=== PATIENT | female | born 1970 | race Caucasian/White ===

== ENCOUNTER 2018-10-03 08:35 | Inpatient (IN) | payer MEDICARE ==
[2018-10-03 09:10] VITALS: BMI 25.2
--- NOTE | 2018-10-03 09:55 | HP ---
CIWA Score Nausea/Vomitin Muscle Tremors: 1-None Visible, but [place] Anxiety: 4-Mod. Anxious/Guarded Agitation: 0-Normal Activity Paroxysmal Sweats: No Perspiration Orientation: 0-Oriented Tacttile Disturbances: 0-None Auditory Disturbances: 0-None Visual Disturbances: 0-None Headache: 5-Severe CIWA-Ar Total Score: 15 - Admission Criteria OASAS Guidelines: Admission for Medically Managed Detox: Requires at least one of the followin. CIWA greater than 12 2. Seizures within the past 24 hours 3. Delirium tremens within the past 24 hours 4. Hallucinations within the past 24 hours 5. Acute intervention needed for co occurring medical disorder 6. Acute intervention needed for co occurring psychiatric disorder 7. Severe withdrawal that cannot be handled at a lower level of care (continued vomiting, continued diarrhea, abnormal vital signs) requiring intravenous medication and/or fluids 8. Patient presents the following: CIWA greater than 12, Seizures, delirium tremens or hallucinations in the past 12 hours Admission Criteria Met: Admission criteria met Admission ROS S - HPI Chief Complaint: " not good " Allergies/Adverse Reactions: Allergies Allergy/AdvReac Type Severity Reaction Status Date / Time Fish Containing Products Allergy Severe Hives Verified 10/03/18 09:34 lactose AdvReac Intermediate Vomiting Verified 10/03/18 09:34 NKDA Allergy Uncoded 10/03/18 09:34 lactose intolerance AdvReac Intermediate Vomiting Uncoded 10/03/18 09:34 History of Present Illness: pt here requesting detox from etoh use , most recent w/d seizure 1 mo ago went to [facility] , reports intermittent use since age 16 , latest use this morning , daily use 2 pints of vodka , starts drinking in the mornings , sometimes in the evenings, sometimes w/ nausea and vomiting if not drinking , prior detox at this facility 2016 . Longest sobriety 4 years w/ inpt and outpt program. Pt is very irritable during interview , monosyllabic answers to questions , states " I have answered these questions already " . Was at [facility] this morning , no d/c paperwork , states left it in the driver trainer's car who brought pt to this facility , states was given Librium today . tobacco : denies denies illicits PMHX : denies PShx : appy age 9 PSych : denies , denies Si / HI LMP 5 d ago , upt neg . Exam Limitations: Clinical Condition, Intoxication - Ebola screening Have you traveled outside of the country in the last 21 days: No Have you had contact with anyone from an Ebola affected area: No Have you been sick,other than usual withdrawal symptoms: No Do you have a fever: No - Review of Systems Constitutional: See HPI EENT: reports: See HPI, Other (contacts , denies dysphagia) Respiratory: reports: No Symptoms reported Cardiac: reports: No Symptoms Reported GI: reports: See HPI : reports: No Symptoms Reported Musculoskeletal: reports: No Symptoms Reported Integumentary: reports: No Symptoms Reported Neuro: reports: See HPI, Headache Endocrine: reports: No Symptoms Reported Psychiatric: reports: Orientated x3, Agitated, Anxious Patient History - Patient Medical History Hx Anemia: Yes Hx Asthma: No Hx Chronic Obstructive Pulmonary Disease (COPD): No Hx Cancer: No Hx Cardiac Disorders: No Hx Congestive Heart Failure: No Hx Hypertension: No Hx Hypercholesterolemia: No Hx Pacemaker: No HX Cerebrovascular Accident: No Hx Seizures: No Hx Dementia: No Hx Diabetes: No Hx Gastrointestinal Disorders: No Hx Liver Disease: No Hx Genitourinary Disorders: No Hx Sexually Transmitted Disorders: Yes (chlamydia) Hx Renal Disease (ESRD): No Hx Thyroid Disease: No Hx Human Immunodeficiency Virus (HIV): No (NEGATIVE HX-2012) Hx Hepatitis C: No Hx Depression: No Hx Suicide Attempt: No Hx Bipolar Disorder: No Hx Schizophrenia: No - Patient Surgical History Past Surgical History: Yes Hx Neurologic Surgery: No Hx Cataract Extraction: No Hx Cardiac Surgery: No Hx Lung Surgery: No Hx Breast Surgery: No Hx Breast Biopsy: No Hx Abdominal Surgery: No Hx Appendectomy: Yes (at age 9) Hx Cholecystectomy: No Hx Genitourinary Surgery: No Hx Section: No Hx Orthopedic Surgery: No Anesthesia Reaction: No - PPD History Previous Implant?: Yes Documented Results: Negative w/proof Implanted On Prior R Admission?: Yes Date: 04/03/15 Results: 0 mm - Reproductive History Last Menstrual Period: 09/29/18 Patient : No - Smoking Cessation Smoking history: Never smoked Have you smoked in the past 12 months: No Hx Chewing Tobacco Use: No Initiated information on smoking cessation: No - Substances Abused Alcohol-vodka Route: Oral Frequency: Daily Amount used: 2 pts. Age of first use: 16 Date of Last Use: 10/03/18 Family Disease History - Family Disease History Family Disease History: Respiratory: Mother (ALCOHOL,EMPHYSEMA; dec), Other: Father (ALCOHOLIC IN REMISSION), Mother Admission Physical Exam S - Vital Signs Vital Signs: Vital Signs - 24 hr 10/03/18 09:07 Temperature 98.3 F Pulse Rate 95 H Respiratory 17 Rate Blood Pressure 123/77 - Physical General Appearance: Yes: Mild Distress, Irritable, Anxious HEENTM: Yes: EOMI, Hearing grossly Normal, Normocephalic, Normal Voice Respiratory: Yes: Chest Non-Tender, Lungs Clear, Normal Breath Sounds Neck: Yes: No masses,lesions,Nodules, Trachea in good position Cardiology: Yes: Regular Rhythm, Regular Rate, S1, S2 Abdominal: Yes: Normal Bowel Sounds, Non Tender Back: Yes: Normal Inspection Musculoskeletal: Yes: full range of Motion, Gait Steady Extremities: Yes: Normal Capillary Refill, Non-Tender Neurological: Yes: Motor Strength 5/5 Integumentary: Yes: Normal Color, Warm, Track [place] - Diagnostic (1) Alcohol dependence with withdrawal Current Visit: Yes Status: Acute Qualifiers: Complication of substance-induced condition: uncomplicated Qualified Code(s ): F10.230 - Alcohol dependence with withdrawal, uncomplicated (2) Alcohol intoxication Current Visit: Yes Status: Acute Qualifiers: Complication of substance-induced condition: uncomplicated Qualified Code(s ): F10.920 - Alcohol use, unspecified with intoxication, uncomplicated S Breath Alcohol Content Breath Alcohol Content: 0.182 Urine Pregancy Test - Result Urine Test Results: Negative - NO Line Present Urine Drug Screen - Results Drug Screen Negative: No Urine Drug Screen Results: BZO-Benzodiazepines Inpatient Rehab Admission - Rehab Decision to Admit Inpatient rehab admission?: No
[2018-10-03] MEDS ORDERED: IBUPROFEN 400 MG TABLET (FP) PO PRN (10:32)
[2018-10-03] MEDS ORDERED: MENTHOL/PHENOL 1 EACH UD MM PRN (10:32)
[2018-10-03] MEDS ORDERED: MAGNESIUM CITRATE 300 ML BOTTLE PO PRN (10:32)
[2018-10-03] MEDS ORDERED: MAGNESIUM HYDROX 2400MG/30ML ORAL SUSPENSION 30 ML CUP PO PRN (10:32)
[2018-10-03] MEDS ORDERED: MAG HYDROX/AL HYDROX/SIMETH 30 ML UNIT-DOSE CUP PO PRN (10:32)
[2018-10-03] MEDS ORDERED: ACETAMINOPHEN 325 MG TABLET (FP) PO PRN (10:32)
[2018-10-03] MEDS ORDERED: chlordiazePOXIDE HCL 25 MG CAPSULE PO PRN (10:32)
[2018-10-03] MEDS: chlordiazePOXIDE HCL 25 MG CAPSULE PO SCH ×2 (17:36→22:08)
[2018-10-03] MEDS: THIAMINE HCL 100 MG TABLET (FP) PO SCH (22:08)
[2018-10-03] MEDS: MELATONIN 5 MG TABLETS PO PRN (22:08)
[2018-10-04] MEDS: chlordiazePOXIDE HCL 25 MG CAPSULE PO SCH ×4 (06:26→22:22)
[2018-10-04 10:16] LABS: HEMATOCRIT 40.4 % (32.4-45.2); HEMOGLOBIN 13.5 GM/dL (10.7-15.3); MCH 30.6 pg (25.7-33.7); MCHC 33.4 g/dl (32.0-36.0); MEAN CELL VOLUME 91.7 fl (80-96); MEAN PLT VOLUME 9.6 fl (7.5-11.1); PLATELET COUNT 327 K/MM3 (134-434); RDW 18.5 % (11.6-15.6); WHITE BLOOD COUNT 6.2 K/mm3 (4.0-10.0)
[2018-10-04] MEDS: PRENATAL VITAMINS W/ FOLIC ACID TABLET (FP) PO SCH (10:34)
[2018-10-04 11:44] LABS: ALBUMIN 4.2 g/dl (3.4-5.0); ALK PHOS 63 U/L (45-117); ANION GAP 13 MMOL/L (8-16); BILIRUBIN,TOTAL 0.7 mg/dL (0.2-1); BLOOD UREA NITROGEN 7 mg/dL (7-18); CALCIUM 8.5 mg/dL (8.5-10.1); CHLORIDE 101 mmol/L (98-107); CO2 28 mmol/L (21-32); CREATININE 0.7 mg/dL (0.55-1.3); GLUCOSE,RANDOM 90 mg/dL (74-106); POTASSIUM 3.9 mmol/L (3.5-5.1); SGOT/AST 41 U/L (15-37); SGPT/ALT 23 U/L (13-61); SODIUM 142 mmol/L (136-145)
--- NOTE | 2018-10-04 13:45 | PN ---
S CIWA - CIWA Score Nausea/Vomitin-Mild Nausea/No Vomiting Muscle Tremors: 4-Moderate,w/Arms Extend Anxiety: 4-Mod. Anxious/Guarded Agitation: 4-Moderately Restless Paroxysmal Sweats: 3 Orientation: 0-Oriented Tacttile Disturbances: 0-None Auditory Disturbances: 0-None Visual Disturbances: 0-None Headache: 0-None Present CIWA-Ar Total Score: 16 BHS Progress Note (SOAP) Subjective: nausea sweats shakes interrupted sleep body aches Objective: 10/04/18 13:44 Vital Signs Temperature 98.2 F 10/04/18 13:37 Pulse Rate 84 10/04/18 13:37 Respiratory Rate 16 10/04/18 13:37 Blood Pressure 138/93 10/04/18 13:37 O2 Sat by Pulse Oximetry (%) Laboratory Tests 10/03/18 10/04/18 10/04/18 10:30 06:00 06:00 WBC 6.2 RBC 4.40 Hgb 13.5 Hct 40.4 MCV 91.7 MCH 30.6 MCHC 33.4 RDW 18.5 H Plt Count 327 MPV 9.6 D Sodium 142 Potassium 3.9 Chloride 101 Carbon Dioxide 28 Anion Gap 13 BUN 7 Creatinine 0.7 Creat Clearance w eGFR > 60 Random Glucose 90 Calcium 8.5 Total Bilirubin 0.7 AST 41 H ALT 23 Alkaline Phosphatase 63 Total Protein 8.0 Albumin 4.2 RPR Titer HIV 1&2 Antibody Screen Negative HIV P24 Antigen Negative 10/04/18 06:00 WBC RBC Hgb Hct MCV MCH MCHC RDW Plt Count MPV Sodium Potassium Chloride Carbon Dioxide Anion Gap BUN Creatinine Creat Clearance w eGFR Random Glucose Calcium Total Bilirubin AST ALT Alkaline Phosphatase Total Protein Albumin RPR Titer Nonreactive HIV 1&2 Antibody Screen HIV P24 Antigen aaox3 ambulating no acute distress Assessment: 10/04/18 13:44 withdrawal sx Plan: continue detox increase fluids
[2018-10-04] MEDS: MELATONIN 5 MG TABLETS PO PRN (22:22)
[2018-10-04] MEDS: THIAMINE HCL 100 MG TABLET (FP) PO SCH (22:22)
[2018-10-05] MEDS: chlordiazePOXIDE HCL 25 MG CAPSULE PO SCH ×2 (05:21→10:11)
[2018-10-05] MEDS: PRENATAL VITAMINS W/ FOLIC ACID TABLET (FP) PO SCH (10:11)
[2018-10-05 10:14] VITALS: BP 95/68; PULSE 77; TEMP 99.1
--- NOTE | 2018-10-05 12:21 | PN ---
S CIWA - CIWA Score Nausea/Vomitin-No Nausea/No Vomiting Muscle Tremors: 3 Anxiety: 2 Agitation: 2 Paroxysmal Sweats: 2 Orientation: 0-Oriented Tacttile Disturbances: 0-None Auditory Disturbances: 0-None Visual Disturbances: 0-None Headache: 0-None Present CIWA-Ar Total Score: 9 BHS Progress Note (SOAP) Subjective: irritable sweats Objective: 10/05/18 12:20 Vital Signs Temperature 99.1 F 10/05/18 10:00 Pulse Rate 77 10/05/18 10:00 Respiratory Rate 16 10/05/18 10:00 Blood Pressure 95/68 10/05/18 10:00 O2 Sat by Pulse Oximetry (%) Laboratory Tests 10/03/18 10/04/18 10/04/18 10:30 06:00 06:00 WBC 6.2 RBC 4.40 Hgb 13.5 Hct 40.4 MCV 91.7 MCH 30.6 MCHC 33.4 RDW 18.5 H Plt Count 327 MPV 9.6 D Sodium 142 Potassium 3.9 Chloride 101 Carbon Dioxide 28 Anion Gap 13 BUN 7 Creatinine 0.7 Creat Clearance w eGFR > 60 Random Glucose 90 Calcium 8.5 Total Bilirubin 0.7 AST 41 H ALT 23 Alkaline Phosphatase 63 Total Protein 8.0 Albumin 4.2 RPR Titer HIV 1&2 Antibody Screen Negative HIV P24 Antigen Negative 10/04/18 06:00 WBC RBC Hgb Hct MCV MCH MCHC RDW Plt Count MPV Sodium Potassium Chloride Carbon Dioxide Anion Gap BUN Creatinine Creat Clearance w eGFR Random Glucose Calcium Total Bilirubin AST ALT Alkaline Phosphatase Total Protein Albumin RPR Titer Nonreactive HIV 1&2 Antibody Screen HIV P24 Antigen aaox3 ambulating no acute distress Assessment: 10/05/18 12:20 withdrawal sx Plan: continue detox increase fluids
--- NOTE | 2018-10-05 14:15 | PN ---
[facility] Progress Note Note: pt states she wants to go home. pt states she has to go to work tomorrow. pt was re-assessed and has no s/s of withdrawals. No s/s no N/V. pt was also told he has not completed her detox and will need to sign out AMA. pt is aware and insisted to leave. Pt is AAOx3, ambulating. pt was escorted off the unit.
--- NOTE | 2018-10-05 14:15 | DS ---
[facility] Detox Discharge Summary Admission Date: 10/03/18 - History Present History: Alcohol Dependence - Physical Exam Results Vital Signs: Vital Signs Temperature 99.1 F 10/05/18 10:00 Pulse Rate 77 10/05/18 10:00 Respiratory Rate 16 10/05/18 10:00 Blood Pressure 95/68 10/05/18 10:00 O2 Sat by Pulse Oximetry (%) - Treatment Hospital Course: Responded well, Discharged Condition Good - Medication Discharge Medications: Ambulatory Orders NK [No Known Home Medication] 10/03/18 - AMA Did Patient Leave Against Medical Advice: Yes (going home.)
[2018-10-05] MEDS ORDERED: chlordiazePOXIDE 5 MG CAPSULE PO SCH (17:00)
[2018-10-06] MEDS ORDERED: chlordiazePOXIDE HCL 10 MG CAPSULE PO SCH (17:00)
== END 2018-10-05 14:18 | disposition left against medical advice (07) | DRG 770 ==
LOC: YASAS 08:35 → Y6N 11:14
PROVIDERS: ADMIT Surgery; ATTEND Surgery
PROC: HZ2ZZZZ Detoxification Services for Substance Abuse Treatment (ICD-10-PCS; principal; 2018-10-03)
DX: F10.230 Alcohol dependence with withdrawal, uncomplicated (principal); Z20.2 Contact with and (suspected) exposure to infections with a predominantly sexual mode of transmission; E73.9 Lactose intolerance, unspecified; Z86.2 Personal history of diseases of the blood and blood-forming organs and certain disorders involving the immune mechanism; Z91.013 Allergy to seafood
CPT/HCPCS: 36415; 80053; 85027; 86593; 87389

== ENCOUNTER 2019-01-14 13:23 | Inpatient (IN) | payer SELFPAY ==
--- NOTE | 2019-01-14 13:35 | PN ---
[facility] Progress Note Note: pt intoxicated, BAC0.417 BP 121/75P 87 T 98.1 , unable to answer any questions , minimally arousable to verbal stimuli, unable to ambulate . has D /C paperwork from [facility] dated 01/14/19 11 am dx " alcohol intoxication " . Pt sent to [facility] ED for further stabilization , report to Dr Lewis. .
--- NOTE | 2019-01-14 23:36 | HP ---
CIWA Score Nausea/Vomitin Muscle Tremors: 1-None Visible, but [place] Anxiety: 4-Mod. Anxious/Guarded Agitation: 4-Moderately Restless Paroxysmal Sweats: 3 Orientation: 0-Oriented Tacttile Disturbances: 0-None Auditory Disturbances: 0-None Visual Disturbances: 1-Very Mild Sensitivity Headache: 4-Moderately Severe CIWA-Ar Total Score: 20 - Admission Criteria OASAS Guidelines: Admission for Medically Managed Detox: Requires at least one of the followin. CIWA greater than 12 2. Seizures within the past 24 hours 3. Delirium tremens within the past 24 hours 4. Hallucinations within the past 24 hours 5. Acute intervention needed for co occurring medical disorder 6. Acute intervention needed for co occurring psychiatric disorder 7. Severe withdrawal that cannot be handled at a lower level of care (continued vomiting, continued diarrhea, abnormal vital signs) requiring intravenous medication and/or fluids 8. Patient presents the following: CIWA greater than 12, Severe withdrawal requiring intravenous medication and/or fluids (retuurns from [facility] after being stabilized and cleared tp return) Admission Criteria Met: Admission criteria met Admission ROS [facility] Chief Complaint: WITHDRAWAL SX'S Allergies/Adverse Reactions: Allergies Allergy/AdvReac Type Severity Reaction Status Date / Time Fish Containing Products Allergy Severe Hives Verified 01/14/19 14:37 lactose AdvReac Intermediate Vomiting Verified 01/14/19 14:37 lactose intolerance AdvReac Intermediate Vomiting Uncoded 01/14/19 14:37 History of Present Illness: 48 Y.O. FEMALE WITH ALCOHOLISM HERE FOR DETOX. CLIENT RETURNS FROM [facility] AFTER BEING SENT THERE EARLIER FOR INTOXICATION. SHE NOW RETURNS AFTER BEING STABILIZED WITH IVF/BANNA BAGS AND REFERRED. PREVIOUS TO THAT SHE WAS AT [facility] FOR INTOXICATION. BUT DRANK BEFORE COMING HERE AFTER DC. . PRESENTS NOW AWAKE/ALERT WITH C/O OF WITHDRAWAL SX'S. CIWA 20. SHE IN KNOWN TO THIS PROGRAM . LAST DC 09/2018. REPORTS LONGEST CLEAN TIME IN THE PAST 5 YEARS 6 MONTHS. RELAPSING 03/2018. + HX/O WITHDRAWAL SZ. LAST EPISODE 09/2018. + FREQ [employer]. DENIES SI/HI/ AVH. DOMICILED, EMPLOYED. DENIES LEGALS. Exam Limitations: Intoxication (UNSTEADY GAIT) - Ebola screening Have you traveled outside of the country in the last 21 days: No (N) Have you had contact with anyone from an Ebola affected area: No Do you have a fever: No - Review of Systems Constitutional: Chills, Loss of Appetite, Night Sweats, Changes in sleep EENT: reports: No Symptoms Reported Respiratory: reports: No Symptoms reported Cardiac: reports: No Symptoms Reported GI: reports: Nausea, Poor Appetite, Poor Fluid Intake, Vomiting : reports: No Symptoms Reported Musculoskeletal: reports: No Symptoms Reported Integumentary: reports: Sweating Neuro: reports: Headache, Seizure, Tremors, Unsteady Gait Endocrine: reports: No Symptoms Reported Hematology: reports: Anemia (HX/O) Psychiatric: reports: Orientated x3, Agitated (IRRITABLE), Anxious, Depressed Other Systems: Reviewed and Negative Patient History - Patient Medical History Hx Anemia: Yes Hx Asthma: No Hx Chronic Obstructive Pulmonary Disease (COPD): No Hx Cancer: No Hx Cardiac Disorders: No Hx Congestive Heart Failure: No Hx Hypertension: Yes (NO MED MGMT ? ALCOHOL INDUCED) Hx Hypercholesterolemia: No Hx Pacemaker: No HX Cerebrovascular Accident: No Hx Seizures: No Hx Dementia: No Hx Diabetes: No Hx Gastrointestinal Disorders: No Hx Liver Disease: No Hx Genitourinary Disorders: No Hx Sexually Transmitted Disorders: Yes (chlamydia) Hx Renal Disease (ESRD): No Hx Thyroid Disease: No Hx Human Immunodeficiency Virus (HIV): No (NEGATIVE HX-2012) Hx Hepatitis C: No Hx Depression: No Hx Suicide Attempt: No Hx Bipolar Disorder: No Hx Schizophrenia: No - Patient Surgical History Past Surgical History: Yes Hx Neurologic Surgery: No Hx Cataract Extraction: No Hx Cardiac Surgery: No Hx Lung Surgery: No Hx Breast Surgery: No Hx Breast Biopsy: No Hx Abdominal Surgery: No Hx Appendectomy: Yes (at age 9) Hx Cholecystectomy: No Hx Genitourinary Surgery: No Hx Section: No Hx Orthopedic Surgery: No Anesthesia Reaction: No - PPD History Previous Implant?: Yes Documented Results: Negative w/proof Implanted On Prior [facility] Admission?: Yes Date: 10/05/18 Results: 0 mm PPD to be Administered?: No - Reproductive History Patient is a Female of Child Bearing Age (11 -55 yrs old): Yes Last Menstrual Period: 01/03/19 LMP comment: REG Patient : No (NEG CG) - Smoking Cessation Smoking history: Never smoked Have you smoked in the past 12 months: No Hx Chewing Tobacco Use: No Initiated information on smoking cessation: No - Substance & Tx. History Hx Alcohol Use: Yes Hx Substance Use: Yes Substance Use Type: Alcohol Hx Substance Use Treatment: Yes ([facility]) - Substances abused Alcohol Substance route: Oral Frequency: Daily Amount used: 1 pint of vodka Age of first use: 16 Date of last use: 01/14/19 Family Disease History - Family Disease History Family Disease History: Respiratory: Mother (ALCOHOL,EMPHYSEMA; dec), Other: Father (ALCOHOLIC IN REMISSION), Mother Admission Physical Exam [facility] - Physical General Appearance: Yes: Moderate Distress, Alcohol on Breath, Intoxicated, Tremorous, Irritable, Sweating, Anxious HEENTM: Yes: EOMI, Normocephalic, Normal Voice, ALICIA, Pharynx Normal Respiratory: Yes: Chest Non-Tender, Lungs Clear, Normal Breath Sounds, No Respiratory Distress, No Accessory Muscle Use Neck: Yes: No masses,lesions,Nodules, Supple, Trachea in good position Breast: Yes: Breast Exam Deferred Cardiology: Yes: Regular Rhythm, S1, S2, Tachycardia Abdominal: Yes: Non Tender, Decreased BS, Protuberent, Distended Genitourinary: Yes: Within Normal Limits Back: Yes: Other (SOFT TISSUE MASS TO LEFT SHOULDER) Musculoskeletal: Yes: full range of Motion, Other (UNSTEADY AGIT) Extremities: Yes: Normal Range of Motion, Non-Tender, Tremors Neurological: Yes: Fully Oriented, Alert, Motor Strength 5/5, Depressed Affect Integumentary: Yes: Dry, Warm Lymphatic: Yes: Within Normal Limits - Diagnostic (1) Alcohol dependence with withdrawal Current Visit: No Status: Acute Qualifiers: Complication of substance-induced condition: uncomplicated Qualified Code(s ): F10.230 - Alcohol dependence with withdrawal, uncomplicated (2) Alcohol intoxication Current Visit: No Status: Acute Qualifiers: Complication of substance-induced condition: with unspecified complication Qualified Code(s): F10.929 - Alcohol use, unspecified with intoxication, unspecified (3) Alcohol-induced mood disorder Current Visit: No Status: Acute (4) Seizure disorder Current Visit: No Status: Suspected Comment: with frequent blackouts. (5) Depressed affect Current Visit: Yes Status: Acute (6) Lipoma Current Visit: Yes Status: Acute Qualifiers: Lipoma location: other site Qualified Code(s): D17.79 - Benign lipomatous neoplasm of other sites Comment: LEFT UPPER BACK Cleared for Admission [facility] - Detox or Rehab S Level of Care: Medically Managed Detox Regimen/Protocol: Librium Claeared for Rehab Admission: No Inpatient Rehab Admission - Rehab Decision to Admit Inpatient rehab admission?: No
[2019-01-14] MEDS ORDERED: MAG HYDROX/AL HYDROX/SIMETH 30 ML UNIT-DOSE CUP PO PRN (23:37)
[2019-01-14] MEDS ORDERED: MAGNESIUM CITRATE 300 ML BOTTLE PO PRN (23:37)
[2019-01-14] MEDS ORDERED: guaiFENesin 200 MG/10 ML 10 ML UNIT-DOSE CUPS PO PRN (23:37)
[2019-01-14] MEDS ORDERED: DICYCLOMINE HCL 10 MG CAPSULE PO PRN (23:37)
[2019-01-14] MEDS ORDERED: P-EPHED 60MG/TRIPROLIDI 2.5MG TABLET PO PRN (23:37)
[2019-01-14] MEDS ORDERED: BISMUTH SUBSALICYLATE 524 MG/30 ML UD PO PRN (23:37)
[2019-01-14] MEDS ORDERED: chlordiazePOXIDE HCL 25 MG CAPSULE PO PRN (23:37)
[2019-01-14] MEDS ORDERED: MAGNESIUM HYDROX 2400MG/30ML ORAL SUSPENSION 30 ML CUP PO PRN (23:37)
[2019-01-14] MEDS ORDERED: IBUPROFEN 400 MG TABLET (FP) PO PRN (23:37)
[2019-01-14] MEDS ORDERED: METHOCARBAMOL 500 MG TABLET PO PRN (23:37)
[2019-01-14] MEDS ORDERED: ONDANSETRON *ODT* 4 MG TABLET SL PRN (23:37)
[2019-01-14] MEDS ORDERED: ACETAMINOPHEN 325 MG TABLET (FP) PO PRN ×2 (23:37)
[2019-01-14] MEDS ORDERED: hydrOXYzine PAMOATE 25 MG CAPSULE (FP) PO PRN (23:37)
[2019-01-14] MEDS ORDERED: MENTHOL/PHENOL 1 EACH UD MM PRN (23:37)
[2019-01-14 23:43] VITALS: BMI 25.7
[2019-01-15] MEDS: MELATONIN 5 MG TABLETS PO PRN ×2 (00:38→22:46)
[2019-01-15] MEDS: chlordiazePOXIDE HCL 25 MG CAPSULE PO SCH ×5 (00:54→22:42)
[2019-01-15 10:26] LABS: BILIRUBIN,TOTAL 0.2 mg/dL (0.2-1); BLOOD UREA NITROGEN 4.7 mg/dL (7-18); CALCIUM 7.5 mg/dL (8.5-10.1); CREATININE 0.5 mg/dL (0.55-1.3); POTASSIUM 3.5 mmol/L (3.5-5.1)
[2019-01-15] MEDS: PRENATAL VITAMINS W/ FOLIC ACID TABLET (FP) PO SCH (10:30)
[2019-01-15 10:36] LABS: HEMATOCRIT 28.7 % (32.4-45.2); HEMOGLOBIN 9.4 GM/dL (10.7-15.3); MCH 31.6 pg (25.7-33.7); MCHC 32.8 g/dl (32.0-36.0); MEAN CELL VOLUME 96.3 fl (80-96); MEAN PLT VOLUME 7.6 fl (7.5-11.1); PLATELET COUNT 317 K/MM3 (134-434); RBC 2.98 M/mm3 (3.60-5.2); RDW 19.5 % (11.6-15.6); WHITE BLOOD COUNT 3.4 K/mm3 (4.0-10.0)
--- NOTE | 2019-01-15 11:32 | CONSULT ---
[facility] Psychiatric Consult - Data Date of interview: 01/15/19 Admission source: [facility] Identifying data: This is one of multiple admissions to [facility] for this 48 y/ o female self-referred for detoxification (alcohol). Interviewed at [address] [place] [address]. Patient is single, no dependents, domiciled and reportedly employed. Substance Abuse History: Discussed in this session. Patient endorses a long standing history of alcohol abuse, from age 16 to present, which escalated around age 24. Ms Ramirez admits to consuming 1 pint of vodka daily. Dropped out of fellowship. Details in current [facility] report as follows : Smoking history: Never smoked. Have you smoked in the past 12 months: No. Hx Chewing Tobacco Use: No. Initiated information on smoking cessation: No. - Substance & Tx. History. Hx Alcohol Use: Yes. Hx Substance Use: Yes. Substance Use Type: Alcohol. Hx Substance Use Treatment: Yes ([facility]). Substances abused. Alcohol. Substance route: Oral. Frequency: Daily. Amount used: 1 pint of vodka. Age of first use: 16. Date of last use: 01/14/19 Medical History: Medical profile is consistent with anemia, hypertension ( withdrawal-induced), GERD, past treatment for chlamydia + genital herpes + gonorrhea, antecedent of alcohol withdrawal-related seizures and a distant history of appendectomy (age 9). Psychiatric History: Patient denies history of psychiatric hspitalizations. She , however, reports prior contact with Psychiatry around 2011 when she got diagnosed with MDD and given a trial of escitalopram. Patient admits to chronic non-adherence to OPD psychiatric care. Ms Ramirez indicates, in this interview, that she currently sees a psychiatrist at the [facility] [place] in [facility] for management of anxiety + insomnia. She is prescribed seroquel 50 mg/hs. Patient denies history of suicide attempts. Physical/Sexual Abuse/Trauma History: Not discussed. Patient declines. Additional Comment: No toxicology available for review. Mental Status Exam - Mental Status Exam Alert and Oriented to: Time, Place, Person Cognitive Function: Good Patient Appearance: Well Groomed Mood: Withdrawn, Hopeful Affect: Appropriate, Normal Range Patient Behavior: Fatigued, Appropriate, Cooperative Speech Pattern: Clear, Appropriate Voice Loudness: Normal Thought Process: Intact, Goal Oriented Thought Disorder: Not Present Hallucinations: Denies Suicidal Ideation: Denies Homicidal Ideation: Denies Insight/Judgement: Fair Sleep: Poorly, Difficulty falling asleep Appetite: Good Gait/Station: Normal Psychiatric Findings - Problem List ([place] 1, 2,3) (1) Alcohol dependence with withdrawal Current Visit: Yes Status: Acute Qualifiers: Complication of substance-induced condition: uncomplicated Qualified Code(s ): F10.230 - Alcohol dependence with withdrawal, uncomplicated (2) Alcohol-induced mood disorder Current Visit: Yes Status: Suspected (3) Insomnia Current Visit: Yes Status: Chronic - Initial Treatment Plan Initial Treatment Plan: Records at [facility] : reviewed. Psychoeducation. Detoxification in progress. Sleep hygiene. Motivational counseling for sobriety. Relapse prevention (MAT) : discussed in this session. AA meetings. Support. Groups. Seroquel 50 mg po hs. Side effects/benefits discussed with patient (which includes potential for metabolic syndrome, oversedation, abnormal involuntary movements and falls). Ms Ramirez gave verbal consent, to this board writer, for this plan of care. Observation.
[2019-01-15] MEDS: HYDROCORTISONE 0.5% TOPICAL CREAM 30 GM TUBE TP SCH ×2 (15:56→22:42)
--- NOTE | 2019-01-15 16:32 | PN ---
[facility] CIWA - CIWA Score Nausea/Vomitin Muscle Tremors: None Anxiety: 4-Mod. Anxious/Guarded Agitation: 2 Paroxysmal Sweats: No Perspiration Orientation: 0-Oriented Tacttile Disturbances: 3-Moderate Itch/Numb/Burn Auditory Disturbances: 0-None Visual Disturbances: 2-Mild Sensitivity Headache: 0-None Present CIWA-Ar Total Score: 13 S Progress Note (SOAP) Subjective: Interrupted Sleep, Nausea, H/A, Anxious. Objective: PATIENT A & O X 3, OBSERVED AMBULATING ON UNIT UNASSISTED. IN NO ACUTE DISTRESS. 01/15/19 16:28 Vital Signs Temperature 98.7 F 01/15/19 13:26 Pulse Rate 80 01/15/19 16:00 Respiratory Rate 18 01/15/19 16:00 Blood Pressure 160/104 H 01/15/19 13:26 O2 Sat by Pulse Oximetry (%) Laboratory Tests 01/15/19 01/15/19 01/15/19 00:03 07:30 07:30 WBC 3.4 L RBC 2.98 L Hgb 9.4 L Hct 28.7 L D MCV 96.3 H MCH 31.6 MCHC 32.8 RDW 19.5 H Plt Count 317 MPV 7.6 Sodium 147 H Potassium 3.5 Chloride 113 H Carbon Dioxide 25 Anion Gap 9 BUN 4.7 L Creatinine 0.5 L Est GFR (CKD-EPI)AfAm 134.52 Est GFR (CKD-EPI)NonAf 116.07 Random Glucose 68 L Calcium 7.5 L Total Bilirubin 0.2 AST 27 ALT 17 Alkaline Phosphatase 49 Total Protein 6.0 L Albumin 3.0 L POC Urine HCG, Qual Negative RPR Titer 01/15/19 07:30 WBC RBC Hgb Hct MCV MCH MCHC RDW Plt Count MPV Sodium Potassium Chloride Carbon Dioxide Anion Gap BUN Creatinine Est GFR (CKD-EPI)AfAm Est GFR (CKD-EPI)NonAf Random Glucose Calcium Total Bilirubin AST ALT Alkaline Phosphatase Total Protein Albumin POC Urine HCG, Qual RPR Titer Nonreactive LABS NOTED. Assessment: 01/15/19 16:30 WITHDRAWAL SYMPTOMS. HYPOCALCEMIA. LEUKOPENIA. ANEMIA. Plan: CONTINUE DETOX. INCREASE DAILY PO FLUID / WATER INTAKE. OSCAL, 500 MG PO BID FOR LOW ADMISSION CALCIUM LEVEL. PATIENT IS CURRENTLY RECEIVING DAILY MVI CONTAINING B VITAMINS AND IRON WHILE ADMITTED FOR DETOX. REPEAT CBC TOMOROW AM FOR ANEMIA AND LEUKOPENIA NOTED ON DETOX ADMISSION LABORATORY ASSESSMENT.
[2019-01-15] MEDS ORDERED: cloNIDine HCL 0.1 MG TABLET PO PRN (18:27)
[2019-01-15] MEDS ORDERED: THIAMINE HCL 100 MG TABLET (FP) PO SCH (22:00)
[2019-01-15] MEDS: CALCIUM 500MG/VIT-D 200 UNITS COMBO TABLET (FP) PO SCH (22:43)
[2019-01-16] MEDS: chlordiazePOXIDE HCL 25 MG CAPSULE PO SCH (05:43)
[2019-01-16 09:46] VITALS: BP 152/90; PULSE 87; TEMP 98.8
[2019-01-16] MEDS: HYDROCORTISONE 0.5% TOPICAL CREAM 30 GM TUBE TP SCH (11:10)
[2019-01-16] MEDS: CALCIUM 500MG/VIT-D 200 UNITS COMBO TABLET (FP) PO SCH (11:11)
[2019-01-16] MEDS: PRENATAL VITAMINS W/ FOLIC ACID TABLET (FP) PO SCH (11:11)
[2019-01-16 12:11] LABS: EPI CELLS 3.6 /HPF (0-5/HPF); HYALINE CASTS 1 /lpf (0-8); URINE APPEARANCE TURBID; URINE BACTERIA 268.1 /hpf (NEGATIVE); URINE BILIRUBIN NEGATIVE (NEGATIVE); URINE COLOR ORANGE; URINE GLUCOSE (UA) NEGATIVE (NEGATIVE); URINE KETONE TRACE (NEGATIVE); URINE LEUK ESTERASE TRACE (NEGATIVE); URINE NITRITE NEGATIVE (NEGATIVE); URINE PROTEIN TRACE (NEGATIVE); URINE RBC 0 /hpf (0-4); URINE UROBILINOGEN 0.2 mg/dL (0.2-1.0); URINE WBC 5 /hpf (0-5)
--- NOTE | 2019-01-16 14:29 | PN ---
S CIWA - CIWA Score Nausea/Vomitin Muscle Tremors: None Anxiety: 2 Agitation: 1-Slight > Activity Paroxysmal Sweats: No Perspiration Orientation: 0-Oriented Tacttile Disturbances: 2-Mild Itch/Numbness/Burn Auditory Disturbances: 0-None Visual Disturbances: 2-Mild Sensitivity Headache: 2-Mild CIWA-Ar Total Score: 12 BHS COWS - Scale Resting Pulse: 1= [place] 81-100 Sweatin= No chills or Flushing Restless Observation: 1= Difficult to Sit Still Pupil Size: 0= Normal to Room Light Bone or Joint Aches: 0= None Runny Nose/ Eye Tearin= None GI Upset > 30mins: 2= Nausea/Diarrhea Tremor Observation of Outstretched Hands: 0= None Yawning Observation: 1= 1-2x During Session Anxiety or Irritability: 2=Irritable/Anxious Goose Flesh Skin: 3=Piloerection COWS Score: 10 BHS Progress Note (SOAP) Subjective: Nausea, Interrupted Sleep, H/A, Anxious. Objective: PATIENT A & O X 3, OBSERVED AMBULATING ON UNIT UNASSISTED. IN NO ACUTE DISTRESS. 01/16/19 14:30 Vital Signs Temperature 98.8 F 01/16/19 09:45 Pulse Rate 87 01/16/19 09:45 Respiratory Rate 18 01/16/19 09:45 Blood Pressure 152/90 01/16/19 09:45 O2 Sat by Pulse Oximetry (%) Laboratory Tests 01/15/19 01/15/19 01/15/19 00:03 07:30 07:30 WBC 3.4 L RBC 2.98 L Hgb 9.4 L Hct 28.7 L D MCV 96.3 H MCH 31.6 MCHC 32.8 RDW 19.5 H Plt Count 317 MPV 7.6 Sodium 147 H Potassium 3.5 Chloride 113 H Carbon Dioxide 25 Anion Gap 9 BUN 4.7 L Creatinine 0.5 L Est GFR (CKD-EPI)AfAm 134.52 Est GFR (CKD-EPI)NonAf 116.07 Random Glucose 68 L Calcium 7.5 L Total Bilirubin 0.2 AST 27 ALT 17 Alkaline Phosphatase 49 Total Protein 6.0 L Albumin 3.0 L Urine Color Urine Appearance Urine pH Ur Specific [place] Urine Protein Urine Glucose (UA) Urine Ketones Urine Blood Urine Nitrite Urine Bilirubin Urine Urobilinogen Ur Leukocyte Esterase Urine WBC (Auto) Urine RBC (Auto) Urine Casts (Auto) U Pathogenic Cast Auto U Epithel Cells (Auto) U Sm Round Cell (Auto) Urine Crystals (Auto) Urine Bacteria (Auto) POC Urine HCG, Qual Negative RPR Titer 01/15/19 01/16/19 07:30 10:15 WBC RBC Hgb Hct MCV MCH MCHC RDW Plt Count MPV Sodium Potassium Chloride Carbon Dioxide Anion Gap BUN Creatinine Est GFR (CKD-EPI)AfAm Est GFR (CKD-EPI)NonAf Random Glucose Calcium Total Bilirubin AST ALT Alkaline Phosphatase Total Protein Albumin Urine Color [place] Urine Appearance Turbid Urine pH 6.0 Ur Specific [place] 1.027 Urine Protein Trace Urine Glucose (UA) Negative Urine Ketones Trace H Urine Blood Negative Urine Nitrite Negative Urine Bilirubin Negative Urine Urobilinogen 0.2 Ur Leukocyte Esterase Trace Urine WBC (Auto) 5 Urine RBC (Auto) 0 Urine Casts (Auto) 1 U Pathogenic Cast Auto No Result Required. U Epithel Cells (Auto) 3.6 U Sm Round Cell (Auto) No Result Required. Urine Crystals (Auto) No Result Required. Urine Bacteria (Auto) 268.1 POC Urine HCG, Qual RPR Titer Nonreactive LABS NOTED. Assessment: 01/16/19 14:30 WITHDRAWAL SYMPTOMS. HYPOCALCEMIA. ANEMIA (PATIENT REPORTS HISTORY OF ANEMIA). LEUKOPENIA. Plan: CONTINUE DETOX. CONTINUE OSCAL BID.
--- NOTE | 2019-01-16 14:39 | DS ---
[facility] Detox Discharge Summary Admission Date: 01/14/19 Discharge Date: 01/16/19 - History Present History: Alcohol Dependence Additional Comments: PATIENT REPORTS THAT SHE HAS PERSONAL ISSUES TO ATTEND TO AND THAT SHE DOES NOT WISH TO REMAIN TO COMPLETE DETOX REGIMEN. RISKS OF LEAVING DETOX UNIT AGAINST MEDICAL ADVICE AND PRIOR TO COMPLETION OF DETOX REGIMEN EXPLAINED TO PATIENT. PATIENT ADVISED TO GO IMMEDIATELY TO NEAREST ER SHOULD ANY INTOLERABLE WITHDRAWAL / DETOX SYMPTOMS DEVELOP AT ANY TIME. PATIENT ADVISED TO FOLLOW-UP WITH FILM AND VIDEO GRAPHICS DESIGNER SOON POSSIBLE FOR GENERAL MEDICAL ASSESSMENT AND FOR ANEMIA, LEUKOPENIA, AND FOR HYPOCALCEMIA NOTED ON DETOX ADMISSION LABORATORY ASSESSMENT. PATIENT VERBALIZED UNDERSTANDING OF ALL INFORMATION / RECOMMENDATIONS PRESENTED TO HER PRIOR TO DEPARTURE FROM DETOX UNIT. COPIES OF RESULTS OF ALL LABS DRAWN WHILE ADMITTED FOR DETOX GIVEN TO PATIENT AT TIME OF DISCHARGE FROM DETOX UNIT. PATIENT LEFT DETOX UNIT IN STABLE MEDICAL CONDITION. Pertinent Past History: History of Seizure Disorder, History Of Anemia, HTN, History Of Lipoma, Leukopenia, Hypocalcemia, Insomnia. - Physical Exam Results Vital Signs: Vital Signs Temperature 98.8 F 01/16/19 09:45 Pulse Rate 87 01/16/19 09:45 Respiratory Rate 18 01/16/19 09:45 Blood Pressure 152/90 01/16/19 09:45 O2 Sat by Pulse Oximetry (%) Pertinent Admission Physical Exam Findings: WITHDRAWAL SYMPTOMS. Laboratory Tests 01/15/19 01/15/19 01/15/19 00:03 07:30 07:30 WBC 3.4 L RBC 2.98 L Hgb 9.4 L Hct 28.7 L D MCV 96.3 H MCH 31.6 MCHC 32.8 RDW 19.5 H Plt Count 317 MPV 7.6 Sodium 147 H Potassium 3.5 Chloride 113 H Carbon Dioxide 25 Anion Gap 9 BUN 4.7 L Creatinine 0.5 L Est GFR (CKD-EPI)AfAm 134.52 Est GFR (CKD-EPI)NonAf 116.07 Random Glucose 68 L Calcium 7.5 L Total Bilirubin 0.2 AST 27 ALT 17 Alkaline Phosphatase 49 Total Protein 6.0 L Albumin 3.0 L Urine Color Urine Appearance Urine pH Ur Specific [place] Urine Protein Urine Glucose (UA) Urine Ketones Urine Blood Urine Nitrite Urine Bilirubin Urine Urobilinogen Ur Leukocyte Esterase Urine WBC (Auto) Urine RBC (Auto) Urine Casts (Auto) U Pathogenic Cast Auto U Epithel Cells (Auto) U Sm Round Cell (Auto) Urine Crystals (Auto) Urine Bacteria (Auto) POC Urine HCG, Qual Negative RPR Titer 01/15/19 01/16/19 07:30 10:15 WBC RBC Hgb Hct MCV MCH MCHC RDW Plt Count MPV Sodium Potassium Chloride Carbon Dioxide Anion Gap BUN Creatinine Est GFR (CKD-EPI)AfAm Est GFR (CKD-EPI)NonAf Random Glucose Calcium Total Bilirubin AST ALT Alkaline Phosphatase Total Protein Albumin Urine Color [place] Urine Appearance Turbid Urine pH 6.0 Ur Specific [place] 1.027 Urine Protein Trace Urine Glucose (UA) Negative Urine Ketones Trace H Urine Blood Negative Urine Nitrite Negative Urine Bilirubin Negative Urine Urobilinogen 0.2 Ur Leukocyte Esterase Trace Urine WBC (Auto) 5 Urine RBC (Auto) 0 Urine Casts (Auto) 1 U Pathogenic Cast Auto No Result Required. U Epithel Cells (Auto) 3.6 U Sm Round Cell (Auto) No Result Required. Urine Crystals (Auto) No Result Required. Urine Bacteria (Auto) 268.1 POC Urine HCG, Qual RPR Titer Nonreactive LABS NOTED. - Treatment Hospital Course: Detox Protocol Followed, Detoxed Safely - Medication Discharge Medications: Ambulatory Orders Quetiapine Fumarate [Seroquel -] 50 mg PO HS 01/14/19 - Diagnosis (1) Hypocalcemia Status: Acute (2) Anemia Status: Acute Qualifiers: Anemia type: unspecified type Qualified Code(s): D64.9 - Anemia, unspecified (3) Leukopenia Status: Acute Qualifiers: Leukopenia type: unspecified Qualified Code(s): D72.819 - Decreased white blood cell count, unspecified (4) Seizure disorder Status: Suspected (5) Alcohol intoxication Status: Acute Qualifiers: Complication of substance-induced condition: with unspecified complication Qualified Code(s): F10.929 - Alcohol use, unspecified with intoxication, unspecified (6) Alcohol-induced mood disorder Status: Suspected (7) Alcohol dependence with withdrawal Status: Acute Qualifiers: Complication of substance-induced condition: uncomplicated Qualified Code(s ): F10.230 - Alcohol dependence with withdrawal, uncomplicated (8) Depressed affect Status: Acute (9) Lipoma Status: Acute Qualifiers: Lipoma location: other site Qualified Code(s): D17.79 - Benign lipomatous neoplasm of other sites (10) Insomnia Status: Chronic Qualifiers: Insomnia type: unspecified Qualified Code(s): G47.00 - Insomnia, unspecified - AMA Did Patient Leave Against Medical Advice: Yes (PT HAD PERSONAL ISSUES AND DID NOT WISH TO REMIAN TO COMPLETE DETOX.)
[2019-01-16] MEDS ORDERED: chlordiazePOXIDE HCL 10 MG CAPSULE PO SCH (23:00)
[2019-01-16] MEDS ORDERED: chlordiazePOXIDE HCL 10 MG CAPSULE PO PRN (23:00)
[2019-01-17] MEDS ORDERED: chlordiazePOXIDE HCL 10 MG CAPSULE PO SCH (23:00)
== END 2019-01-16 11:15 | disposition left against medical advice (07) | DRG 770 ==
LOC: YASAS 13:23 → Y3N 23:45
PROVIDERS: ADMIT Surgery; ATTEND Surgery
PROC: HZ2ZZZZ Detoxification Services for Substance Abuse Treatment (ICD-10-PCS; principal; 2019-01-14)
DX: F10.230 Alcohol dependence with withdrawal, uncomplicated (principal); F10.220 Alcohol dependence with intoxication, uncomplicated; F10.24 Alcohol dependence with alcohol-induced mood disorder; D72.819 Decreased white blood cell count, unspecified; D69.6 Thrombocytopenia, unspecified; D17.79 Benign lipomatous neoplasm of other sites; E83.51 Hypocalcemia; G47.00 Insomnia, unspecified; I10 Essential (primary) hypertension; R45.89 Other symptoms and signs involving emotional state; Z86.19 Personal history of other infectious and parasitic diseases; Z86.69 Personal history of other diseases of the nervous system and sense organs
CPT/HCPCS: 36415; 80053; 81003; 81025; 85027; 86593; J0735

== ENCOUNTER 2019-01-14 14:10 | Emergency (ER) | payer SELFPAY | END 2019-01-14 23:14 | disposition home or self-care (01) | LOC: JER 14:10 ==

== ENCOUNTER 2019-02-16 15:32 | Inpatient (IN) | payer OTHER ==
[2019-02-16 17:17] VITALS: BMI 25.2
--- NOTE | 2019-02-16 19:25 | HP ---
CIWA Score Nausea/Vomitin-Mild Nausea/No Vomiting Muscle Tremors: 3 Anxiety: 4-Mod. Anxious/Guarded Agitation: 3 Paroxysmal Sweats: 1-Minimal Palms Moist Orientation: 1-Uncertain about Date Tacttile Disturbances: 0-None Auditory Disturbances: 0-None Visual Disturbances: 0-None Headache: 3-Moderate CIWA-Ar Total Score: 16 - Admission Criteria OASAS Guidelines: Admission for Medically Managed Detox: Requires at least one of the followin. CIWA greater than 12 2. Seizures within the past 24 hours 3. Delirium tremens within the past 24 hours 4. Hallucinations within the past 24 hours 5. Acute intervention needed for co occurring medical disorder 6. Acute intervention needed for co occurring psychiatric disorder 7. Severe withdrawal that cannot be handled at a lower level of care (continued vomiting, continued diarrhea, abnormal vital signs) requiring intravenous medication and/or fluids 8. Admission ROS [facility] Chief Complaint: seeking help for alcohol use Allergies/Adverse Reactions: Allergies Allergy/AdvReac Type Severity Reaction Status Date / Time Fish Containing Products Allergy Severe Hives Verified 01/14/19 14:37 lactose AdvReac Intermediate Vomiting Verified 01/14/19 14:37 lactose intolerance AdvReac Intermediate Vomiting Uncoded 01/14/19 14:37 History of Present Illness: 48 y/o/f here for alcohol use. She was last here about a month ago for detox and relapsed a few days after being discharged. She has episodes of binge drinking. During her binge drinking episodes she drinks a quart of vodka on average. Her last drink was this morning. When she does not drink she starts to get the shakes and gets nauseous. She states she fights through her withdrawal symptoms when she does not drink. She was seen in the [facility] ER a few weeks ago for alcohol intoxication and was given Librium at that time. She denies any tobacco or other illicit substance use. 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 Patient has a history of seizures, most recent seizure a few weeks ago when she was withdrawing. She did not go to a hospital at that time. She is not on any seizure medications. She has a history of blackouts, most recently yesterday when she woke up without remembering what happened the night before. PMHx of HTN. - Ebola screening Have you traveled outside of the country in the last 21 days: No Have you had contact with anyone from an Ebola affected area: No - Review of Systems Constitutional: No Symptoms Reported EENT: reports: No Symptoms Reported Respiratory: reports: No Symptoms reported Cardiac: reports: No Symptoms Reported GI: reports: Nausea : reports: No Symptoms Reported Integumentary: reports: No Symptoms Reported Neuro: reports: Headache, Tremors Endocrine: reports: No Symptoms Reported Hematology: reports: No Symptoms Reported Psychiatric: reports: Agitated, Anxious Other Systems: Reviewed and Negative Patient History - Patient Medical History Hx Anemia: Yes Hx Asthma: No Hx Chronic Obstructive Pulmonary Disease (COPD): No Hx Cancer: No Hx Cardiac Disorders: No Hx Congestive Heart Failure: No Hx Hypertension: Yes (on meds) Hx Hypercholesterolemia: No Hx Pacemaker: No HX Cerebrovascular Accident: No Hx Seizures: No Hx Dementia: No Hx Diabetes: No Hx Gastrointestinal Disorders: No Hx Liver Disease: No Hx Genitourinary Disorders: No Hx Sexually Transmitted Disorders: Yes (chlamydia) Hx Renal Disease (ESRD): No Hx Thyroid Disease: No Hx Human Immunodeficiency Virus (HIV): No (NEGATIVE HX-2012) Hx Hepatitis C: No Hx Depression: No Hx Suicide Attempt: No Hx Bipolar Disorder: No Hx Schizophrenia: No - Patient Surgical History Past Surgical History: Yes Hx Neurologic Surgery: No Hx Cataract Extraction: No Hx Cardiac Surgery: No Hx Lung Surgery: No Hx Breast Surgery: No Hx Breast Biopsy: No Hx Abdominal Surgery: No Hx Appendectomy: Yes (at age 9) Hx Cholecystectomy: No Hx Genitourinary Surgery: No Hx Section: No Hx Orthopedic Surgery: No Anesthesia Reaction: No - PPD History Previous Implant?: Yes Documented Results: Negative w/o proof Implanted On Prior [facility] Admission?: Yes Date: 10/05/18 Results: 0 mm PPD to be Administered?: No - Reproductive History Last Menstrual Period: 01/03/19 - Smoking Cessation Smoking history: Never smoked Have you smoked in the past 12 months: No Hx Chewing Tobacco Use: No Initiated information on smoking cessation: No - Substances abused Alcohol Substance route: Oral Frequency: 3-6 times per week Amount used: quart of vodka Age of first use: 16 Date of last use: 02/16/19 Family Disease History - Family Disease History Family Disease History: Respiratory: Mother (ALCOHOL,EMPHYSEMA; dec), Other: Father (ALCOHOLIC IN REMISSION), Mother Admission Physical Exam BHS - Vital Signs Vital Signs: Vital Signs - 24 hr 02/16/19 17:12 Temperature 97.3 F L Pulse Rate 99 H Respiratory 16 Rate Blood Pressure 126/87 - Physical General Appearance: Yes: No Apparent Distress HEENTM: Yes: EOMI, Normocephalic Respiratory: Yes: Lungs Clear, Normal Breath Sounds, No Accessory Muscle Use Neck: Yes: Supple Cardiology: Yes: Regular Rhythm, S1, S2, Tachycardia Abdominal: Yes: Normal Bowel Sounds Extremities: Yes: Normal Capillary Refill, Tremors. 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 NML intact, Fully Oriented, Alert, Motor Strength 5/5 Integumentary: Yes: Dry - Diagnostic (1) Alcohol use disorder Current Visit: Yes Status: Acute Cleared for Admission [facility] - Detox or Rehab [facility] Level of Care: Medically Supervised 2Day Detox Regimen/Protocol: Librium Breathalyzer - Breathalyzer Breathalyzer: 0.050 Urine Drug Screen - Test Device Lot number: [id number] Expiration date: 11/28/20 - Control Is test valid?: Yes - Results Drug screen NEGATIVE: No Urine drug screen results: BZO-Benzodiazepines Inpatient Rehab Admission - Rehab Decision to Admit Inpatient rehab admission?: No
--- NOTE | 2019-02-16 19:41 | PN ---
Teaching Attending Note Name of Resident: Ilda Argueta ATTENDING PHYSICIAN STATEMENT I saw and evaluated the patient. I reviewed the resident's note and discussed the case with the resident. I agree with the resident's findings and plan as documented. SUBJECTIVE: pt here requesting detox from etoh use , relapse after d/c from this facility December 2018 , w/ h/o w/d seizures claims most recently a few weeks ago , in the past went to [facility] , reports intermittent use of alcohol since age 16 , latest use this morning , daily use 1/4 vodka , starts drinking in the mornings , sometimes in the evenings, sometimes w/ nausea and vomiting if not drinking . Longest sobriety 4 years w/ inpt and outpt program. Claims went to [facility] 2 weeks ago and was given librium . tobacco : denies denies illicits PMHX : denies PShx : appy age 9 PSych : denies , denies Si / HI . OBJECTIVE: wnwd , irritable , monosyllabic answers to questions, hostile . CV : tachycarida UE tremors AAO x3 ASSESSMENT AND PLAN: Alcohol dependence - Librium taper pt states she is not interested in rehab
[2019-02-16] MEDS ORDERED: MENTHOL/PHENOL 1 EACH UD MM PRN (19:44)
[2019-02-16] MEDS ORDERED: MAGNESIUM HYDROX 2400MG/30ML ORAL SUSPENSION 30 ML CUP PO PRN (19:44)
[2019-02-16] MEDS ORDERED: BISMUTH SUBSALICYLATE 524 MG/30 ML UD PO PRN (19:44)
[2019-02-16] MEDS ORDERED: hydrOXYzine HCL 25 MG TABLET (FP) PO PRN (19:44)
[2019-02-16] MEDS ORDERED: MAGNESIUM CITRATE 300 ML BOTTLE PO PRN (19:44)
[2019-02-16] MEDS ORDERED: chlordiazePOXIDE HCL 25 MG CAPSULE PO PRN (19:44)
[2019-02-16] MEDS ORDERED: MAG HYDROX/AL HYDROX/SIMETH 30 ML UNIT-DOSE CUP PO PRN (19:44)
[2019-02-16] MEDS ORDERED: METHOCARBAMOL 500 MG TABLET PO PRN (19:44)
[2019-02-16] MEDS ORDERED: IBUPROFEN 400 MG TABLET (FP) PO PRN (19:44)
[2019-02-16] MEDS ORDERED: ACETAMINOPHEN 325 MG TABLET (FP) PO PRN ×2 (19:44)
[2019-02-16] MEDS: chlordiazePOXIDE HCL 25 MG CAPSULE PO SCH (22:46)
[2019-02-16] MEDS: HYDROCORTISONE 1% TOPICAL CREAM 30 GM TUBE TP SCH (22:47)
[2019-02-16] MEDS: THIAMINE HCL 100 MG TABLET (FP) PO SCH (22:47)
[2019-02-16] MEDS: MELATONIN 5 MG TABLETS PO PRN (22:47)
[2019-02-17] MEDS: chlordiazePOXIDE HCL 25 MG CAPSULE PO SCH ×4 (06:12→22:37)
[2019-02-17] MEDS: PRENATAL VITAMINS W/ FOLIC ACID TABLET (FP) PO SCH (10:28)
[2019-02-17] MEDS: amLODIPine BESYLATE 5 MG TABLET (FP) PO SCH (10:28)
[2019-02-17] MEDS: HYDROCORTISONE 1% TOPICAL CREAM 30 GM TUBE TP SCH ×2 (10:29→22:38)
--- NOTE | 2019-02-17 15:01 | CONSULT ---
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 This is one of multiple admissions for patient. Patient admitted to for alcohol dependence. Substance Abuse History: Smoking Cessation. Smoking history: Never smoked. Have you smoked in the past 12 months: No. Hx Chewing Tobacco Use: No. Initiated information on smoking cessation: No. - Substances abused. Alcohol. Substance route: Oral. Frequency: 3-6 times per week. Amount used: quart of vodka. Age of first use: 16. Date of last use: 02/16/19 Medical History: hypertension, chlamydia, Appendectomy Psychiatric History: Patient denies h/o psychiatric hospitalization and suicide attempt. Ms. Ramirez's most recent outpatient psychiatric care was in the summer of 2017 at the [facility]. States she was prescribed seroquel 100mg for insomnia. States she has been tried on benadryl, trazodone, tylenol PM but none of the medications worked effectively. At present, patient reports stable mood but is experiencing difficulty sleeping. Physical/Sexual Abuse/Trauma History: denies. Mental Status Exam - Mental Status Exam Alert and Oriented to: Time, Place, Person Cognitive Function: Good Patient Appearance: Well Groomed Mood: Euthymic Affect: Appropriate Patient Behavior: Cooperative Speech Pattern: Appropriate Voice Loudness: Normal Thought Process: Goal Oriented Thought Disorder: Not Present Hallucinations: Denies Suicidal Ideation: Denies Homicidal Ideation: Denies Insight/Judgement: Poor Sleep: Poorly Appetite: Fair Muscle strength/Tone: Normal Gait/Station: Normal Psychiatric Findings - Problem List ([place] 1, 2,3) (1) Alcohol use disorder Current Visit: Yes Status: Acute (2) Insomnia Current Visit: Yes Status: Acute Qualifiers: Insomnia type: unspecified Qualified Code(s): G47.00 - Insomnia, unspecified - Initial Treatment Plan Initial Treatment Plan: Psychoeducation provided. Detoxification in progress. Will order Seroquel 100mg HS. Benefits and side effects discussed. Verbal consent given.
[2019-02-17] MEDS: QUEtiapine FUMARATE 100 MG TABLET (FP) PO SCH (22:37)
[2019-02-17] MEDS: THIAMINE HCL 100 MG TABLET (FP) PO SCH (22:37)
[2019-02-17] MEDS: MELATONIN 5 MG TABLETS PO PRN (22:37)
[2019-02-18] MEDS: chlordiazePOXIDE HCL 25 MG CAPSULE PO SCH ×4 (06:01→22:45)
[2019-02-18] MEDS ORDERED: COLLOIDAL OATMEAL 1 BAR EACH TP PRN (09:35)
[2019-02-18] MEDS ORDERED: COLLOIDAL OATMEAL 1 BAR EACH TP ONE (09:35)
[2019-02-18] MEDS: amLODIPine BESYLATE 5 MG TABLET (FP) PO SCH (10:30)
[2019-02-18] MEDS: PRENATAL VITAMINS W/ FOLIC ACID TABLET (FP) PO SCH (10:30)
[2019-02-18] MEDS: HYDROCORTISONE 1% TOPICAL CREAM 30 GM TUBE TP SCH ×2 (10:32→22:46)
[2019-02-18 10:44] LABS: ALBUMIN 2.9 g/dl (3.4-5.0); BILIRUBIN,TOTAL 0.4 mg/dL (0.2-1); BLOOD UREA NITROGEN 8.6 mg/dL (7-18); CREATININE 0.6 mg/dL (0.55-1.3); POTASSIUM 3.7 mmol/L (3.5-5.1); TOT PROT 6.3 g/dl (6.4-8.2)
[2019-02-18 10:45] LABS: HEMATOCRIT 34.8 % (32.4-45.2); HEMOGLOBIN 11.6 GM/dL (10.7-15.3); MCH 31.7 pg (25.7-33.7); MCHC 33.2 g/dl (32.0-36.0); MEAN CELL VOLUME 95.3 fl (80-96); MEAN PLT VOLUME 8.9 fl (7.5-11.1); PLATELET COUNT 198 K/MM3 (134-434); RBC 3.66 M/mm3 (3.60-5.2); RDW 18.9 % (11.6-15.6)
--- NOTE | 2019-02-18 14:10 | PN ---
BHS CIWA - CIWA Score Nausea/Vomitin-No Nausea/No Vomiting Muscle Tremors: None Anxiety: 4-Mod. Anxious/Guarded Agitation: 1-Slight > Activity Paroxysmal Sweats: No Perspiration Orientation: 0-Oriented Tacttile Disturbances: 0-None Auditory Disturbances: 0-None Visual Disturbances: 0-None Headache: 3-Moderate CIWA-Ar Total Score: 8 BHS Progress Note (SOAP) Subjective: PATIENT C/O HEADACHE, FEELING ANXIOUS AND DRY SKIN Objective: 02/18/19 14:09 Vital Signs Temperature 97.0 F L 02/18/19 14:01 Pulse Rate 80 02/18/19 14:01 Respiratory Rate 16 02/18/19 14:01 Blood Pressure 131/99 02/18/19 14:01 O2 Sat by Pulse Oximetry (%) Laboratory Tests 02/18/19 02/18/19 02/18/19 07:50 07:50 07:50 WBC 4.0 RBC 3.66 Hgb 11.6 Hct 34.8 D MCV 95.3 MCH 31.7 MCHC 33.2 RDW 18.9 H Plt Count 198 D MPV 8.9 D Sodium 140 Potassium 3.7 Chloride 102 Carbon Dioxide 32 Anion Gap 5 L BUN 8.6 Creatinine 0.6 Est GFR (CKD-EPI)AfAm 126.69 Est GFR (CKD-EPI)NonAf 109.31 Random Glucose 97 Calcium 9.0 Total Bilirubin 0.4 AST 21 ALT 14 Alkaline Phosphatase 55 Total Protein 6.3 L Albumin 2.9 L RPR Titer Nonreactive ALERT AND ORIENTED X 3 +PERRLA, EOMS INTACT BL SKIN WARM AND DRY PATIENT ANXIOUS/GUARDED Assessment: 02/18/19 14:10 GEOVANI SX Plan: CONTINUE DETOX AVEENO SOAP MONITOR
[2019-02-18] MEDS: THIAMINE HCL 100 MG TABLET (FP) PO SCH (22:45)
[2019-02-18] MEDS: QUEtiapine FUMARATE 100 MG TABLET (FP) PO SCH (22:46)
[2019-02-19] MEDS ORDERED: chlordiazePOXIDE HCL 10 MG CAPSULE PO PRN
[2019-02-19] MEDS: chlordiazePOXIDE HCL 10 MG CAPSULE PO SCH ×4 (05:35→22:35)
[2019-02-19] MEDS: HYDROCORTISONE 1% TOPICAL CREAM 30 GM TUBE TP SCH ×2 (10:23→23:39)
[2019-02-19] MEDS: PRENATAL VITAMINS W/ FOLIC ACID TABLET (FP) PO SCH (10:24)
[2019-02-19] MEDS: amLODIPine BESYLATE 5 MG TABLET (FP) PO SCH (10:24)
--- NOTE | 2019-02-19 12:47 | PN ---
[facility] CIWA - CIWA Score Nausea/Vomitin-No Nausea/No Vomiting Muscle Tremors: 3 Anxiety: 2 Agitation: 3 Paroxysmal Sweats: 2 Orientation: 0-Oriented Tacttile Disturbances: 0-None Auditory Disturbances: 0-None Visual Disturbances: 0-None Headache: 0-None Present CIWA-Ar Total Score: 10 S Progress Note (SOAP) Subjective: irritable agitation sweats restless Objective: 02/19/19 12:46 Vital Signs Temperature 97.2 F L 02/19/19 09:33 Pulse Rate 76 02/19/19 09:33 Respiratory Rate 16 02/19/19 09:33 Blood Pressure 114/76 02/19/19 09:33 O2 Sat by Pulse Oximetry (%) Laboratory Tests 02/16/19 02/18/19 02/18/19 18:03 07:50 07:50 WBC 4.0 RBC 3.66 Hgb 11.6 Hct 34.8 D MCV 95.3 MCH 31.7 MCHC 33.2 RDW 18.9 H Plt Count 198 D MPV 8.9 D Sodium 140 Potassium 3.7 Chloride 102 Carbon Dioxide 32 Anion Gap 5 L BUN 8.6 Creatinine 0.6 Est GFR (CKD-EPI)AfAm 126.69 Est GFR (CKD-EPI)NonAf 109.31 Random Glucose 97 Calcium 9.0 Total Bilirubin 0.4 AST 21 ALT 14 Alkaline Phosphatase 55 Total Protein 6.3 L Albumin 2.9 L POC Urine HCG, Qual Negative RPR Titer 02/18/19 07:50 WBC RBC Hgb Hct MCV MCH MCHC RDW Plt Count MPV Sodium Potassium Chloride Carbon Dioxide Anion Gap BUN Creatinine Est GFR (CKD-EPI)AfAm Est GFR (CKD-EPI)NonAf Random Glucose Calcium Total Bilirubin AST ALT Alkaline Phosphatase Total Protein Albumin POC Urine HCG, Qual RPR Titer Nonreactive labs noted aaox3 ambulating no acute distress Assessment: 02/19/19 12:46 withdrawal sx Plan: continue detox increase fluids
[2019-02-19] MEDS ORDERED: COLLOIDAL OATMEAL 1 BAR EACH TP ONE (12:55)
[2019-02-19] MEDS: THIAMINE HCL 100 MG TABLET (FP) PO SCH (22:35)
[2019-02-19] MEDS: QUEtiapine FUMARATE 100 MG TABLET (FP) PO SCH (22:35)
[2019-02-20] MEDS: chlordiazePOXIDE HCL 10 MG CAPSULE PO SCH ×2 (05:57→17:27)
[2019-02-20] MEDS: PRENATAL VITAMINS W/ FOLIC ACID TABLET (FP) PO SCH (10:37)
[2019-02-20] MEDS: HYDROCORTISONE 1% TOPICAL CREAM 30 GM TUBE TP SCH ×2 (10:37→22:12)
[2019-02-20] MEDS: amLODIPine BESYLATE 5 MG TABLET (FP) PO SCH (10:37)
--- NOTE | 2019-02-20 12:01 | PN ---
S CIWA - CIWA Score Nausea/Vomitin-No Nausea/No Vomiting Muscle Tremors: 2 Anxiety: 1-Mildly Anxious Agitation: 1-Slight > Activity Paroxysmal Sweats: 1-Minimal Palms Moist Orientation: 0-Oriented Tacttile Disturbances: 0-None Auditory Disturbances: 0-None Visual Disturbances: 0-None Headache: 0-None Present CIWA-Ar Total Score: 5 BHS Progress Note (SOAP) Subjective: tired but feeling much better Objective: 02/20/19 12:00 Vital Signs Temperature 97.7 F 02/20/19 10:05 Pulse Rate 79 02/20/19 10:05 Respiratory Rate 18 02/20/19 10:05 Blood Pressure 112/76 02/20/19 10:05 O2 Sat by Pulse Oximetry (%) aaox3 ambulating no acute distress Assessment: 02/20/19 12:00 mild withdrawal sx Plan: continue detox d/c in am
[2019-02-20] MEDS: THIAMINE HCL 100 MG TABLET (FP) PO SCH (22:11)
[2019-02-20] MEDS: QUEtiapine FUMARATE 100 MG TABLET (FP) PO SCH (22:11)
[2019-02-21] MEDS ORDERED: chlordiazePOXIDE HCL 10 MG CAPSULE PO ONE (05:00)
[2019-02-21 06:40] VITALS: TEMP 97.7
--- NOTE | 2019-02-21 09:10 | DS ---
[facility] Detox Discharge Summary Admission Date: 02/16/19 Discharge Date: 02/21/19 - History Present History: Alcohol Dependence - Physical Exam Results Vital Signs: Vital Signs Temperature 97.7 F 02/21/19 06:39 Pulse Rate 76 02/21/19 06:39 Respiratory Rate 16 02/21/19 06:39 Blood Pressure 108/76 02/21/19 06:39 O2 Sat by Pulse Oximetry (%) Pertinent Admission Physical Exam Findings: pt arrived in withdrawals Laboratory Tests 02/16/19 02/18/19 02/18/19 18:03 07:50 07:50 WBC 4.0 RBC 3.66 Hgb 11.6 Hct 34.8 D MCV 95.3 MCH 31.7 MCHC 33.2 RDW 18.9 H Plt Count 198 D MPV 8.9 D Sodium 140 Potassium 3.7 Chloride 102 Carbon Dioxide 32 Anion Gap 5 L BUN 8.6 Creatinine 0.6 Est GFR (CKD-EPI)AfAm 126.69 Est GFR (CKD-EPI)NonAf 109.31 Random Glucose 97 Calcium 9.0 Total Bilirubin 0.4 AST 21 ALT 14 Alkaline Phosphatase 55 Total Protein 6.3 L Albumin 2.9 L POC Urine HCG, Qual Negative RPR Titer 02/18/19 07:50 WBC RBC Hgb Hct MCV MCH MCHC RDW Plt Count MPV Sodium Potassium Chloride Carbon Dioxide Anion Gap BUN Creatinine Est GFR (CKD-EPI)AfAm Est GFR (CKD-EPI)NonAf Random Glucose Calcium Total Bilirubin AST ALT Alkaline Phosphatase Total Protein Albumin POC Urine HCG, Qual RPR Titer Nonreactive today pt is aaox3 ambulating no acute distress no s/s of withdrawals - Treatment Hospital Course: Detox Protocol Followed, Detoxed Safely, Responded well, Discharged Condition Good, Rehab Referral Accepted Patient has Accepted a Rehab Referral to: pt declined rehab; pt referred to [facility] OTP - Medication Discharge Medications: Ambulatory Orders Amlodipine Besylate 5 mg PO DAILY 02/16/19 Hydrocortisone 1% Cream [Hytone 1% Cream -] 1 applic TP BID 02/16/19 Magnesium Oxide [Magnesium] 400 mg PO BID 02/16/19 Quetiapine Fumarate [Seroquel -] 100 mg PO HS 02/16/19 Thiamine HCl [B-1] 100 mg PO BID 02/16/19 - Diagnosis (1) Insomnia Current Visit: Yes Status: Acute Qualifiers: Insomnia type: unspecified Qualified Code(s): G47.00 - Insomnia, unspecified (2) Alcohol dependence with withdrawal Current Visit: Yes Status: Chronic Qualifiers: Complication of substance-induced condition: uncomplicated Qualified Code(s ): F10.230 - Alcohol dependence with withdrawal, uncomplicated (3) Alcohol intoxication Current Visit: No Status: Acute Qualifiers: Complication of substance-induced condition: with unspecified complication Qualified Code(s): F10.929 - Alcohol use, unspecified with intoxication, unspecified (4) Anemia Current Visit: No Status: Chronic Qualifiers: Anemia type: unspecified type Qualified Code(s): D64.9 - Anemia, unspecified (5) Depressed affect Current Visit: No Status: Acute (6) Alcohol abuse with alcohol-induced mood disorder Current Visit: No Status: Chronic (7) Anxiety and depression Current Visit: No Status: Chronic (8) Alcohol-induced mood disorder Current Visit: No Status: Suspected - AMA Did Patient Leave Against Medical Advice: No (pt referred to [facility] OTP)
[2019-02-21 09:26] VITALS: BP 126/84; PULSE 82
== END 2019-02-21 09:50 | disposition home or self-care (01) | DRG 775 ==
LOC: YASAS 15:32 → Y6N 20:17
PROVIDERS: ADMIT Surgery; ATTEND Surgery
PROC: HZ2ZZZZ Detoxification Services for Substance Abuse Treatment (ICD-10-PCS; principal; 2019-02-16)
DX: F10.230 Alcohol dependence with withdrawal, uncomplicated (principal); F10.220 Alcohol dependence with intoxication, uncomplicated; F10.24 Alcohol dependence with alcohol-induced mood disorder; F41.9 Anxiety disorder, unspecified; F32.9 Major depressive disorder, single episode, unspecified; I10 Essential (primary) hypertension; G47.00 Insomnia, unspecified; D64.9 Anemia, unspecified; R00.0 Tachycardia, unspecified; R25.1 Tremor, unspecified; Z87.42 Personal history of other diseases of the female genital tract; Z91.013 Allergy to seafood
CPT/HCPCS: 36415; 80053; 81025; 85027; 86593

== ENCOUNTER 2019-03-28 12:18 | Inpatient (IN) | payer OTHER ==
[2019-03-28 13:43] VITALS: BMI 25.6
--- NOTE | 2019-03-28 14:11 | HP ---
CIWA Score Nausea/Vomitin Muscle Tremors: 4-Moderate,w/Arms Extend Anxiety: 4-Mod. Anxious/Guarded Agitation: 1-Slight > Activity Paroxysmal Sweats: 3 (Increased facial mositure) Orientation: 0-Oriented Tacttile Disturbances: 0-None Auditory Disturbances: 0-None Visual Disturbances: 0-None Headache: 3-Moderate CIWA-Ar Total Score: 18 - Admission Criteria OAS Guidelines: Admission for Medically Managed Detox: Requires at least one of the followin. CIWA greater than 12 2. Seizures within the past 24 hours 3. Delirium tremens within the past 24 hours 4. Hallucinations within the past 24 hours 5. Acute intervention needed for co occurring medical disorder 6. Acute intervention needed for co occurring psychiatric disorder 7. Severe withdrawal that cannot be handled at a lower level of care (continued vomiting, continued diarrhea, abnormal vital signs) requiring intravenous medication and/or fluids 8. Patient presents the following: CIWA greater than 12 (KAYE 0.218 down to 0.050) Admission Criteria Met: Admission criteria met Admission ROS [facility] Chief Complaint: States "feeling sick and nauseous" Allergies/Adverse Reactions: Allergies Allergy/AdvReac Type Severity Reaction Status Date / Time Fish Containing Products Allergy Severe Hives Verified 03/28/19 13:33 lactose AdvReac Intermediate Vomiting Verified 03/28/19 13:33 lactose intolerance AdvReac Intermediate Vomiting Uncoded 03/28/19 13:33 History of Present Illness: 48 yo w/ alcohol intoxication w/ withdrawal symptoms seeking detox. Multiple admissions for AUD. Last 02/16-. [facility] was able to stay sober for 2 -3 weeks. [facility] has been drinking heavily for past 10 days. Alcohol use began at age 16. Current use is 1-2 pints Vodka /day. KAYE: 0.218 down to 0.050. Denies drinking this am. Feels (+) BZO in urine is from prior tx. Denies illicit use. Hx; Seizures. Last 6 weeks ago. (+) blackouts - last was last night. 3 serum RPR's this year. Last 02/18/19. Non-reactive. PMHx: HTN, MHHx: Depression. Insomnia. Anxiety. Does not see a MH Provider. States Seroquel prescribed by PCP. Denies thoughts of harming self or others. SHx: Domiciled (Lives w/ boyfriend). Unemployed. Search Terms: Radha Ramirez, 1970 Search Date: 03/28/2019 02:16:03 PM The Drug Utilization Report below displays all of the controlled substance prescriptions, if any, that your patient has filled in the last twelve months. The information displayed on this report is compiled from pharmacy submissions to the Department, and accurately reflects the information as submitted by the pharmacies. This report was requested by: Jes Boudreaux | Reference #: [id number] There are no results for the search terms that you entered. Search Terms: Radha Ramirez, 1970 Search Date: 03/28/2019 02:16:36 PM States Searched: [place], [place], [place], [place], [place], [place], [place], [place] The Drug Utilization Report below displays the controlled substance prescriptions, if any, that were dispensed in the indicated state(s). The information displayed on this report is compiled from requests submitted to other states' PMPs, and accurately reflects the information as returned by them. Blank reddy indicate data not provided by other state. This report was requested by: Jes Boudreaux | Reference #: [id number] Exam Limitations: No Limitations - Ebola screening Have you traveled outside of the country in the last 21 days: No Have you had contact with anyone from an Ebola affected area: No Have you been sick,other than usual withdrawal symptoms: No (Denies measles exposure) Do you have a fever: No - Review of Systems Constitutional: Chills, Changes in sleep (Difficulty falling and staying asleep. ) EENT: reports: Blurred Vision Respiratory: reports: No Symptoms reported Cardiac: reports: No Symptoms Reported GI: reports: Diarrhea (Soft, watery, yellow stool a few minutes ago.), Nausea, Vomiting (Last vomited at 10 am today.) : reports: No Symptoms Reported Musculoskeletal: reports: No Symptoms Reported Integumentary: reports: No Symptoms Reported Neuro: reports: Headache (moderate in temples) Endocrine: reports: Increased Thirst Hematology: reports: Anemia (Iron deficiency) Psychiatric: reports: Judgement Intact, Orientated x3, Agitated, Anxious, Depressed (Denies thoughts of harming self or others.) Patient History - Patient Medical History Hx Anemia: Yes Hx Asthma: No Hx Chronic Obstructive Pulmonary Disease (COPD): No Hx Cancer: No Hx Cardiac Disorders: No Hx Congestive Heart Failure: No Hx Hypertension: No Hx Hypercholesterolemia: No Hx Pacemaker: No HX Cerebrovascular Accident: No Hx Seizures: Yes (January 2019) Hx Dementia: No Hx Diabetes: No Hx Gastrointestinal Disorders: No Hx Liver Disease: No Hx Genitourinary Disorders: No Hx Sexually Transmitted Disorders: Yes (chlamydia) Hx Renal Disease (ESRD): No Hx Thyroid Disease: No Hx Human Immunodeficiency Virus (HIV): No (NEGATIVE HX-2012) Hx Hepatitis C: No Hx Depression: No Hx Suicide Attempt: No Hx Bipolar Disorder: No Hx Schizophrenia: No - Patient Surgical History Past Surgical History: Yes Hx Neurologic Surgery: No Hx Cataract Extraction: No Hx Cardiac Surgery: No Hx Lung Surgery: No Hx Breast Surgery: No Hx Breast Biopsy: No Hx Abdominal Surgery: No Hx Appendectomy: Yes (at age 9) Hx Cholecystectomy: No Hx Genitourinary Surgery: No Hx Section: No Hx Orthopedic Surgery: No Anesthesia Reaction: No - PPD History Previous Implant?: Yes Documented Results: Negative w/proof Implanted On Prior R Admission?: Yes Date: 10/05/18 Results: 0 mm PPD to be Administered?: No - Reproductive History Patient is a Female of Child Bearing Age (11 -55 yrs old): Yes Last Menstrual Period: 02/09/19 Patient : No - Smoking Cessation Smoking history: Never smoked Have you smoked in the past 12 months: No Hx Chewing Tobacco Use: No Initiated information on smoking cessation: No - Substance & Tx. History Hx Alcohol Use: Yes Hx Substance Use: Yes Substance Use Type: Alcohol Hx Substance Use Treatment: Yes (detox, rehab, out-patient pgms) - Substances abused Alcohol Substance route: Oral Frequency: Daily Amount used: 2 PINTS of vodka Age of first use: 16 Date of last use: 03/27/19 Family Disease History - Family Disease History Family Disease History: Respiratory: Mother (ALCOHOL,EMPHYSEMA; dec), Other: Father (ALCOHOLIC IN REMISSION), Mother Admission Physical Exam BHS - Vital Signs Vital Signs: Vital Signs - 24 hr 03/28/19 13:29 Temperature 98.6 F Pulse Rate 104 H Respiratory 20 Rate Blood Pressure 136/90 - Physical General Appearance: Yes: Nourished, Mild Distress, Alcohol on Breath (KAYE 0.219) , Sweating (Increased facial mositure) HEENTM: Yes: EOMI, Hearing grossly Normal, Normocephalic, Normal Voice, ALICIA, Other (Tonsilar enlargement stage 2. w/o erythema or exudate.) Respiratory: Yes: Lungs Clear, Normal Breath Sounds, No Respiratory Distress Neck: Yes: No masses,lesions,Nodules, Supple Breast: Yes: Breast Exam Deferred Cardiology: Yes: Regular Rhythm, S1, S2, Tachycardia (HR: 110) Abdominal: Yes: Non Tender, Soft, Increased Bowel Sounds Genitourinary: Yes: Within Normal Limits Back: Yes: Normal Inspection Musculoskeletal: Yes: full range of Motion, Gait Steady Extremities: Yes: Normal Capillary Refill, Normal Range of Motion, Tremors Neurological: Yes: anode rebuilder II-XII NML intact, Fully Oriented, Alert, Motor Strength 5/5 Integumentary: Yes: Normal Color, Dry (Dry skin except for increased facial mositure), Warm, Rash (Erthematous rash on face) Lymphatic: Yes: Within Normal Limits - Diagnostic (1) Alcohol intoxication Current Visit: Yes Status: Acute Qualifiers: Complication of substance-induced condition: uncomplicated Qualified Code(s ): F10.920 - Alcohol use, unspecified with intoxication, uncomplicated Comment: KAYE: 0.219 (2) Alcohol dependence with withdrawal Current Visit: Yes Status: Acute Qualifiers: Complication of substance-induced condition: uncomplicated Qualified Code(s ): F10.230 - Alcohol dependence with withdrawal, uncomplicated (3) Iron deficiency anemia Current Visit: Yes Status: Chronic Qualifiers: Iron deficiency anemia type: unspecified iron deficiency Qualified Code(s) : D50.9 - Iron deficiency anemia, unspecified (4) Dermatitis Current Visit: Yes Status: Chronic (5) HTN (hypertension) Current Visit: Yes Status: Chronic Qualifiers: Hypertension type: essential hypertension Qualified Code(s): I10 - Essential (primary) hypertension Cleared for Admission BHS - Detox or Rehab Detox Regimen/Protocol: Librium Claeared for Rehab Admission: No Breathalyzer - Breathalyzer Breathalyzer: 0.050 (Was 0.218 earlier) POC Urine test - Test device test lot number: [id number] Expiration date: 07/31/20 - Control test control: Yes - Result Urine Test Results: Negative - NO line present Urine Drug Screen - Test Device Lot number: [id number] Expiration date: 11/28/20 - Control Is test valid?: Yes - Results Drug screen NEGATIVE: No Urine drug screen results: BZO-Benzodiazepines Inpatient Rehab Admission - Rehab Decision to Admit Inpatient rehab admission?: No
[2019-03-28] MEDS ORDERED: BISMUTH SUBSALICYLATE 262 MG/15 ML BTL PO PRN (14:50)
[2019-03-28] MEDS ORDERED: MAGNESIUM CITRATE 300 ML BOTTLE PO PRN (14:50)
[2019-03-28] MEDS ORDERED: ACETAMINOPHEN 325 MG TABLET (FP) PO PRN ×2 (14:50)
[2019-03-28] MEDS ORDERED: MAG HYDROX/AL HYDROX/SIMETH 30 ML UNIT-DOSE CUP PO PRN (14:50)
[2019-03-28] MEDS ORDERED: METHOCARBAMOL 500 MG TABLET PO PRN (14:50)
[2019-03-28] MEDS ORDERED: MAGNESIUM HYDROX 2400MG/30ML ORAL SUSPENSION 30 ML CUP PO PRN (14:50)
[2019-03-28] MEDS ORDERED: MENTHOL/PHENOL 1 EACH UD MM PRN (14:50)
[2019-03-28] MEDS ORDERED: chlordiazePOXIDE HCL 25 MG CAPSULE PO PRN (14:50)
[2019-03-28] MEDS ORDERED: IBUPROFEN 400 MG TABLET (FP) PO PRN (14:50)
[2019-03-28] MEDS ORDERED: chlordiazePOXIDE HCL 10 MG CAPSULE PO ONE (15:35)
[2019-03-28] MEDS: chlordiazePOXIDE HCL 25 MG CAPSULE PO SCH ×2 (16:08→22:13)
[2019-03-28 16:51] LABS: HEMATOCRIT 35.6 % (32.4-45.2); HEMOGLOBIN 11.9 GM/dL (10.7-15.3); MCH 31.1 pg (25.7-33.7); MCHC 33.4 g/dl (32.0-36.0); MEAN CELL VOLUME 93.3 fl (80-96); MEAN PLT VOLUME 8.5 fl (7.5-11.1); RBC 3.81 M/mm3 (3.60-5.2); RDW 18.9 % (11.6-15.6); WHITE BLOOD COUNT 7.7 K/mm3 (4.0-10.0)
[2019-03-28 17:00] LABS: ALBUMIN 3.7 g/dl (3.4-5.0); BILIRUBIN,TOTAL 0.2 mg/dL (0.2-1); BLOOD UREA NITROGEN 7.8 mg/dL (7-18); CALCIUM 8.4 mg/dL (8.5-10.1); CREATININE 0.7 mg/dL (0.55-1.3); POTASSIUM 3.9 mmol/L (3.5-5.1); TOT PROT 7.5 g/dl (6.4-8.2)
[2019-03-28 17:22] LABS: PLATELET COUNT 278 K/MM3 (134-434)
[2019-03-28] MEDS: THIAMINE HCL 100 MG TABLET (FP) PO SCH (22:13)
[2019-03-28] MEDS: MELATONIN 5 MG TABLETS PO PRN (22:13)
[2019-03-29] MEDS: chlordiazePOXIDE HCL 25 MG CAPSULE PO SCH ×4 (05:51→22:31)
[2019-03-29] MEDS: PRENATAL VITAMINS W/ FOLIC ACID TABLET (FP) PO SCH (10:35)
[2019-03-29] MEDS ORDERED: COLLOIDAL OATMEAL 1 BAR EACH TP ONE (13:24)
--- NOTE | 2019-03-29 13:28 | PN ---
S CIWA - CIWA Score Nausea/Vomitin-No Nausea/No Vomiting Muscle Tremors: 3 Anxiety: 3 Agitation: 3 Paroxysmal Sweats: 3 Orientation: 0-Oriented Tacttile Disturbances: 0-None Auditory Disturbances: 0-None Visual Disturbances: 0-None Headache: 0-None Present CIWA-Ar Total Score: 12 BHS Progress Note (SOAP) Subjective: sweats shakes body aches interrupted sleep i need to see psych Objective: 03/29/19 13:27 Vital Signs Temperature 98.6 F 03/29/19 09:49 Pulse Rate 94 H 03/29/19 09:49 Respiratory Rate 18 03/29/19 09:49 Blood Pressure 136/57 L 03/29/19 09:49 O2 Sat by Pulse Oximetry (%) Laboratory Tests 03/28/19 03/28/19 03/28/19 14:12 15:15 15:15 WBC 7.7 RBC 3.81 Hgb 11.9 Hct 35.6 MCV 93.3 MCH 31.1 MCHC 33.4 RDW 18.9 H Plt Count 278 D MPV 8.5 Platelet Comment No clumping noted Sodium 143 Potassium 3.9 Chloride 101 Carbon Dioxide 29 Anion Gap 13 BUN 7.8 Creatinine 0.7 Est GFR (CKD-EPI)AfAm 120.43 Est GFR (CKD-EPI)NonAf 103.90 Random Glucose 122 H Calcium 8.4 L Total Bilirubin 0.2 AST 28 ALT 18 Alkaline Phosphatase 69 Total Protein 7.5 Albumin 3.7 POC Urine HCG, Qual Negative labs noted aaox3 ambulating no acute distress Assessment: 03/29/19 13:27 withdrawal sx Plan: continue detox increase fluids psych ordered aveeno soap x one hytone ordered
--- NOTE | 2019-03-29 15:03 | CONSULT ---
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 This is one of multiple admissions for patient. Patient admitted to for alcohol dependence. Substance Abuse History: - Smoking Cessation. Smoking history: Never smoked. Have you smoked in the past 12 months: No. Hx Chewing Tobacco Use: No. Initiated information on smoking cessation: No. - Substance & Tx. History. Hx Alcohol Use: Yes. Hx Substance Use: Yes. Substance Use Type: Alcohol. Hx Substance Use Treatment: Yes (detox, rehab, out-patient pgms). - Substances abused. Alcohol. Substance route: Oral. Frequency: Daily. Amount used: 2 PINTS of vodka. Age of first use: 16. Date of last use: 03/27/19 Medical History: hypertension Psychiatric History: Patient denies h/o psychiatric hospitalization and suicide attempt. Ms. Ramirez's most recent outpatient psychiatric care was in the summer at the [facility]. States she was prescribed seroquel 100mg for insomnia and was given psychotherapy for anxiety. Reports history of anxiety. States she has been tried on benadryl, trazodone, tylenol PM but none of the medications worked effectively. Reports currently receiving seroquel 100mg from her primary care physician. At present, patient reports stable mood but is experiencing difficulty sleeping. Physical/Sexual Abuse/Trauma History: denies. Mental Status Exam - Mental Status Exam Alert and Oriented to: Time, Place, Person Cognitive Function: Good Patient Appearance: Well Groomed Mood: Withdrawn Affect: Mood Congruent Patient Behavior: Cooperative Speech Pattern: Appropriate Voice Loudness: Normal Thought Process: Goal Oriented Thought Disorder: Not Present Hallucinations: Denies Suicidal Ideation: Denies Homicidal Ideation: Denies Insight/Judgement: Poor Sleep: Poorly Appetite: Fair Muscle strength/Tone: Normal Gait/Station: Normal Psychiatric Findings - Problem List ([place] 1, 2,3) (1) Alcohol-induced sleep disorder Current Visit: Yes Status: Acute (2) Alcohol dependence with withdrawal Current Visit: Yes Status: Acute Qualifiers: Complication of substance-induced condition: uncomplicated Qualified Code(s ): F10.230 - Alcohol dependence with withdrawal, uncomplicated (3) Alcohol intoxication Current Visit: Yes Status: Acute Qualifiers: Complication of substance-induced condition: uncomplicated Qualified Code(s ): F10.920 - Alcohol use, unspecified with intoxication, uncomplicated Comment: KAYE: 0.219 (4) Alcohol-induced mood disorder Current Visit: Yes Status: Suspected - Initial Treatment Plan Initial Treatment Plan: Psychoeducation provided. Detoxification in progress. Will order Seroquel 100mg HS. Benefits and side effects discussed. Verbal consent given.
[2019-03-29] MEDS: QUEtiapine FUMARATE 100 MG TABLET (FP) PO SCH (22:31)
[2019-03-29] MEDS: THIAMINE HCL 100 MG TABLET (FP) PO SCH (22:31)
[2019-03-29] MEDS: HYDROCORTISONE 1% TOPICAL CREAM 30 GM TUBE TP SCH (22:33)
[2019-03-30] MEDS: chlordiazePOXIDE HCL 25 MG CAPSULE PO SCH ×4 (06:03→22:17)
[2019-03-30] MEDS: amLODIPine BESYLATE 5 MG TABLET (FP) PO SCH (10:20)
[2019-03-30] MEDS: PRENATAL VITAMINS W/ FOLIC ACID TABLET (FP) PO SCH (10:20)
--- NOTE | 2019-03-30 11:53 | EKG ---
Test Reason : Blood Pressure : / mmHG Vent. Rate : 091 BPM Atrial Rate : 091 BPM P-R Int : 146 ms QRS Dur : 070 ms QT Int : 384 ms P-R-T Axes : 046 -08 -06 degrees QTc Int : 472 ms NORMAL SINUS RHYTHM MINIMAL VOLTAGE CRITERIA FOR LVH, MAY BE NORMAL VARIANT NONSPECIFIC T WAVE ABNORMALITY PROLONGED QT ABNORMAL ECG NO PREVIOUS ECGS AVAILABLE Confirmed by NATHAN BRAGG MD ([id number]) on 03/30/2019 11:52:54 AM Referred By: Confirmed By:NATHAN BRAGG MD
[2019-03-30] MEDS: HYDROCORTISONE 1% TOPICAL CREAM 30 GM TUBE TP SCH ×2 (12:50→22:39)
--- NOTE | 2019-03-30 13:40 | PN ---
S CIWA - CIWA Score Nausea/Vomitin-No Nausea/No Vomiting Muscle Tremors: 3 Anxiety: 3 Agitation: 3 Paroxysmal Sweats: 2 Orientation: 0-Oriented Tacttile Disturbances: 0-None Auditory Disturbances: 0-None Visual Disturbances: 0-None Headache: 0-None Present CIWA-Ar Total Score: 11 S Progress Note (SOAP) Subjective: sweats shakes interrupted sleep fatigue Objective: 03/30/19 13:39 Vital Signs Temperature 98.1 F 03/30/19 12:44 Pulse Rate 90 03/30/19 12:44 Respiratory Rate 18 03/30/19 12:44 Blood Pressure 122/88 03/30/19 12:44 O2 Sat by Pulse Oximetry (%) Laboratory Tests 03/28/19 03/28/19 03/28/19 14:12 15:15 15:15 WBC 7.7 RBC 3.81 Hgb 11.9 Hct 35.6 MCV 93.3 MCH 31.1 MCHC 33.4 RDW 18.9 H Plt Count 278 D MPV 8.5 Platelet Comment No clumping noted Sodium 143 Potassium 3.9 Chloride 101 Carbon Dioxide 29 Anion Gap 13 BUN 7.8 Creatinine 0.7 Est GFR (CKD-EPI)AfAm 120.43 Est GFR (CKD-EPI)NonAf 103.90 Random Glucose 122 H Calcium 8.4 L Total Bilirubin 0.2 AST 28 ALT 18 Alkaline Phosphatase 69 Total Protein 7.5 Albumin 3.7 POC Urine HCG, Qual Negative labs noted aaox3 ambulating no acute distress Assessment: 03/30/19 13:40 withdrawal sx Plan: continue detox increase fluids
[2019-03-30 21:59] LABS: EPI CELLS 20.8 /HPF (0-5/HPF); HYALINE CASTS 64 /lpf (0-8); URINE APPEARANCE TURBID; URINE BILIRUBIN NEGATIVE (NEGATIVE); URINE COLOR YELLOW; URINE GLUCOSE (UA) NEGATIVE (NEGATIVE); URINE KETONE TRACE (NEGATIVE); URINE LEUK ESTERASE 3+ (NEGATIVE); URINE NITRITE NEGATIVE (NEGATIVE); URINE PROTEIN 2+ (NEGATIVE); URINE WBC 81 /hpf (0-5)
[2019-03-30] MEDS: THIAMINE HCL 100 MG TABLET (FP) PO SCH (22:17)
[2019-03-30] MEDS: QUEtiapine FUMARATE 100 MG TABLET (FP) PO SCH (22:17)
[2019-03-30 22:50] LABS: URINE RBC 14.5 /hpf (0-4); YEAST NONE SEEN (NEGATIVE)
[2019-03-31] MEDS ORDERED: chlordiazePOXIDE HCL 10 MG CAPSULE PO PRN
[2019-03-31] MEDS: chlordiazePOXIDE HCL 10 MG CAPSULE PO SCH ×4 (05:45→22:24)
[2019-03-31] MEDS: amLODIPine BESYLATE 5 MG TABLET (FP) PO SCH (10:16)
[2019-03-31] MEDS: HYDROCORTISONE 1% TOPICAL CREAM 30 GM TUBE TP SCH ×2 (10:16→22:25)
[2019-03-31] MEDS: PRENATAL VITAMINS W/ FOLIC ACID TABLET (FP) PO SCH (10:16)
--- NOTE | 2019-03-31 11:24 | PN ---
S CIWA - CIWA Score Nausea/Vomitin-No Nausea/No Vomiting Muscle Tremors: None Anxiety: 2 Agitation: 0-Normal Activity Paroxysmal Sweats: 3 Orientation: 0-Oriented Tacttile Disturbances: 0-None Auditory Disturbances: 0-None Visual Disturbances: 0-None Headache: 2-Mild CIWA-Ar Total Score: 7 BHS Progress Note (SOAP) Subjective: c/o sweats, anxiety, and headache. Objective: 03/31/19 11:23 Vital Signs 03/31/19 03/31/19 03/31/19 03:30 07:18 09:51 Temperature 98.1 F 96.1 F L Pulse Rate 76 89 Respiratory 18 16 18 Rate Blood Pressure 104/70 124/93 Lab Results WBC 7.7 K/mm3 (4.0-10.0) 03/28/19 15:15 RBC 3.81 M/mm3 (3.60-5.2) 03/28/19 15:15 Hgb 11.9 GM/dL (10.7-15.3) 03/28/19 15:15 Hct 35.6 % (32.4-45.2) 03/28/19 15:15 MCV 93.3 fl (80-96) 03/28/19 15:15 MCHC 33.4 g/dl (32.0-36.0) 03/28/19 15:15 RDW 18.9 % (11.6-15.6) H 03/28/19 15:15 Plt Count 278 K/MM3 (134-434) D 03/28/19 15:15 Sodium 143 mmol/L (136-145) 03/28/19 15:15 Potassium 3.9 mmol/L (3.5-5.1) 03/28/19 15:15 Chloride 101 mmol/L (98-107) 03/28/19 15:15 Carbon Dioxide 29 mmol/L (21-32) 03/28/19 15:15 Anion Gap 13 MMOL/L (8-16) 03/28/19 15:15 BUN 7.8 mg/dL (7-18) 03/28/19 15:15 Creatinine 0.7 mg/dL (0.55-1.3) 03/28/19 15:15 Random Glucose 122 mg/dL (74-106) H 03/28/19 15:15 Calcium 8.4 mg/dL (8.5-10.1) L 03/28/19 15:15 Labs noted. Assessment: 03/31/19 11:23 AOX3, in no acute respiratory distress. Full ROM, ambulating in the unit. withdrawal symptoms. Plan: continue detox.
[2019-03-31] MEDS: THIAMINE HCL 100 MG TABLET (FP) PO SCH (22:24)
[2019-03-31] MEDS: QUEtiapine FUMARATE 100 MG TABLET (FP) PO SCH (22:24)
[2019-04-01] MEDS: chlordiazePOXIDE HCL 10 MG CAPSULE PO SCH ×2 (05:23→17:01)
[2019-04-01] MEDS: PRENATAL VITAMINS W/ FOLIC ACID TABLET (FP) PO SCH (10:33)
[2019-04-01] MEDS: amLODIPine BESYLATE 5 MG TABLET (FP) PO SCH (10:33)
[2019-04-01] MEDS: HYDROCORTISONE 1% TOPICAL CREAM 30 GM TUBE TP SCH ×2 (10:34→22:12)
--- NOTE | 2019-04-01 16:36 | PN ---
S CIWA - CIWA Score Nausea/Vomitin-No Nausea/No Vomiting Muscle Tremors: None Anxiety: 3 Agitation: 3 Paroxysmal Sweats: 2 Orientation: 0-Oriented Tacttile Disturbances: 0-None Auditory Disturbances: 0-None Visual Disturbances: 0-None Headache: 0-None Present CIWA-Ar Total Score: 8 S Progress Note (SOAP) Subjective: Feels ok, medication is working well Objective: 04/01/19 16:34 Last Vital Signs Temp Pulse Resp BP Pulse Ox 98.1 F 76 16 128/88 04/01/19 13:53 04/01/19 13:53 04/01/19 13:53 04/01/19 13:53 Laboratory Tests 03/28/19 03/28/19 03/28/19 14:12 15:15 15:15 WBC 7.7 RBC 3.81 Hgb 11.9 Hct 35.6 MCV 93.3 MCH 31.1 MCHC 33.4 RDW 18.9 H Plt Count 278 D MPV 8.5 Platelet Comment No clumping noted Sodium 143 Potassium 3.9 Chloride 101 Carbon Dioxide 29 Anion Gap 13 BUN 7.8 Creatinine 0.7 Est GFR (CKD-EPI)AfAm 120.43 Est GFR (CKD-EPI)NonAf 103.90 Random Glucose 122 H Calcium 8.4 L Total Bilirubin 0.2 AST 28 ALT 18 Alkaline Phosphatase 69 Total Protein 7.5 Albumin 3.7 Urine Color Urine Appearance Urine pH Ur Specific [place] Urine Protein Urine Glucose (UA) Urine Ketones Urine Blood Urine Nitrite Urine Bilirubin Urine Urobilinogen Ur Leukocyte Esterase Urine WBC (Auto) Urine RBC (Auto) Urine Casts (Auto) U Pathogenic Cast Auto U Epithel Cells (Auto) Urine Bacteria (Auto) Urine Yeast (Auto) POC Urine HCG, Qual Negative 03/30/19 05:05 WBC RBC Hgb Hct MCV MCH MCHC RDW Plt Count MPV Platelet Comment Sodium Potassium Chloride Carbon Dioxide Anion Gap BUN Creatinine Est GFR (CKD-EPI)AfAm Est GFR (CKD-EPI)NonAf Random Glucose Calcium Total Bilirubin AST ALT Alkaline Phosphatase Total Protein Albumin Urine Color Yellow Urine Appearance Turbid Urine pH 8.0 D Ur Specific [place] 1.024 Urine Protein 2+ H Urine Glucose (UA) Negative Urine Ketones Trace H Urine Blood 3+ H Urine Nitrite Negative Urine Bilirubin Negative Urine Urobilinogen 1.0 Ur Leukocyte Esterase 3+ H Urine WBC (Auto) 81 Urine RBC (Auto) 14.5 Urine Casts (Auto) 64 U Pathogenic Cast Auto None seen U Epithel Cells (Auto) 20.8 Urine Bacteria (Auto) 988.0 Urine Yeast (Auto) None seen POC Urine HCG, Qual Labs reviewed: abnormal UA (LMP 02/09/19 as per chart) Assessment: 04/01/19 16:36 Withdrawal sxs Plan: Continue detox Encouraged PO water intake Discharge canceled until repeated UA available If hematuria persistent and patient not having menses, she needs to follow up with PCP JOHAN for further evaluation Abnormal UA: repeat UA, Send Urine cx (to rule out UTI)
[2019-04-01] MEDS: QUEtiapine FUMARATE 100 MG TABLET (FP) PO SCH (22:12)
[2019-04-01] MEDS: THIAMINE HCL 100 MG TABLET (FP) PO SCH (22:12)
[2019-04-01] MEDS: MELATONIN 5 MG TABLETS PO PRN (22:12)
[2019-04-02] MEDS ORDERED: chlordiazePOXIDE HCL 10 MG CAPSULE PO ONE (05:00)
--- NOTE | 2019-04-02 09:54 | DS ---
[facility] Detox Discharge Summary Admission Date: 03/28/19 Discharge Date: 04/02/19 - History Present History: Alcohol Dependence - Physical Exam Results Vital Signs: Vital Signs Temperature 97.7 F 04/02/19 08:03 Pulse Rate 83 04/02/19 08:03 Respiratory Rate 16 04/02/19 08:03 Blood Pressure 117/83 04/02/19 08:03 O2 Sat by Pulse Oximetry (%) Pertinent Admission Physical Exam Findings: pt arrived in withdrawals Laboratory Tests 03/28/19 03/28/19 03/28/19 14:12 15:15 15:15 WBC 7.7 RBC 3.81 Hgb 11.9 Hct 35.6 MCV 93.3 MCH 31.1 MCHC 33.4 RDW 18.9 H Plt Count 278 D MPV 8.5 Platelet Comment No clumping noted Sodium 143 Potassium 3.9 Chloride 101 Carbon Dioxide 29 Anion Gap 13 BUN 7.8 Creatinine 0.7 Est GFR (CKD-EPI)AfAm 120.43 Est GFR (CKD-EPI)NonAf 103.90 Random Glucose 122 H Calcium 8.4 L Total Bilirubin 0.2 AST 28 ALT 18 Alkaline Phosphatase 69 Total Protein 7.5 Albumin 3.7 Urine Color Urine Appearance Urine pH Ur Specific [place] Urine Protein Urine Glucose (UA) Urine Ketones Urine Blood Urine Nitrite Urine Bilirubin Urine Urobilinogen Ur Leukocyte Esterase Urine WBC (Auto) Urine RBC (Auto) Urine Casts (Auto) U Pathogenic Cast Auto U Epithel Cells (Auto) Urine Bacteria (Auto) Urine Yeast (Auto) POC Urine HCG, Qual Negative 03/30/19 05:05 WBC RBC Hgb Hct MCV MCH MCHC RDW Plt Count MPV Platelet Comment Sodium Potassium Chloride Carbon Dioxide Anion Gap BUN Creatinine Est GFR (CKD-EPI)AfAm Est GFR (CKD-EPI)NonAf Random Glucose Calcium Total Bilirubin AST ALT Alkaline Phosphatase Total Protein Albumin Urine Color Yellow Urine Appearance Turbid Urine pH 8.0 D Ur Specific [place] 1.024 Urine Protein 2+ H Urine Glucose (UA) Negative Urine Ketones Trace H Urine Blood 3+ H Urine Nitrite Negative Urine Bilirubin Negative Urine Urobilinogen 1.0 Ur Leukocyte Esterase 3+ H Urine WBC (Auto) 81 Urine RBC (Auto) 14.5 Urine Casts (Auto) 64 U Pathogenic Cast Auto None seen U Epithel Cells (Auto) 20.8 Urine Bacteria (Auto) 988.0 Urine Yeast (Auto) None seen POC Urine HCG, Qual pt declined to submit urine again. pt denies having any s/s of UTI pt is aaox3 no s/s of withdrawals no acute distress - Treatment Hospital Course: Detox Protocol Followed, Detoxed Safely, Responded well, Discharged Condition Good, Rehab Referral Accepted Patient has Accepted a Rehab Referral to: pt declined; referral provided - Medication Discharge Medications: Ambulatory Orders Amlodipine Besylate 5 mg PO DAILY 02/16/19 Hydrocortisone 1% Cream [Hytone 1% Cream -] 1 applic TP BID 02/16/19 Magnesium Oxide [Magnesium] 400 mg PO BID 02/16/19 Quetiapine Fumarate [Seroquel -] 100 mg PO HS 02/16/19 Thiamine HCl [B-1] 100 mg PO BID 02/16/19 - Diagnosis (1) Alcohol dependence with withdrawal Current Visit: Yes Status: Chronic Qualifiers: Complication of substance-induced condition: uncomplicated Qualified Code(s ): F10.230 - Alcohol dependence with withdrawal, uncomplicated (2) Alcohol intoxication Current Visit: Yes Status: Acute Qualifiers: Complication of substance-induced condition: uncomplicated Qualified Code(s ): F10.920 - Alcohol use, unspecified with intoxication, uncomplicated (3) Alcohol-induced sleep disorder Current Visit: Yes Status: Acute (4) Dermatitis Current Visit: Yes Status: Chronic (5) HTN (hypertension) Current Visit: Yes Status: Chronic Qualifiers: Hypertension type: essential hypertension Qualified Code(s): I10 - Essential (primary) hypertension (6) Iron deficiency anemia Current Visit: Yes Status: Chronic Qualifiers: Iron deficiency anemia type: unspecified iron deficiency Qualified Code(s) : D50.9 - Iron deficiency anemia, unspecified (7) Alcohol-induced mood disorder Current Visit: Yes Status: Suspected (8) Depressed affect Current Visit: No Status: Acute (9) Insomnia Current Visit: No Status: Acute Qualifiers: Insomnia type: unspecified Qualified Code(s): G47.00 - Insomnia, unspecified (10) Alcohol abuse with alcohol-induced mood disorder Current Visit: No Status: Chronic (11) Anemia Current Visit: No Status: Chronic Qualifiers: Anemia type: unspecified type Qualified Code(s): D64.9 - Anemia, unspecified (12) Anxiety and depression Current Visit: No Status: Chronic - AMA Did Patient Leave Against Medical Advice: No
[2019-04-02] MEDS: amLODIPine BESYLATE 5 MG TABLET (FP) PO SCH (10:49)
[2019-04-02] MEDS: PRENATAL VITAMINS W/ FOLIC ACID TABLET (FP) PO SCH (10:49)
[2019-04-02] MEDS: HYDROCORTISONE 1% TOPICAL CREAM 30 GM TUBE TP SCH (10:50)
[2019-04-02 11:05] VITALS: BP 136/97; PULSE 90; TEMP 98.2
== END 2019-04-02 11:30 | disposition home or self-care (01) | DRG 775 ==
LOC: YASAS 12:18 → Y6N 15:27
PROVIDERS: ADMIT Surgery; ATTEND Surgery
PROC: HZ2ZZZZ Detoxification Services for Substance Abuse Treatment (ICD-10-PCS; principal; 2019-03-28)
DX: F10.230 Alcohol dependence with withdrawal, uncomplicated (principal); F10.220 Alcohol dependence with intoxication, uncomplicated; F10.24 Alcohol dependence with alcohol-induced mood disorder; F10.282 Alcohol dependence with alcohol-induced sleep disorder; F41.9 Anxiety disorder, unspecified; F32.9 Major depressive disorder, single episode, unspecified; I10 Essential (primary) hypertension; D50.9 Iron deficiency anemia, unspecified; L30.9 Dermatitis, unspecified; G47.00 Insomnia, unspecified; R00.0 Tachycardia, unspecified; Z87.42 Personal history of other diseases of the female genital tract; Z86.69 Personal history of other diseases of the nervous system and sense organs; Z91.011 Allergy to milk products; Z91.013 Allergy to seafood
CPT/HCPCS: 36415; 80053; 81003; 81025; 85027; 93005; 93010

== ENCOUNTER 2019-06-03 19:07 | Inpatient (IN) | payer OTHER ==
[2019-06-03 20:04] VITALS: BMI 25.6
--- NOTE | 2019-06-03 20:35 | HP ---
CIWA Score Nausea/Vomitin-No Nausea/No Vomiting Muscle Tremors: 4-Moderate,w/Arms Extend Anxiety: 4-Mod. Anxious/Guarded Agitation: 1-Slight > Activity Paroxysmal Sweats: No Perspiration Orientation: 1-Uncertain about Date Tacttile Disturbances: 0-None Auditory Disturbances: 0-None Visual Disturbances: 0-None Headache: 3-Moderate CIWA-Ar Total Score: 13 - Admission Criteria OASAS Guidelines: Admission for Medically Managed Detox: Requires at least one of the followin. CIWA greater than 12 2. Seizures within the past 24 hours 3. Delirium tremens within the past 24 hours 4. Hallucinations within the past 24 hours 5. Acute intervention needed for co occurring medical disorder 6. Acute intervention needed for co occurring psychiatric disorder 7. Severe withdrawal that cannot be handled at a lower level of care (continued vomiting, continued diarrhea, abnormal vital signs) requiring intravenous medication and/or fluids 8. Patient presents the following: CIWA greater than 12 Admission Criteria Met: Admission criteria met Admitting History and Physical - Past Medical History ...LMP: 02/09/19 - Smoking History Smoking history: Never smoked Have you smoked in the past 12 months: No - Alcohol/Substance Use Hx Alcohol Use: Yes Admission ROS S - HPI Chief Complaint: C/O WITHDRAWAL SX'S Allergies/Adverse Reactions: Allergies Allergy/AdvReac Type Severity Reaction Status Date / Time Fish Containing Products Allergy Severe Hives Verified 06/03/19 20:05 No Known Drug Allergies Allergy Verified 06/03/19 20:05 lactose AdvReac Intermediate Vomiting Verified 06/03/19 20:05 lactose intolerance AdvReac Intermediate Vomiting Uncoded 06/03/19 20:05 History of Present Illness: HERE FOR ALCOHOL DETOX. CLIENT IS REFERRED BY [facility] AFTER PRESENTING THERE DUE TO BLACKING OUT FROM INTOXICATION. SHE WAS STABILIZED AND GIVEN LIBRIUM WHILE THERE. CLIENT IS KNOWN TO THIS PROGRAM. LAST HERE 03/2019. REPORTS RELAPSING A FEWS DAYS AFTER DC. REPORTS DAILY ALCOHOL INTAKE. + EYE APRN, + BLACKOUTS, + WITHDRAWAL SX'S. DENIES AVH, SI/HI. REPORTS CLEAN TIME 6 MONTHS RELAPSING 1 YEAR AGO. HOMELESS-SENIOR LIVING, UNEMPLOYED, DENIES LEGALS Exam Limitations: No Limitations - Ebola screening Have you traveled outside of the country in the last 21 days: No (N) Have you had contact with anyone from an Ebola affected area: No Do you have a fever: No - Review of Systems Constitutional: Chills, Loss of Appetite, Night Sweats, Changes in sleep EENT: reports: No Symptoms Reported Respiratory: reports: No Symptoms reported Cardiac: reports: No Symptoms Reported GI: reports: No Symptoms Reported : reports: No Symptoms Reported Musculoskeletal: reports: No Symptoms Reported Integumentary: reports: Other (DERMATITIS ATOPIC TO FACE) Neuro: reports: Headache, Seizure (WITHDRAWAL SEIZURES, LAST 3 MONTHS AGO), Tremors Endocrine: reports: No Symptoms Reported Hematology: reports: No Symptoms Reported Psychiatric: reports: Orientated x3, Agitated (IRRITBALE), Anxious, Depressed ( DENIES SI/HI) Other Systems: Reviewed and Negative Patient History - Patient Medical History Hx Anemia: Yes Hx Asthma: No Hx Chronic Obstructive Pulmonary Disease (COPD): No Hx Cancer: No Hx Cardiac Disorders: No Hx Congestive Heart Failure: No Hx Hypertension: Yes Hx Hypercholesterolemia: No Hx Pacemaker: No HX Cerebrovascular Accident: No Hx Seizures: Yes (R/T ALCOHOL WITHDRAWAL) Hx Dementia: No Hx Diabetes: No Hx Gastrointestinal Disorders: No Hx Liver Disease: No Hx Genitourinary Disorders: No Hx Sexually Transmitted Disorders: No Hx Renal Disease (ESRD): No Hx Thyroid Disease: No Hx Human Immunodeficiency Virus (HIV): No (NEGATIVE HX-2012) Hx Hepatitis C: No Hx Depression: Yes Hx Suicide Attempt: No Hx Bipolar Disorder: No Hx Schizophrenia: No Other Medical History: DENIES - Patient Surgical History Past Surgical History: Yes Hx Neurologic Surgery: No Hx Cataract Extraction: No Hx Cardiac Surgery: No Hx Lung Surgery: No Hx Breast Surgery: No Hx Breast Biopsy: No Hx Abdominal Surgery: No Hx Appendectomy: Yes (at age 9) Hx Cholecystectomy: No Hx Genitourinary Surgery: No Hx Section: No Hx Orthopedic Surgery: No Anesthesia Reaction: No - PPD History Previous Implant?: Yes Documented Results: Negative w/proof Implanted On Prior R Admission?: Yes Date: 10/05/18 Results: 0 mm PPD to be Administered?: No - Reproductive History Last Menstrual Period: 02/09/19 - Smoking Cessation Smoking history: Never smoked Have you smoked in the past 12 months: No Hx Chewing Tobacco Use: No Initiated information on smoking cessation: No - Substance & Tx. History Hx Alcohol Use: Yes Hx Substance Use: Yes Substance Use Type: Alcohol Hx Substance Use Treatment: Yes ([facility]) - Substances abused Alcohol Substance route: Oral Frequency: Daily Amount used: 2 PINTS of vodka Age of first use: 16 Date of last use: 06/02/19 Admission Physical Exam S - Vital Signs Vital Signs: Vital Signs - 24 hr 06/03/19 19:58 Temperature 97.0 F L Pulse Rate 84 Respiratory 18 Rate Blood Pressure 142/99 - Physical General Appearance: Yes: Moderate Distress, Tremorous, Irritable HEENTM: Yes: EOMI, Normocephalic, Normal Voice, ALICIA, Pharynx Normal Respiratory: Yes: Chest Non-Tender, Normal Breath Sounds, No Respiratory Distress, No Accessory Muscle Use Neck: Yes: No masses,lesions,Nodules, Supple, Trachea in good position Breast: Yes: Breast Exam Deferred Cardiology: Yes: Regular Rhythm, S1, S2, Tachycardia Abdominal: Yes: Non Tender, Soft, Increased Bowel Sounds Genitourinary: Yes: Within Normal Limits Back: Yes: Other (LIPOMA) Musculoskeletal: Yes: full range of Motion, Gait Steady Extremities: Yes: Normal Range of Motion, Non-Tender, Tremors Neurological: Yes: Fully Oriented, Alert, Motor Strength 5/5, Depressed Affect Integumentary: Yes: Dry, Cold, Rash (ATOPIC DERMATITIS TO FACE) Lymphatic: Yes: Within Normal Limits - Diagnostic (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 (2) Depressed affect Current Visit: Yes Status: Acute (3) Alcohol dependence with withdrawal Current Visit: Yes Status: Acute Qualifiers: Complication of substance-induced condition: uncomplicated Qualified Code(s ): F10.230 - Alcohol dependence with withdrawal, uncomplicated (4) Anemia Current Visit: Yes Status: Chronic Qualifiers: Anemia type: unspecified type Qualified Code(s): D64.9 - Anemia, unspecified (5) Dermatitis Current Visit: Yes Status: Chronic (6) HTN (hypertension) Current Visit: Yes Status: Chronic Qualifiers: Hypertension type: essential hypertension Qualified Code(s): I10 - Essential (primary) hypertension (7) Iron deficiency anemia Current Visit: Yes Status: Chronic Qualifiers: Iron deficiency anemia type: unspecified iron deficiency Qualified Code(s) : D50.9 - Iron deficiency anemia, unspecified (8) Alcohol-induced mood disorder Current Visit: Yes Status: Suspected (9) At risk for falls Current Visit: Yes Status: Acute (10) Lipoma of back Current Visit: Yes Status: Chronic Cleared for Admission [facility] - Detox or Rehab [facility] Level of Care: Medically Managed Detox Regimen/Protocol: Librium Claeared for Rehab Admission: No Breathalyzer - Breathalyzer Breathalyzer: 0.084 POC Urine test - Test device test lot number: [id number] Expiration date: 07/31/20 - Control test control: Yes Urine Drug Screen - Test Device Lot number: [id number] Expiration date: 01/28/21 - Control Is test valid?: Yes - Results Drug screen NEGATIVE: No Urine drug screen results: MELA-Cocaine, BZO-Benzodiazepines Inpatient Rehab Admission - Rehab Decision to Admit Inpatient rehab admission?: No
[2019-06-03] MEDS ORDERED: MENTHOL/PHENOL 1 EACH UD MM PRN (20:39)
[2019-06-03] MEDS ORDERED: IBUPROFEN 400 MG TABLET (FP) PO PRN (20:39)
[2019-06-03] MEDS ORDERED: ONDANSETRON *ODT* 4 MG TABLET SL PRN (20:39)
[2019-06-03] MEDS ORDERED: P-EPHED 60MG/TRIPROLIDI 2.5MG TABLET PO PRN (20:39)
[2019-06-03] MEDS ORDERED: METHOCARBAMOL 500 MG TABLET PO PRN (20:39)
[2019-06-03] MEDS ORDERED: ACETAMINOPHEN 325 MG TABLET (FP) PO PRN ×2 (20:39)
[2019-06-03] MEDS ORDERED: BISMUTH SUBSALICYLATE 524 MG/30 ML UD PO PRN (20:39)
[2019-06-03] MEDS ORDERED: guaiFENesin 200 MG/10 ML 10 ML UNIT-DOSE CUPS PO PRN (20:39)
[2019-06-03] MEDS ORDERED: DICYCLOMINE HCL 10 MG CAPSULE PO PRN (20:39)
[2019-06-03] MEDS ORDERED: hydrOXYzine PAMOATE 25 MG CAPSULE (FP) PO PRN (20:39)
[2019-06-03] MEDS ORDERED: MAG HYDROX/AL HYDROX/SIMETH 30 ML UNIT-DOSE CUP PO PRN (20:39)
[2019-06-03] MEDS ORDERED: MAGNESIUM HYDROX 2400MG/30ML ORAL SUSPENSION 30 ML CUP PO PRN (20:39)
[2019-06-03] MEDS ORDERED: MAGNESIUM CITRATE 300 ML BOTTLE PO PRN (20:39)
[2019-06-03] MEDS ORDERED: chlordiazePOXIDE HCL 25 MG CAPSULE PO PRN (20:39)
[2019-06-03] MEDS: amLODIPine BESYLATE 5 MG TABLET (FP) PO SCH (21:49)
[2019-06-03] MEDS: THIAMINE HCL 100 MG TABLET (FP) PO SCH (21:49)
[2019-06-03] MEDS: MELATONIN 5 MG TABLETS PO PRN (21:50)
[2019-06-03] MEDS: chlordiazePOXIDE HCL 25 MG CAPSULE PO SCH (22:33)
[2019-06-04] MEDS: chlordiazePOXIDE HCL 25 MG CAPSULE PO SCH ×4 (05:26→22:06)
[2019-06-04 10:01] LABS: HEMATOCRIT 35.9 % (32.4-45.2); MCH 31.1 pg (25.7-33.7); MCHC 33.6 g/dl (32.0-36.0); MEAN CELL VOLUME 92.6 fl (80-96); MEAN PLT VOLUME 8.6 fl (7.5-11.1); PLATELET COUNT 243 K/MM3 (134-434); RBC 3.88 M/mm3 (3.60-5.2); RDW 20.2 % (11.6-15.6); WHITE BLOOD COUNT 6.2 K/mm3 (4.0-10.0)
[2019-06-04 10:07] LABS: ALBUMIN 3.2 g/dl (3.4-5.0); BILIRUBIN,TOTAL 0.7 mg/dL (0.2-1); CALCIUM 8.1 mg/dL (8.5-10.1); CREATININE 0.8 mg/dL (0.55-1.3); POTASSIUM 3.6 mmol/L (3.5-5.1); TOT PROT 6.8 g/dl (6.4-8.2)
--- NOTE | 2019-06-04 10:22 | PN ---
S CIWA - CIWA Score Nausea/Vomitin-No Nausea/No Vomiting Muscle Tremors: 3 Anxiety: 3 Agitation: 3 Paroxysmal Sweats: 3 Orientation: 0-Oriented Tacttile Disturbances: 0-None Auditory Disturbances: 0-None Visual Disturbances: 0-None Headache: 0-None Present CIWA-Ar Total Score: 12 BHS Progress Note (SOAP) Subjective: sweats shakes interrupted sleep body aches interrupted sleep Objective: 06/04/19 10:21 Vital Signs Temperature 98.2 F 06/04/19 09:27 Pulse Rate 96 H 06/04/19 09:27 Respiratory Rate 18 06/04/19 09:27 Blood Pressure 128/86 06/04/19 09:27 O2 Sat by Pulse Oximetry (%) Laboratory Tests 06/03/19 06/04/19 06/04/19 20:28 08:00 08:00 WBC 6.2 RBC 3.88 Hgb 12.0 Hct 35.9 MCV 92.6 MCH 31.1 MCHC 33.6 RDW 20.2 H Plt Count 243 MPV 8.6 Sodium 139 Potassium 3.6 Chloride 99 Carbon Dioxide 35 H Anion Gap 6 L BUN 4.0 L Creatinine 0.8 Est GFR (CKD-EPI)AfAm 102.47 Est GFR (CKD-EPI)NonAf 88.41 Random Glucose 98 Calcium 8.1 L Total Bilirubin 0.7 AST 43 H ALT 24 Alkaline Phosphatase 87 Total Protein 6.8 Albumin 3.2 L POC Urine HCG, Qual Negative labs noted aaox3 ambulating no acute distress Assessment: 06/04/19 10:21 withdrawals Plan: continue detox increase fluids
[2019-06-04] MEDS: amLODIPine BESYLATE 5 MG TABLET (FP) PO SCH (10:48)
[2019-06-04] MEDS: PRENATAL VITAMINS W/ FOLIC ACID TABLET (FP) PO SCH (10:48)
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
[2019-06-04] MEDS ORDERED: FLUoxetine HCL 20 MG CAPSULE (FP) PO SCH (11:15)
[2019-06-04] MEDS ORDERED: HYDROCORTISONE 0.5% TOPICAL CREAM 30 GM TUBE TP PRN (12:33)
[2019-06-04] MEDS: FLUoxetine HCL 10 MG CAPSULE (FP) PO SCH (12:45)
[2019-06-04] MEDS: THIAMINE HCL 100 MG TABLET (FP) PO SCH (22:06)
[2019-06-04] MEDS: QUEtiapine FUMARATE 100 MG TABLET (FP) PO SCH (22:06)
[2019-06-05] MEDS: chlordiazePOXIDE HCL 25 MG CAPSULE PO SCH ×4 (06:06→22:21)
[2019-06-05] MEDS: amLODIPine BESYLATE 5 MG TABLET (FP) PO SCH (10:18)
[2019-06-05] MEDS: FLUoxetine HCL 10 MG CAPSULE (FP) PO SCH (10:18)
[2019-06-05] MEDS: PRENATAL VITAMINS W/ FOLIC ACID TABLET (FP) PO SCH (10:19)
--- NOTE | 2019-06-05 13:55 | PN ---
[facility] CIWA - CIWA Score Nausea/Vomitin-Mild Nausea/No Vomiting Muscle Tremors: 2 Anxiety: 2 Agitation: 2 Paroxysmal Sweats: No Perspiration Orientation: 0-Oriented Tacttile Disturbances: 1-Very Mild Itch/Numbness Auditory Disturbances: 0-None Visual Disturbances: 0-None Headache: 1-Very Mild CIWA-Ar Total Score: 9 S Progress Note (SOAP) Subjective: alert,irritable,anxious,interrupted sleep Objective: 06/05/19 13:54 Vital Signs Temperature 96.6 F L 06/05/19 09:34 Pulse Rate 88 06/05/19 09:34 Respiratory Rate 19 06/05/19 09:34 Blood Pressure 108/67 06/05/19 09:34 O2 Sat by Pulse Oximetry (%) Laboratory Last Values WBC 6.2 K/mm3 (4.0-10.0) 06/04/19 08:00 RBC 3.88 M/mm3 (3.60-5.2) 06/04/19 08:00 Hgb 12.0 GM/dL (10.7-15.3) 06/04/19 08:00 Hct 35.9 % (32.4-45.2) 06/04/19 08:00 MCV 92.6 fl (80-96) 06/04/19 08:00 MCH 31.1 pg (25.7-33.7) 06/04/19 08:00 MCHC 33.6 g/dl (32.0-36.0) 06/04/19 08:00 RDW 20.2 % (11.6-15.6) H 06/04/19 08:00 Plt Count 243 K/MM3 (134-434) 06/04/19 08:00 MPV 8.6 fl (7.5-11.1) 06/04/19 08:00 Sodium 139 mmol/L (136-145) 06/04/19 08:00 Potassium 3.6 mmol/L (3.5-5.1) 06/04/19 08:00 Chloride 99 mmol/L (98-107) 06/04/19 08:00 Carbon Dioxide 35 mmol/L (21-32) H 06/04/19 08:00 Anion Gap 6 MMOL/L (8-16) L 06/04/19 08:00 BUN 4.0 mg/dL (7-18) L 06/04/19 08:00 Creatinine 0.8 mg/dL (0.55-1.3) 06/04/19 08:00 Est GFR (CKD-EPI)AfAm 102.47 06/04/19 08:00 Est GFR (CKD-EPI)NonAf 88.41 06/04/19 08:00 Random Glucose 98 mg/dL (74-106) 06/04/19 08:00 Calcium 8.1 mg/dL (8.5-10.1) L 06/04/19 08:00 Total Bilirubin 0.7 mg/dL (0.2-1) 06/04/19 08:00 AST 43 U/L (15-37) H 06/04/19 08:00 ALT 24 U/L (13-61) 06/04/19 08:00 Alkaline Phosphatase 87 U/L (45-117) 06/04/19 08:00 Total Protein 6.8 g/dl (6.4-8.2) 06/04/19 08:00 Albumin 3.2 g/dl (3.4-5.0) L 06/04/19 08:00 POC Urine HCG, Qual Negative 06/03/19 20:28 HIV 1&2 Antibody Screen Negative 06/04/19 08:00 HIV P24 Antigen Negative 06/04/19 08:00 Assessment: 06/05/19 13:55 withdrawal symptom Plan: continue detox librium regimen
[2019-06-05] MEDS: THIAMINE HCL 100 MG TABLET (FP) PO SCH (22:20)
[2019-06-05] MEDS: QUEtiapine FUMARATE 100 MG TABLET (FP) PO SCH (22:20)
[2019-06-05] MEDS: MELATONIN 5 MG TABLETS PO PRN (22:22)
[2019-06-06] MEDS ORDERED: chlordiazePOXIDE HCL 10 MG CAPSULE PO PRN
[2019-06-06] MEDS: chlordiazePOXIDE HCL 10 MG CAPSULE PO SCH ×4 (06:18→22:10)
[2019-06-06] MEDS: PRENATAL VITAMINS W/ FOLIC ACID TABLET (FP) PO SCH (10:48)
[2019-06-06] MEDS: FLUoxetine HCL 10 MG CAPSULE (FP) PO SCH (10:48)
[2019-06-06] MEDS: amLODIPine BESYLATE 5 MG TABLET (FP) PO SCH (10:48)
--- NOTE | 2019-06-06 15:04 | PN ---
S CIWA - CIWA Score Nausea/Vomitin-Mild Nausea/No Vomiting Muscle Tremors: 2 Anxiety: 2 Agitation: 2 Paroxysmal Sweats: No Perspiration Orientation: 0-Oriented Tacttile Disturbances: 1-Very Mild Itch/Numbness Auditory Disturbances: 0-None Visual Disturbances: 0-None Headache: 2-Mild CIWA-Ar Total Score: 10 S Progress Note (SOAP) Subjective: alert,irritable,anxious,interrupted sleep,pain in the body Objective: 06/06/19 15:03 Vital Signs Temperature 99.5 F 06/06/19 13:33 Pulse Rate 87 06/06/19 13:33 Respiratory Rate 18 06/06/19 13:33 Blood Pressure 131/98 06/06/19 13:33 O2 Sat by Pulse Oximetry (%) Laboratory Last Values WBC 6.2 K/mm3 (4.0-10.0) 06/04/19 08:00 RBC 3.88 M/mm3 (3.60-5.2) 06/04/19 08:00 Hgb 12.0 GM/dL (10.7-15.3) 06/04/19 08:00 Hct 35.9 % (32.4-45.2) 06/04/19 08:00 MCV 92.6 fl (80-96) 06/04/19 08:00 MCH 31.1 pg (25.7-33.7) 06/04/19 08:00 MCHC 33.6 g/dl (32.0-36.0) 06/04/19 08:00 RDW 20.2 % (11.6-15.6) H 06/04/19 08:00 Plt Count 243 K/MM3 (134-434) 06/04/19 08:00 MPV 8.6 fl (7.5-11.1) 06/04/19 08:00 Sodium 139 mmol/L (136-145) 06/04/19 08:00 Potassium 3.6 mmol/L (3.5-5.1) 06/04/19 08:00 Chloride 99 mmol/L (98-107) 06/04/19 08:00 Carbon Dioxide 35 mmol/L (21-32) H 06/04/19 08:00 Anion Gap 6 MMOL/L (8-16) L 06/04/19 08:00 BUN 4.0 mg/dL (7-18) L 06/04/19 08:00 Creatinine 0.8 mg/dL (0.55-1.3) 06/04/19 08:00 Est GFR (CKD-EPI)AfAm 102.47 06/04/19 08:00 Est GFR (CKD-EPI)NonAf 88.41 06/04/19 08:00 Random Glucose 98 mg/dL (74-106) 06/04/19 08:00 Calcium 8.1 mg/dL (8.5-10.1) L 06/04/19 08:00 Total Bilirubin 0.7 mg/dL (0.2-1) 06/04/19 08:00 AST 43 U/L (15-37) H 06/04/19 08:00 ALT 24 U/L (13-61) 06/04/19 08:00 Alkaline Phosphatase 87 U/L (45-117) 06/04/19 08:00 Total Protein 6.8 g/dl (6.4-8.2) 06/04/19 08:00 Albumin 3.2 g/dl (3.4-5.0) L 06/04/19 08:00 POC Urine HCG, Qual Negative 06/03/19 20:28 HIV 1&2 Antibody Screen Negative 06/04/19 08:00 HIV P24 Antigen Negative 06/04/19 08:00 Assessment: 06/06/19 15:04 withdrawal symptom Plan: continue detox librium regimen
[2019-06-06] MEDS: QUEtiapine FUMARATE 100 MG TABLET (FP) PO SCH (22:10)
[2019-06-06] MEDS: THIAMINE HCL 100 MG TABLET (FP) PO SCH (22:10)
[2019-06-07] MEDS: chlordiazePOXIDE HCL 10 MG CAPSULE PO SCH ×2 (05:20→17:29)
[2019-06-07] MEDS: amLODIPine BESYLATE 5 MG TABLET (FP) PO SCH (10:22)
[2019-06-07] MEDS: PRENATAL VITAMINS W/ FOLIC ACID TABLET (FP) PO SCH (10:22)
[2019-06-07] MEDS: FLUoxetine HCL 10 MG CAPSULE (FP) PO SCH (10:22)
--- NOTE | 2019-06-07 12:12 | PN ---
S CIWA - CIWA Score Nausea/Vomitin-No Nausea/No Vomiting Muscle Tremors: 2 Anxiety: 0-No Anxiety, at Ease Agitation: 2 Paroxysmal Sweats: 2 Orientation: 0-Oriented Tacttile Disturbances: 0-None Auditory Disturbances: 0-None Visual Disturbances: 0-None Headache: 0-None Present CIWA-Ar Total Score: 6 BHS Progress Note (SOAP) Subjective: irritable sweats Objective: 06/07/19 12:12 Vital Signs Temperature 97.9 F 06/07/19 10:30 Pulse Rate 104 H 06/07/19 10:30 Respiratory Rate 18 06/07/19 10:30 Blood Pressure 127/90 06/07/19 10:30 O2 Sat by Pulse Oximetry (%) aaox3 ambulating no acute distress Assessment: 06/07/19 12:12 mild withdrawals Plan: continue detox d/c in am
[2019-06-07 17:36] VITALS: TEMP 98.2
[2019-06-07 21:29] VITALS: BP 142/97; PULSE 80
[2019-06-07] MEDS: QUEtiapine FUMARATE 100 MG TABLET (FP) PO SCH (22:23)
[2019-06-07] MEDS: THIAMINE HCL 100 MG TABLET (FP) PO SCH (22:23)
[2019-06-07] MEDS: MELATONIN 5 MG TABLETS PO PRN (22:24)
[2019-06-08] MEDS ORDERED: chlordiazePOXIDE HCL 10 MG CAPSULE PO ONE (05:00)
--- NOTE | 2019-06-08 09:21 | DS ---
[facility] Detox Discharge Summary Admission Date: 06/03/19 Discharge Date: 06/08/19 - History Present History: Alcohol Dependence - Physical Exam Results Vital Signs: Vital Signs Temperature 98.2 F 06/07/19 21:28 Pulse Rate 80 06/07/19 21:28 Respiratory Rate 18 06/08/19 03:30 Blood Pressure 142/97 06/07/19 21:28 O2 Sat by Pulse Oximetry (%) - Treatment Hospital Course: Detox Protocol Followed, Detoxed Safely, Responded well, Discharged Condition Good, Rehab Referral Accepted Patient has Accepted a Rehab Referral to: pt referred to [facility] OTP - Medication Discharge Medications: Ambulatory Orders Amlodipine Besylate 5 mg PO DAILY 02/16/19 Quetiapine Fumarate [Seroquel -] 100 mg PO HS 02/16/19 Fluoxetine HCl [Prozac] 40 mg PO DAILY 06/03/19 - Diagnosis (1) Alcohol dependence with withdrawal Current Visit: Yes Status: Chronic Qualifiers: Complication of substance-induced condition: uncomplicated Qualified Code(s ): F10.230 - Alcohol dependence with withdrawal, uncomplicated (2) Depressed affect Current Visit: Yes Status: Acute (3) Substance induced mood disorder Current Visit: Yes Status: Acute (4) Substance-induced sleep disorder Current Visit: Yes Status: Acute (5) Alcohol-induced sleep disorder Current Visit: Yes Status: Chronic (6) Dermatitis Current Visit: Yes Status: Chronic (7) HTN (hypertension) Current Visit: Yes Status: Chronic Qualifiers: Hypertension type: essential hypertension Qualified Code(s): I10 - Essential (primary) hypertension (8) Lipoma of back Current Visit: Yes Status: Chronic (9) Alcohol-induced mood disorder Current Visit: Yes Status: Suspected (10) Alcohol abuse with alcohol-induced mood disorder Current Visit: No Status: Chronic (11) Anxiety and depression Current Visit: No Status: Chronic - AMA Did Patient Leave Against Medical Advice: No
== END 2019-06-08 11:25 | disposition home or self-care (01) | DRG 775 ==
LOC: YASAS 19:07 → Y6N 21:00
PROVIDERS: ADMIT Allergy & Immunology; ATTEND Allergy & Immunology
PROC: HZ2ZZZZ Detoxification Services for Substance Abuse Treatment (ICD-10-PCS; principal; 2019-06-03)
DX: F10.230 Alcohol dependence with withdrawal, uncomplicated (principal); F10.282 Alcohol dependence with alcohol-induced sleep disorder; F10.24 Alcohol dependence with alcohol-induced mood disorder; F19.24 Other psychoactive substance dependence with psychoactive substance-induced mood disorder; F19.282 Other psychoactive substance dependence with psychoactive substance-induced sleep disorder; F41.8 Other specified anxiety disorders; F32.9 Major depressive disorder, single episode, unspecified; D50.9 Iron deficiency anemia, unspecified; D17.1 Benign lipomatous neoplasm of skin and subcutaneous tissue of trunk; I10 Essential (primary) hypertension; L30.9 Dermatitis, unspecified; G40.509 Epileptic seizures related to external causes, not intractable, without status epilepticus; E73.9 Lactose intolerance, unspecified; Z91.81 History of falling; Z91.013 Allergy to seafood; Z91.02 Food additives allergy status
CPT/HCPCS: 36415; 80053; 81025; 85027; 87389

== ENCOUNTER 2020-04-10 00:55 | Inpatient (IN) | payer OTHER ==
[2020-04-10 01:42] VITALS: BMI 26.6
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
[2020-04-10] MEDS ORDERED: MAGNESIUM HYDROX 2400MG/30ML ORAL SUSPENSION 30 ML CUP PO PRN (02:24)
[2020-04-10] MEDS ORDERED: ACETAMINOPHEN 325 MG TABLET (FP) PO PRN ×2 (02:24)
[2020-04-10] MEDS ORDERED: MAG HYDROX/AL HYDROX/SIMETH 30 ML UNIT-DOSE CUP PO PRN ×2 (02:24→02:30)
[2020-04-10] MEDS ORDERED: LORazepam 1 MG TABLET PO PRN (02:24)
[2020-04-10] MEDS ORDERED: BISMUTH SUBSALICYLATE 524 MG/30 ML UD PO PRN (02:24)
[2020-04-10] MEDS ORDERED: MENTHOL/PHENOL 1 EACH UD MM PRN (02:24)
[2020-04-10] MEDS ORDERED: hydrOXYzine PAMOATE 25 MG CAPSULE (FP) PO PRN (02:24)
[2020-04-10] MEDS ORDERED: METHOCARBAMOL 500 MG TABLET PO PRN (02:24)
[2020-04-10] MEDS ORDERED: IBUPROFEN 400 MG TABLET (FP) PO PRN (02:24)
[2020-04-10] MEDS ORDERED: MAGNESIUM CITRATE 300 ML BOTTLE PO PRN (02:24)
[2020-04-10] MEDS: LORazepam 2 MG TABLET PO SCH ×4 (04:01→22:29)
[2020-04-10] MEDS: amLODIPine BESYLATE 5 MG TABLET (FP) PO SCH (10:35)
[2020-04-10] MEDS: PRENATAL VITAMINS W/ FOLIC ACID TABLET (FP) PO SCH (10:35)
[2020-04-10] MEDS: ONDANSETRON *ODT* 4 MG TABLET SL PRN ×2 (10:36→16:09)
[2020-04-10 11:01] LABS: HEMATOCRIT 29.2 % (32.4-45.2); HEMOGLOBIN 9.4 GM/dL (10.7-15.3); MCH 27.6 pg (25.7-33.7); MEAN CELL VOLUME 86.1 fl (80-96); MEAN PLT VOLUME 8.6 fl (7.5-11.1); PLATELET COUNT 142 K/MM3 (134-434); RBC 3.39 M/mm3 (3.60-5.2); RDW 22.5 % (11.6-15.6); WHITE BLOOD COUNT 3.5 K/mm3 (4.0-10.0)
[2020-04-10 11:20] LABS: POTASSIUM 3.4 mmol/L (3.5-5.1)
[2020-04-10 11:28] LABS: ALBUMIN 3.2 g/dl (3.4-5.0); BILIRUBIN,TOTAL 0.5 mg/dL (0.2-1); CALCIUM 7.7 mg/dL (8.5-10.1); CREATININE 0.6 mg/dL (0.55-1.3); TOT PROT 6.9 g/dl (6.4-8.2)
--- NOTE | 2020-04-10 12:40 | EKG ---
Test Reason : Blood Pressure : / mmHG Vent. Rate : 063 BPM Atrial Rate : 063 BPM P-R Int : 158 ms QRS Dur : 074 ms QT Int : 454 ms P-R-T Axes : 040 -06 -03 degrees QTc Int : 464 ms NORMAL SINUS RHYTHM NORMAL ECG WHEN COMPARED WITH ECG OF 30-MAR-2019 05:32, NONSPECIFIC T WAVE ABNORMALITY NO LONGER EVIDENT IN ANTEROLATERAL LEADS Confirmed by ROSA ELENA MARTINEZ, BOSSMAN ([id number]) on 04/10/2020 12:39:56 PM Referred By: Confirmed By:BOSSMAN CUBA MD
--- NOTE | 2020-04-10 15:47 | PN ---
S CIWA - CIWA Score Nausea/Vomitin Muscle Tremors: 3 Anxiety: 3 Agitation: 3 Paroxysmal Sweats: No Perspiration Orientation: 0-Oriented Tacttile Disturbances: 1-Very Mild Itch/Numbness Auditory Disturbances: 0-None Visual Disturbances: 0-None Headache: 2-Mild CIWA-Ar Total Score: 15 S Progress Note (SOAP) Subjective: alert,irritable,anxious,interrupted sleep,aching pain Objective: 04/10/20 15:46 Vital Signs Temperature 97.3 F L 04/10/20 12:42 Pulse Rate 111 H 04/10/20 12:42 Respiratory Rate 18 04/10/20 12:42 Blood Pressure 144/91 04/10/20 12:42 O2 Sat by Pulse Oximetry (%) 96 04/10/20 12:42 04/10/20 15:47 Laboratory Last Values WBC 3.5 K/mm3 (4.0-10.0) L 04/10/20 08:45 RBC 3.39 M/mm3 (3.60-5.2) L 04/10/20 08:45 Hgb 9.4 GM/dL (10.7-15.3) L 04/10/20 08:45 Hct 29.2 % (32.4-45.2) L D 04/10/20 08:45 MCV 86.1 fl (80-96) 04/10/20 08:45 MCH 27.6 pg (25.7-33.7) D 04/10/20 08:45 MCHC 32.0 g/dl (32.0-36.0) 04/10/20 08:45 RDW 22.5 % (11.6-15.6) H 04/10/20 08:45 Plt Count 142 K/MM3 (134-434) D 04/10/20 08:45 MPV 8.6 fl (7.5-11.1) 04/10/20 08:45 Sodium 141 mmol/L (136-145) 04/10/20 08:45 Potassium 3.4 mmol/L (3.5-5.1) L 04/10/20 08:45 Chloride 102 mmol/L (98-107) 04/10/20 08:45 Carbon Dioxide 29 mmol/L (21-32) 04/10/20 08:45 Anion Gap 10 MMOL/L (8-16) 04/10/20 08:45 BUN 3.0 mg/dL (7-18) L 04/10/20 08:45 Creatinine 0.6 mg/dL (0.55-1.3) 04/10/20 08:45 Est GFR (CKD-EPI)AfAm 125.80 04/10/20 08:45 Est GFR (CKD-EPI)NonAf 108.54 04/10/20 08:45 Random Glucose 73 mg/dL (74-106) L 04/10/20 08:45 Calcium 7.7 mg/dL (8.5-10.1) L 04/10/20 08:45 Total Bilirubin 0.5 mg/dL (0.2-1) 04/10/20 08:45 AST 28 U/L (15-37) 04/10/20 08:45 ALT 18 U/L (13-61) 04/10/20 08:45 Alkaline Phosphatase 65 U/L (45-117) 04/10/20 08:45 Total Protein 6.9 g/dl (6.4-8.2) 04/10/20 08:45 Albumin 3.2 g/dl (3.4-5.0) L 04/10/20 08:45 POC Urine HCG, Qual Negative 04/10/20 01:46 Syphilis Serology Non-reactive (NONREACTIVE) 04/10/20 08:45 HIV Ag/Ab Combo Qual Negative (NEGATIVE) 04/10/20 08:45 Assessment: 04/10/20 15:47 withdrawal symptom Plan: continue detox ativan regimen
[2020-04-10] MEDS: MELATONIN 5 MG TABLETS PO SCH (22:29)
[2020-04-10] MEDS: THIAMINE HCL 100 MG TABLET (FP) PO SCH (22:29)
[2020-04-11] MEDS: LORazepam 1 MG TABLET PO SCH ×4 (05:39→22:10)
[2020-04-11] MEDS ORDERED: POTASSIUM CHLORIDE TABS 20 MEQ TABLET.ER (FP) PO ONE (09:46)
--- NOTE | 2020-04-11 09:48 | PN ---
S CIWA - CIWA Score Nausea/Vomitin Muscle Tremors: 1-None Visible, but [place] Anxiety: 2 Agitation: 2 Paroxysmal Sweats: No Perspiration Orientation: 0-Oriented Tacttile Disturbances: 0-None Auditory Disturbances: 0-None Visual Disturbances: 0-None Headache: 0-None Present CIWA-Ar Total Score: 7 BHS Progress Note (SOAP) Subjective: Patient is a 49 y/o female who is admitted for detox from alcohol, patient only complains of constipation. Objective: 04/11/20 09:45 Vital Signs Temperature 97.1 F L 04/11/20 08:38 Pulse Rate 107 H 04/11/20 08:38 Respiratory Rate 18 04/11/20 08:38 Blood Pressure 124/89 04/11/20 08:38 O2 Sat by Pulse Oximetry (%) 97 04/11/20 05:35 Physical Exam general: WNNL, awake, alert HEENT: hearing intact, normocephalic Neuro: ROM intact, gait unobserved skin: intact dry CBC, BMP 04/10/20 08:45 04/10/20 08:45 Active Medications Acetaminophen (Tylenol -) 650 mg PO Q6H PRN PRN Reason: PAIN LEVEL 4 - 6 Acetaminophen (Tylenol -) 650 mg PO Q6H PRN PRN Reason: FEVER Al Hydroxide/Mg Hydroxide (Mylanta Oral Suspension -) 30 ml PO Q6H PRN PRN Reason: DYSPEPSIA Amlodipine Besylate (Norvasc -) 5 mg PO DAILY [facility] Last Admin: 04/10/20 10:35 Dose: 5 mg Documented by: Bismuth Subsalicylate (Pepto-Bismol -) 524 mg PO Q1H PRN PRN Reason: DIARRHEA Eucalyptus/Menthol/Phenol/Sorbitol (Cepastat Lozenge -) 1 each MM Q4H PRN PRN Reason: SORE THROAT Stop: 04/16/20 02:24 Hydroxyzine Pamoate (Vistaril -) 25 mg PO Q4HWA PRN PRN Reason: ANXIETY Stop: 04/16/20 02:26 Ibuprofen (Motrin -) 400 mg PO Q6H PRN PRN Reason: PAIN LEVEL 1 - 3 Lorazepam (Ativan -) 1 mg PO 0500,1100,1700,2300 [facility] Stop: 04/11/20 23:01 Last Admin: 04/11/20 05:39 Dose: 1 mg Documented by: Lorazepam (Ativan -) 1 mg PO Q4H PRN PRN Reason: Symptoms of Withdrawal Stop: 04/12/20 00:00 Lorazepam (Ativan -) 0.5 mg PO Q6H [facility] Stop: 04/12/20 23:01 Lorazepam (Ativan -) 0.5 mg PO Q4H PRN PRN Reason: Symptoms of Withdrawal Stop: 04/13/20 00:00 Lorazepam (Ativan -) 0.5 mg PO ONCE ONE Stop: 04/13/20 05:01 Magnesium Citrate (Citroma -) 300 ml PO Q48H PRN PRN Reason: CONSTIPATION Magnesium Hydroxide (Milk Of Magnesia -) 30 ml PO PRN PRN PRN Reason: CONSTIPATION Melatonin (Melatonin) 5 mg PO [facility] Last Admin: 04/10/20 22:29 Dose: 5 mg Documented by: Methocarbamol (Robaxin -) 500 mg PO Q6H PRN PRN Reason: MUSCLE SPASMS Stop: 04/16/20 02:24 Ondansetron HCl (Zofran Odt -) 4 mg SL Q8H PRN PRN Reason: Nausea/Vomiting Last Admin: 04/10/20 16:09 Dose: 4 mg Documented by: Multivit/Folic Acid/Iron ( Vitamins (Sjr) -) 1 tab PO DAILY [facility] Last Admin: 04/10/20 10:35 Dose: 1 tab Documented by: Thiamine HCl (Vitamin B1 -) 100 mg PO [facility] Last Admin: 04/10/20 22:29 Dose: 100 mg Documented by: Assessment: 04/11/20 09:46 1. Alcohol dependence with withdrawal 2. hypokalemia 3. anemia 4. HTN Plan: 1. Continue ativan for alcohol detox 2. likely complicated by alcohol abuse, f/u CBC tomorrow 3. repleated potassium, f/u CMP tomorrow 4. continue home medication
[2020-04-11] MEDS: amLODIPine BESYLATE 5 MG TABLET (FP) PO SCH (10:42)
[2020-04-11] MEDS: PRENATAL VITAMINS W/ FOLIC ACID TABLET (FP) PO SCH (10:42)
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
[2020-04-11] MEDS ORDERED: HYDROCORTISONE 0.5% TOPICAL OINTMENT TUBE TP PRN (12:26)
[2020-04-11] MEDS ORDERED: HYDROCORTISONE 0.5% TOPICAL CREAM 30 GM TUBE TP PRN (17:47)
[2020-04-11] MEDS ORDERED: QUEtiapine FUMARATE 100 MG TABLET (FP) PO SCH (22:00)
[2020-04-11] MEDS: THIAMINE HCL 100 MG TABLET (FP) PO SCH (22:10)
[2020-04-11] MEDS: MELATONIN 5 MG TABLETS PO SCH (22:11)
[2020-04-12] MEDS ORDERED: LORazepam 0.5 MG TABLET PO PRN
[2020-04-12] MEDS: LORazepam 0.5 MG TABLET PO SCH ×2 (06:42→10:56)
[2020-04-12] MEDS: amLODIPine BESYLATE 5 MG TABLET (FP) PO SCH (10:56)
[2020-04-12] MEDS: PRENATAL VITAMINS W/ FOLIC ACID TABLET (FP) PO SCH (10:56)
[2020-04-12 13:52] VITALS: BP 129/94; PULSE 103; TEMP 97.5
--- NOTE | 2020-04-12 14:25 | PN ---
[facility] CIWA - CIWA Score Nausea/Vomitin-No Nausea/No Vomiting Muscle Tremors: None Anxiety: 2 Agitation: 0-Normal Activity Paroxysmal Sweats: 2 Orientation: 0-Oriented Tacttile Disturbances: 0-None Auditory Disturbances: 0-None Visual Disturbances: 0-None Headache: 0-None Present CIWA-Ar Total Score: 4 S Progress Note (SOAP) Subjective: c/o mild withdrawal symptoms. Objective: 04/12/20 14:24 Vital Signs 04/12/20 04/12/20 04/12/20 06:50 09:00 12:55 Temperature 96.9 F L 97.9 F 97.5 F L Pulse Rate 107 H 100 H 103 H Respiratory 20 18 19 Rate Blood Pressure 135/97 130/98 129/94 O2 Sat by Pulse 84 L 98 Oximetry (%) Laboratory Last Values WBC 3.5 K/mm3 (4.0-10.0) L 04/10/20 08:45 RBC 3.39 M/mm3 (3.60-5.2) L 04/10/20 08:45 Hgb 9.4 GM/dL (10.7-15.3) L 04/10/20 08:45 Hct 29.2 % (32.4-45.2) L D 04/10/20 08:45 MCV 86.1 fl (80-96) 04/10/20 08:45 MCH 27.6 pg (25.7-33.7) D 04/10/20 08:45 MCHC 32.0 g/dl (32.0-36.0) 04/10/20 08:45 RDW 22.5 % (11.6-15.6) H 04/10/20 08:45 Plt Count 142 K/MM3 (134-434) D 04/10/20 08:45 MPV 8.6 fl (7.5-11.1) 04/10/20 08:45 Sodium 141 mmol/L (136-145) 04/10/20 08:45 Potassium 3.4 mmol/L (3.5-5.1) L 04/10/20 08:45 Chloride 102 mmol/L (98-107) 04/10/20 08:45 Carbon Dioxide 29 mmol/L (21-32) 04/10/20 08:45 Anion Gap 10 MMOL/L (8-16) 04/10/20 08:45 BUN 3.0 mg/dL (7-18) L 04/10/20 08:45 Creatinine 0.6 mg/dL (0.55-1.3) 04/10/20 08:45 Est GFR (CKD-EPI)AfAm 125.80 04/10/20 08:45 Est GFR (CKD-EPI)NonAf 108.54 04/10/20 08:45 Random Glucose 73 mg/dL (74-106) L 04/10/20 08:45 Calcium 7.7 mg/dL (8.5-10.1) L 04/10/20 08:45 Total Bilirubin 0.5 mg/dL (0.2-1) 04/10/20 08:45 AST 28 U/L (15-37) 04/10/20 08:45 ALT 18 U/L (13-61) 04/10/20 08:45 Alkaline Phosphatase 65 U/L (45-117) 04/10/20 08:45 Total Protein 6.9 g/dl (6.4-8.2) 04/10/20 08:45 Albumin 3.2 g/dl (3.4-5.0) L 04/10/20 08:45 POC Urine HCG, Qual Negative 04/10/20 01:46 Syphilis Serology Non-reactive (NONREACTIVE) 04/10/20 08:45 COVID-19 ([facility]) Not detected (Not Detected) 04/10/20 02:40 HIV Ag/Ab Combo Qual Negative (NEGATIVE) 04/10/20 08:45 Labs noted. Assessment: 04/12/20 14:25 AOX3, in no acute respiratory distress. Full ROM, ambulating in the unit. Mild Withdrawal symptoms. For d/c tomorrow. Plan: continue detox.
--- NOTE | 2020-04-12 15:24 | DS ---
[facility] Detox Discharge Summary Admission Date: 04/10/20 Discharge Date: 04/12/20 - History Present History: Alcohol Dependence Additional Comments: Pt is medically cleared and discharged today. Pt completed the detox protocol. Pt is encouraged to follow-up with an outpatient CD program and also to follow- up with her pmd which she verbalized understanding. Pt is AOX3, in no acute respiratory distress, Full ROM, and ambulatory. Pertinent Past History: h/o HTN and alcohol use disorder. - Physical Exam Results Vital Signs: Vital Signs Temperature 97.5 F L 04/12/20 12:55 Pulse Rate 103 H 04/12/20 12:55 Respiratory Rate 19 04/12/20 12:55 Blood Pressure 129/94 04/12/20 12:55 O2 Sat by Pulse Oximetry (%) 98 04/12/20 12:55 Vital Signs 04/12/20 04/12/20 09:00 12:55 Temperature 97.9 F 97.5 F L Pulse Rate 100 H 103 H Respiratory 18 19 Rate Blood Pressure 130/98 129/94 O2 Sat by Pulse 98 Oximetry (%) Laboratory Last Values WBC 3.5 K/mm3 (4.0-10.0) L 04/10/20 08:45 RBC 3.39 M/mm3 (3.60-5.2) L 04/10/20 08:45 Hgb 9.4 GM/dL (10.7-15.3) L 04/10/20 08:45 Hct 29.2 % (32.4-45.2) L D 04/10/20 08:45 MCV 86.1 fl (80-96) 04/10/20 08:45 MCH 27.6 pg (25.7-33.7) D 04/10/20 08:45 MCHC 32.0 g/dl (32.0-36.0) 04/10/20 08:45 RDW 22.5 % (11.6-15.6) H 04/10/20 08:45 Plt Count 142 K/MM3 (134-434) D 04/10/20 08:45 MPV 8.6 fl (7.5-11.1) 04/10/20 08:45 Sodium 141 mmol/L (136-145) 04/10/20 08:45 Potassium 3.4 mmol/L (3.5-5.1) L 04/10/20 08:45 Chloride 102 mmol/L (98-107) 04/10/20 08:45 Carbon Dioxide 29 mmol/L (21-32) 04/10/20 08:45 Anion Gap 10 MMOL/L (8-16) 04/10/20 08:45 BUN 3.0 mg/dL (7-18) L 04/10/20 08:45 Creatinine 0.6 mg/dL (0.55-1.3) 04/10/20 08:45 Est GFR (CKD-EPI)AfAm 125.80 04/10/20 08:45 Est GFR (CKD-EPI)NonAf 108.54 04/10/20 08:45 Random Glucose 73 mg/dL (74-106) L 04/10/20 08:45 Calcium 7.7 mg/dL (8.5-10.1) L 04/10/20 08:45 Total Bilirubin 0.5 mg/dL (0.2-1) 04/10/20 08:45 AST 28 U/L (15-37) 04/10/20 08:45 ALT 18 U/L (13-61) 04/10/20 08:45 Alkaline Phosphatase 65 U/L (45-117) 04/10/20 08:45 Total Protein 6.9 g/dl (6.4-8.2) 04/10/20 08:45 Albumin 3.2 g/dl (3.4-5.0) L 04/10/20 08:45 POC Urine HCG, Qual Negative 04/10/20 01:46 Syphilis Serology Non-reactive (NONREACTIVE) 04/10/20 08:45 COVID-19 ([facility]) Not detected (Not Detected) 04/10/20 02:40 HIV Ag/Ab Combo Qual Negative (NEGATIVE) 04/10/20 08:45 Labs noted. Pertinent Admission Physical Exam Findings: Withdrawal symptoms. - Treatment Hospital Course: Detox Protocol Followed, Detoxed Safely, Responded well, Discharged Condition Good - Medication Discharge Medications: Ambulatory Orders Amlodipine Besylate 5 mg PO DAILY 02/16/19 Quetiapine Fumarate [Seroquel -] 100 mg PO HS 02/16/19 Fluoxetine HCl [Prozac] 40 mg PO DAILY 06/03/19 - Diagnosis (1) Alcohol use disorder Current Visit: Yes Status: Chronic (2) Alcohol dependence with withdrawal Current Visit: Yes Status: Acute Qualifiers: Complication of substance-induced condition: uncomplicated Qualified Code(s): F10.230 - Alcohol dependence with withdrawal, uncomplicated (3) HTN (hypertension) Current Visit: No Status: Chronic Qualifiers: Hypertension type: essential hypertension Qualified Code(s): I10 - Essential (primary) hypertension - AMA Did Patient Leave Against Medical Advice: No
[2020-04-13] MEDS ORDERED: LORazepam 0.5 MG TABLET PO ONE (05:00)
== END 2020-04-12 14:35 | disposition home or self-care (01) | DRG 775 ==
LOC: YASAS 00:55 → Y3N 02:26
PROVIDERS: ADMIT Allergy & Immunology; ATTEND Allergy & Immunology
PROC: HZ2ZZZZ Detoxification Services for Substance Abuse Treatment (ICD-10-PCS; principal; 2020-04-10)
PROC: HZ2ZZZZ Detoxification Services for Substance Abuse Treatment (ICD-10-PCS; 2020-04-10)
DX: F10.230 Alcohol dependence with withdrawal, uncomplicated (principal); F19.24 Other psychoactive substance dependence with psychoactive substance-induced mood disorder; F41.9 Anxiety disorder, unspecified; F32.9 Major depressive disorder, single episode, unspecified; D50.9 Iron deficiency anemia, unspecified; G47.00 Insomnia, unspecified; G40.509 Epileptic seizures related to external causes, not intractable, without status epilepticus; I10 Essential (primary) hypertension; E87.6 Hypokalemia; E73.9 Lactose intolerance, unspecified; Z91.410 Personal history of adult physical and sexual abuse; Z56.0 Unemployment, unspecified; Z59.0 Homelessness
CPT/HCPCS: 36415; 80053; 81025; 85027; 86780; 87389; 93005; 93010; Q0162; U0003

== ENCOUNTER 2020-05-27 11:32 | Inpatient (IN) | payer OTHER ==
--- OUTSIDE RECORDS SUMMARY | 2020-05-27 11:41 | XMS ---
:1970 Author Organization [facility] Care Team Providers Name Role Phone BARBIE Unavailable Unavailable CARCHIPULLA Unavailable Unavailable REDDING Unavailable Unavailable NURSING, STREET Unavailable Unavailable ARMANDO Unavailable Unavailable MYCHART, PROVIDER Unavailable Unavailable Anthony Garza Unavailable Anthony Lopez PA-C Unavailable Unavailable Shaun Unavailable LEV DARSHAN Unavailable Unavailable Jorge GAGE Unavailable Unavailable MD Giselle Unavailable Unavailable OUTREACH Unavailable Unavailable Lesnewski Unavailable GOLDER Unavailable Unavailable PIPPA Unavailable Unavailable DAREK Unavailable Unavailable DOBOS Unavailable Unavailable FERLAND Unavailable Unavailable Zentko Unavailable Unavailable MD Kylie Unavailable Unavailable Udani Unavailable Unavailable ROLDAN, N Unavailable HE Unavailable Unavailable Re-disclosure Warning The records that you are about to access may contain information from federally- assisted alcohol or drug abuse programs. If such information is present, then the following federally mandated warning applies: This information has been disclosed to you from records protected by federal confidentiality rules (42 CFR part 2). The federal rules prohibit you from making any further disclosure of this information unless further disclosure is expressly permitted by the written consent of the person to whom it pertains or as otherwise permitted by 42 CFR part 2. A general authorization for the release of medical or other information is NOT sufficient for this purpose. The Federal rules restrict any use of the information to criminally investigate or prosecute any alcohol or drug abuse patient.The records that you are about to access may contain highly sensitive health information, the redisclosure of which is protected by Article 27-F of the [facility] Public Health law. If you continue you may haveaccess to information: Regarding HIV / AIDS; Provided by facilities licensed or operated by the [facility] Office of Mental Health; or Provided by the [facility] Office for People With Developmental Disabilities. If such information is present, then the following [facility] mandated warning applies: This information has been disclosed to you from confidential records which are protected by state law. State law prohibits you from making any further disclosure of this information without the specific written consent of the person to whom it pertains, or as otherwise permitted by law. Any unauthorized further disclosure in violation of state law may result in a fine or senior living sentence or both. A general authorization for the release of medical or other information is NOT sufficient authorization for further disclosure. Allergies and Adverse Reactions Type Description Substance Reaction Status Data Source(s ) Drug allergy No Known Allergies No Known NONE [facility] [place] [facility] Drug Class SHELLFISH-DERIVED SHELLFISH-DERIVE T [facility] For PRODUCTS D PRODUCTS Family Health DRUG FISH FISH [facility] DRUG INGREDI FISH ALLERGY FISH ALLERGY [facility] DRUG INGREDI LATEX LATEX [facility] DRUG INGREDI LACTOSE LACTOSE [facility] Drug Class FISH-DERIVED FISH-DERIVED The [facility] [place] For PRODUCTS PRODUCTS Family Health Drug allergy lactose lactose Vomiting [facility] Food allergy Fish Fish Hives SV Hives [facility] Encounters Encounter Providers Location Date Indications Data Source(s ) Outpatient Attender: LARISSA(Jorge) 05/21/[address] [place] [place] Anthony ARMANDO 03:37:02 PM [facility] EDT Patient admitted. Outpatient Attender: AARON LEACH 04/14/2020 01:17:43 PM [facility] EDT Family Health Patient admitted. Emergency Attender: Gumaro 04/09/[address] [place] MDAttender: 12:25:00 PM EDT [facility] Alfredo Desai 04/09/2020 MDAttender: Princess 09:33:00 PM EDT [facility] DETOX AMB-EMPRESS Patient discharged. Emergency Attender: LUKASZ 04/08/2020 08:24:00 PM INTOX [place] JAFRIAttender: Roni Barber EDT - 04/09/2020 [facility] 05:54:00 AM EDT INTOX Patient discharged. Outpatient Attender: Preeti 03/31/2020 10:27:57 AM The [facility][1] Patient admitted. Outpatient Attender: WILBERTO 02/29/2020 11:02:09 AM The [facility] EDT Family [facility] Patient admitted. Outpatient Attender: DEMETRIO BAE 01/28/2020 11:52:44 AM The [facility] Patient admitted. Outpatient Attender: ABDIRIZAK REDDING 01/28/2020 10:29:30 AM [facility] Patient [facility] Outpatient Attender: Jose Amador 01/16/2020 11:37:49 AM [facility] Patient admitted. Outpatient Attender: YUNI FERNANDES 01/14/2020 05:14:26 PM [facility] Patient admitted. Outpatient Attender: Preeti 12/30/2019 12:03:15 PM The [facility][1] Patient admitted. Outpatient Attender: DAIJA DAS 12/20/2019 12:21:20 PM [facility] Patient admitted. Outpatient Attender: WU (R) 12/18/2019 12:42:13 AM The [facility] Patient admitted. 12/14/2019 09:55:02 AM [facility] Outpatient Attender: WU (R) 12/12/2019 03:44:14 PM The [facility] Patient admitted. Outpatient Attender: WU (R) 12/10/2019 02:06:58 [facility] - 12/10/2019 [facility] 05:14:15 PM EDT Patient admitted. Outpatient Attender: Preeti 11/27/2019 11:46:29 AM The [facility][1] Patient admitted. Outpatient Attender: SEDA 11/14/2019 01:56:03 PM The [facility] ED Family [facility] Patient admitted. Outpatient Attender: SAURABH 11/13/2019 05:08:09 PM The [facility] Family [facility] Patient admitted. Outpatient Attender: Tenisha Garza 10/17/2019 04:18:36 PM [facility] EDT - 10/17/2019 05:00:02 Family [facility] PM EDT Patient admitted. Outpatient Attender: GARETH 10/17/2019 09:41:37 AM [facility] EDT Family [facility] Patient admitted. Outpatient Attender: GARETH 10/15/2019 04:49:22 PM [facility] EDT Family [facility] Patient admitted. Outpatient 10/15/2019 09:40:42 AM EDT [facility] Patient admitted. Outpatient Attender: Jose Amador 10/13/2019 01:49:56 PM [facility] EDT - 10/13/2019 Family [facility] 05:09:50 PM EDT Patient admitted. Outpatient 10/04/2019 03:39:14 PM EST [facility] Patient admitted. Outpatient 10/04/2019 03:38:38 PM EST [facility] Patient admitted. Outpatient 10/04/2019 03:38:06 PM EST [facility] Patient admitted. Outpatient Attender: GARETH 10/04/2019 02:26:21 PM [facility] EST Family Health Patient admitted. Outpatient Attender: Preeti 10/03/2019 12:46:57 PM The [facility] Patient admitted. Outpatient Attender: HAYDEE 10/03/2019 12:46:[address] [facility] EST Family Health Patient admitted. Outpatient Attender: 08/30/2019 01:12:34 PM [facility] NURSING EST - 08/30/2019 Family [facility] ealth 01:40:19 PM EST Patient admitted. Outpatient 07/19/2019 03:29:18 PM EST [facility] Patient admitted. Outpatient Attender: Jose 07/18/2019 04:14:46 PM [facility] Patient admitted. Outpatient Attender: 07/17/2019 04:19:30 PM [facility] NURSING EST - 07/17/2019 Family [facility] ealth 05:03:40 PM EST Patient admitted. Outpatient Attender: 07/09/2019 12:00:00 AM The [facility] NURSING EST Family Health Patient admitted. Outpatient Attender: RODRIGO 07/05/2019 07:16:39 PM [facility] OUTREACH EST Family Health Patient admitted. Inpatient Attender: ELIZABETH, 04/30/2019 BIPOLAR DISORDER [facility] OLGAAdmitter: ELIZABETH, 02:34:00 PM EDT - [facility] 05/16/2019 [facility] 03:20:00 PM EDT BIPOLAR DISORDER Patient admitted. Emergency Attender: ELIZABETH, 04/29/2019 MENTAL HEALTH [facility] OLGAAdmitter: ELIZABETH, 02:57:00 PM EDT [facility]AL [facility] EVAL Outpatient Attender: Lili Dunn 04/20/2019 12:36:36 PM The [facility] EDT Health Patient admitted. Immunizations Vaccine Date Status Description Data Source(s) This CVX code 06/20/2019 completed Influenza 06/20/2019 The [facility] allows reporting of 12:00:00 AM EST For Family a vaccination when H ealth formulation is unknown (for example, when recording a Influenza vaccination when noted on a vaccination card) Medications Medication Brand Start Product Dose Route Administrative Pharmacy [facility] Indications Reaction Description Data Name Date Form Instructions Instructions Source(s) Ondansetron Ondans 04/09/ TABLET 4 mg ORAL active White 4 MG etron 2020 [place] [facility] 05:44: Hospit al ing Oral 00 AM Tablet EDT Ondansetron Hcl Ondansetron Ondans 04/09/ TABLET 4 mg ORAL active White 4 MG etron 2020 [place] [facility] 05:44: Hospit al ing Oral 00 AM Tablet EDT Ondansetron Hcl Magnesium Magnes Oral active Alcohol use Ta ke ONE The Oxide 400 ium 2020 mg with tablet (400 Ins titute MG Oral Oxide 12:00: intoxication mg tot al) by For Family Tablet 400 00 AM (HCC) mouth daily Heal th Magnesium (240 EDT Oxide 400 Mg) MG (240 Mg) MG Oral Oral Tab Tab Alcohol use with intoxication (HCC) Take ONE tablet (400 mg total) by mouth daily Hydrocortisone hydrocortisone 12/10/2019 1 Topical c ompleted Vaginitis and Apply 1 The 10 MG/ML 1 % Apply 12:00:00 AM {application} vulvo vaginitis application [facility] Topical Cream externally EDT topic ally 2 For Family hydrocortisone cream (two) flaquito es Health 1 % Apply a day externally cream Vaginitis and vulvovaginitis Apply 1 application topically 2 (two) ti mes a day Multiple Vitamin 54472-891-26 12/10/2019 1 Oral com pleted Vaginitis and Take The (MULTI-VITAMIN) 12:00:00 AM {tbl} vulvovagini tis ONE Lewis Oral tablet EDT tablet For Tomi burton by Health mouth daily Vaginitis and vulvovaginitis Take ONE tablet by mouth daily Folic folic 12/10/2019 1 mg Oral active Alcohol Take ON E The Acid 1 MG acid 1 MG 12:00:00 AM abuse ta blet [facility] Oral Oral EDT (1 mg For Family Tablet tablet total) Health folic by mouth acid 1 MG daily Oral tablet Alcohol abuse Take ONE tablet (1 mg total) by mouth da andrew Amlodipine amLODIPine 12/10/2019 10 Oral active Essential Take The 10 MG Oral 10 MG Oral 12:00:00 AM mg hypertensio n ONE [facility] Tablet tablet EDT tablet For Famil y amLODIPine (10 mg Health 10 MG Oral total) tablet by mouth daily Essential hypertension Take ONE tablet (10 mg total) by mouth d aily quetiapine QUEtiapine 12/10/2019 active Difficulty 1 tablet The 50 MG Oral Fumarate 50 12:00:00 AM sleeping at night Lewis Tablet MG Oral Tab EDT For [place]i [place] QUEtiapine Health Fumarate 50 MG Oral Tab Difficulty sleeping 1 tablet at night Thiamine thiamine 12/10/2019 100 Oral active Alcohol T stephani ONE The 100 MG 100 MG 12:00:00 AM mg abuse tablet I nstitute Oral Oral EDT (100 mg For Family Tablet tablet total) Health thiamine by mouth 100 MG daily Oral tablet Alcohol abuse Take ONE tablet (100 mg total) by mouth daily Blood [id number] 12/10/2019 active Essential Record The Pressure 12:00:00 AM hypertension b [facility] Monitoring EDT pressure For Rafael ayers (BLOOD daily and Health PRESSURE keep log MONITOR/M CUFF) Does not apply [facility] hypertension Record blood pressure daily and keep log Metronidazole metroNIDAZOLE 12/10/2019 500 Oral compl eted Vaginitis and Take ONE The 500 MG Oral (FLAGYL) 500 12:00:00 AM mg vulvovag initis tablet Lewis Tablet MG Oral tablet EDT (500 mg For Family metroNIDAZOLE total) by H ealth (FLAGYL) 500 mouth MG Oral tablet every 12 (twelve) hours for 7 days Vaginitis and vulvovaginitis Take ONE tablet (500 mg total) by mouth every 12 (twelve) hours for 7 days quetiapine QUEtiapine 10/13/2019 completed Difficu lty 1 The 50 MG Oral Fumarate 50 12:00:00 AM sleeping tablet Lewis Tablet MG Oral Tab EDT at For [place]i [place] QUEtiapine night Health Fumarate 50 MG Oral Tab Difficulty sleeping 1 tablet at night Magnesium Magnesium 10/13/2019 400 Oral completed Alcohol u se Take The Oxide 400 Oxide 400 12:00:00 AM mg with ONE Lewis MG Oral (240 Mg) EDT intoxication table t For Family Tablet MG Oral (HCC) (400 mg Health Magnesium Tab total) Oxide 400 by (240 Mg) MG mouth Oral Tab daily Alcohol use with intoxication (HCC) Take ONE tablet (400 mg total) by mouth daily Folic folic 10/03/2019 1 mg Oral completed Alcohol Take ONE The Acid 1 MG acid 1 MG 12:00:00 AM abuse ta blet [facility] Oral Oral EST (1 mg For Family Tablet tablet total) Health folic by mouth acid 1 MG daily Oral tablet Alcohol abuse Take ONE tablet (1 mg total) by mouth da andrew quetiapine QUEtiapine 10/03/2019 completed Difficu lty 1 The 50 MG Oral Fumarate 50 12:00:00 AM sleeping tablet Lewis Tablet MG Oral Tab EST at For [place]i [place] QUEtiapine night Health Fumarate 50 MG Oral Tab Difficulty sleeping 1 tablet at night Amlodipine amLODIPine 10/03/2019 10 Oral completed Essenti al Take The 10 MG Oral 10 MG Oral 12:00:00 AM mg hypertensio n ONE Lewis Tablet tablet EST tablet For Famil y amLODIPine (10 mg Health 10 MG Oral total) tablet by mouth daily Essential hypertension Take ONE tablet (10 mg total) by mouth d aily Thiamine thiamine 10/03/2019 100 Oral completed Alcohol Take The 100 MG 100 MG 12:00:00 AM mg abuse ONE Ins titute Oral Oral EST tablet For Family Tablet tablet (100 mg Health thiamine total) 100 MG by Oral mouth tablet daily Alcohol abuse Take ONE tablet (100 mg total) by mouth daily Amlodipine amLODIPine 07/18/2019 10 Oral completed Essenti al Take The 10 MG Oral 10 MG Oral 12:00:00 AM mg hypertensio n ONE Lewis Tablet tablet EST tablet For Famil y amLODIPine (10 mg Health 10 MG Oral total) tablet by mouth daily Essential hypertension Take ONE tablet (10 mg total) by mouth d aily quetiapine QUEtiapine 07/17/2019 completed Difficu lty 1 The 50 MG Oral Fumarate 50 12:00:00 AM sleeping tablet Lewis Tablet MG Oral Tab EST at For Tomi bur[place] QUEtiapine night Health Fumarate 50 MG Oral Tab Difficulty sleeping 1 tablet at night quetiapine SEROquel - 03/21/2019 1 Tablet ORAL completed SEROquel [facility] 100 MG Oral 100 MG ORAL 12:00:00 AM - 100 [facility] [Seroquel] Tablet Magnesium Magnesium 02/16/2019 400 mg completed 400 mg The Oxide 400 MG Oxide 400 12:00:00 AM Lewis Oral Tablet (240 Mg) MG EDT F or Family Magnesium Oral Tab Health Oxide 400 (240 Mg) MG Oral Tab 400 mg Hydrocortisone hydrocortisone 1 02/16/2019 complet ed Hytone The 10 MG/ML Topical % Apply 12:00:00 AM 1% [facility] Cream externally cream EDT Cream - For Family hydrocortisone 1 Hea lth % Apply externally cream Hytone 1% Cream - Blood [id number] 01/08/2019 completed Essential Record The Pressure 12:00:00 AM hypertension b od [facility] Monitoring EDT pressure For F armen (BLOOD daily and Health PRESSURE keep log MONITOR/M CUFF) Does not apply Misc Essential hypertension Record blood pressure daily and keep log Sodium Sodium 09/20/2018 completed Congestion Use 1-2 The Bicarbonate 700 Chloride-Sodium 12:00:00 AM o f nasal times a day Lewis MG / Sodium Bicarb (CLASSIC EST sinus a s needed For Family Chloride 2300 MG NETI POT SINUS for Health Powder for Nasal WASH) 2300-700 congestion Solution Sodium MG Nasal Kit Chloride-Sodium Bicarb (CLASSIC NETI POT SINUS WASH) 2300-700 MG Nasal Kit Congestion of nasal sinus Use 1-2 times a day as needed for conges tion Multiple Vitamin 91319-655-75 05/02/2018 1 Oral completed Take 1 The (MULTI-VITAMIN) 12:00:00 AM {tbl} t ablet Lewis Oral tablet EDT by For Fami ly mouth Health Take 1 tablet by mouth Thiamine thiamine 05/01/2018 100 mg Oral completed Take 100 The 100 MG Oral 100 MG Oral 12:00:00 AM mg by Lewis Tablet tablet EDT mouth For Family thiamine Health 100 MG Oral tablet Take 100 mg by mouth Folic folic 11/21/2017 1 mg Oral completed Alcohol Take ONE The Acid 1 MG acid 1 MG 12:00:00 AM abuse ta blet Lewis Oral Oral EDT (1 mg For Family Tablet tablet total) Health folic by mouth acid 1 MG daily Oral tablet Alcohol abuse Take ONE tablet (1 mg total) by mouth da andrew Insurance Providers Payer name Policy type Policy ID Covered Covered alliance party's Policy P roman / Coverage alliance party ID relationship to Jo Inf ormation type jo [employer] FIRST [id number] SP [id number] P [employer] FIRST [id number] SP [id number] P [employer] Medicaid Mgd [id number] Care [employer] [id number] Self [id number] [employer] [id number] Self [id number] [place]ICA[place] [id number] Self [id number] SELF PAY/NO [id number] Self [id number] SLIDE SLIDING FEE NA Self NA [employer] [id number] Self [id number] [employer] [id number] PT [id number] MCAID MEDICAID [id number] PT [id number] [employer] [id number] Self [id number] MEDICAID [id number] SP [id number] MEDICAID [place] [id number] Self [id number] [employer] [id number] Self [id number] SELF PAY SP INSURANCE SELF PAY 0000 Self 0000 MEDICAID INP [id number] Self [id number] P REHAB [facility] [id number] Self [id number] FIRST PENDING SP EXTERNAL (CREDIT) SELF PAY/NO [id number] Self [id number] SLIDE SELF PAY/NO Self Pay [id number] SLIDE [employer] [id number] Self [id number] [employer] HARP [id number] [employer] HARP [id number] [employer] [id number] Self [id number] Problems, Conditions, and Diagnoses Code Display Name Description Problem Type Effective Data Sour ce(s) Dates R45.89 Depressed affect Depressed affect [id number] 10/13/2019 e [facility] 12:00:00 AM For Family EDT Health G47.00 Insomnia Insomnia [id number] 10/13/2019 The [facility] 12:00:00 AM For Family EDT Health E87.8 Electrolyte Electrolyte [id number] 09/20/2019 [facility] imbalance imbalance 12:00:00 AM For Family EST Health Z71.9 Counseled by nurse Counseled by nurse [id number] The [facility] 12:00:00 AM For Family EST Health Z91.02 Food additives Food additives [id number] 06/03/2019 [facility] allergy status allergy status 12:00:00 AM For F armen EDT Health G40.509 Epileptic seizures Epileptic seizures [id number] The [facility] related to external related to external 12:00:0 0 AM For Family causes, not causes, not EDT Health intractable, without intractable, status epilepticus without status epilepticus Z91.81 History of falling History of falling [id number] The [facility] 12:00:00 AM For Family EDT Health E73.9 Lactose intolerance, Lactose [id number] 06/03/2019 The [facility] unspecified intolerance, 12:00:00 AM For Family unspecified EDT Health F32.9 Major depressive Major depressive [id number] 06/03/2019 [facility] disorder, single disorder, single 12:00:00 AM F or Family episode, unspecified episode, EDT Heal th unspecified 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 deficiency anemia deficiency anemia 12:00:00 AM For Family EDT Health Z11.59 Encounter for Encounter for Diagnosis 05/21/2020 The [facility] screening for other screening for other 03:37:0 2 PM For Family viral diseases viral diseases EDT Health Transitional Care Transitional Care Diagnosis 04/14/2020 The [facility] Management Outreach Management Outreach 01:17:4 3 PM For Family EDT Health F10.129 Alcohol abuse with F10.129 Diagnosis 04/08/2020 [place] intoxication, 10:02:00 PM Hospital unspecified EDT Emergency Room Visit Emergency Room Diagnosis 02/29/2020 The [facility] Follow Up Visit Follow Up 11:02:09 AM For Fami ly EDT Health Hospital Discharge Hospital Discharge Diagnosis 0 [facility] Outreach Outreach 10:29:30 AM For Family EDT Health Medication Request Medication Request Diagnosis 0 The [facility] 12:03:15 PM For Family EDT Health Outreach Outreach Diagnosis 12/20/2019 The [facility] 12:21:20 PM For Family EDT Health Erroneous Erroneous Diagnosis 12/18/2019 The [facility] encounter-disregard encounter-disregard 12:42:1 3 AM For Family EDT Health Z53.20 Procedure and Procedure and Diagnosis 12/12/2019 The [facility] [place] treatment not treatment not 03:44:14 PM For Jose Daniel morales carried out because carried out because EDT Health of patient's of patient s decision for decision for unspecified reasons unspecified reasons Z77.21 Contact with and Contact with and Diagnosis 12/10/2019 Th e [facility] (suspected) exposure (suspected) 02:06:58 PM Fo r Family to potentially exposure to EDT Health hazardous body potentially fluids hazardous body fluids Z71.7 Human Human Diagnosis 12/10/2019 The [facility] immunodeficiency immunodeficiency 02:06:58 PM F or Family virus [HIV] virus (HIV) EDT Health counseling counseling F10.10 Alcohol abuse, Alcohol abuse, Diagnosis 12/10/2019 The In stitute uncomplicated uncomplicated 02:06:58 PM For Jose Daniel morales EDT Health N76.0 Acute vaginitis Acute vaginitis Diagnosis 12/10/2019 The [facility] 02:06:58 PM For Family EDT Health Follow-up for: Follow-up for: Diagnosis 12/10/2019 The In stitute 02:06:58 PM For Family EDT Health Vaginal Discharge Vaginal Discharge Diagnosis 12/10/2019 The [facility] 02:06:58 PM For Family EDT Health Z02.9 Encounter for Encounter for Diagnosis 10/17/2019 The [facility] [place] administrative administrative 04:18:36 PM For F armen examinations, examinations, EDT Health unspecified unspecified Appointment Reminder Appointment Diagnosis 10/17/2019 The [facility] Call Reminder Call 09:41:37 AM For Family EDT Health Cancellation Cancellation Diagnosis 10/15/2019 The [facility] 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 0 The [facility] connective and other connective and 01:49:56 PM For Family soft tissue, other soft tissue, EDT Heal th unspecified unspecified R39.15 Urgency of urination Urgency of Diagnosis 10/13/2019 The [facility] urination 01:49:56 PM For Family EDT Health Other Other Diagnosis 10/13/2019 The [facility] 01:49:56 PM For Family EDT Health R13.10 Dysphagia, Dysphagia, Diagnosis 10/03/2019 The [facility] unspecified unspecified 12:46:57 PM For Family EST Health L98.9 Disorder of the skin Disorder of the Diagnosis 10/03/2019 The [facility] and subcutaneous skin and 12:46:57 PM For Fam andrew tissue, unspecified subcutaneous EST Hea lth tissue, unspecified D17.1 Benign lipomatous Benign lipomatous Diagnosis 10/03/2019 The [facility] neoplasm of skin and neoplasm of skin 12:46:57 PM For Family subcutaneous tissue and subcutaneous EST Health of trunk tissue of trunk Z68.26 Body mass index Body mass index Diagnosis 10/03/2019 The [facility] (BMI) 26.0-26.9, (bmi) 26.0-26.9, 12:46:57 PM F or Family adult adult EST Health I10 Essential (primary) Essential (primary) Diagnosis The [facility] hypertension hypertension 10:41:46 PM For Famil y EST Health Z02.89 Encounter for other Encounter for other Diagnosis The [facility] administrative administrative 04:14:46 PM For F amily examinations examinations EST Health Forms Forms Diagnosis 07/18/2019 The [facility] 04:14:46 PM For Family EST Health Y90.8 Blood alcohol level BLOOD ALCOHOL LEVEL Diagnosis [place] of 240 mg/100 ml or OF 240 MG/100 ML OR 03:20:0 0 PM [facility] Z91.011 Allergy to milk ALLERGY TO MILK Diagnosis 05/16/2019 [place] [employer] PRODUCTS 03:20:00 PM [facility] IPT [employer] F10.20 Alcohol dependence, ALCOHOL DEPENDENCE, Diagnosis [address] [place] [address] uncomplicated UNCOMPLICATED 03:20:00 PM [facility] [employer] F31.4 Bipolar disorder, BIPOLAR DISORD, Diagnosis 04/30/2019 [facility] current episode CRNT EPSD DEPRESS, 02:34:00 PM [facility] depressed, severe, SEV, W/O PSYCH EDT Ca re without psychotic FEATURES Corpora tion features Surgeries/Procedures Procedure Description Date Indications Data Source(s) NOVEL CORONAVIRUS NOVEL CORONAVIRUS Routine 05/20/2020 1 The COVID-19 COVID-19 12:00:00 AM In stitute NASOPHARYNGEAL NASOPHARYNGEAL EDT For Family Health ANTIBODY <td><content ID="[id number]">RAPID HIV 1&2 12/10/2019 Encounter for The HIV-1&HIV-2 3RD GEN 05:22:00 PM [facility] SINGLE INSTI</content></td><td>Routine</td><td>12/10/2019 EDT immunodeficiency For Family RESULT 5:22 PM EDT</td><td><paragraph>Encounter for human virus (HIV) Health immunodeficiency virus (HIV) counseling counseling</paragraph></td><td><paragraph styleCode="header">Results for this procedure are in the <content styleCode="[id number]">results section</content>.</paragraph></td> Encounter for human immunodeficiency vir us (HIV) counseling VAGINITIS PROBE - VAGINITIS PROBE - 12/10/2019 0 12/10/2019 The BV/TRICH/CATHLEEN BV/TRICH/CATHLEEN 4:29 PM EDT 04 :29:00 PM [facility] (AFFIRM ONLY) (AFFIRM ONLY) EDT For [facility] GC/CHLAMYDIA, GC/CHLAMYDIA, Routin 12/10/2019 Vagini 0 Vagini The APTIMA URINE APTIMA URINE e 4:29 PM EDT tis 04:29:00 P M [facility] (BIORE) (BIORE) and EDT and For Tomi burton vulvo vulvov Health aginit aginit is is Vaginitis and vulvovaginitis VAGINITIS PROBE - VAGINITIS PROBE - Routine 12/10/2019 Vaginitis and 12/10/2019 Vaginitis and The BV/TRICH/CATHLEEN BV/TRICH/CATHLEEN 4:29 PM EDT vulvovaginitis 04:29:00 PM vulvovaginitis [facility] (AFFIRM ONLY) (AFFIRM ONLY) EDT For [facility] Vaginitis and vulvovaginitis HEPATITIS HEPATITIS Routine 12/10/2019 Contact with 12/10/2019 C ontact with The C ANTIBODY C ANTIBODY 4:29 PM EDT potentially 04:29:00 P M potentially Lewis W/ REFLEX W/ REFLEX hazardous EDT hazardous For Family RT PCR RT PCR body fluids body fluids Health (REQUIRES (REQUIRES 2 VIALS) 2 VIALS) Contact with potentially hazardous body fluids HEP B HEP B Routine 12/10/2019 Contact with 12/10/[address] with The SURFACE SURFACE 4:29 PM EDT potentially 04:29:00 PM pote [facility] AG AG hazardous EDT hazardous For Family (HBSAG) (HBSAG) body fluids body fluids Health Contact with potentially hazardous body fluids BASIC BASIC Routine 12/10/2019 Contact with 12/10/[address] with The METABOLIC METABOLIC 4:29 PM EDT potentially 04:29:00 PM potentially Lewis PANEL PANEL hazardous EDT hazardous For Family body fluids body fluids Health Contact with potentially hazardous body fluids HEP B SURFACE HEP B SURFACE Routine 12/10/2019 Contact with 11/29 Contact with The AB AB 4:29 PM EDT potentially 04:29:00 PM [facility] ([facility] ([facility] hazardous EDT hazardous For Family QN OPTION) QN OPTION) body fluids body f luids Health Contact with potentially hazardous body fluids URINALYSIS URINALYSIS Routine 12/10/2019 Contact with 12/10/2019 Contact with The (COMPLETE) (COMPLETE) 4:29 PM EDT potentially 04:29:00 P M potentially Lewis hazardous EDT hazardous For Family body fluids body fluids Health Contact with potentially hazardous body fluids 4TH GEN HIV 4TH GEN HIV Routine 12/10/2019 Contact with 12/10/19 20 Contact with The TEST-IFH TEST-IFH 4:29 PM EDT potentially 04:29:00 PM po tentially Lewis RECOMMENDED RECOMMENDED hazardous EDT hazard ous For Family body fluids body fluids Health Contact with potentially hazardous body fluids HYDROMORPHONE HYDROMORPHONE 10/17/2019 Routine 0 Routine The (DILAUDID), (DILAUDID), 4:50 PM EDT adult health 04:50:0 0 PM adult health Lewis URINE URINE maintenance EDT maintenance For Family Health Routine adult health maintenance URINALYSIS URINALYSIS Routine 10/17/2019 Administrative 10/17/19 20 Administrative The (COMPLETE) (COMPLETE) 4:50 PM EDT encounter 04:50:00 PM encounter Lewis EDT For Fami ly Health Administrative encounter DRUG DRUG Routine 10/17/2019 Administrative 10/17/2019 Adm inistrative The SCREEN 15 SCREEN 15 4:50 PM EDT encounter 04:50:00 PM en counter Lewis W/ALCOHOL W/ALCOHOL EDT For Family Health Administrative encounter HYDROCODONE HYDROCODONE 10/17/2019 Routine 10/17/2019 Ro utine The AND METAB, AND METAB, 4:50 PM EDT adult health 04:50:00 PM adult health Lewis URINE URINE maintenance EDT maintenance For Family Health Routine adult health maintenance ANTIBODY <td><content ID="[id number]">RAPID HIV 1&2 10/16 Human The HIV-1&HIV-2 3RD GEN 04:40:00 PM immunodeficiency Lewis SINGLE INSTI</content></td><td>Routine</td><td>10/17/2019 EDT virus (HIV) For Family RESULT 4:40 PM EDT</td><td><paragraph>[facility] ([facility]) for human counseling</paragraph><paragraph>Human munodeficiency immunodeficiency virus (HIV) virus (HIV) counseling</paragraph></td><td><paragraph counseling styleCode="header">Results for this procedure are in the <content styleCode="[id number]">results section</content>.</paragraph></td> Human immunodeficiency virus (HIV) couns eling Encounter for human immunodeficiency vir us (HIV) counseling CONSULT TO DERMATOLOGY CONSULT TO DERMATOLOGY 10/03/2019 12:46:57 The [facility] For PM EST Family Health Results ID Date Data Source [id number] 05/19/2020 04:34:00 PM EDT [facility] Name Value Range Interpretation Code Description Data Twyla rce(s) Supporting Document(s ) SARS-CoV-2 [facility] RNA [facility] Ql JOLANTA+probe This lab was ordered by [facility] and reported by [facility]. ID Date Data Source [id number] 04/21/2020 06:17:00 PM EDT [facility] Name Value Range Interpretation Description Data Sup porting Code Source(s) Document(s ) SARS [facility] Coronavirus 2 RNA Presence Respiratory Specimen JOLANTA Probe Detection This lab was ordered by [facility] and reported by [facility]. ID Date Data Source [id number] 04/10/2020 02:40:00 AM EDT [facility] Name Value Range Interpretation Description Data Sup porting Code Source(s) Document(s ) SARS [facility] coronavirus 2 RNA This lab was ordered by [facility] Ganga Lowe and reported by [facility]. ID Date Data Source [id number] 04/08/2020 09:15:00 PM EDT [facility] Name Value Range Interpretation Description Data Sup porting Code Source(s) Document(s ) Choriogonadotropin NEGATIVE White ( test) [place] [facility]Presence[facility] ID Date Data Source [id number] 04/08/2020 09:15:00 PM EDT [facility] Name Value Range Interpretation Description Data Sup porting Code Source(s) Document(s ) Choriogonadotropin NEGATIVE White ( test) [place] [facility] ID Date Data Source [id number] 04/08/2020 08:57:00 PM EDT [facility] Administrative Specialist:PHI MORRIS Name Value Range Interpretation Description Data Sup porting Code Source(s) Document(s ) Glucose 130 mg/dL [place] [facility] in Capillary blood by Glucometer ID Date Data Source [id number] 04/08/2020 08:57:00 PM T [facility] Administrative Specialist:PHI MORRIS Name Value Range Interpretation Description Data Sup porting Code Source(s) Document(s ) Glucose 130 mg/dL [place] [facility] in Capillary blood by Glucometer ID Date Data Source [id number] 03/19/2020 01:52:00 AM EDT [facility] Name Value Range Interpretation Description Data Sup porting Code Source(s) Document(s ) SARS [facility] Coronavirus 2 RNA Presence Respiratory Specimen JOLANTA Probe Detection This lab was ordered by [facility] and reported by [facility]. ID Date Data Source [id number] 02/25/2020 08:00:00 AM EDT [facility] Name Value Range Interpretation Description Data Sup porting Code Source(s) Document(s ) [id number] [facility] W(Nasal) Reportable This lab was ordered by [facility] and reported by [facility]. ID Date Data Source [id number] 01/25/2020 12:00:00 AM EDT [facility] Name Value Range Interpretation Description Data Sup porting Code Source(s) Document(s ) COV2N [facility] NASOPHARYNGEAL Reportable This lab was ordered by [facility] and reported by [facility]. ID Date Data Source [id number] 01/22/2020 02:02:00 AM EDT [facility] Name Value Range Interpretation Code Description Data Twyla rce(s) Supporting Document(s ) SARS-CoV-2 [facility] Ql JOLANTA+probe This lab was ordered by [facility] and reported by [facility]. ID Date Data Source [id number] 01/10/2020 07:06:00 AM EDT [facility] Name Value Range Interpretation Code Description Data Twyla rce(s) Supporting Document(s ) SARS-COV-2 [facility] PCR This lab was ordered by [facility] and reported by [facility]. ID Date Data Source [id number] 12/10/2019 05:24:09 PM EDT [facility] Reason for Visit and Comments: Vagina l Discharge [117] Follow-up for: [92] - prepVitals (Last Filed):BP 133/93 (Orthostatic Site : Arm - Left, Orthostatic Pos- ition : Sitting, Orthostatic Cuff Size : Adult) Pulse 8- 7 Temp 98.3 F (36.8 C) (Oral) Wt 147 lb 9.6 oz (67 - kg) LMP 12/04/2019 SpO2 97% BMI 27 kg/m0Dwacxb History RecordedRadha Guajardo MA 12/10/2019 5:14 PM SignedI have identified this patient to be Radha Gaytanpo, 3Chief ComplaintPatient presents with? Vaginal Discharge? Follow-up for: prepVitals: 12/10/19 1424 12/10/19 1426BP: (!) 144/93 (!) 133/93Orthostatic Site : Arm - Right Arm - LeftOrthostatic Position : Sitting SittingOrthostatic Cuff Size : Adult AdultPulse: 87Temp: 98 .3 F (36.8 C)TempSrc: OralSpO2: 97%Weight: 147 lb 9.6 oz (67 kg)Pain score entered in vitals ? YesPharmacy verified ?YesAllergies verified ?YesSocial history reviewed? YesCare Everywhere con sent printed and signed ? Yes. To be scanned.Health Maintenance reviewed ?YesMyChart/MyHeal th activation offered? yesPHQ9 done? YesBPAs completed ?YesUrine cup given to patient.Eufemia Silveira Camila, MD (R) 12/10/2019 5:14 PM SignedInstitFirstHealth [facility] Pre-Test HIV Counseling ChecklistIn order to give consent for testing according to law and regulation, pre-testcounseling must include:ALL PATIENTS:Discuss prior history of HIV co unseling and testing YesDiscuss nature of AIDS and HIV related illness YesReview benefits of HI V testing, early diagnosis, and early treatment YesReview HIV transmission and risk redu ction YesFOR WOMEN AND WOMEN OF CHILDBEARING AGE:Review benefits of early diagnosis f or preventing transmission (AZTis known to reduce the risk of transmissio n from as high as 25% to aslow as 8%, as well as potential protective mechanisms for the mother) and fortreatment of NoDiscuss mandatory HIV screening of newborns by heel stick (in the hospital attime of ) NoExplain the nature and meaning of results as they pertain to:a. Non- women Yesb. women Noc. Newborns Nod. Review risks and benefits of breast feeding NoALL PATIENTS:Explain that HIV testing is voluntary, except under certa in circumstances YesDiscuss possible discrimination of HIV test results and legal protections Y esExplain confidential vs. anonymous testing YesDetermine capacity to consent YesObta in written informed consent and provide copy of [facility] consent form NoProvide or refer for emot ional support during waiting period YesAssess for suicidal history and current coping skil ls YesDISPOSITION:Counseled, and patient agreed to be tested.Completed by: Larissa Armando MDTitle: 12/10/20193:24 PM I have identified this patient to be Radha Ramirez who presents t o theoffice with the following concern (s) has symptoms of discharge .Sexual history:sexually a ctive with 1 HIV positive male partnerOB HistoryGravida Para Term AB Living3 3SAB TAB Ectopic Molar Multiple Live Births# Outcome Date GA Lbr Brennon/2nd Weight Sex Delivery Anes PTL Lv3 AB2 AB1 ABCurrent contraception:condomsContraceptive histo ry and assessment:Patient reports reliable adherence to contraception, denies side effects, like scurrent methodLast unprotected sex:Last unprotected sex 7 days agoHow often does the patient use condoms and dental dams for STI prevention:sometimesSTI History:Never had a STIOkay to leave [employer] messages at the listed phone number? YesBP (!) 133/93 (Orthostatic Site : Arm - Left, O rthostatic Position : Sitting,Orthostatic Cuff Size : Adult) | Pulse 87 | Temp 98.3 F (36.8 C) (Oral) |Wt 147 lb 9.6 oz (67 kg) Comment: with sneakers | LMP 12/04/2019 | SpO2 97% | BMI 27.00 kg/mPhysical examExternal genitalia and vagina normal. , positive findings: vagi nal discharge -whiteResults for orders placed or performed in visit on 10/17/19RAPID HIV 1&2 3RD GEN INSTIResult Value Ref Range HIV I & II - INVALID HIV I & II - NON REACTIVE negati ve HIV I & II - PRELIMINARY REACTIVE HIV KIT LOT # [id number] HIV KIT EXP DATE 2020-10-03 INTERNAL CONTROL VALID- RAPID HIV 1, 2 & 3RD GEN validURINALYSIS (COMPLETE)Result Value R ef Range SPECIFIC GRAVITY, UR (S.G.) 1.024 1.003 - 1.030 PH, UR 6.5 5.0 - 8.0 PROTEIN, TOTAL, RAN DOM URINE NEGATIVE NEGATIVE GLUCOSE, URINE, QUAL. NEGATIVE NEGATIVE KETONE, QUAL. NEGATIVE NEGATIVE UROBILINOGEN 0.2 0.2 - 1.0 mg/dL BILIRUBIN, URINE NEGATIVE NEGATIVE BLOOD, URINE NEG ATIVE NEGATIVE NITRITE, UR (NI) NEGATIVE NEGATIVE CRYSTALS NONE NONE WBC, URINE 0-4 0 - 4 /[HPF] RBC, URINE NONE SEEN NONE SEEN /[HPF] CAST, RBC, URINE NONE SEEN 0 - 1 /[LPF] CAST, HYALI NE, URINE 0-4 0 - 4 /[LPF] CAST, EPITHELIAL, URINE MODERATE (A) NONE-FEW CAST, GRANULAR, UR INE NONE SEEN 0 - 1 /[LPF] BACTERIA, URINE NONE NONE-FEW CRYSTALS, OTHER, URINE NONE NONE /[HPF] LEUKOCYTE ESTERASE NEGATIVE NEGATIVE COLOR YELLOW YELLOW, STRAW, [employer] ARDRUG SCREEN 15 W/ALCOHOLResult Value Ref Range OPIATES Negative <300 ng/mL AMPHETAMINES Negativ e <1000 ng/mL BARBITURATES Negative <200 ng/mL CANNABINOIDS Negative <100 ng/mL COCAINE METABOLITES Negative <300 ng/mL BENZODIAZEPINE Negative <200 ng/mL METHADONE Negative <300 ng/mL PHENCYCLIDINE(PCP) Negative <25 ng/mL PROPOXYPHENE Negative <300 ng/mL ALCOHOL (ETHANOL) Po sitive (A) <20 mg/dL CREATININE, UR (Cr) 110.2 >19.9 mg/dL BUPRENORPHINE Negative <5 ng/mL TR AMADOL, QUAL Negative NEG(<200ng/mL) K2 (SPICE)-GROUP1 Negative NEG(<20ng/mL) OXYCODONE Negativ e <300 ng/mL K2 (SPICE)-GROUP2 Negative NEG(<10ng/mL)HYDROCODONE AND METAB, URIN EResult Value Ref Range HYDROCODONE TNP <300 ng/mLHYDROMORPHONE (DILAUDID), URINEResu lt Value Ref Range HYDROMORPHONE TNP <300 ng/mLDiagnosis: High risk sexual behavio r, and-Vaginitis N76.0Plan: see [facility] ordersPartner notification Partner already aware of di agnosisFollow-up HIV - Retesting in 3 monthsDOH Sexually Transmitted Infections Reporting Form to be completed NotApplicableContinue current method of control.Reviewed results of most r ecent STI testing- see results in Epic. andDiscussed STI transmission. Safe sex practices rev iewed. Use of barrier methodsreviewed. Consistent use endorsed.Radha Ramirez presents today to urbano gage eligibility and readiness to begin PrEPLabs reviewed, vaccinations discussed - YesIm munization HistoryAdministered Date(s) Administered? Hepatitis B 03/03/2019? Influenza 06/20? Influenza, Injectable, Quadrivalent (IIV4), Preservative Free 04/18/2018? Influenza , Injectable,(cciiv4), Quadrivalent, Preservative Free 05/22/2017? Influenza, Intradermal, Brett drivalent, Preservative Free 05/01/2016? MMR 04/19/2018, 12/15/2018? Tdap 11/29/2018 ? Tuberculin Test 11/14/2017Results for orders placed or performed in visit on 10/17/19RAPID H IV 1&2 3RD GEN INSTIResult Value Ref Range HIV I & II - INVALID HIV I & II - NON REACTIVE negati ve HIV I & II - PRELIMINARY REACTIVE HIV KIT LOT # [id number] HIV KIT EXP DATE 2020-10-03 INTERNAL CONTROL VALID- RAPID HIV 1, 2 & 3RD GEN validURINALYSIS (COMPLETE)Result Value R ef Range SPECIFIC GRAVITY, UR (S.G.) 1.024 1.003 - 1.030 PH, UR 6.5 5.0 - 8.0 PROTEIN, TOTAL, RAN DOM URINE NEGATIVE NEGATIVE GLUCOSE, URINE, QUAL. NEGATIVE NEGATIVE KETONE, QUAL. NEGATIVE NEGATIVE UROBILINOGEN 0.2 0.2 - 1.0 mg/dL BILIRUBIN, URINE NEGATIVE NEGATIVE BLOOD, URINE NEG ATIVE NEGATIVE NITRITE, UR (NI) NEGATIVE NEGATIVE CRYSTALS NONE NONE WBC, URINE 0-4 0 - 4 /[HPF] RBC, URINE NONE SEEN NONE SEEN /[HPF] CAST, RBC, URINE NONE SEEN 0 - 1 /[LPF] CAST, HYALI NE, URINE 0-4 0 - 4 /[LPF] CAST, EPITHELIAL, URINE MODERATE (A) NONE-FEW CAST, GRANULAR, UR INE NONE SEEN 0 - 1 /[LPF] BACTERIA, URINE NONE NONE-FEW CRYSTALS, OTHER, URINE NONE NONE /[HPF] LEUKOCYTE ESTERASE NEGATIVE NEGATIVE COLOR YELLOW YELLOW, STRAW, [employer] ARDRUG SCREEN 15 W/ALCOHOLResult Value Ref Range OPIATES Negative <300 ng/mL AMPHETAMINES Negativ e <1000 ng/mL BARBITURATES Negative <200 ng/mL CANNABINOIDS Negative <100 ng/mL COCAINE METABOLITES Negative <300 ng/mL BENZODIAZEPINE Negative <200 ng/mL METHADONE Negative <300 ng/mL PHENCYCLIDINE(PCP) Negative <25 ng/mL PROPOXYPHENE Negative <300 ng/mL ALCOHOL (ETHANOL) Po sitive (A) <20 mg/dL CREATININE, UR (Cr) 110.2 >19.9 mg/dL BUPRENORPHINE Negative <5 ng/mL TR AMADOL, QUAL Negative NEG(<200ng/mL) K2 (SPICE)-GROUP1 Negative NEG(<20ng/mL) OXYCODONE Negativ e <300 ng/mL K2 (SPICE)-GROUP2 Negative NEG(<10ng/mL)HYDROCODONE AND METAB, URIN EResult Value Ref Range HYDROCODONE TNP <300 ng/mLHYDROMORPHONE (DILAUDID), URINEResu lt Value Ref Range HYDROMORPHONE TNP <300 ng/mLPatient readiness assessed - YesCounseling Check List when Initiating PrEP: PrEP requires 7 days of daily use in order to provide protection forreceptive anal intercourse and 21 days for vaginal receptive intercourseDiscussed If you f orget your pill, take it as soon as you remember on that same day.If you forgot to take your pill and remember the next day, don t double upDiscussed Starting and stopping PrEP can be danger ous - you won t be protected againstHIV infection and if you become infected without knowing and start PrEP again,your body could become resistant to the medication. If you stop taking PrEP andw ant to start again, please see your provider Discussed If you miss 4 doses, let your provider k now and confirm that an HIV test isneeded Discussed It s a good idea to carry an extra does wit h you at all times Discussed It may be helpful to set a reminder on your calendar or phone Discu ssed Side effects (nausea, headaches, etc) should resolve in 1-2 months Discussed If you experience any symptoms of acute HIV infection (sore throat, rash,joint pain, swollen lymph n odes, fatigue), tell your provider immediatelyDiscussed If are or become while taking PrEP, please discusscontinuation of PrEP with your provider Discussed Follow up with your provider at least every 3 months DiscussedPlan:1) Following lab review, it was determined patient ngative rapid HIV test,other tests pending.2) Patient is ready to initiate PrEP to red uce the risk of HIV transmission -No, why not: pending lab results3) Will give 1 months supply for truvada4) If patient does not have insurance or unable to cover co-payment, number Da field PrEP given: Assistance Program ( ,[email or web address].ly) -Discus sed5) Patient information about PrEP given to patient - Yes6) Vaccines ordered - None7) Patient will make an appointment to see provider after taking PrEP for 3weeks - August Ramirez present s today to discuss starting PrEP. I have identified thispatient to be high risk for acquirin g HIV infection due to (Check all thatapply) Individual in a serodiscordant sexual relationshipI have reviewed the following counseling points: PrEP is a pill called Truvada taken every day to reduce the risk of acquiringHIV infection: Discussed PrEP reduces but does not eliminate HIV transmission:Discussed PrEP requires 7 days of daily use before it provides protection for re ceptiveanal intercourse and 21 days for vaginal receptive intercourse: Discussed Not ta reena PrEP or taking it inconsistently greatly reduces its ability toreduce HIV Transmission: D iscussed If Truvada is taken daily it reduces the risk of HIV transmission by over90%: Discusse d PrEP does not reduce the risk of other STIs:Discussed PrEP is not meant to replace condom use :Discussed Taking this medication may include potential side effects such as nausea,gas, stomach cramps, softer stools or headaches within the first two months oftaking PrEP:Discussed Ongoing follow up (office visits every 3 months) for monitoring of kidneyfunction, STI, HIV screening a nd safer sex counseling:Discussed PrEP was designed to be a method of increasing prevention dur ing periods whenpeople are at highest risk of acquiring infection and is not meant flores:Discu ssedInitial work-up: Is patient taking nephrotoxic medication? No Does patient have kidney disease, ie eGFR <60 ? unknown Does patient have osteoporosis, osteopenia or osteomalacia ? Low Risk Does patient have chronic Hep B? No Is this patient under the age of 18? No Does shakir cassi have signs/symptoms of acute HIV including: - Flu like symptoms? No - Rash? No - Fever? No - Sore throat? No - Lymph nodes? No - Joint pain/muscle pain? No - Other? N oIf you think a patient has acute HIV infection, DO NOT start PrEP. Perform HIVPCR for patients with symptoms of acute infection or for patients whoseantibody test is negative but for w sunil have reported unprotected sex with aknown HIV+ partner within the past month.Plan:Zoya garcia has received PrEP counseling for the reduction of HIV transmission:Yes: patient interested, in itiate work up todayBaseline labs ordered: HIV Ag/Ab test (4th generation): Yes HIV viral l oad (ONLY order if you suspect acute HIV): NA Basic Metabolic Panel: Yes Urinalysis: Yes H ep A Ab/ Hep B Surface Ab/Hep B Surface Ag/ Hep B Core Ab/Heb C Ab serology:Yes Hepatitis A Ab /Hep B Surface: Yes Gonorrhea screen of oropharynx: No: declined Gonorrhea/Chlamydia screen of urine/cervix: Yes Gonorrhea/Chlamydia screen of rectum: No: declined RPR: Yes test i f indicated: yesIf patient does not have insurance or is unable to cover co-payment, number toGsina ead PrEP Assistance Program given: ( ,www.[employer]) -Discus sedPatient information will be included on AVS - YesVaccines ordered NoneFollow up appoin tment made for 1 week to review labs and assess readiness tostart PrEP: YesPatient set u p for MyChart: YesPatient phone number confirmed: Yes1. Essential hypertension- recheck 130/80- amLODIPine 10 MG Oral tablet; Take ONE tablet (10 mg total) by mouth dailyDispense: 30 tablet ; Refill: 5- Blood Pressure Monitoring (BLOOD PRESSURE MONITOR/M CUFF) Does not applyMisc; Bhavin rd blood pressure daily and keep log Dispense: 1 each; Refill: 02. Alcohol Use- folic acid 1 MG Oral tablet; Take ONE tablet (1 mg total) by mouth dailyDispense: 30 tablet; Refill: 5- thi amine 100 MG Oral tablet; Take ONE tablet (100 mg total) by mouth dailyDispense: 30 tablet; Refil l: 5- Magnesium Oxide 400 (240 Mg) MG Oral Tab; Take ONE tablet (400 mg total) bymouth daily Dis pense: 30 tablet; Refill: 24. Difficulty sleeping- QUEtiapine Fumarate 50 MG Oral Tab; 1 ta blet at night Dispense: 30 tablet;Refill: 25. Vaginitis and vulvovaginitis- GC/CHLAMYDIA, APTIMA URINE (BIOREF); Future- TRICHOMONAS (APTIMA GENPROBE); Future- VAGINITIS PROBE - BV/TRICH/MADHU DA (AFFIRM ONLY); Future- WET MOUNT IN HOUSE; Future- CARMINA IN HOUSE; Future- HANDL &/OR CONVEY SPECMN-TRANSF OFFIC T*- hydrocortisone 1 % Apply externally cream; Apply 1 application to pically 2(two) times a day Dispense: 30 g; Refill: 1- Multiple Vitamin (MULTI-VITAMIN) Oral ta blet; Take ONE tablet by mouth dailyDispense: 30 tablet; Refill: 2- metroNIDAZOLE (FLAGYL) 500 MG Oral tablet; Take ONE tablet (500 mg total) bymouth every 12 (twelve) hours for 7 days Disp ense: 14 tablet; Refill: 0- VAGINITIS PROBE - BV/TRICH/CATHLEEN (AFFIRM ONLY)- TRICHOMO ELANA (APTIMA GENPROBE)- GC/CHLAMYDIA, APTIMA URINE (BIOREF)6. Encounter for human immunodef iciency virus (HIV) counseling- RAPID HIV 1&2 3RD GEN INSTI7. Contact with potentially hazardo us body fluids- 4TH GEN HIV TEST-IFH RECOMMENDED; Future- BASIC METABOLIC PANEL; Future- U RINALYSIS (COMPLETE); Future- HEPATITIS C ANTIBODY W/ REFLEX RT PCR; Future- RPR; Future- HEP B SURFACE AG (HBSAG); Future- HEP B SURFACE AB ([facility]-ORDER QN OPTION); Future- PREGN POONAM (URINE) IN HOUSE; Future- HEP B SURFACE AG (HBSAG)- HEP B SURFACE AB ([facility]-ORDER QN OPTIO N)- RPR- HEPATITIS C ANTIBODY W/ REFLEX RT PCR- URINALYSIS (COMPLETE)- BASIC METABOLIC P ASHWIN- 4TH GEN HIV TEST-IFH RECOMMENDEDAdelso Castle MD 12/10/2019 5:14 PM SignedOutpatient Primary Care ExceptionI discussed the care of Radha Ramirez with the resident providing the s ervice,during or immediately after the patient s visit, and was directly responsiblefor the solitario ent s management. I can assure that the services provided areappropriate. I was physicall y available to the patient if clinically indicatedor requested by patient or resident. My di scussion with the resident includedthe patient s history, physical exam, laboratory findi ngs, and medicaldecision-making. I agree with the resident s assessment and plan of care,p rimary diagnosis of: vaginal discharge, malodorous, insomnia, PreP initiation,elevated blood pressure.with a plan of: metronidazole,Get baseline tests for PreP, monitor blood pressure.A Nancy WALKER [place], [place] 12/10/2019 5:23 PM AddendumI have identified this patie nt to be Radha Ramirez, - 1970.Radha James at [facility] today to have blood drawn. 3 SST tubes, 1Trichomonas, Aptima Urine, 1 Vagintis Probe, 1 Urinalysis Complete Urine Cup, 1GC/Chlamydia, Aptima tubes sent to [facility]. She tolerated theprocedure well and will return to the clinic for results.Results for orders placed or performed in visit on 12/10/19 RAPID HIV 1&2 3RD GEN INSTIResult Value Ref Range HIV I & II - INVALID HIV I & II - NON REACTIVE Non Reactive HIV I & II - PRELIMINARY REACTIVE HIV KIT LOT # [id number] HIV KIT EXP DATE 03-21 INTERNAL CONTROL VALID- RAPID HIV 1, 2 & 3RD GEN yesAneIno Dobbs [place], [place] 12/10/2019 5:24 PM SignedAddended by: ERIC DODGE on: 12/10/2019 05:24 PM Modules accepted: Orders, SmartSetPrimary Diagnosis:N76.0 Vaginitis and vulvovaginitis Other Diag noses:I10 Essential hypertension F10.10 Alcohol Use F 10.929 Alcohol use with intoxication (HCC) G47.9 Difficulty sleeping Z71.7 Encounter for human immunodeficiency virus (HIV)counseling Z77.21 Contact with potentially hazardous body fluids N 76.0 Acute vaginitis (Active) Comment:Billing Diagnosis I10 Essential (primary) hypertension (Active) Comm ent:Billing Diagnosis F10.10 Alcohol abuse, uncomplicated (Active) Comment:Billing Diagnosis F10.929 Alcohol use, unspecified wi th intoxication,unspecified (Active) Comment:Billing Diagnosis G47.9 Sleep disorder, unspecified (Active) Comment:Fransico ng Diagnosis Z71.7 Human immunodeficiency virus (HIV) counseling( Active) Comment:Billing Diagnosis Z77.21 Con tact with and (suspected) exposure topotentially hazardous body fluids (Active) Comment:Billing DiagnosisPrescriptions as of 12/10/2019 Disp Refills Start End * amLODIPine 10 MG Oral tablet 30 t* 5 12/10/2019 Class: E Prescribing Route: Oral Sig: Take ONE tablet (10 mg total) by mouth daily Cosign r equired by ROBBY CHAVEZ[51] * Blood Pressure Monitoring (BLOOD P* 1 ea* 0 12/10/2019 Sig: Record blood pressure daily and keep log Cosign required by CALEB CHAVEZ[51] * folic acid 1 MG Oral tablet 30 t* 5 12/10/2019 Class: E Prescribing Route: Oral Sig: Take ONE tablet (1 mg total) by mouth daily Cosign required by ROBBY SUN[51] * hydrocortisone 1 % Apply externall* 30 g 1 12/10/2019 01/09/2020 Class: E Prescribing Route: Topical Sig: Apply 1 application topically 2 (two) times a da y Cosign required by ROBBY CHAVEZ[51] * Magnesium Oxide 400 (240 Mg) MG Or* 30 t* 2 12/10/2019 03/09/2020 Class: E Prescribing Route: Oral Sig: Take ONE tablet (400 mg total) by mouth daily Cosign required by ROBBY CHAVEZ[51] * metroNIDAZOLE (FLAGYL) 500 MG Oral* 14 t* 0 12/10/2019 12/17/2019 Class: E Prescribing Route: Oral S ig: Take ONE tablet (500 mg total) by mouth every 12 (twelve) hours for 7 days Cos ign required by ROBBY CHAVEZ[51] * Multiple Vitamin (MULTI-VITAMIN) O* 30 t* 2 06/202001/09/2020 Class: E Prescribing Route: Oral Sig: Take ONE tablet by mouth da andrew Cosign required by ROBBY CHAVEZ[51] * QUEtiapine Fumarate 50 MG Oral Tab 30 t * 2 12/10/2019 Class: E Prescribing Si tablet at night Cosign required by ROBBY CHAVEZ[51] * thiamine 100 MG Oral tablet 30 t* 5 12/10/2019 Class: E Prescribing Route: Oral Sig: Take ONE tablet (100 mg total) by mouth daily Cosign required by ROBBY CHAVEZ[51]Allergies As of Date: 12/10/2019 Noted Allergy Reaction FISH-DERIVED PRODUCTS 03/23/2017 1 - RashLACTOSE 5 - VomitingLATEX 03/02/2019FISH ALLERGY 09/25/2017 1 - RashFISH 03/16/2017 6 - Other 1 - Rash Comments: hivesSHELLFISH-DERIVED PRODUCTS 0 08/15/2019Date Reviewed: 10/17/2019Reviewed by: Tenisha Garza MD - ReviewedLevel of Service: 51177 OFFIC/OUTPT VISIT E&M EST LOW- MOD SEVER* Historical Information Past Medical and Surgical HistoryMedical And Surgical History Item DateHypoglycemia without diagnosis of d* 05/02/2017Temporary low p latelet count (HCC) 05/22/2017APPENDECTOMY 1981Family History Proble m Relation Age of Onset Hypertension Father Negative History MotherFamily Status - Relation Status Age at Father MotherSocial History Marital Status: Di vorced Spouse: Years of Education: # children:Social History Narr ative (none)Social History Topics Tobacco Use: Never Alcohol Use: Yes Comment: Family hist ory of alcohol use, stress, anxiety, , feels it impacts personal life, duration: inte rmittently several years since age 22, , AA meetings with intermittent sobriety, int erested in more meetings - transportation is a primary barrier, binge rdrin Drug Use : No Sexually Active: Not Currently Partners with: Male Comment: 10/18 - last time 8 monthsImmunizations Administered Hepatitis B 03/03/2019 Influenza 06/20/2019 Influenza, Injectable, Quadrivalen* 04/18/2018 Influenza, Injectable,(cciiv4), Qu* 05/22/2017 I nfluenza, Intradermal, Quadrivale* 05/01/2016 MMR 04/19/2018 12/15/2018 Tdap 11/29/2018 Tuberculin Test 11/14/2017 Name Value Range Interpretation Code Description Data Twyla rce(s) Supporting Document(s ) ID Date Data Source [id number] 12/10/2019 05:23:00 PM EDT [facility] Name Value Range Interpretation Description Data Sup porting Code Source(s) Document(s ) HIV I & II - The INVALID [facility] HIV I & II - Non Reactive The NON REACTIVE [facility] HIV I & II - The PRELIMINARY Lewis REACTIVE For [facility] HIV KIT LOT # [id number] The [facility] HIV KIT EXP 11-06-20 The DATE [facility] INTERNAL yes The CONTROL VALID- Lewis RAPID HIV 1, 2 For Family & 3RD GEN Health ID Date Data Source [id number] 12/14/2019 09:40:00 AM EDT [facility] Name Value Range Interpretation Description Data Sup porting Code Source(s) Document(s ) GARDNERELLA Detected Abnormal (applies The VAGINALIS to non-numeric Lewis results) For [facility] SPECIMEN SOURCE: Bacterial Vaginosi s, THINPREPCLINICAL INFORMATION: Provided Diagnosis Codes: Z77.21,N76.0(2)This [facility] ient has clinically significant levels of Gardnerella vaginalis consistent with Ba cterial Vaginosis.(4)Simultaneous infections by more than one pathogen are common. A negative result for Cathleen, Gardnerella and/or Trichomonas indicates nucleic aci d from less than 5 x 10(3) CFU (colony forming units) for Cathleen, 4 x 10(4) CF U (colony forming organisms) of G. vaginalis or 1 x10(3) trichomonads, respectively, may be present in the patient sample. The Cathleen species tested are: C. albicans, C. glabrata,C. kefyr, C. krusei, C. parapsilosis, and C. tropicalis. Results should be interpreted in the context of symptoms of vaginitis/vaginosis.(5)This test was evaluated and its performance characteristics determined by [employer]. It has not been cleared or approved by the U.S. Food and Drug Admin istration. The FDA has determined that such clearance or approval is not necessary. [employer] is certified under the Clinical Laboratory Improvement Amen dments of 1988 (CLIA) as qualified to perform high complexity clinical testing. This test is used for clinical purposes. It should not be regarded as investigational or fo r research.(6)Results should be interpreted together with past and current clinical and laboratory data. TRICHOMONAS VAGINALIS Not Detected The [facility] (3)This patient has none or very low lev els of Trichomonas vaginalis. CATHLEEN SPECIES Detected Abnormal (applies to The [facility] non-numeric results) Health (1)This patient has clinically significa nt levels of Cathleen species. ID Date Data Source [id number] 12/12/2019 01:39:00 AM EDT The [facility] Name Value Range Interpretation Code Description Data Twyla rce(s) Supporting Document(s ) RPR Non-Reacti Non-Reacti The Lewis ve ve [facility] ID Date Data Source [id number] 12/11/2019 05:21:00 PM EDT The [facility] Name Value Range Interpretation Description Data Sup porting Code Source(s) Document(s ) TRICHOMONAS NEGATIVE NEGATIVE The [facility] Comment: NOTE:REQUEST FOR TRICHOMONAS W PROCESSED USING THE GENPROBEAPTIMA ASSAY WHICH EMPLOYS AN AMPLIFIED PROBE TMA ASS AY. ID Date Data Source [id number] 12/11/2019 03:59:00 PM EDT The [facility] Name Value Range Interpretation Description Data Sup porting Code Source(s) Document(s ) CHLAMYDIA NEGATIVE NEGATIVE The [facility] NOTE: Requests for Chlamydia (CT) and/o r Gonorrhoeae (GC) were processed using the Genprobe Aptima assay which employs an a mplified probe TMA assay. GONORRHEA, UR, RRNA NEGATIVE NEGATIVE The [facility] ID Date Data Source [id number] 12/11/2019 03:29:00 AM EDT The [facility] Name Value Range Interpretation Description Data Sup porting Code Source(s) Document(s ) SPECIFIC 1.019 NA 1.003-1.03 The GRAVITY, UR 0 Lewis (S.G.) [facility] PH, UR 6.0 NA 5.0-8.0 The [facility] PROTEIN, NEGATIVE NEGATIVE The TOTAL, RANDOM Lewis URINE [facility] GLUCOSE, NEGATIVE NEGATIVE The URINE, QUAL. [facility] KETONE, QUAL. NEGATIVE NEGATIVE The [facility] UROBILINOGEN 1.0 mg/dL 0.2-1.0 The [facility] BILIRUBIN, NEGATIVE NEGATIVE The URINE [facility] BLOOD, URINE NEGATIVE NEGATIVE The [facility] NITRITE, UR NEGATIVE NEGATIVE The (NI) [facility] CRYSTALS NONE NONE The [facility] WBC, URINE 0-4 /[HPF] 0-4 The [facility] RBC, URINE NONE SEEN NONE SEEN The /[HPF] [facility] YEAST CELLS, PRESENT NOT Abnormal The URINE PRESENT (applies to Lewis non-numeric For Family results) Health CAST, RBC, NONE SEEN 0-1 The URINE /[LPF] [facility] CAST, HYALINE, 5-10 0-4 Above high The URINE /[LPF] normal [facility] CAST, PROFUSE NONE-FEW Abnormal The EPITHELIAL, (applies to Lewis URINE non-numeric For Family results) Health CAST, NONE SEEN 0-1 The GRANULAR, /[LPF] Lewis URINE [facility] BACTERIA, NONE NONE-FEW The URINE [facility] CRYSTALS, NONE NONE The OTHER, URINE /[HPF] [facility] LEUKOCYTE MODERATE NEGATIVE Abnormal The ESTERASE (applies to Lewis non-numeric For Family results) Health COLOR YELLOW YELLOW, The STRAW, Lewis YUNI [facility] CHARACTER CLOUDY CLEAR Abnormal The (applies to Lewis non-numeric For Family results) Health ID Date Data Source [id number] 12/11/2019 12:35:00 AM EDT The [facility] Name Value Range Interpretation Description Data Sup porting Code Source(s) Document(s ) HIV 1/2 Non-React Non-React The Lewis AB, EIA abeba [facility] Assay Information: Assay for the detecti on of HIV p24 antigen and antibodies to Human Immunodeficiency Virus Type 1,including Group O (HIV-1 + "O") and/or T ype 2 (HIV-2) Method: Chemiluminescence ([employer]) ID Date Data Source [id number] 12/11/2019 12:34:00 AM EDT The [facility] Name Value Range Interpretation Description Data Sup porting Code Source(s) Document(s ) HEP C AB. 0.05 NA <0.80 The S/CO RATIO [facility] HEPATITIS C Non-React Non-Reac The ANTIBODY abeba tive [facility] ID Date Data Source [id number] 12/11/2019 12:25:00 AM EDT The [facility] Name Value Range Interpretation Description Data Sup porting Code Source(s) Document(s ) GLUCOSE 87 mg/dL 70-99 The [facility] SODIUM 132 135-147 Below low normal The mmol/L [facility] POTASSIUM 3.4 3.5-5.5 Below low normal The mmol/L [facility] CHLORIDE 91 96-108 Below low normal The mmol/L [facility] CARBON DIOXIDE 22 22-29 The mmol/L [facility] UREA NITROGEN 11 mg/dL 6-20 The (BUN) [facility] CREATININE 0.60 0.49-1.0 The mg/dL 2 [facility] EGFR 109 >or=60 The mL/min [facility] EGFR 126 >or=60 The IRISH mL/min [facility] BUN/CREATININE 18.3 10.0-28. The RATIO Ratio 0 [facility] CALCIUM 8.6 8.6-10.4 The mg/dL [facility] ID Date Data Source [id number] 12/11/2019 12:06:00 AM EDT The [facility] Name Value Range Interpretation Description Data Sup porting Code Source(s) Document(s ) HEPATITIS B Non-React Non-Reac The SURFACE abeba tive Lewis ANTIGEN [facility] ID Date Data Source [id number] 12/10/2019 11:55:00 PM EDT The [facility] Name Value Range Interpretation Code Description Data Twyla rce(s) Supporting Document(s ) HBSAB Reactive Non-Reacti Abnormal (applies The Institu te ve to non-numeric For Family results) Health Hepatitis B Result Inte rpretation (for reference use only) Marker L I/EA* Acute Past Chronic HBV Vacc. HBsAg + + - + -HBeAg + + - +/- -HEP.B.CORE AB,IgM - + - - -HEP.B.CORE AB. - + + + -HBeAb - - +/- +/- -HBsAb - - +/- - +*Late Incubation/Early Acute NOTE: In remote p ast infection, HBsAb level may be Negative or Non-Reactive in some patients. ID Date Data Source [id number] 12/10/2019 07:38:00 PM EDT The [facility] Name Value Range Interpretation Code Description Data Supporting Source(s) Document(s ) BACTERIAL TNP The Lewis VAGINOSIS, JOLANTA For Family Health TEST NOT PERFORMED; AFFIRM(BD) VPIII NOT RECEIVED. ID Date Data Source [id number] 10/17/2019 05:00:04 PM EDT The [facility] Reason for Visit and Comments: Physic al [83]Vitals (Last Filed):BP 125/87 (Orthostatic Site : Arm - Left, Orthostatic Pos- ition : Sitting, Orthostatic Cuff Size : Adult) Pulse 8- 9 Temp 98 .4 F (36.9 C) (Oral) Wt 153 lb 9.6 oz (69.- 7 kg) LMP 09/25/2019 (Approxi mate) SpO2 98% BMI 28.- 09 kg/m2Tenisha Garza MD 10/17/2019 5:00 PM Signed4:32 PM I have positively identified Radha Ramirez who is a 49 year old female for annual routine checkup for Praedicat as HHALast pap 05/16 normalSocial HistorySocioeconomic History Marital status: Spouse name: Not on file Number of children: Not on file Y ears of education: Not on file Highest education level: Not on fileOccupational History 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 resource strain: Not on file Food insecurity Wo rry: Not on file Inability: Not on file Transportation needs Medical: Not on file Non-medical : Not on fileTobacco Use Smoking status: Never Smoker Smokeless tobacco: Never UsedSubstance a nd Sexual Activity Alcohol use: Yes Frequency: 2-4 times a month Drinks per session: 5 or 6 Comment: Family history of alcohol use, stress, anxiety, , feels it impactspersonal life , duration: intermittently several years since age 22, , AAmeetings with intermittent sobriety, i nterested in more meetings - transportation is a primary barrier, binge rdrin Drug use: No Sexu al activity: Not Currently Partners: MaleLifestyle Physical activity Days per week: 0 days Minutes per session: Not on file Stress: To some extentRelationships Social connections Talks on phone: Not on file Gets together: Not on file Attends denominational service: Not on file Active member of club or organization: Not on file Attends meetings of clubs or organizatio ns: Not on file Relationship status: Not on file Intimate partner violence Fear of curre nt or ex partner: Not on file Emotionally abused: Not on file Physically abused: Not on file Forced sexual activity: Not on fileOther Topics Concern Not on fileSocial History Narrative No t on filePast Medical History:Diagnosis Date Hypoglycemia without diagnosis of diabet es mellitus 05/02/2017 Temporary low platelet count (HCC) 05/22/2017Past Surgical History:Pr ocedure Laterality Date APPENDECTOMY 1980Family HistoryProblem Relation Age of Onset Hy pertension FatherCurrent Outpatient Medications on File Prior to VisitMedication Sig Dispense Re fill amLODIPine 10 MG Oral tablet Take ONE tablet (10 mg total) by mouth daily 30tablet 5 Blo od Pressure Monitoring (BLOOD PRESSURE MONITOR/M CUFF) Does not apply MiscRecord blood pressure daily and keep log 1 each 0 folic acid 1 MG Oral tablet Take ONE tablet (1 mg total) by m outh daily 30tablet 5 hydrocortisone 1 % Apply externally cream Hytone 1% Cream - Magn esium Oxide 400 (240 Mg) MG Oral Tab Take ONE tablet (400 mg total) bymouth daily 30 tablet 2 Multiple Vitamin (MULTI-VITAMIN) Oral tablet Take 1 tablet by mouth QUEtiapine Fumarate 50 MG Oral Tab 1 tablet at night 30 tablet 2 thiamine 100 MG Oral tablet Take ONE tablet (100 mg t otal) by mouth daily 30tablet 5No current facility-administered medications on abi e prior to visit.AllergiesAllergen Reactions Fish-Derived Products Rash Lactose Vomi ting Latex Fish Allergy Rash Fish Other and Rash hives Shellfish-Derived ProductsReview Of SystemsDenies chest pain, shortness of breath, headaches, vision changes, muscleaches, nausea, vomiting, diarrhea, fatigueGyne Review of Systems: She has irregular menstrual cyc les, and denies abnormalvaginal bleeding, discharge or unusual pelvic pain. Thinks she may bepe rimenopausalNo contraceptionNo sex in 8+ [id number] 125/87 (Orthostatic Site : Arm - Left, O rthostatic Position : Sitting,Orthostatic Cuff Size : Adult) | Pulse 89 | Temp 98.4 F (36.9 C) (Oral) |Wt 153 lb 9.6 oz (69.7 kg) Comment: with clothes and shoes | LMP 09/25/2019(Appro ximate) | SpO2 98% | BMI 28.09 kg/mGen: In no acute distress well dressed and well groomed p leasant cooperativeEye exam is normal - HARVINDER, EOMI.Pharynx Throat exam normal. Oral ca vity, tongue, pharynx and palate have noinflammation or suspicious lesions.Mucous membranes are moist. Tonsils -tonsils are present and normal. Teeth normal without tenderness.Ear exam - bot h sides normal, TM intact without perforation or effusion,external canal normal. No signi ficant cerumenosis noted.Neck no lymphadenopathyLungs clear to ascultation bilaterallyHeart re gular rate rhythm, negative murmurAbdomen soft, nontender, + bowel soundsSkin no rashNeu rological no focal deficitsMood and affect appropriateResults for orders placed or performed in visit on 10/17/19RAPID HIV 1&2 3RD GEN INSTIResult Value Ref Range HIV I & II - INVALID HIV I & II - NON REACTIVE negative HIV I & II - PRELIMINARY REACTIVE HIV KIT LOT # [id number] HIV KIT EXP DATE 2020-10-03 INTERNAL CONTROL VALID- RAPID HIV 1, 2 & 3RD GEN validRes ults for orders placed or performed in visit on 01/08/19DRUG SCREEN, 10 DRUGS W/CON,URRe sult Value Ref Range OPIATES Negative <300 ng/mL AMPHETAMINES Negative <1000 ng/mL MELA GRAHAM METABOLITES Negative <300 ng/mL BENZODIAZEPINE Negative <200 ng/mL METHADONE Negative < 300 ng/mL PHENCYCLIDINE(PCP) Negative <25 ng/mL THC(20)QUANT. Negative <20 ng/mL CREATIN INE, UR (Cr) 235.0 >19.9 mg/dL OXIDANT Negative Negative PH 6.2 4.5 - 8.9 SPECIFIC GRAVITY 1.0176 1.0030 - 1.0300 NITRITE Negative Negative BUPRENORPHINE Negative <5 ng/mL OXYCODONE Negative <30 0 ng/mL(Z00.00) Routine adult health maintenance (primary encounter diagnosis)Comment: an ticipatory guidance reviewed, nutrition, exercise, sleep and stressreduction, routine dental chec kups, safe sex practices, HCM, vaccine review(E66.3) Overweight (BMI 25.0-29.9)Comment: see w eight counselingPlan:(Z02.9) Administrative encounterComment: labs and vaccines prin sifuentes from 10 months agoPlan: DRUG SCREEN 15 W/ALCOHOL, URINALYSIS (COMPLETE), URINALYSIS ( COMPLETE), DRUG SCREEN 15 W/ALCOHOL(Z71.7) Encounter for human immunodeficiency vir us (HIV) counselingComment:Plan: RAPID HIV 1&2 3RD GEN INSTI, RAPID HIV 1&2 3RD GEN INSTI( I10) Essential hypertensionComment: controlledPlan: has medsForms Tenisha Barcenas MD 4:32 PM SignedGood health requires daily exercise and weight control. You don t n eed a gym toget into shape - for most people, walking 45 minutes a day is enough. Controlyour sabas ght by eating fruits and vegetables first, sticking with healthysnacks, and keeping portions smal l. The other bricks of the Healthy EatingPyramid are: Whole Grain Foods (at most meals). The b est kinds of starch are whole grainssuch as oatmeal, whole-wheat bread, whole-wheat pasta, an d brown rice. Youdigest whole grains more slowly than processed foods made from white flour.Wh ole grains keep blood sugar levels steady. This makes you feel full and mayprevent diabetes. Oils. Believe it or not, some types of fat are good for you! Good fatsinclude: oil from fish - a nd olive, canola, soy, peanut, and other vegetableoils. These healthy fats protect your heart. A void margarine, with itsun-healthy "trans" fats. Bad plant fats appear on food labels as "partiallyhydrogenated" oils - these processed oils clog blood vessels. Vegetables (lots!) and F ruits (2 to 3 times per day). Vegetables and fruitslower your chances of having a heart attack or stroke, protect against cancer,improve your blood pressure, and protect your vision. All f ruits and vegetablesare good for you. Make a list of the ones you enjoy eating. Eat more for [facility]! Fish, Poultry, and Eggs (0 to 2 times per day). These are good sources ofprotein. Eating fish lowers your risk of heart disease. Chicken and turkey arealso good sources of prote in - and without the skin, they are low in fat. Eggsaren t as bad as they re cracked up to be. In fact, an egg makes a much betterbreakfast than a donut or bagel made from white flour. Nuts an d Legumes (1 to 3 times per day). These are great sources of proteinand fiber. Legumes inc lude soy beans, black beans, lentils, split peas, pintobeans, chick peas, and others. Soy foods (like tofu and soy milk) may loweryour risk of cancer. Nuts - such as peanuts, walnuts, and pecans - fill you upwith healthy fat. Calcium Source (twice a day). Building bone and keeping it strong takescalcium, vitamin D, and exercise. Dairy products have lots of calcium. If youlike dairy foods, stick with no-fat or low-fat products. If you don t likedairy foods, take calcium pills - or drink high- calcium orange juice or soymilk. Red Meat, Margarine, and Bu tter (Use very little): These foods contain lotsof un-healthy fat. Switching from red meat to fish or chicken can protect yourheart. So can switching from butter or margarine to ol abeba oil. White Rice, White Bread, Soda, and Sweets (Use very little): These foods cancause weigh t gain, diabetes, heart disease, and other chronic problems. Insteadof white bread, try who le-grain bread. Instead of soda, drink orange juice orwater. Instead of cookies or cake, eat fruit. Multi-Vitamin: You don t need a fancy name-brand vitamin. A enewv-axfpirjqvn-s itamin is fine. Alcohol (not too much): Having 1 alcoholic drink per day lowers your risk ofheart disease. While a small amount of alcohol can improve health, too muchalcohol can caus e many health problems. For men, a good amount is 1 to 2 drinksa day. For women, it s 1 drink a d ay. If you can t control your drinking, youshould not drink at all.Alyx Taylor 10/17/2019 5 :00 PM SignedI have identified this patient to be Radha Ramirez, -1970.Chief ComplaintPa cassi presents with PhysicalBP 125/87 (Orthostatic Site : Arm - Left, Orthostatic Position : Sit ting,Orthostatic Cuff Size : Adult) | Pulse 89 | Temp 98.4 F (36.9 C) (Oral) |Wt 153 lb 9.6 oz (69.7 kg) Comment: with clothes and shoes | LMP 09/25/2019(Approximate) | SpO2 98% | B NV 28.09 kg/mPatient reports a pain score of "No pain score recorded for patient" in her [facility] n location entered for patient.Results for orders placed or performed in visit on 10/17/19RAPID H IV 1&2 3RD GEN INSTIResult Value Ref Range HIV I & II - INVALID HIV I & II - NON REACTIVE negati ve HIV I & II - PRELIMINARY REACTIVE HIV KIT LOT # [id number] HIV KIT EXP DATE 2020-10-03 INTERNAL CONTROL VALID- RAPID HIV 1, 2 & 3RD GEN validSulysa [facility]po [facility] to have 1 urinalysis and drug screen 15W/alcohol Urine cup sent to [facility]. She tolera maria the procedure welland will return to the clinic for results.Raj Reich s:Z00.00 Routine adult health maintenance Other Diagnoses:E66.3 Overweight (BMI 25.0 -29.9) Z02.9 Administrative encounter Z71.7 Enc ounter for human immunodeficiency virus (HIV)counseling I10 Essential hype rtension Z00.00 Encounter for general adult medical examinationwithout abnormal findings (Active) Comment:Billing Diagnosis E66.3 Overweight (Active) Comment:Billing Diagnosis Z02.9 Encounter for administrative examinations,unspecified (Active) Comment:Billing Diagnosis Z71.7 Human immunodeficiency virus (HIV) counseling(Active) Comment:Billing Diagnosis I10 Essential (primary) hypertension (Active) Comment:Birdie bradshaw DiagnosisPrescriptions as of 10/17/2019 Disp Refills Start End amLODIPin e 10 MG Oral tablet 30 t* 5 10/03/2019 Class: E Prescribing Route: Oral Sig: Take ONE tablet (10 mg total) by mouth daily Blood Pressure Monitoring (BLOOD P* 1 ea * 0 01/08/2019 Sig: Record blood pressure daily and keep log folic acid 1 MG Or al tablet 30 t* 5 10/03/2019 Class: E Prescribing Route: Oral Sig: Jose Juan e ONE tablet (1 mg total) by mouth daily hydrocortisone 1 % Apply externall* 02/16/2019 Class: Historical Med Sig: Hytone 1% Cream - Magnesium Oxid e 400 (240 Mg) MG Or* 30 t* 2 10/13/2019 01/11/2020 Class: E Prescribing Rou te: Oral Sig: Take ONE tablet (400 mg total) by mouth daily Multiple Vitamin (MULTI-VITAMIN ) O* 05/02/2018 Class: Historical Med Route: Oral Sig: Take 1 tablet by mouth QUEtiapine Fumarate 50 MG Oral Tab 30 t* 2 10/13/2019 Class: E Prescri salma Si tablet at night thiamine 100 MG Oral tablet 30 t* 5 10/03/19 Class: E Prescribing Route: Oral Sig: Take ONE tablet (100 mg total) by mouth daily Allergies As of Date: 10/17/2019 Noted Allergy ReactionFISH-DERIVED PRODUCTS 03/23/2017 1 - RashLACTOSE 05/04/2019 5 - VomitingLATEX 03/02/2019FISH ALLERGY 09/25/2017 1 - RashFISH 03/16/2017 6 - Other 1 - Rash Comments: hivesSHELLFISH-DERIVED PRODUCTS 08/15/2019Date Reviewed: 10/17/2019Revie wed by: Tenisha Garza MD - ReviewedLevel of Service:65399 PREVEN MEDS E&M ESTAB PT; 40-64 YR Historical Information Past Medical and Surgical HistoryMedical And Surgical History Item DateHypoglycemia without diagnosis of d* 05/02/2017Temporary low p latelet count (HCC) 05/22/2017APPENDECTOMY 1981Family History Proble m Relation Age of Onset Hypertension Father Negative History MotherFamily Status - Relation Status Age at Father MotherSocial History Marital Status: Di vorced Spouse: Years of Education: # children:Social History Narr ative (none)Social History Topics Tobacco Use: Never Alcohol Use: Yes Comment: Family hist ory of alcohol use, stress, anxiety, , feels it impacts personal life, duration: inte rmittently several years since age 22, , AA meetings with intermittent sobriety, int erested in more meetings - transportation is a primary barrier, binge rdrin Drug Use : No Sexually Active: Not Currently Partners with: Male Comment: 10/18 - last time 8 monthsImmunizations Administered Hepatitis B 03/03/2019 Influenza 06/20/2019 Influenza, Injectable, Quadrivalen* 04/18/2018 Influenza, Injectable,(cciiv4), Qu* 05/22/2017 I nfluenza, Intradermal, Quadrivale* 05/01/2016 MMR 04/19/2018 12/15/2018 Tdap 11/29/2018 Tuberculin Test 11/14/2017 Name Value Range Interpretation Code Description Data Twyla rce(s) Supporting Document(s ) ID Date Data Source [id number] 10/18/2019 12:50:00 PM EDT [facility] Name Value Range Interpretation Description Data Sup porting Code Source(s) Document(s ) HYDROMORPHONE TNP ng/mL <300 [facility] Test Not Performed: Screening result is negative. ID Date Data Source [id number] 10/18/2019 12:50:00 PM EDT [facility] Name Value Range Interpretation Description Data Sup porting Code Source(s) Document(s ) HYDROCODONE TNP ng/mL <300 [facility] ID Date Data Source [id number] 10/18/2019 12:50:00 PM EDT [facility] Name Value Range Interpretation Description Data Sup porting Code Source(s) Document(s ) OPIATES Negative <300 The ng/mL [facility] AMPHETAMINES Negative <1000 The ng/mL [facility] BARBITURATES Negative <200 The ng/mL [facility] CANNABINOIDS Negative <100 The ng/mL [facility] COCAINE Negative <300 The METABOLITES ng/mL [facility] BENZODIAZEPINE Negative <200 The ng/mL [facility] METHADONE(DOLOPHI Negative <300 The NE) ng/mL [facility] PHENCYCLIDINE(PCP Negative <25 The ) ng/mL [facility] PROPOXYPHENE Negative <300 The ng/mL [facility] ALCOHOL (ETHANOL) Positive <20 Abnormal The mg/dL (applies to [facility] non-numeric For Family results) Health Alcohol, Urine Quant 20 mg/dL. CREATININE, UR (CR) 110.2 mg/dL >19.9 [facility] BUPRENORPHINE Negative ng/mL <5 The [facility] TRAMADOL, QUAL Negative NEG(<200ng/mL) The [facility] K2 (SPICE)-GROUP1 Negative NEG(<20ng/mL) [facility] NOTE: (SPICE)-GROUP1 analysis for syn thetic cannabis detects the presence of JWH-018, JWH-073, AM-2201 and their meta bolites in human urine samples. ASSAY INFORMATION: EIA methodology OXYCODONE Negative ng/mL <300 The [facility] or [facility] K2 (SPICE)-GROUP2 Negative NEG(<10ng/mL) [facility] NOTE: K2(SPICE)-GROUP2 analysis for syn thetic cannabis detects the presence of UR-144 and its metabolites in human urin e samples. ASSAY INFORMATION: EIA methodology ID Date Data Source [id number] 10/18/2019 03:49:00 AM EDT [facility] Name Value Range Interpretation Description Data Sup porting Code Source(s) Document(s ) SPECIFIC 1.024 NA 1.003-1.03 The GRAVITY, UR 0 [facility] (S.G.) [facility] PH, UR 6.5 NA 5.0-8.0 [facility] PROTEIN, NEGATIVE NEGATIVE The TOTAL, RANDOM [facility] GLUCOSE, NEGATIVE NEGATIVE The URINE, QUAL. [facility] KETONE, QUAL. NEGATIVE NEGATIVE [facility] UROBILINOGEN 0.2 mg/dL 0.2-1.0 [facility] BILIRUBIN, NEGATIVE NEGATIVE The URINE [facility] BLOOD, URINE NEGATIVE NEGATIVE [facility] NITRITE, UR NEGATIVE NEGATIVE The (NI) [facility] CRYSTALS NONE NONE [facility] WBC, URINE 0-4 /[HPF] 0-4 [facility] RBC, URINE NONE SEEN NONE SEEN The /[HPF] [facility] CAST, RBC, NONE SEEN 0-1 The URINE /[LPF] [facility] CAST, HYALINE, 0-4 /[LPF] 0-4 The URINE [facility] CAST, MODERATE NONE-FEW Abnormal The EPITHELIAL, (applies to [facility] URINE non-numeric [facility] results) Health CAST, NONE SEEN 0-1 The GRANULAR, /[LPF] [facility] BACTERIA, NONE NONE-FEW The URINE [facility] CRYSTALS, NONE NONE The OTHER, URINE /[HPF] [facility] LEUKOCYTE NEGATIVE NEGATIVE The ESTERASE [facility] COLOR YELLOW YELLOW, The STRAW, [facility] YUNI [facility] CHARACTER CLEAR CLEAR [facility] This urine specimen submitted as a non-c zdur-ra-pdtwpfh was screened byenzyme immunoassay (EIA). Results should be use d for clinical evaluationonly. Many drug classes, notably amphetamines, opiates, benzodiazepines andPCP may report as positive due to cross-reactivity with certain OTC , herbal,or prescription medications. Confirmation testing is recommended for anypositive EIA result. ID Date Data Source [id number] 10/17/2019 04:40:00 PM EDT [facility] Name Value Range Interpretation Description Data Sup porting Code Source(s) Document(s ) HIV I & II - The INVALID [facility] HIV I & II - negative The NON REACTIVE [facility] HIV I & II - The PRELIMINARY [facility] REACTIVE [facility] HIV KIT LOT # [id number] NA The [facility] HIV KIT EXP 2020-10-03 The DATE [facility] ID Date Data Source [id number] 10/13/2019 05:21:33 PM EDT [facility] Reason for Visit and Comments: Other [0] - Pt. wants to speak with her doctorVitals (Last Filed):BP 128/83 (Orthostatic Site : Arm - Left, Orthostatic Pos- ition : Sitting, Orthostatic Cuff Size : Adult) Pulse 8- 5 Temp 99 F (37.2 C) Wt 153 lb 9.6 oz (69.7 kg) L- MP 09/14/2019 (Approximate) SpO2 98% BMI 28.09 kg/w0BqukzBita Alexander MA 10/13/19 20 5:09 PM SignedI have identified this patient to be Radha James, -1970.BP 128/83 (Orthostatic Site : Arm - Left, Orthostatic Position : Sitting,Orthostatic Cuff Size : Adult) | Pulse 85 | Temp 99 F (37.2 C) | Wt 153 lb9.6 oz (69.7 kg) | LMP 09/14/2019 (Approxim ate) | SpO2 98% | BMI 28.09 kg/mChief ComplaintPatient presents with Other P t. wants to speak with her doctorPain 0/5ChrAdryan Antunez Shailee, 10/13/2019 5:03 PM SignedSUBJECTIVE:49 y/o F presenting for TLC visitSpotting and abn discharge- on and off, not right now- no itching- pinkish discharge- abn odor- not sexually active- LMP 3 wks ago , no unprotected sex since thenIncreased urinary urgency- always feels like pressure in b ladder and when urinates, there s very littlebut feels like has to go urgentlyOBJECTIVE:EXAM:BP 128/83 (Orthostatic Site : Arm - Left, Orthostatic Position : Sitting,Orthostatic Cuff Size : Adult) | Pulse 85 | Temp 99 F (37.2 C) | Wt 153 lb9.6 oz (69.7 kg) | LMP 09/14/2019 (Approximate) | SpO2 98% | BMI 28.09 kg/mThe patient appears well, in no apparent dis tress. Alert and oriented timesthree, pleasant and cooperative. Vital signs are as noted by the nurse.Pelvic: declinedASSESSMENT/PLAN:1. Urinary urgency2. LeiomyomaUrinary urgency poss due to increased size of fibroids v OAB. Imaging orderedin November 2018 not done.- ULTRASOUND TRANSVAGINAL-REFERRAL3. Subacute vaginitisAdvised to present when having symptoms. Can offer self swab.3. Difficulty sleepingRefill.- QUEtiapine Fumarate 50 MG Oral Tab; 1 tablet at nig ht Dispense: 30 tablet;Refill: 24. Alcohol use with intoxication (HCC)Appt made this week to discuss vivitrol/naltrexone- Magnesium Oxide 400 (240 Mg) MG Oral Tab; [facility] ONE tablet (400 mg total[facility] Dispense: 30 tablet; Refill: 2Shaiinae David Amador Diagnosis:R39.1 5 Urinary urgency Other Diagnoses:D21.9 Leiomyoma N76.1 Sub acute vaginitis G47.9 Difficulty sleeping F10.929 Alco hol use with intoxication (HCC) R39.15 Urgency of urination (Active) Comment:Billing Diagnosis D21.9 Benign neoplasm of connective and other softtissue, unspecified (Active) Comm ent:Billing Diagnosis N76.1 Subacute and chronic vaginitis (Active) Comment:Billing Diagnosis G47.9 Sleep disorder, unspecified (Active) Comment:Billing Diagnosis F10.929 Alcohol use, unspecified with intoxication,unspecified (Active) Comment:Billing DiagnosisPrescriptions as of 10/13/2019 Disp Refills Start End amLODIPine 10 MG Oral tablet 30 t * 5 10/03/2019 Class: E Prescribing Route: Oral Sig: Take ONE tablet (10 mg total) by mouth daily Blood Pressure Monitoring (BLOOD P* 1 ea* 0 01/08/2019 Sig: Record blood pressure daily and keep log folic acid 1 MG Oral tablet 30 t * 5 10/03/2019 Class: E Prescribing Route: Oral Sig: Take ONE tablet (1 m g total) by mouth daily * hydrocortisone 1 % Apply externall* 02/16/2019 Class: Historical Med Sig: Hytone 1% Cream - * Magnesium Oxide 400 (240 Mg) MG Or* 30 t * 2 10/13/2019 01/11/2020 Class: E Prescribing Route: Oral Sig: Take ONE tablet (400 mg total) by mouth daily Multiple Vitamin (MULTI-VITAMIN) O* 05/02/2018 Class: Historical Med Route: Oral Sig: Take 1 tablet by mouth * Q UEtiapine Fumarate 50 MG Oral Tab 30 t* 2 10/13/2019 Class: E Prescribing Sig : 1 tablet at night thiamine 100 MG Oral tablet 30 t* 5 10/03/2019 Class : E Prescribing Route: Oral Sig: Take ONE tablet (100 mg total) by mouth dailyAllergies A s of Date: 10/13/2019 Noted Allergy ReactionFISH-DERIVED PRODUCTS 03/23/2017 1 - RashLACTOSE 05/04/2019 5 - VomitingLATEX 03/02/2019FISH ALLERGY 09/25/2017 1 - RashFISH 03/16/2017 6 - Other 1 - Ra Comments: hivesSHELLFISH-DERIVED PRODUCTS 08/15/2019Date Reviewed: 10/13/2019Rev iewed by: Udani, Shailee, DO - ReviewedLevel of Service:51899 OFFIC/OUTPT VISIT E&M EST LOW-MOD SEVER* Historical Information Pas t Medical and Surgical HistoryMedical An d Surgical History Item DateHypoglycemia without diagnosis of d* 05/02/2017Temporary low p latelet count (HCC) 05/22/2017APPENDECTOMY 1981Family History Prob howard Relation Age of Onset Hypertension FatherFamily Status - Relation Status Age at Father Social History Marital Status: Spouse: Years of Education: # children:Social History Narrative (none)Social History Topics Tobacco Use : Never Alcohol Use: Yes Comment: Family history of alcohol use, stress, anxiety, , feels it impacts personal life, duration: intermittently several years since age 22, , AA meetings with intermittent sobriety, interested in more meetings - transportation is a primary barrier, binge rdrin Drug Use: No Sexually Active: Not Currently Partners with: MaleImmunizations Administered H epatitis B 03/03/2019 Influenza Influenza, Injectable, Quadrivalen* 04/18/2018 Influenza, Injectable,(cciiv 4), Qu* 05/22/2017 Influenza, Intradermal, Quadrivale* 05/01/2016 MMR 04/19/2018 12/15/2018 Tdap 9 Tuberculin Test 11/14/2017 Name Value Range Interpretation Code Description Data Twyla rce(s) Supporting Document(s ) ID Date Data Source [id number] 10/03/2019 02:07:16 PM EST [facility] Reason for Visit and Comments: Refill Follow-up [226] Referral [138] - Gastro, PASTRY COOK APPRENTICE & LIPOMA on backVitals (Last Filed):BP 123 /86 (Orthostatic Site : Arm - Left, Orthostatic Pos- ition : Sitting, Orthost atic Cuff Size : Adult) Pulse 9- 2 Temp 98.4 F (36.9 C) (Oral) Ht 5 2" (1.575 m) - Wt 145 lb (65.8 kg) LMP 09/14/2019 (Approximate) SpO2- 98% BMI 26.52 kg/w0AktothAnthony Jaimes MA 10/03/2019 2:07 PM SignedI have identifi ed this patient to be Radha Ramirez, 1970Chief ComplaintPatient presents with Refill F ollow-up Referral Gastro, PASTRY COOK APPRENTICE & LIPOMA on backVitals: 10/03/19 1321BP: 123/86Orthostatic Site : Arm - LeftOrthostatic Position : SittingOrthostatic Cuff Size : AdultPulse: 92Temp: 98.4 F (36.9 C)TempSrc: OralSpO2: 98%Weight: 145 lb (65.8 kg)Height: 5 2" (1.575 m)Patient report s a pain score of "0-None" in her No pain location entered forpatient.Pain score entered in vitals ?YesPharmacy verified ?YesAllergies verified ?YesSocial history reviewed? YesCare Sima rywhere consent printed and signed ? Yes. To be scanned.Health Maintenance reviewed ?Ye sMyChart/MyHealth activation offered? yesPHQ9 done? YesBPAs completed ?YesOFEILA Hanks Ruth, MD 10/03/2019 2:07 PM SignedI have identified this patient to be Radha Martinez o, -1970.Discussed with patient access to after-hours providers, weekend and eveni ngcare, and onsite and affiliated resources as well as appropriate use ofemervalley behavioral health systemcy room service s when needed.Weight Assessment and CounselingLisa s body mass index is 26.52 kg/m. This i s considered to be overweight.Using shared medical decision-making, discussed with patient an individualizedplan that includes both diet and exercise recommendations.Faculty Bji roque of resident with extended level of careI was in the room for confirmation of the dawson histori jessica and physical findings -I discussed the care of Radha Ramirez with the resident providing the service.My discussion with the resident included the patient s history, physical exam,laborat ory findings, and medical decision- making.Dawson historical findings: refills & referralsKey physica l findings: appears well, in no apparent distressKey lab or other diagnostic findings: not applic ableI agree with the resident s assessment and plan of care, primary diagnosis of:hypertension, now well controlledwith a plan of: As per orders; schedule follow up with PCP to discuss s leepmedication and workup for spotting between periodsAn After Visit Summary was printed and give n to the patient.When applicable: Preceptor s face to face counseling time: 3 minutesRUAMANDA CASTAÑEDA reviewed the resident s note and agree with the resident s documentation ofthe patie nt encounter. Please see the residents note for the detaileddocumentation of the encounter.R Suni GONZALES Ruth, MD 10/03/2019 1:33 PM ZeristaThe [facility] requires daily exercis e and weight control. To stay fit, walk 30minutes a day or do vigorous exercise 20 minutes m ost days. Control yourweight by eating fruits and vegetables first, choosing healthy snack s, andkeeping portions small. Here are the details:? Whole Grain Foods (at most meals). The b est starch comes from whole grainssuch as oatmeal, whole-grain bread, whole-wheat pasta, an d brown rice. Youdigest whole grains more slowly than processed foods made from white flour.Wh ole grains keep blood sugar levels steady. This makes you feel full and mayprevent diabetes.? Oils. Some fats are good for you! Good fats come from fish, olives, canola,soybeans, nuts, akira cados, and flax or maria t seeds. These healthy fats protectyour heart and prevent many disea ses. Bad plant fats appear on food labels aspartially hydrogenated oils these trans fats clog blood vessels. Avoidsaturated fats by cutting back on red meat and full-fat da iry products. Cookwith olive or canola oil rather than butter, margarine, or shortening.? Veget isaias (lots!) and Fruits (2 to 3 times per day). Vegetables and fruitslower your chances of having a heart attack or stroke, protect against cancer,improve your blood pressure, and protect your vision. All fruits and vegetablesare good for you. Make a list of the ones you enj oy eating. Keep fruit on thecounter where you can see it. Make sure that your main vegetable i snt thepotato: thats the least healthy one. Eat more vegetables and fruits for betterhea lth!? Fish, Poultry, and Eggs (0 to 2 times per day). These are good sources ofprotein. Eating fish lowers your risk of heart disease. Chicken and turkey arelow in bad fat. An egg makes a much better breakfast than a donut or bagel.? Nuts and Legumes (1 to 3 times per day). Nuts and legumes have lots ofprotein and fiber. You can get all the protein you need from plant sources likethese. Legumes include soybeans, black beans, lentils, split peas, huitron beans,chickpe as, and others. Nuts such as peanuts, almonds, walnuts, and pecans fill you up with healthy fat.? Calcium Source (1 to 2 times a day). Building bone and keeping it strongtakes calcium, vitamin D, vitamin K, and exercise. Low-fat and no-fat dairyproducts help bones. If you don t like dairy foods, drink soymilk or eat darkleafy greens (like clinton greens).? Red Meat, Margarine, and Butter (Use very little): These foods contain lotsof bad fats. Akira id red meat, and eat more fish or chicken/turkey. Instead ofbutter, margarine, or shorteni ng, use olive oil or canola oil. Switching frombad fat to good fat protects your heart!? White Rice, White Bread, Soda, and Sweets (Use very little): These foodscause weight gain, diabetes, heart disease, and other chronic problems. Insteadof white bread, try 100% whole-grain bread. Instead of soda, drink water.Instead of cookies or cake, eat fruit.? Alcohol (not too much) : Having 1 drink per day lowers your risk of heartdisease. While a small amount of al cohol can improve health, too much alcoholcauses many health problems. For men, a good amount is 1 to 2 drinks a day. Forwomen, a good amount is 1 drink a day. If you cant control your drinking, youshould not drink at all.To learn more about healthy eating, see: www.thenutrit ionsource.org.Noris Mao 10/03/2019 2:07 PM SignedSubjectiveI have identified this p atient to be Radha Ramirez, -1970.Chief ComplaintPatient presents with Refill F ollow-up Referral Gastro, PASTRY COOK APPRENTICE & LIPOMA on backHPIPatient presents for refills of h er medication as well as referrals. She hashad difficulty swallowing for the past few y ears and would like an endoscopy tofollow up with that issue. She has had a lipoma on her back for years as well.It has progressively gotten bigger and she would like a plastic surgeon norah velarde so that there is minimal scarring. Patient reports she has somespotting between her periods and is wondering if it is because she ispremenopausal or if there is an underlying issue. Last ly, patient reportsdermatitis on her face that she uses hydrocortisone for. She knowshydrocortis one isn t good to use for an extended period of time so she wouldlike the opinion of a dermatolo gist. Patient is feeling generally well,although she knows she needs to make some better grant mayela in regards tonutrition and include more fruits and vegetables.The following portions of the patient s chart were reviewed in this encounterand updated as appropriate: Tobacco | Allerg ies | Meds | Med Hx | OB Status |Fam Hx | Soc HxReview of SystemsObjectiveVitals 10/03/19 1321B P: 123/86Pulse: 92Temp: 98.4 F (36.9 C)TempSrc: OralSpO2: 98%Weight: 145 lb (65.8 kg)Hei ght: 5 2" (1.575 m)PainSc: 0-NonePhysical ExamConstitutional: Appearance: Normal appearance.HENT: Mouth/Throat: Mouth: Mucous membranes are moist. Pharynx: Orophary nx is clear.Eyes: Pupils: Pupils are equal, round, and reactive to light.Neck: Musculoskeleta l: Neck supple.Cardiovascular: Rate and Rhythm: Normal rate and regular rhythm.Pulmonary: Eff ort: Pulmonary effort is normal. Breath sounds: Normal breath sounds.Skin: General: Skin is w arm. Comments: Face: some redness and irritation on her foreheadBack: soft, large lipoma on her left upper back; about 7cm x 10cm; notenderness upon palpation; defined edgesNeurological: Mental Status: She is alert.Assessment & PlanDiagnoses and all orders for this visit:Essential hypertension- amLODIPine 10 MG Oral tablet; Take ONE tablet (10 mg total) by mouth dailyBody mass index (BMI) of 26.0 to 26.9 in adultAlcohol Use- folic acid 1 MG Oral tablet; Take ONE t ablet (1 mg total) by mouth daily- thiamine 100 MG Oral tablet; Take ONE tablet (100 mg tot al) by mouth dailyDifficulty sleeping- QUEtiapine Fumarate 50 MG Oral Tab; 1 tablet at nig htLipoma of torso- CONSULT TO PLASTIC SURGERYSkin disorder- CONSULT TO DERMATOLOGYSwal lowing disorder- CONSULT TO GASTROENTEROLOGYPrimary Diagnosis:I10 Essential hypertensi on Other Diagnoses:Z68.26 Body mass index (BMI) of 26.0 to 26.9 in adult F 10.10 Alcohol Use G47.9 Difficulty sleeping D17 .1 Lipoma of torso L98.9 Skin disorder R13.10 Swal lowing disorder I10 Essential (primary) hypertension (Active) Comment:Billing Diagnosis Z68.26 Body mass index (bmi) 26. 0-26.9, adult (Active) Comment:Billing Diagnosis F10.10 Alcohol abuse, uncomplicated (Active) Comment:Billing Lora gnosis G47.9 Sleep disorder, unspecified (Active) Comment:Billing Diagnosis D17.1 Benign lipomatous neoplasm of skin a nd subcutaneoustissue of trunk (Active) Comment:Billing Diagnosis L98.9 Disorder of the skin and subcutaneous tissue,unspecified (Active) Comment:Billing Diagnosis R13.10 Dysphagia, unspe cified (Active) Comment:Billing DiagnosisPrescriptions a s of 10/03/2019 Disp Refills Start End * amLODIPine 10 MG Oral tablet 30 t* 5 10/03/2019 Class: E Prescribing Route: Oral Sig: Take ONE tablet (10 mg total) by mouth daily Blood Pressure Monitoring (BLOOD P* 1 ea* 0 01/08/2019 Sig: Record blood pressure daily and keep log * folic acid 1 MG Oral tablet 30 t* 5 10/03/2019 Class: E Prescribing Route: Oral Sig: Take ONE tablet (1 mg total) by mouth daily * Multiple Vitamin (MULTI- VITAMIN) O* 05/02/2018 Class: Histori jessica Med Route: Oral Sig: Take 1 tablet by mouth * QUEtiapine Fumarate 50 MG Oral Tab 30 t * 0 10/03/2019 Class: E Prescribing Si tablet at night Sodium Chloride-Sod ium Bicarb (CLA* 1 kit 0 09/20/2018 Class: E Prescribing Sig: Use 1-2 times a da y as needed for congestion * thiamine 100 MG Oral tablet 30 t* 5 10/03/19 20 Class: E Prescribing Route: Oral Sig: Take ONE tablet (100 mg total) by mouth daily Allergies As of Date: 10/03/2019 Noted Allergy ReactionFISH ALLERGY 09/25/2017 1 - RashDELETED: FISH 03/16/2017 6 - Other Comments: hiv esDate Reviewed: 10/03/2019Reviewed by: Noris Mao - ReviewedLevel of Service:[id number] OFFIC /OUTPT VISIT E&M EST LOW-MOD SEVER* Historical Information Past Medical and Surgical HistoryMedical And Surgical History Item DateHypoglycemia without diagnosis of d* 05/02/2017Temporary low p latelet count (HCC) 05/22/2017APPENDECTOMY 1981Family History Proble m Relation Age of Onset Hypertension FatherFamily Status - Relation Status Age at Father Social History Marital Status: Spouse: Years of Education: # children:Social History Narrative (none)Social History Topics Tobacco Use: Never Alco hol Use: Yes Comment: Family history of alcohol use, stress, anxiety, , feels it impacts personal life, duration: intermittently several years since age 22, , AA bethany tings with intermittent sobriety, interested in more meetings - transportation is a p rimary barrier, binge rdrin Drug Use: No Sexually Active: Not Currently Partners wit h: MaleImmunizations Administered Influenza 06/20/2019 Influenza, Injectable, Quadrivalen* 04/18/2018 Influenza, In jectable,(cciiv4), Qu* 05/22/2017 Influenza, Intradermal, Quadrivale* 05/01/2016 M MR 04/19/2018 12/15/2018 Tdap 11/29/2018 Tuberculin Test 11/14/2017 Name Value Range Interpretation Code Description Data Twyla rce(s) Supporting Document(s ) ID Date Data Source [id number] 09/06/2019 01:40:19 PM [facility] Reason for Visit and Comments: Medica tion Request [386]Primary Diagnosis:I10 Essential hypertension Other Diagnoses: G47.9 Difficulty sleeping I10 Essential (primary) hypertens ion (Active) Comment:Billing Diagnosis G47.9 Sleep disorder, unspecified (Active) Comm ent:Billing DiagnosisPrescriptions as of 09/06/2019 Disp Refills S tart End amLODIPine 10 MG Oral tablet 30 t* 2 07/18/2019 Class: Historical Med Route: Oral Sig: Take ONE tablet (10 mg total) by mouth d aily Blood Pressure Monitoring (BLOOD P* 1 ea* 0 01/08/2019 Sig: Recor d blood pressure daily and keep log folic acid 1 MG Oral tablet 30 t* 2 11/21/2017 Class: E Prescribing Route: Oral Sig: Take ONE tablet (1 m g total) by mouth daily Multiple Vitamin (MULTI-VITAMIN) O* Class: Historical Med Route: Oral Sig: Take 1 tablet by mouth Q UEtiapine Fumarate 50 MG Oral Tab 30 t* 0 07/17/2019 Class: E Prescribi ng Si tablet at night Sodium Chloride-Sodium Bicarb (CLA* 1 kit 0 09/20/2018 Class: E Prescribing Sig: Use 1-2 times a day as needed for c ongestion thiamine 100 MG Oral tablet 05/01/2018 Class : Historical Med Route: Oral Sig: Take 100 mg by mouthAllergies As of Date: Noted Allergy ReactionFISH ALLERGY 09/25/2017 1 - RashDELETED: FISH 03/16/2017 6 - Other Comments: hiv esDate Reviewed: 01/09/2019Reviewed by: Jose Amador DO - [id number] NURSING VISIT NO CO-PAY Historical Information ----- ------No family history on fileSocial Hi story Marital Status: Spouse: Years of Education: # children:Social History Narrative (none)Social History Topics Tobacco Use : Never Alcohol Use: Yes Comment: Family history of alcohol use, stress, anxiety, , feels it impacts personal life, duration: intermittently several y ears since age 22, , AA meetings with intermittent sobriety, interested i n more meetings - transportation is a primary barrier, binge rdrin Drug Use: No Sexually Active: Yes Partners with: MaleImmunizations Administered Influenza 06/20/2019 Influenza, Injectable, Quadrivalen* 04/18/2018 Influenza, Injectable,(cciiv 4), Qu* 05/22/2017 Influenza, Intradermal, Quadrivale* 05/01/2016 MMR 04/19/2018 12/15/2018 Tdap 11/29/2018 Tuberculin Test 11/14/2017 Name Value Range Interpretation Code Description Data Twyla rce(s) Supporting Document(s ) ID Date Data Source [id number] 07/17/2019 05:03:40 PM [facility] Reason for Visit and Comments: Forms [188] Refill Request [94]Nina Caban 07/17/2019 5:03 PM Michael parikh identified this patient to be Radha Ramirez, -1970.Chief ComplaintPa tient presents with Forms Refill RequestPatient come for refill request a nd physical form to fill out. The formprefilled and placed to DR. Marjorie mills il box to fill out and sign.Thr refills were sent to patient s pharmacy.Basket consuelo e sent to DR. Amador to fill out medical form for this patient.Primary Diagnosis:G47.9 Difficulty sleepingPrescriptions as of 07/17/2019 Disp Refills S tart End Blood Pressure Monitoring (BLOOD P* 1 ea* 0 01/08/2019 Sig: Record blood pressure daily and keep log folic acid 1 MG Oral tablet 30 t* 2 11/21/2017 Class: E Prescribing Route: Oral Sig: Take ONE tablet (1 mg total) by mouth daily Multiple Vitamin (MULTI-VITAMIN) O* 05/02/2018 Class: Historical Med Route: Oral Sig: Take 1 tablet by mouth * QUEtiapine Fumarate 50 MG Oral Tab 30 t* 0 07/17/2019 Cl ass: E Prescribing Si tablet at night Sodium Chloride-Sodium Bicarb (CLA* 1 kit 0 09/20/2018 Class: E Prescribing Sig: Use 1-2 times a day as needed for congestion thiamine 100 MG Oral tablet 1 Class: Historical Med Route: Oral Sig: Take 100 mg by mouthAllergi es As of Date: 07/17/2019 Noted Allergy ReactionFISH ALLERGY 09/25/2017 1 - RashDELETED: FISH 03/16/2017 6 - Other Comments: hivesDate Reviewed: 01/09/2019Reviewed by: Jose Amador D O - ReviewedLevel of Service:[id number] NURSING VISIT NO CO-PAY Historical Information ----- ------No family history on fileSocial Hi story Marital Status: Spouse: Years of Education: # children:Social History Narrative (none)Social History Topics Tobacco Use : Never Alcohol Use: Yes Comment: Family history of alcohol use, stress, anxiety, , feels it impacts personal life, duration: intermittently several y ears since age 22, , AA meetings with intermittent sobriety, interested i n more meetings - transportation is a primary barrier, binge rdrin Drug Use: No Sexually Active: Yes Partners with: MaleImmunizations Administered Influenza, Injectable, Quadrivalen* Influenza, Injectable,(cciiv4), Qu* 05/22/2017 Influenza, Intradermal, Qu adrivale* 05/01/2016 MMR 04/19/2018 12/15/2018 Tdap 11/29/2018 Tuberculin Test 11/14/2017 Name Value Range Interpretation Code Description Data Twyla rce(s) Supporting Document(s ) ID Date Data Source [id number] 05/03/2019 08:08:00 AM EDT [facility] [id number] [employer] Name Value Range Interpretation Description Data Sup porting Code Source(s) Document(s ) Erythrocyte 98.1 fL 80.0-9 <td> 05/03/2019 [place] mean 6.0 fL 08:08</td><td> [facility] corpuscular [facility] volume [Entitic </td><td><[employer]kin Corpor[employer] ion volume] by raph Automated count styleCode="Bold "> 98.1 H </paragraph>
(80.0-96.0) fL </td> Hematocrit 40.5 % 36.0-4 <td> 05/03/2019 [place] [Volume 5.0 % 08:08</td><td> County Fraction] of HCT </td><td> Health Care Blood by Corporation Automated count 40.5
(36.0-45.0) % </td> Erythrocytes 4.13 m/mm3 3.80-5 <td> 05/03/2019 [facility] r [#/volume] in .10 08:08</td><td> [facility] Blood m/mm3 RBC </td><td> [facility] [employer] 4.13
(3.80-5.10) m/mm3 </td> Leukocytes 3.8 k/mm3 4.5-10 <td> 05/03/2019 [place] [#/volume] in .8 08:08</td><td> [facility] Blood by k/mm3 WBC [facility] Care Automated count </td><td><[employer]kin Corporat ion raph styleCode="Bold "> 3.8 L </paragraph>
(4.5-10.8) k/mm3 </td> Hemoglobin 13.0 g/dL 11.6-1 <td> 05/03/2019 [place] [Mass/volume] 5.0 08:08</td><td> [facility] in Blood g/dL HGB </td><td> Health Care [employer] 13.0
(11.6-15.0) g/dL </td> Erythrocyte 32.1 % 32.0-3 <td> 05/03/2019 [place] mean 6.0 % 08:08</td><td> [facility] corpuscular MCHC </td><td> Health Care hemoglobin Corporation concentration 32.1 [Mass/volume] in Blood from
Fetus by (32.0-36.0) % Automated count </td> Platelets 167 k/mm3 160-41 <td> 05/03/2019 [place] [#/volume] in 0 08:08</td><td> [facility] Blood by k/mm3 Platelet Count Health [facility] Automated count </td><td> Corporation 167
(160-410) k/mm3 </td> Platelet mean 11.3 fL 9.8-12 <td> 05/03/2019 [facility] r volume [Entitic .8 fL 08:08</td><td> County volume] in MPV </td><td> [facility] Blood by [employer] Automated count 11.3
(9.8-12.8) fL </td> Erythrocyte 31.5 pg 27.0-3 <td> 05/03/2019 [place] mean 1.5 pg 08:08</td><td> [facility] corpuscular MCH </td><td> [facility] Care hemoglobin Corporation [Entitic mass] 31.5 by Automated count
(27.0-31.5) pg </td> Lymphocytes 42.3 % 18.0-5 <td> 05/03/2019 [place] [#/volume] in 3.0 % 08:08</td><td> [facility] Blood by Lymphocytes [facility] Care Automated count </td><td> [employer] 42.3
(18.0-53.0) % </td> Monocytes/Leuko 10.0 % 0.0-11 <td> 05/03/2019 [facility] cytes [Pure .0 % 08:08</td><td> County number Monocytes. Health Care fraction] in </td><td> [facility] Blood by Automated count 10.0
(0.0-11.0) % </td> Erythrocyte 17.2 % 11.5-1 <td> 05/03/2019 [place] distribution 4.5 % 08:08</td><td> [facility] width [Entitic RDW Health Care volume] by </td><td><[employer]kin [employer] Automated count raph styleCode="Bold "> 17.2 H </paragraph>
(11.5-14.5) % </td> Basophils 1.3 % 0.0-2. <td> 05/03/2019 [place] [#/volume] in 0 % 08:08</td><td> [facility] Blood by Basophils [facility] Automated count </td><td> Corporation 1.3
(0.0-2.0) % </td> Basophils+Eosin 3.1 % 0.0-5. <td> 05/03/2019 [facility] ophils+Monocyte 0 % 08:08</td><td> [facility] s [#/volume] in Eosinophils [facility] Blood by </td><td> [employer] Automated count 3.1
(0.0-5.0) % </td> Neutrophils [#] 43.0 % 36.0-7 <td> 05/03/2019 [facility] in Body fluid 3.0 % 08:08</td><td> [facility] by Manual count Neutrophils [facility] </td><td> [employer] 43.0
(36.0-73.0) % </td> Atypical Lymphs 1.0 % % <td> 05/02/2019 [facility] 08:00</td><td> [facility] Atypical Lymphs [facility] </td><td><Gdd Hcanalytics graph styleCode="Bold "> 1.0 * AB </paragraph>
% </td> Immature 0.3 % 0.0-0. <td> 05/03/2019 [place] granulocytes/10 5 % 08:08</td><td> [facility] 0 leukocytes in IG% </td><td> [facility] Blood by [employer] Automated count 0.3
(0.0-0.5) %
The IG fraction represents metamyelocytes, myelocytes and/or
promyelocytes and is only reported as part of the automated
differential when found at a percentage of less than 6.
If higher than 6%, a manual differential will be performed.

(0.0-0.5) % </td> Anisocytosis Slight <td> 05/02/2019 [place] [Presence] in 08:00</td><td> [facility] Blood by Light Anisocytosis Health Care microscopy </td><td> [employer] Slight
</td> Potassium 3.8 mEq/L 3.5-5. <td> 05/09/2019 [place] [Moles/volume] 1 09:13</td><td> County in Serum or mEq/L Potassium-Serum Health Care Plasma </td><td> [employer] 3.8
(3.5-5.1) mEq/L </td> Polychromasia Slight <td> 05/02/2019 [place] plascencia [Presence] in 08:00</td><td> [facility] Blood by Light Polychromasia Health Care microscopy </td><td> [employer] Slight
</td> Poikilocytosis Slight <td> 05/02/2019 [place]aus[place] dominguez [Presence] in 08:00</td><td> [facility] Blood by Light Poikilocytosis Health Car e microscopy </td><td> [employer] Slight
</td> Chloride 100 mEq/L 98-107 <td> 05/09/2019 [place] [Moles/volume] mEq/L 09:13</td><td> County in Serum or Chloride Health Care Plasma </td><td> [employer] 100
(98-107) mEq/L </td> Sodium 137 mEq/L 135-14 <td> 05/09/2019 [place] [Moles/volume] 5 09:13</td><td> County in Serum or mEq/L Sodium-Serum Health Care Plasma </td><td> [employer] 137
(135-145) mEq/L </td> Glucose 103 mg/dL 70-105 <td> 05/09/2019 [place] [Mass/volume] mg/dL 09:13</td><td> County in Blood Glucose-Serum Health Care </td><td> [employer] 103
(70-105) mg/dL </td> Urea nitrogen 21 mg/dL 6-22 <td> 05/09/2019 [place] [Mass/volume] mg/dL 09:13</td><td> County in Blood BUN </td><td> Health Care [facility] 21
(6-22) mg/dL </td> Hemolysis index No <td> 05/09/2019 [facility] of Serum or Hemolysis 09:13</td><td> [facility] Plasma Hemolysis Index Health [facility] </td><td> [facility] No Hemolysis
</td> Carbon dioxide, 28 mEq/L 22-30 <td> 05/09/2019 [facility] total mEq/L 09:13</td><td> [facility] [Moles/volume] CO2 </td><td> Health Car e in Serum or Corporation Plasma 28
(22-30) mEq/L </td> Creatinine 0.82 mg/dL 0.57-1 <td> 05/09/2019 [place] [Moles/volume] .11 09:13</td><td> County in Serum or mg/dL Creatinine. Health Care Plasma </td><td> [employer] 0.82
(0.57-1.11) mg/dL </td> Anion gap in 9 mEq/L 7-13 <td> 05/09/2019 [place] Serum or Plasma mEq/L 09:13</td><td> [facility] Anion Gap [facility] Care </td><td> [employer] 9
(7-13) mEq/L </td> Calcium 9.6 mg/dL 8.6-10 <td> 05/09/2019 [place] [Mass/volume] .2 09:13</td><td> County in Blood mg/dL Calcium Health Care </td><td> [employer] 9.6
(8.6-10.2) mg/dL </td> Lipemic index No Lipemia <td> 05/09/2019 [facility] er of Serum or 09:13</td><td> County Plasma Lipemia Index Health [facility] </td><td> [employer] No Lipemia
</td> Hemoglobin A1C 4.7 % 4.0-5. <td> 05/07/2019 [facility] 6 % 08:44</td><td> [facility] Hemoglobin A1C [facility] Care </td><td> Corporation 4.7
(4.0-5.6) %
Increased risk for diabetes mellitus is seen in patients with HgA1C values
between 5.7-6.4%. Values > or = 6.5% are considered diagnostic of diabetes
mellitus.
Hemolytic anemias, hemoglobinopath ies, or recent transfusion may impact
HbA1c results. Clinical correlation is recommended.
===
ESTIMATED AVERAGE GLUCOSE (eAG)
---
RELATIONSHIP BETWEEN A1C AND eAG
===
A1C(%) eAG(mg/dL)
6 1 26
7 1 54
8 1 83
9 2 12
10 240
11 269
12 298
Source: Adapted from [place] [employer]. Standards of medical
care in diabetes-2014. Diabetes Care.2014;37(Morales pp 1):S14-S80, table 8.

(4.0-5.6) % </td> Magnesium 2.3 mg/dL 1.6-2. <td> 05/09/2019 [place] [Mass/volume] 6 09:13</td><td> County in Serum or mg/dL Magnesium Level Health Care Plasma </td><td> [employer] 2.3
(1.6-2.6) mg/dL </td> Phosphate 3.0 mg/dL 2.3-4. <td> 05/04/2019 [place] [Mass/volume] 7 08:06</td><td> County in Serum or mg/dL Inorganic Health Care Plasma Phosphorus Corporation </td><td> 3.0
(2.3-4.7) mg/dL </td> Icteric index Not <td> 05/09/2019 [facility] r of Serum or Icteric 09:13</td><td> County Plasma Icteric Index Health Care </td><td> [employer] Not Icteric
</td> Cholesterol 227 mg/dL 125-24 <td> 05/07/2019 [place] [Moles/volume] 0 08:44</td><td> County in Serum or mg/dL Cholesterol Health Care Plasma </td><td> [employer] 227
(125-240) mg/dL </td> Cholesterol in 97 mg/dL >60 <td> 05/07/2019 [facility] er HDL mg/dL 08:44</td><td> [facility] [Mass/volume] HDL Cholesterol Health Car e in Serum or </td><td> [employer] Plasma 97
(>60) mg/dL </td> Cholesterol in 113 mg/dL <150 <td> 05/07/2019 [facility] er LDL mg/dL 08:44</td><td> [facility] [Mass/volume] LDL Cholesterol Health Car e in Serum or </td><td> [employer] Plasma 113
(<150) mg/dL </td> Triglyceride 84 mg/dL 30-200 <td> 05/07/2019 [place] [Mass/volume] mg/dL 08:44</td><td> County in Serum or Triglyceride Health Care Plasma </td><td> Corporation 84
(30-200) mg/dL </td> Procedure Social History Code Duration Value Status Description Data Source(s ) Alcohol intake 12/10/2019 Current completed Current drinker [facility] 12:00:00 AM EDT drinker of of alcohol For Famil y alcohol (finding) Health (finding) Tobacco use and 12/10/2019 Never used completed Never used [facility] t[facility] exposure 12:00:00 AM EDT For Famil y Health Smoking 12/10/2019 Never smoker completed Never smoker [facility] [place] 12:[facility]:00 AM EDT For Famil y Health Tobacco use and 12/10/2019 Never used [facility] t[facility] exposure 12:00:00 AM EDT For Famil y Health Tobacco smoking 12/10/2019 Never smoker The Ins titute status KYIS 12:00:00 AM EDT For Fami ly Health Alcohol intake 10/17/2019 Current [facility] [place] 12:00:00 AM EDT drinker of For Famil y alcohol Health (finding) Tobacco smoking 10/17/2019 Never smoker The Ins titute status KYIS 12:00:00 AM EDT For Fami ly Health Tobacco use and 10/17/2019 Never used The [facility] tute exposure 12:00:00 AM EDT For Famil y Health Tobacco smoking 10/13/2019 Never smoker The [facility] titute status KYIS 12:00:00 AM EDT For [facility] ly Health Alcohol intake 10/13/2019 Current [facility] [place] 12:00:00 AM EDT drinker of For Famil y alcohol Health (finding) History SDOH 10/03/2019 0 [facility] e Physical 12:00:00 AM EST For Famil y Activity [facility] Health Alcohol intake 10/03/2019 Current [facility] [place] 12:00:00 AM EST drinker of For Famil y alcohol Health (finding) Tobacco smoking 10/03/2019 Never smoker The [facility] tit[facility] status KYIS 12:00:00 AM EST For Fami ly Health Alcohol intake 07/18/2019 Current [facility] 12:00:00 AM EST drinker of For Famil y alcohol Health (finding) Tobacco smoking 07/18/2019 Never smoker The Ins titute status KYIS 12:00:00 AM EST For Fami ly Health Vital Signs ID Date Data Source UNK Name Value Range Interpretation Code Description Data Source(s) Diastolic blood 72 mm[Hg] 72 mm[Hg] [facility] Systolic blood 106 mm[Hg] 106 mm[Hg] [facility] Respiratory rate 17 /min 17 /min [facility] Heart rate 104 /min 104 /min [facility] Body temperature 36.13460 36.85861 [facility] Body temperature 98.5 [degF] 98.5 [degF] [facility] Body mass index 28.0 kg/m2 28.0 kg/m2 [facility] (BMI) [Ratio] Hospital Body weight 150.31 150.31 [lb_av] [facility] Diastolic blood 85 mm[Hg] 85 mm[Hg] [facility] Systolic blood 128 mm[Hg] 128 mm[Hg] [facility] Respiratory rate 18 /min 18 /min [facility] Heart rate 108 /min 108 /min [facility] Body temperature 37.76809 37.36649 [facility] Body temperature 98.7 [degF] 98.7 [degF] [facility] Body mass index 25.0 kg/m2 25.0 kg/m2 [facility] (BMI) [Ratio] Hospital Body weight 140.30 140.30 [lb_av] [facility] [lb_av[facility] Hospital Diastolic blood 93 mm[Hg] 93 mm[Hg] [facility] pressure For [facility] Systolic blood 133 mm[Hg] 133 mm[Hg] [facility] [place] pressure For [facility] Oxygen saturation 97 % 97 % The Ins titute in Arterial blood For Jose Daniel morales by Pulse oximetry [facility] Body weight 66.951 kg 66.951 kg The [facility] Body temperature 36.83 Sofya 36.83 Sofya The [facility]ute For [facility] Heart rate 87 /min 87 /min The [facility] Oxygen saturation 98 % 98 % The Ins titute in Arterial blood For Jose Daniel morales by Pulse oximetry [facility] Body weight 69.673 kg 69.673 kg The [facility] Body temperature 36.89 Sofya 36.89 Sofya [facility] For [facility] Heart rate 89 /min 89 /min The [facility] Diastolic blood 87 mm[Hg] 87 mm[Hg] [facility] Inst[facility]ute pressure For [facility] Systolic blood 125 mm[Hg] 125 mm[Hg] [facility] [place] pressure For [facility] Oxygen saturation 98 % 98 % The Ins titute in Arterial blood For Jose Daniel andrew by Pulse oximetry [facility] Body weight 69.673 kg 69.673 kg The [facility] Body temperature 37.22 Sofya 37.22 Sofya The Inst [facility]ute For [facility] Heart rate 85 /min 85 /min [facility] Diastolic blood 83 mm[Hg] 83 mm[Hg] The Inst[facility] tute pressure For [facility] Systolic blood 128 mm[Hg] 128 mm[Hg] [facility] [place] pressure For [facility] Oxygen saturation 98 % 98 % The Ins titute in Arterial blood For Jose Daniel andrew by Pulse oximetry [facility] Body weight 65.772 kg 65.772 kg The [facility] Body height 157.5 cm 157.5 cm The [facility] Body temperature 36.89 Sofya 36.89 Sofya The [facility]ute For [facility] Heart rate 92 /min 92 /min The [facility] Diastolic blood 86 mm[Hg] 86 mm[Hg] The Inst[facility] tute pressure For [facility] Systolic blood 123 mm[Hg] 123 mm[Hg] [facility] [place] pressure For [facility] Body temperature 36.83 Sofya 36.83 Sofya The Inst [facility]ute For [facility] Heart rate 59 /min 59 /min The [facility] Diastolic blood 98 mm[Hg] 98 mm[Hg] The Insti tute pressure For [facility] Systolic blood 153 mm[Hg] 153 mm[Hg] [facility] [place] pressure For [facility] Patient Treatment Plan of Care Planned Activity Planned Date Details Description Data Source (s) Blood Pressure 12/10/2019 12:00:00 [facility] For Monitoring (BLOOD AM EDT [facility] PRESSURE MONITOR/M CUFF) Does not apply Misc Thiamine 100 MG Oral 12/10/2019 12:00:00 [facility] For Tablet AM EDT [facility] quetiapine 50 MG Oral 12/10/2019 12:00:00 [facility] For Tablet AM EDT The [facility] Folic Acid 1 MG Oral 12/10/2019 12:00:00 [facility] Tablet AM EDT [facility] Amlodipine 10 MG Oral 12/10/2019 12:00:00 [facility] Tablet AM EDT [facility] Magnesium Oxide 400 MG 12/10/2019 12:00:00 [facility] Oral Tablet AM [facility] Sodium Bicarbonate 700 09/20/2018 12:00:00 [facility] MG / Sodium Chloride AM 2300 MG Powder for Nasal Solution Multiple Vitamin 05/02/2018 12:00:00 [facility] (MULTI-VITAMIN) Oral [facility] tablet Thiamine 100 MG Oral 05/01/2018 12:00:00 [facility] Tablet [facility] Folic Acid 1 MG Oral 11/21/2017 12:00:00 [facility] Tablet [facility]
--- NOTE | 2020-05-27 11:59 | BHS.RME ---
2019 N Coronavirus Screen - COVID-19 Screening Questions Dx of COVID-19 or had a positive test in the last 4 weeks?: No Contact with known/suspected COVID patient in last 14 days?: No Any of these symptoms or contact with someone who has?: None Traveled domestically/internationally in the last 14 days?: No Screen score: 0 Screen result: Further Evaluation Substance Use & Tx History - Substance Use History Alcohol Substance amount: 1 pint vodka Frequency of use: Daily Substance route: Oral Date of Last Use: 05/27/20 (started age 16) Physical/Psych/Mental Status - Behavior General Behavior: Increased activity (restlessness, agitation) Eye Contact: Normal - Cooperativeness Cooperativeness: Cooperative - Thinking Thought Processes: Tight, Logical, Goal Directed - Physical Health Problems Is patient presently having any pain?: No Does patient presently have any injuries (include location): No Does patient currently have a fever: No Is patient : No CIWA Nausea/Vomitin Muscle Tremors: 4-Moderate,w/Arms Extend Anxiety: 4-Mod. Anxious/Guarded Agitation: 3 Paroxysmal Sweats: 4-Forehead w/Sweat Beads Orientation: 3-Disoriented Date>2 days Tacttile Disturbances: 0-None Auditory Disturbances: 0-None Visual Disturbances: 0-None Headache: 3-Moderate CIWA-Ar Total Score: 24
[2020-05-27 14:30] VITALS: BMI 28.3
--- NOTE | 2020-05-27 14:39 | HP ---
CIWA Score Nausea/Vomitin Muscle Tremors: 4-Moderate,w/Arms Extend Anxiety: 4-Mod. Anxious/Guarded Agitation: 3 Paroxysmal Sweats: 4-Forehead w/Sweat Beads Orientation: 3-Disoriented Date>2 days Tacttile Disturbances: 0-None Auditory Disturbances: 0-None Visual Disturbances: 0-None Headache: 3-Moderate CIWA-Ar Total Score: 24 - Admission Criteria OASAS Guidelines: Admission for Medically Managed Detox: Requires at least one of the followin. CIWA greater than 12 2. Seizures within the past 24 hours 3. Delirium tremens within the past 24 hours 4. Hallucinations within the past 24 hours 5. Acute intervention needed for co occurring medical disorder 6. Acute intervention needed for co occurring psychiatric disorder 7. Severe withdrawal that cannot be handled at a lower level of care (continued vomiting, continued diarrhea, abnormal vital signs) requiring intravenous medication and/or fluids 8. Patient presents the following: CIWA greater than 12 Admission Criteria Met: Admission criteria met Admitting History and Physical - Admission Chief Complaint: "I need to just clean from alcohol, it is just infringing on my life, I need to just get better." History of Present Illness: Pt. is a 49 y.o F presenting for detox from alcohol. Pt. was recently seen at [facility] for Alcohol withdrawal. Pt. was given Thiamine, IVF, Calcium and discharged. Pt. states she completed detox at [facility] in April, relapsed very shortly after because of stressors at home. Pt. stated that she was in a bad relationship. Pt. states that she does feel safe at home. Pt. denies any physical violence to her at her house. Pt. endorses taking Seroquel 100mg HS and Amlodipine 10mg for HTN. Pt. states she is not lactose intolerant. Pt. endorses vomiting blood a couple weeks ago, states it was a scant amount. Pt. endorses having and EGD in 2012 where they found "signs of scarring." Pt. endorses having unprotected sex with her Ex-boyfriend whom she recently found out is HIV+. Pt. denies having a positive PPD in the past. Pt. unaware of her enlarged liver. Pt. states that she has dermatitis on her face and is requesting hydrocortisone cream for her face, states that she has used it successfully in the past. PMHx.: HTN, Anemia, Hx. of Hep. B(Ddx. in 2018) PSH: Appendectomy @ 9 Psych: Depression and Anxiety Social: [place] [facility] [place] Substance Use & Tx History - Substance Use History Alcohol Substance amount: 1 pint vodka Frequency of use: Daily Substance route: Oral Date of Last Use: 05/27/20 (started age 16) Endorses seizures from alcohol withdrawal, last occuring over a year ago. Pt. endorses having blackouts, last occurring a week ago, endorses daily eyeopener History Source: Patient Limitations to Obtaining History: No Limitations - Past Medical History SUPERINTENDENT CIRCUS: Yes: Seizure. No: TIA Cardiovascular: Yes: HTN. No: AFIB Pulmonary: No: Asthma, COPD, O2 Dependent Gastrointestinal: Yes: GI Bleed (Hx. of vomiting blood yesterday.) Hepatobiliary: Yes: Hepatitis B. No: Hepatitis C (has not been treated, diagnosed in 2018) ...LMP: 03/27/20 Infectious Disease: Yes: STD's (Hepatitis B) Psych: Yes: Addictions (Alcohol) - Past Surgical History Past Surgical History: Yes: Appendectomy - Smoking History Smoking history: Never smoked Have you smoked in the past 12 months: No - Alcohol/Substance Use Hx Alcohol Use: Yes - Social History Usual Living Arrangement: Yes: Other (undomiciled, but [place] [facility] [place] Admission [facility] Allergies/Adverse Reactions: Allergies Allergy/AdvReac Type Severity Reaction Status Date / Time Fish Containing Products Allergy Severe Hives Verified 05/27/20 15:27 No Known Drug Allergies Allergy Verified 05/27/20 15:27 Exam Limitations: No Limitations - Review of Systems Constitutional: Weight Stable EENT: denies: Difficulty Swallowing, Throat Pain Respiratory: denies: Cough, Shortness of Breath, Wheezing Cardiac: denies: Chest Pain, Palpitations GI: reports: Nausea, Vomiting (last vomited yesterday twice). denies: Blood Streaked Bowels, Difficulty Swallowing, Rectal Bleeding : denies: Burning, Dysuria Musculoskeletal: denies: Joint Pain, Muscle Pain Integumentary: reports: Rash (facial dermatitis, chronic) Neuro: reports: Headache (Bilateral temporal), Tremors. denies: Numbness, Tingling Endocrine: denies: Unexplained Weight Loss Psychiatric: reports: Orientated x3, Anxious Patient History - Patient Medical History Hx Anemia: Yes (Not on medication) Hx Asthma: No Hx Chronic Obstructive Pulmonary Disease (COPD): No Hx Cancer: No Hx Cardiac Disorders: No Hx Congestive Heart Failure: No Hx Hypertension: Yes (Amlodipine) Hx Hypercholesterolemia: No Hx Pacemaker: No HX Cerebrovascular Accident: No Hx Seizures: Yes (R/T ALCOHOL WITHDRAWAL) Hx Dementia: No Hx Diabetes: No Hx Gastrointestinal Disorders: No Hx Liver Disease: No Hx Genitourinary Disorders: No Hx Sexually Transmitted Disorders: No Hx Renal Disease (ESRD): No Hx Thyroid Disease: No Hx Human Immunodeficiency Virus (HIV): No (NEGATIVE-2020) Hx Hepatitis C: No Hx Depression: Yes Hx Suicide Attempt: No (Denies suicidal ideation t this time) Hx Bipolar Disorder: No Hx Schizophrenia: No - Patient Surgical History Past Surgical History: Yes Hx Neurologic Surgery: No Hx Cataract Extraction: No Hx Cardiac Surgery: No Hx Lung Surgery: No Hx Breast Surgery: No Hx Breast Biopsy: No Hx Abdominal Surgery: No Hx Appendectomy: Yes (at age 9) Hx Cholecystectomy: No Hx Genitourinary Surgery: No Hx Section: No Hx Orthopedic Surgery: No Anesthesia Reaction: No - PPD History Date: 04/11/20 Results: 0 mm - Reproductive History Last Menstrual Period: 03/27/20 - Smoking Cessation Smoking history: Never smoked Have you smoked in the past 12 months: No Hx Chewing Tobacco Use: No - Substance & Tx. History Hx Alcohol Use: Yes Hx Substance Use: No Admission Physical Exam BHS - Vital Signs Vital Signs: Vital Signs - 24 hr 05/27/20 14:28 Temperature 97.3 F L Pulse Rate 89 Respiratory 16 Rate Blood Pressure 117/71 - Physical General Appearance: Yes: Mild Distress, Tremorous, Anxious HEENTM: Yes: EOMI, Normal Voice, ALICIA, Pharynx Normal. No: Lessions Respiratory: Yes: Chest Non-Tender, Decreased Breath Sounds, No Respiratory Distress, No Accessory Muscle Use. No: Crackles, Rales Neck: Yes: Within Normal Limits, Trachea in good position Breast: Yes: Breast Exam Deferred Cardiology: Yes: S1, S2, Systolic Murmur (1/6 RUSB). No: Edema, JVD Abdominal: Yes: Non Tender, Soft, Decreased BS, Hepatomegaly Genitourinary: No: Burning, Frequency Back: No: CVA Tenderness Musculoskeletal: Yes: Other (Large non-tender lipoma on upper posterior thorax) Extremities: Yes: Within Normal Limits, Normal Range of Motion, Non-Tender. No: Calf Tenderness Neurological: Yes: Fully Oriented, Alert, Motor Strength 5/5, Normal Response. No: Numbness Integumentary: Yes: Rash (rash on forehead) Cleared for Admission S - Detox or Rehab [facility] Level of Care: Medically Managed Detox Regimen/Protocol: Ativan Breathalyzer - Breathalyzer Breathalyzer: 0.300 POC Urine test - Test device test lot number: [id number] Expiration date: 07/31/20 - Control test control: Yes - Result Urine Test Results: Negative - NO line present Urine Drug Screen - Test Device Lot number: [id number] Expiration date: 11/06/21 - Control Is test valid?: Yes - Results Drug screen NEGATIVE: No Urine drug screen results: BZO-Benzodiazepines Inpatient Rehab Admission - Rehab Decision to Admit Inpatient rehab admission?: No
[2020-05-27] MEDS ORDERED: MENTHOL/PHENOL 1 EACH UD MM PRN (15:13)
[2020-05-27] MEDS ORDERED: MAGNESIUM CITRATE 300 ML BOTTLE PO PRN (15:13)
[2020-05-27] MEDS ORDERED: ONDANSETRON *ODT* 4 MG TABLET SL PRN (15:13)
[2020-05-27] MEDS ORDERED: ACETAMINOPHEN 325 MG TABLET (FP) PO PRN ×2 (15:13)
[2020-05-27] MEDS ORDERED: BISMUTH SUBSALICYLATE 524 MG/30 ML UD PO PRN (15:13)
[2020-05-27] MEDS ORDERED: MAGNESIUM HYDROX 2400MG/30ML ORAL SUSPENSION 30 ML CUP PO PRN (15:13)
[2020-05-27] MEDS ORDERED: METHOCARBAMOL 500 MG TABLET PO PRN (15:13)
[2020-05-27] MEDS ORDERED: LORazepam 1 MG TABLET PO PRN (15:13)
[2020-05-27] MEDS ORDERED: MAG HYDROX/AL HYDROX/SIMETH 30 ML UNIT-DOSE CUP PO PRN (15:13)
--- OUTSIDE RECORDS SUMMARY | 2020-05-27 15:47 | XMS ---
:1970 Author Organization [facility] Care Team Providers Name Role Phone BARBIE Unavailable Unavailable CARCHIPULLA Unavailable Unavailable REDDING Unavailable Unavailable NURSING, STREET Unavailable Unavailable ARMANDO Unavailable Unavailable MYCHART, PROVIDER Unavailable Unavailable Anthony Garza Unavailable Anthony Lopez PA-C Unavailable Unavailable Shaun Unavailable LEV DARSHAN Unavailable Unavailable Jorge GGAE Unavailable Unavailable MD Giselle Unavailable Unavailable OUTREACH [...] is protected by Article 27-F of the [facility] Public Health law. If you continue you may haveaccess to information: Regarding HIV / AIDS; Provided by facilities licensed or operated by the [facility] Office of Mental Health; or Provided by the [facility] Office for People With Developmental Disabilities. If such information is present, then the following [facility] mandated warning applies: This information has been [...] law may result in a fine or long-term sentence or both. A general authorization for the release of medical or other information is NOT sufficient authorization for further disclosure. Allergies and Adverse Reactions Type Description Substance Reaction Status Data Source(s ) Drug allergy No Known Allergies No Known NONE [facility] Drug Class SHELLFISH-DERIVED SHELLFISH-DERIVE T [place] For PRODUCTS D PRODUCTS Family Health DRUG FISH FISH [facility] [place] [facility] DRUG INGREDI FISH ALLERGY FISH ALLERGY [facility] DRUG INGREDI LATEX LATEX [facility] DRUG IN[facility]EDI LACTOSE LACTOSE [facility] Drug Class FISH-DERIVED FISH-DERIVED The Instit [place] For PRODUCTS PRODUCTS Family Health Drug allergy lactose lactose [facility] [place] Corpor[employer] on Food allergy Fish Fish Hives SV Hives [facility] Corporati on Encounters Encounter Providers Location Date Indications Data Source(s ) Outpatient Attender: LARISSA(Jorge) 05/21/2020 [place] Anthony ARMANDO 03:37:02 PM Family [facility] EDT Patient admitted. Outpatient Attender: AARON LEACH 04/14/2020 01:17:43 PM The [place] For EDT Family Health Patient admitted. Emergency Attender: Gumaro 04/09/[address] [facility] MDAttender: 12:25:00 PM EDT [facility] Alfredo Desai 04/09/2020 MDAttender: Princess 09:33:00 PM EDT [facility] DETOX AMB-EMPRESS Patient discharged. Emergency Attender: LUKASZ 04/08/2020 08:24:00 PM INTOX [place] JAFRIAttender: Roni Barber EDT - 04/09/2020 [facility] 05:54:00 AM EDT INTOX Patient discharged. Outpatient Attender: Preeti 03/31/2020 10:27:57 AM The [facility] Patient admitted. Outpatient Attender: WILBERTO 02/29/2020 11:02:09 AM The [facility] EDT Family [facility] Patient admitted. Outpatient Attender: DEMETRIO BAE 01/28/2020 11:52:44 AM The [facility] Patient admitted. Outpatient Attender: ABDIRIZAK REDDING 01/28/2020 10:29:30 AM The [facility] Patient admitted. Outpatient Attender: Jose Amador 01/16/2020 11:37:49 AM The [facility] Patient admitted. Outpatient Attender: YUNI FERNANDES 01/14/2020 05:14:26 PM The [facility] Patient admitted. Outpatient Attender: Preeti 12/30/2019 12:03:15 PM The [facility] Patient admitted. Outpatient Attender: DAIJA DAS 12/20/2019 12:21:20 PM The [facility] Patient admitted. Outpatient Attender: WU (R) 12/18/2019 12:42:13 AM The [facility] Patient admitted. 12/14/2019 09:55:02 AM [facility] Outpatient Attender: WU (R) 12/12/2019 03:44:14 PM The [facility] Patient admitted. Outpatient Attender: WU (R) 12/10/2019 02:06:58 The [facility]ttender: RADHA EDT - 12/10/2019 [facility] 05:14:15 PM EDT Patient admitted. Outpatient Attender: Preeti 11/27/2019 11:46:29 AM The [facility] Patient admitted. Outpatient Attender: SEDA 11/14/2019 01:56:03 PM The [facility] ED Family [facility] Patient admitted. Outpatient Attender: SAURABH 11/13/2019 05:08:09 PM The [facility] Family [facility] Patient admitted. Outpatient Attender: Tenisha Garza 10/17/2019 04:18:36 PM The [place] For EDT - 10/17/2019 05:00:02 Family [facility] PM EDT Patient admitted. Outpatient Attender: GARETH 10/17/2019 09:41:37 AM The [place] [facility] EDT Family [facility] Patient admitted. Outpatient Attender: GARETH 10/15/2019 04:49:22 PM The [place] [facility] EDT Family [facility] Patient admitted. Outpatient 10/15/2019 09:40:42 AM EDT The [place] [facility] Patient admitted. Outpatient Attender: Jose Amador 10/13/2019 01:49:56 PM The [place] For EDT - 10/13/2019 Family [facility] e[facility] 05:09:50 PM EDT Patient admitted. Outpatient 10/04/2019 03:39:14 PM EST The [place] [facility] Patient admitted. Outpatient 10/04/2019 03:38:38 PM EST The [place] [facility] Patient admitted. Outpatient 10/04/2019 03:38:06 PM EST The [place] [facility] Patient admitted. Outpatient Attender: GARETH 10/04/2019 02:26:21 PM The [place] [facility] EST Family Health Patient admitted. Outpatient Attender: Preeti 10/03/2019 12:46:57 PM [facility] Patient admitted. Outpatient Attender: HAYDEE 10/03/2019 12:46:45 PM The [place] [facility] EST Family Health Patient admitted. Outpatient Attender: 08/30/2019 01:12:34 PM The [place] [facility] NURSING EST - 08/30/2019 Family H ealth 01:40:19 PM EST Patient admitted. Outpatient 07/19/2019 03:29:18 PM EST The [place] [facility] Patient admitted. Outpatient Attender: Jose 07/18/2019 04:14:46 [facility] Patient admitted. Outpatient Attender: 07/17/2019 04:19:30 PM The [place] For NURSING EST - 07/17/2019 Family H ealth 05:03:40 PM EST Patient admitted. Outpatient Attender: 07/09/2019 12:00:00 AM The [facility] NURSING EST Family Health Patient admitted. Outpatient Attender: RODRIGO 07/05/2019 07:16:39 PM The [place] [facility] OUTREACH EST Family Health Patient admitted. Inpatient Attender: ELIZABETH, 04/30/2019 BIPOLAR DISORDER [facility] OLGAAdmitter: ELIZABETH, 02:34:00 PM EDT - [facility] 05/16/2019 [facility] 03:20:00 PM EDT BIPOLAR DISORDER Patient admitted. Emergency Attender: ELIZABETH, 04/29/2019 MENTAL HEALTH [facility] OLGAAdmitter: ELIZABETH, 02:57:00 PM EDT EVAL H ealth Care [facility] EVAL Outpatient Attender: Lili Dunn 04/20/2019 12:36:36 PM The [facility] EDT Health Patient admitted. Immunizations Vaccine Date Status Description Data Source(s) This CVX code 06/20/2019 completed Influenza 06/20/2019 The [place] allows reporting of 12:00:00 AM EST For Family a vaccination when H ealth formulation is unknown (for example, when recording a Influenza vaccination when noted on a vaccination card) Medications Medication Brand Start Product Dose Route Administrative Pharmacy [facility] Indications Reaction Description Data Name Date Form Instructions Instructions Source(s) Ondansetron Ondans 04/09/ TABLET 4 mg ORAL active White 4 MG etron 2020 [facility] Hcl 05:44: Hospit al ing Oral 00 AM Tablet EDT Ondansetron Hcl Ondansetron Ondans 04/09/ TABLET 4 mg ORAL active White 4 MG etron 2020 [facility] Hcl 05:44: Hospit al ing Oral [...] Apply 12:00:00 AM {application} vulvo vaginitis application [place] Topical Cream externally EDT topic ally 2 For Family hydrocortisone cream (two) flaquito es Health 1 % Apply a day externally cream Vaginitis and vulvovaginitis Apply 1 application topically 2 (two) ti mes a day Multiple Vitamin 50737-704-91 12/10/2019 1 Oral com pleted Vaginitis and Take The (MULTI-VITAMIN) 12:00:00 AM {tbl} vulvovagini tis ONE [place] Oral tablet EDT tablet For Tomi burton by Health mouth daily Vaginitis and vulvovaginitis Take ONE tablet by mouth daily Folic folic 12/10/2019 1 mg Oral active Alcohol Take ON E The Acid 1 MG acid 1 MG 12:00:00 AM abuse ta blet [place] Oral Oral EDT (1 mg For Family Tablet tablet total) Health folic by mouth acid 1 MG daily Oral tablet Alcohol abuse Take ONE tablet (1 mg total) by mouth da andrew Amlodipine amLODIPine 12/10/2019 10 Oral active Essential Take The 10 MG Oral 10 MG Oral 12:00:00 AM mg hypertensio n ONE [place] Tablet tablet EDT tablet For Famil y amLODIPine (10 mg Health 10 MG Oral total) tablet by mouth daily Essential hypertension Take ONE tablet (10 mg total) by mouth d aily quetiapine QUEtiapine 12/10/2019 active Difficulty 1 tablet The 50 MG Oral Fumarate 50 12:00:00 AM sleeping at night [place] Tablet MG Oral Tab EDT For Tomi [...] (100 mg total) by mouth daily Blood [id number] 12/10/2019 active Essential Record The Pressure 12:00:00 AM hypertension b [facility] Monitoring EDT pressure For Rafael ayers (BLOOD daily and Health PRESSURE keep log MONITOR/M CUFF) [facility] not [facility] Record blood pressure daily and keep log Metronidazole metroNIDAZOLE 12/10/2019 500 Oral compl eted Vaginitis and Take ONE The 500 MG Oral (FLAGYL) 500 12:00:00 AM mg vulvovag initis tablet [place] Tablet MG Oral tablet EDT (500 mg For Family metroNIDAZOLE total) by H ealth (FLAGYL) 500 mouth MG Oral tablet every 12 (twelve) hours for 7 days Vaginitis and vulvovaginitis Take ONE tablet (500 mg total) by mouth every 12 (twelve) hours for 7 days quetiapine QUEtiapine 10/13/2019 completed Difficu lty 1 The 50 MG Oral Fumarate 50 12:00:00 AM sleeping tablet [place] Tablet MG Oral Tab EDT at For Tomi burton QUEtiapine night Health Fumarate 50 MG Oral Tab Difficulty sleeping 1 tablet at night Magnesium Magnesium 10/13/2019 400 Oral completed Alcohol u se Take The Oxide 400 Oxide 400 12:00:00 AM mg with ONE [place] MG Oral (240 Mg) EDT intoxication table [...] 1 MG 12:00:00 AM abuse ta blet [place] Oral Oral EST (1 mg For Family Tablet tablet total) Health folic by mouth acid 1 MG daily Oral tablet Alcohol abuse Take ONE tablet (1 mg total) by mouth da andrew quetiapine QUEtiapine 10/03/2019 completed Difficu lty 1 The 50 MG Oral Fumarate 50 12:00:00 AM sleeping tablet [place] Tablet MG Oral Tab EST at For Tomi burton QUEtiapine night Health Fumarate 50 MG Oral Tab Difficulty sleeping 1 tablet at night Amlodipine amLODIPine 10/03/2019 10 Oral completed Essenti al Take The 10 MG Oral 10 MG Oral 12:00:00 AM mg hypertensio n ONE [place] Tablet tablet EST tablet For Famil y [...] Oral 12:00:00 AM mg hypertensio n ONE [place] Tablet tablet EST tablet For Famil y amLODIPine (10 mg Health 10 MG Oral total) tablet by mouth daily Essential hypertension Take ONE tablet (10 mg total) by mouth d aily quetiapine QUEtiapine 07/17/2019 completed Difficu lty 1 The 50 MG Oral Fumarate 50 12:00:00 AM sleeping tablet [place] Tablet MG Oral Tab EST at For [...] Oxide 400 MG Oxide 400 12:00:00 AM [place] Oral Tablet (240 Mg) MG EDT F or Family Magnesium Oral Tab Health Oxide 400 (240 Mg) MG Oral Tab 400 mg Hydrocortisone hydrocortisone 1 02/16/2019 complet ed Hytone The 10 MG/ML Topical % Apply 12:00:00 AM 1% [place] Cream externally cream EDT Cream - For Family hydrocortisone 1 Hea lth % Apply externally cream Hytone 1% Cream - Blood [id number] 01/08/2019 completed Essential Record The Pressure 12:00:00 AM hypertension b od [place] Monitoring EDT pressure For F armen (BLOOD daily and Health PRESSURE keep log MONITOR/M CUFF) Does not apply Misc Essential hypertension Record blood pressure daily and keep log Sodium Sodium 09/20/2018 completed Congestion Use 1-2 The Bicarbonate 700 Chloride-Sodium 12:00:00 AM o f nasal times a day [place] MG / Sodium Bicarb (CLASSIC EST sinus a s needed For Family Chloride 2300 MG NETI POT SINUS for Health Powder for Nasal WASH) 2300-700 congestion Solution Sodium MG Nasal Kit Chloride-Sodium Bicarb (CLASSIC NETI POT SINUS WASH) 2300-700 MG Nasal Kit Congestion of nasal sinus Use 1-2 times a day as needed for conges tion Multiple Vitamin 49441-524-68 05/02/2018 1 Oral completed Take 1 The (MULTI-VITAMIN) 12:00:00 AM {tbl} t ablet [place] Oral tablet EDT by For Fami ly mouth Health Take 1 tablet by mouth Thiamine thiamine 05/01/2018 100 mg Oral completed Take 100 The 100 MG Oral 100 MG Oral 12:00:00 AM mg by [place] Tablet tablet EDT mouth For Family thiamine Health 100 MG Oral tablet Take 100 mg by mouth Folic folic 11/21/2017 1 mg Oral completed Alcohol Take ONE The Acid 1 MG acid 1 MG 12:00:00 AM abuse ta blet [place] Oral Oral EDT (1 mg For Family Tablet tablet total) Health folic by mouth acid 1 MG daily Oral tablet Alcohol abuse Take ONE tablet (1 mg total) by mouth da andrew Insurance Providers Payer name Policy type Policy ID Covered Covered green party's Policy P roman / Coverage green party ID relationship to Jo Inf ormation type jo [employer] [id number] SP [id number] P [employer] [id number] SP [id number] P [employer] Medicaid Mgd [id number] Care [employer] [id number] Self [id number] [employer] [id number] Self [id number] [place] [id number] Self [id number] SELF PAY/NO [id number] Self [id number] SLIDE SLIDING FEE NA Self NA [employer] [id number] Self [id number] [employer] [id number] PT [id number] MCAID MEDICAID [id number] PT [id number] [employer] [id number] Self [id number] MEDICAID [id number] SP [id number] [place]ICAID [place] [id number] Self [id number] [employer] [id number] Self [id number] SELF PAY SP INSURANCE SELF PAY 0000 Self 0000 MEDICAID INP [id number] Self [id number] P REHAB [facility] [id number] Self [id number] FIRST PENDING SP EXTERNAL (CREDIT) SELF PAY/NO [id number] Self [id number] SLIDE SELF PAY/NO Self Pay [id number] SLIDE [employer] [id number] Self [id number] [employer] HARP [id number] [employer] HARP [id number] [employer] [id number] Self [id number] Problems, Conditions, and Diagnoses Code Display Name Description Problem Type Effective Data Sour ce(s) Dates R45.89 Depressed affect Depressed affect [id number] 10/13/2019 e [place] 12:00:00 AM For Family EDT Health G47.00 Insomnia Insomnia [id number] 10/13/2019 The [place] 12:00:00 AM For Family EDT Health E87.8 Electrolyte Electrolyte [id number] 09/20/2019 The Institut e imbalance imbalance 12:00:00 AM For Family EST Health Z71.9 Counseled by nurse Counseled by nurse [id number] The [place] 12:00:00 AM For Family EST Health Z91.02 Food additives Food additives [id number] 06/03/2019 [facility] allergy status allergy status 12:00:00 AM For F armen EDT Health G40.509 Epileptic seizures Epileptic seizures [id number] The [place] related to external related to external 12:00:0 0 AM For Family causes, not causes, not EDT Health intractable, without intractable, status epilepticus without status epilepticus Z91.81 History of falling History of falling [id number] The [place] 12:00:00 AM For Family EDT Health E73.9 Lactose intolerance, Lactose [id number] 06/03/2019 The [place] unspecified intolerance, 12:00:00 AM For Family unspecified EDT Health F32.9 Major depressive Major depressive [id number] 06/03/2019 [facility] disorder, single disorder, single 12:00:00 AM F or Family episode, unspecified episode, EDT Heal th unspecified 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 [id number] The [place] substance dependence substance 12:00:00 AM For Family with psychoactive dependence with EDT He 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 D50.9 Chronic iron Chronic iron [id number] 06/03/2019 The [facility] [place] deficiency anemia deficiency anemia 12:00:00 AM For Family EDT Health Z11.59 Encounter for Encounter for Diagnosis 05/21/2020 The [facility] screening for other screening for other 03:37:0 2 PM For Family viral diseases viral diseases EDT Health Transitional Care Transitional Care Diagnosis 04/14/2020 The [place] Management Outreach Management Outreach 01:17:4 3 PM For Family EDT Health F10.129 Alcohol abuse with F10.129 Diagnosis 04/08/2020 [place] intoxication, 10:02:00 PM Hospital unspecified EDT Emergency Room Visit Emergency Room Diagnosis 02/29/2020 The [place] Follow Up Visit Follow Up 11:02:09 AM For Fami ly EDT Health Hospital Discharge Hospital Discharge Diagnosis 0 The [place] Outreach Outreach 10:29:30 AM For Family EDT Health Medication Request Medication Request Diagnosis 0 The [place] 12:03:15 PM For Family EDT Health Outreach Outreach Diagnosis 12/20/2019 The [place] 12:21:20 PM For Family EDT Health Erroneous Erroneous Diagnosis 12/18/2019 The [place] encounter-disregard encounter-disregard 12:42:1 3 AM For Family EDT Health Z53.20 Procedure and Procedure and Diagnosis 12/12/2019 The [facility] [place] treatment not treatment not 03:44:14 PM For Jose Daniel morales carried out because carried out because EDT Health of patient's of patient s decision for decision for unspecified reasons unspecified reasons Z77.21 Contact with and Contact with and Diagnosis 12/10/2019 Th e [place] (suspected) exposure (suspected) 02:06:58 PM Fo r Family to potentially exposure to EDT Health hazardous body potentially fluids hazardous body fluids Z71.7 Human Human Diagnosis 12/10/2019 The [place] immunodeficiency immunodeficiency 02:06:58 PM F or Family virus [HIV] virus (HIV) EDT Health counseling counseling F10.10 Alcohol abuse, Alcohol abuse, Diagnosis 12/10/2019 The In stitute uncomplicated uncomplicated 02:06:58 PM For Jose Daniel morales EDT Health N76.0 Acute vaginitis Acute vaginitis Diagnosis 12/10/2019 The [place] 02:06:58 PM For Family EDT Health Follow-up for: Follow-up for: Diagnosis 12/10/2019 The In stitute 02:06:58 PM For Family EDT Health Vaginal Discharge Vaginal Discharge Diagnosis 12/10/2019 The [place] 02:06:58 PM For Family EDT Health Z02.9 Encounter for Encounter for Diagnosis 10/17/2019 The [facility] [place] administrative administrative 04:18:36 PM For F armen examinations, examinations, EDT Health unspecified unspecified Appointment Reminder Appointment Diagnosis 10/17/2019 The [place] Call Reminder Call 09:41:37 AM For Family EDT Health Cancellation Cancellation Diagnosis 10/15/2019 The [facility] [place] 04:49:22 PM For Family EDT Health N76.1 Subacute and chronic Subacute and Diagnosis 10/13/2019 e [place] vaginitis chronic vaginitis 01:49:56 PM For Tomi burton EDT Health 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 0 The [place] connective and other connective and 01:49:56 PM For Family soft tissue, other soft tissue, EDT Heal th unspecified unspecified R39.15 Urgency of urination Urgency of Diagnosis 10/13/2019 The [place] urination 01:49:56 PM For Family EDT Health Other Other Diagnosis 10/13/2019 The [place] 01:49:56 PM For Family EDT Health R13.10 Dysphagia, Dysphagia, Diagnosis 10/03/2019 The [place] unspecified unspecified 12:46:57 PM For Family EST Health L98.9 Disorder of the skin Disorder of the Diagnosis 10/03/2019 The [place] and subcutaneous skin and 12:46:57 PM For Fam andrew tissue, unspecified subcutaneous EST Hea lth tissue, unspecified D17.1 Benign lipomatous Benign lipomatous Diagnosis 10/03/2019 The [place] neoplasm of skin and neoplasm of skin 12:46:57 PM For Family subcutaneous tissue and subcutaneous EST Health of trunk tissue of trunk Z68.26 Body mass index Body mass index Diagnosis 10/03/2019 The [place] (BMI) 26.0-26.9, (bmi) 26.0-26.9, 12:46:57 PM F or Family adult adult EST Health I10 Essential (primary) Essential (primary) Diagnosis The [place] hypertension hypertension 10:41:46 PM For Famil y EST Health Z02.89 Encounter for other Encounter for other Diagnosis The [place] administrative administrative 04:14:46 PM For F amily examinations examinations EST Health Forms Forms Diagnosis 07/18/2019 The [place] 04:14:46 PM For Family EST Health Y90.8 Blood alcohol level BLOOD ALCOHOL LEVEL Diagnosis [place] of 240 mg/100 ml or OF 240 MG/100 ML OR 03:20:0 0 PM [facility] [employer] [facility] Z91.011 Allergy to milk ALLERGY TO MILK Diagnosis 05/16/2019 [place] [employer] PRODUCTS 03:20:00 [facility] [facility] F10.20 Alcohol dependence, ALCOHOL DEPENDENCE, Diagnosis [address] [place] [address] uncomplicated UNCOMPLICATED 03:20:00 PM [facility] [facility] F31.4 Bipolar disorder, BIPOLAR DISORD, Diagnosis 04/30/[address] [facility] current episode CRNT EPSD DEPRESS, 02:34:00 PM [facility] depressed, severe, SEV, W/O PSYCH EDT Ca re without psychotic FEATURES Corpora tion features Surgeries/Procedures Procedure Description Date Indications Data Source(s) NOVEL CORONAVIRUS NOVEL CORONAVIRUS Routine 05/20/2020 1 The COVID-19 COVID-19 12:00:00 AM In stitute NASOPHARYNGEAL NASOPHARYNGEAL EDT For Family Health ANTIBODY <td><content ID="[id number]">RAPID HIV 1&2 12/10/2019 Encounter for The HIV-1&HIV-2 3RD GEN 05:22:00 PM [facility] SINGLE INSTI</content></td><td>Routine</td><td>12/10/2019 EDT immunodeficiency For Family RESULT 5:22 PM EDT</td><td><paragraph>Encounter for human virus (HIV) Health immunodeficiency virus (HIV) counseling counseling</paragraph></td><td><paragraph styleCode="header">Results for this procedure are in the <content styleCode="[id number]">results section</content>.</paragraph></td> Encounter for human immunodeficiency vir us (HIV) counseling VAGINITIS PROBE - VAGINITIS PROBE - 12/10/2019 0 12/10/2019 The BV/TRICH/CATHLEEN BV/TRICH/CATHLEEN 4:29 PM EDT 04 :29:00 PM [place] (AFFIRM ONLY) (AFFIRM ONLY) EDT For [facility] GC/CHLAMYDIA, GC/CHLAMYDIA, Routin 12/10/2019 Vagini 0 Vagini The APTIMA URINE APTIMA URINE e 4:29 PM EDT tis 04:29:00 [facility] (BIORE) (BIORE) and EDT and For Tomi burton vulvo vulvov Health aginit aginit is is Vaginitis and vulvovaginitis VAGINITIS PROBE - VAGINITIS PROBE - Routine 12/10/2019 Vaginitis and 12/10/2019 Vaginitis and The BV/TRICH/CATHLEEN BV/TRICH/CATHLEEN 4:29 PM EDT vulvovaginitis 04:29:00 PM vulvovaginitis [place] (AFFIRM ONLY) (AFFIRM ONLY) EDT For [facility] Vaginitis and vulvovaginitis HEPATITIS HEPATITIS Routine 12/10/2019 Contact with 12/10/2019 C ontact with The C ANTIBODY C ANTIBODY 4:29 PM EDT potentially 04:29:00 P M potentially [place] W/ REFLEX W/ REFLEX hazardous EDT hazardous For Family RT PCR RT PCR body fluids body fluids Health (REQUIRES (REQUIRES 2 VIALS) 2 VIALS) Contact with potentially hazardous body fluids HEP B HEP B Routine 12/10/2019 Contact with 12/10/[address] with The SURFACE SURFACE 4:29 PM EDT potentially 04:29:00 PM pote [facility] AG AG hazardous EDT hazardous For Family (HBSAG) (HBSAG) body fluids body fluids Health Contact with potentially hazardous body fluids BASIC BASIC Routine 12/10/2019 Contact with 12/10/[address] with The METABOLIC METABOLIC 4:29 PM EDT potentially 04:29:00 PM potentially [place] PANEL PANEL hazardous EDT hazardous For Family body fluids body fluids Health Contact with potentially hazardous body fluids HEP B SURFACE HEP B SURFACE Routine 12/10/2019 Contact with 11/29 Contact with The AB AB 4:29 PM EDT potentially 04:29:00 PM [facility] ([facility]-ORDER ([facility]-ORDER hazardous EDT hazardous For Family QN OPTION) QN OPTION) body fluids body f luids Health Contact with potentially hazardous body fluids URINALYSIS URINALYSIS Routine 12/10/2019 Contact with 12/10/2019 Contact with The (COMPLETE) (COMPLETE) 4:29 PM EDT potentially 04:29:00 P M potentially [place] hazardous EDT hazardous For Family body fluids body fluids Health Contact with potentially hazardous body fluids 4TH GEN HIV 4TH GEN HIV Routine 12/10/2019 Contact with 12/10/19 20 Contact with The TEST-IFH TEST-IFH 4:29 PM EDT potentially 04:29:00 PM po tentially [place] RECOMMENDED RECOMMENDED hazardous EDT hazard ous For Family body fluids body fluids Health Contact with potentially hazardous body fluids HYDROMORPHONE HYDROMORPHONE 10/17/2019 Routine 0 Routine The (DILAUDID), (DILAUDID), 4:50 PM EDT adult health 04:50:0 0 PM adult health [place] URINE URINE maintenance EDT maintenance For Family Health Routine adult health maintenance URINALYSIS URINALYSIS Routine 10/17/2019 Administrative 10/17/19 20 Administrative The (COMPLETE) (COMPLETE) 4:50 PM EDT encounter 04:50:00 PM encounter [place] EDT For Fami ly Health Administrative encounter DRUG DRUG Routine 10/17/2019 Administrative 10/17/2019 Adm inistrative The SCREEN 15 SCREEN 15 4:50 PM EDT encounter 04:50:00 PM en counter [place] W/ALCOHOL W/ALCOHOL EDT For Family Health Administrative encounter HYDROCODONE HYDROCODONE 10/17/2019 Routine 10/17/2019 Ro utine The AND METAB, AND METAB, 4:50 PM EDT adult health 04:50:00 PM adult health [place] URINE URINE maintenance EDT maintenance For Family Health Routine adult health maintenance ANTIBODY <td><content ID="[id number]">RAPID HIV 1&2 10/16 Human The HIV-1&HIV-2 3RD GEN 04:40:00 PM immunodeficiency [place] SINGLE INSTI</content></td><td>Routine</td><td>10/17/2019 EDT virus (HIV) For Family RESULT 4:40 PM EDT</td><td><paragraph>[facility] ([facility] for [facility] counseling</paragraph><paragraph>Human munodeficiency immunodeficiency virus (HIV) virus (HIV) counseling</paragraph></td><td><paragraph counseling styleCode="header">Results for this procedure are in the <content styleCode="[id number]">results section</content>.</paragraph></td> Human immunodeficiency virus (HIV) couns eling Encounter for human immunodeficiency vir us (HIV) counseling CONSULT TO DERMATOLOGY CONSULT TO DERMATOLOGY 10/03/2019 12:46:57 The [place] For PM EST Family Health Results ID Date Data Source [id number] 05/19/2020 04:34:00 PM EDT [facility] Name Value Range Interpretation Code Description Data Twyla rce(s) Supporting Document(s ) SARS-CoV-2 [facility] RNA [facility] Ql JOLANTA+probe This lab was ordered by [facility] and reported by [facility]. ID Date Data Source [id number] 04/21/2020 06:17:00 PM [facility]T [facility] Name Value Range Interpretation Description Data Sup porting Code Source(s) Document(s ) SARS [facility] Coronavirus 2 RNA Presence Respiratory Specimen JOLANTA Probe Detection This lab was ordered by [facility] and reported by [facility]. ID Date Data Source [id number] 04/10/2020 02:40:00 AM EDT [facility] Name Value Range Interpretation Description Data Sup porting Code Source(s) Document(s ) SARS [facility] coronavirus 2 RNA This lab was ordered by [facility] Ganga Lowe and reported by [facility]. ID Date Data Source [id number] 04/08/2020 09:15:00 PM EDT [facility] Name Value Range Interpretation Description Data Sup porting Code Source(s) Document(s ) Choriogonadotropin NEGATIVE [place] ( test) [facility]Presence[facility] in U[facility] Hospital ID Date Data Source [id number] 04/08/2020 09:15:00 PM EDT [facility] Name Value Range Interpretation Description Data Sup porting Code Source(s) Document(s ) Choriogonadotropin NEGATIVE White ( test) [facility]Presence[facility] in [facility] ID Date Data Source [id number] 04/08/2020 08:57:00 PM EDT [facility] Materials Inspector:PHI MORRIS Name Value Range Interpretation Description Data Sup porting Code Source(s) Document(s ) Glucose 130 mg/dL [place] [facility] in Capillary blood by Glucometer ID Date Data Source [id number] 04/08/2020 08:57:00 PM T [facility] Materials Inspector:PHI MORRIS Name Value Range Interpretation Description Data Sup porting Code Source(s) Document(s ) Glucose 130 mg/dL [place] [facility] in Capillary blood by Glucometer ID Date Data Source [id number] 03/19/2020 01:52:00 AM EDT [facility] Name Value Range Interpretation Description Data Sup porting Code Source(s) Document(s ) SARS [facility] Coronavirus 2 RNA Presence Respiratory Specimen JOLANTA Probe Detection This lab was ordered by [facility] and reported by [facility]. ID Date Data Source [id number] 02/25/2020 08:00:00 AM EDT [facility] Name Value Range Interpretation Description Data Sup porting Code Source(s) Document(s ) [id number] [facility] W(Nasal) Reportable This lab was ordered by [facility] and reported by [facility]. ID Date Data Source [id number] 01/25/2020 12:00:00 AM EDT [facility] Name Value Range Interpretation Description Data Sup porting Code Source(s) Document(s ) COV2N [facility] NASOPHARYNGEAL Reportable This lab was ordered by [facility] and reported by [facility]. ID Date Data Source [id number] 01/22/2020 02:02:00 AM EDT [facility] Name Value Range Interpretation Code Description Data Twyla rce(s) Supporting Document(s ) SARS-CoV-2 [facility] Ql JOLANTA+probe This lab was ordered by [facility] and reported by [facility]. ID Date Data Source [id number] 01/10/2020 07:06:00 AM EDT [facility] Name Value Range Interpretation Code Description Data Twyla rce(s) Supporting Document(s ) SARS-COV-2 [facility] PCR This lab was ordered by [facility] and reported by [facility]. ID Date Data Source [id number] 12/10/2019 05:24:09 PM EDT The [facility] Reason for Visit and Comments: Vagina l Discharge [117] Follow-up for: [92] - prepVitals (Last Filed):BP 133/93 (Orthostatic Site : Arm - Left, Orthostatic Pos- ition : Sitting, Orthostatic Cuff Size : Adult) Pulse 8- 7 Temp 98.3 F (36.8 C) (Oral) Wt 147 lb 9.6 oz (67 - kg) LMP 12/04/2019 SpO2 97% BMI 27 kg/m6Dqsmir History RecordedRadha Guajardo MA 12/10/2019 5:14 PM [...] Silveira Camila, MD (R) 12/10/2019 5:14 PM [facility] Pre-Test HIV Counseling ChecklistIn order to [...] written informed consent and provide copy of [facility] consent form NoProvide or refer for emot [...] prevention:sometimesSTI History:Never had a STIOkay to leave [employer]Sp[employer] messages at the listed phone number? YesBP [...] risk sexual behavio r, and-Vaginitis N76.0Plan: see [facility] ordersPartner notification Partner already aware of di [...] Da field PrEP given: Assistance Program ( ,[email or web address]) -Discus sed5) Patient information about PrEP given [...] toGsina ead PrEP Assistance Program given: ( ,www.[email or web address]) -Discus sedPatient information will be included on [...] have identified this patie nt to be aRdha Ramirez, - 1970[facility]. 3 [...] Tenisha Garza MD - ReviewedLevel of Service: [id number] OFFIC/OUTPT VISIT E&M EST LOW- MOD SEVER* [...] Supporting Document(s ) ID Date Data Source [id number] 12/10/2019 05:23:00 PM EDT [facility] Name Value Range Interpretation Description Data Sup porting Code Source(s) Document(s ) HIV I & II - The INVALID [facility] HIV I & II - Non Reactive The NON REACTIVE [facility] HIV I & II - The PRELIMINARY [place] REACTIVE For [facility] HIV KIT LOT # [id number] NA The [facility] HIV KIT EXP 11-06-20 The DATE [facility] INTERNAL yes The CONTROL VALID- [place] RAPID HIV 1, 2 For Family & 3RD GEN Health ID Date Data Source [id number] 12/14/2019 09:40:00 AM EDT [facility] Name Value Range Interpretation Description Data Sup porting Code Source(s) Document(s ) GARDNERELLA Detected Abnormal (applies The VAGINALIS to non-numeric [place] results) For [facility] SPECIMEN SOURCE: Bacterial Vaginosi s, THINPREPCLINICAL INFORMATION: Provided Diagnosis Codes: Z77.21,N76.0(2)This [facility] ient has clinically significant levels [...] evaluated and its performance characteristics determined by [facility]. It has not been cleared or approved by the U.S. Food and Drug Admin istration. The FDA has determined that such clearance or approval is not necessary. [employer] is certified under the Clinical Laboratory Improvement Amen dments of 1988 (CLIA) as qualified to perform high complexity clinical testing. This test is used for clinical purposes. It should not be regarded as investigational or fo r research.(6)Results should be interpreted together with past and current clinical and laboratory data. TRICHOMONAS VAGINALIS Not Detected The [facility] (3)This patient has none or very low lev els of Trichomonas vaginalis. CATHLEEN SPECIES Detected Abnormal (applies to The [facility] non-numeric results) Health (1)This patient has clinically significa nt levels of Cathleen species. ID Date Data Source [id number] 12/12/2019 01:39:00 AM EDT The [facility] Name Value Range Interpretation Code Description Data Twyla rce(s) Supporting Document(s ) RPR Non-Reacti Non-Reacti The [place] ve ve [facility] ID Date Data Source [id number] 12/11/2019 05:21:00 PM EDT The [facility] Name Value Range Interpretation Description Data Sup porting Code Source(s) Document(s ) TRICHOMONAS NEGATIVE NEGATIVE The [facility] Comment: NOTE:REQUEST FOR TRICHOMONAS W PROCESSED USING THE GENPROBEAPTIMA ASSAY WHICH EMPLOYS AN AMPLIFIED PROBE TMA ASS AY. ID Date Data Source [id number] 12/11/2019 03:59:00 PM EDT The [facility] Name Value Range Interpretation Description Data Sup porting Code Source(s) Document(s ) CHLAMYDIA NEGATIVE NEGATIVE The [facility] NOTE: Requests for Chlamydia (CT) and/o r Gonorrhoeae (GC) were processed using the Genprobe Aptima assay which employs an a mplified probe TMA assay. GONORRHEA, UR, RRNA NEGATIVE NEGATIVE The [facility] ID Date Data Source [id number] 12/11/2019 03:29:00 AM EDT The [facility] Name Value Range Interpretation Description Data Sup porting Code Source(s) Document(s ) SPECIFIC 1.019 NA 1.003-1.03 The GRAVITY, UR 0 [place] (S.G.) [facility] PH, UR 6.0 NA 5.0-8.0 The [facility] PROTEIN, NEGATIVE NEGATIVE The TOTAL, RANDOM [place] URINE [facility] GLUCOSE, NEGATIVE NEGATIVE The URINE, QUAL. [facility] KETONE, QUAL. NEGATIVE NEGATIVE The [facility] UROBILINOGEN 1.0 mg/dL 0.2-1.0 The [facility] BILIRUBIN, NEGATIVE NEGATIVE The URINE [facility] BLOOD, URINE NEGATIVE NEGATIVE The [facility] NITRITE, UR NEGATIVE NEGATIVE The (NI) [facility] CRYSTALS NONE NONE The [facility] WBC, URINE 0-4 /[HPF] 0-4 The [facility] RBC, URINE NONE SEEN NONE SEEN The /[HPF] [facility] YEAST CELLS, PRESENT NOT Abnormal The URINE PRESENT (applies to [place] non-numeric For Family results) Health CAST, RBC, NONE SEEN 0-1 The URINE /[LPF] [facility] CAST, HYALINE, 5-10 0-4 Above high The URINE /[LPF] normal [facility] CAST, PROFUSE NONE-FEW Abnormal The EPITHELIAL, (applies to [place] URINE non-numeric For Family results) Health CAST, NONE SEEN 0-1 The GRANULAR, /[LPF] [place] URINE [facility] BACTERIA, NONE NONE-FEW The URINE [facility] CRYSTALS, NONE NONE The OTHER, URINE /[HPF] [facility] LEUKOCYTE MODERATE NEGATIVE Abnormal The ESTERASE (applies to [place] non-numeric For Family results) Health COLOR YELLOW YELLOW, The STRAW, [place] YUNI [facility] CHARACTER CLOUDY CLEAR Abnormal The (applies to [place] non-numeric For Family results) Health ID Date Data Source [id number] 12/11/2019 12:35:00 AM EDT The [facility] Name Value Range Interpretation Description Data Sup porting Code Source(s) Document(s ) HIV 1/2 Non-React Non-React The [place] AB, EIA abeba [facility] Assay Information: Assay for the detecti on of HIV p24 antigen and antibodies to Human Immunodeficiency Virus Type 1,including Group O (HIV-1 + "O") and/or T ype 2 (HIV-2) Method: Chemiluminescence (InToTally) ID Date Data Source [id number] 12/11/2019 12:34:00 AM EDT The [facility] Name Value Range Interpretation Description Data Sup porting Code Source(s) Document(s ) HEP C AB. 0.05 NA <0.80 The S/CO RATIO [facility] HEPATITIS C Non-React Non-Reac The ANTIBODY abeba tive [facility] ID Date Data Source [id number] 12/11/2019 12:25:00 AM EDT The [facility] Name Value Range Interpretation Description Data Sup porting Code Source(s) Document(s ) GLUCOSE 87 mg/dL 70-99 The [facility] SODIUM 132 135-147 Below low normal The mmol/L [facility] POTASSIUM 3.4 3.5-5.5 Below low normal The mmol/L [facility] CHLORIDE 91 96-108 Below low normal The mmol/L [facility] CARBON DIOXIDE 22 22-29 The mmol/L [facility] UREA NITROGEN 11 mg/dL 6-20 The (BUN) [facility] CREATININE 0.60 0.49-1.0 The mg/dL 2 [facility] EGFR 109 >or=60 The mL/min [facility] EGFR 126 >or=60 The MOZAMBICAN mL/min [facility] BUN/CREATININE 18.3 10.0-28. The RATIO Ratio 0 [facility] CALCIUM 8.6 8.6-10.4 The mg/dL [facility] ID Date Data Source [id number] 12/11/2019 12:06:00 AM EDT The [facility] Name Value Range Interpretation Description Data Sup porting Code Source(s) Document(s ) HEPATITIS B Non-React Non-Reac The SURFACE abeba tive [place] ANTIGEN [facility] ID Date Data Source [id number] 12/10/2019 11:55:00 PM EDT The [facility] Name Value Range Interpretation Code Description Data [...] in some patients. ID Date Data Source [id number] 12/10/2019 07:38:00 PM EDT The [facility] Name Value Range Interpretation Code Description Data Supporting Source(s) Document(s ) BACTERIAL TNP The [place] VAGINOSIS, JOLANTA For Family Health TEST NOT PERFORMED; AFFIRM(BD) VPIII NOT RECEIVED. ID Date Data Source [id number] 10/17/2019 05:00:04 PM EDT The [facility] Reason for Visit and Comments: Physic al [...] old female for annual routine checkup for The [employer] as HHALast pap 05/16 normalSocial HistorySocioeconomic History [...] file Gets together: Not on file Attends mormon service: Not on file Active member of [...] may bepe rimenopausalNo contraceptionNo sex in 8+ [id number] 125/87 (Orthostatic Site : Arm - Left, [...] ones you enjoy eating. Eat more for [facility]! Fish, Poultry, and Eggs (0 to 2 [...] t need a fancy name-brand vitamin. A hvykt-gbyxbdyhsp-x itamin is fine. Alcohol (not too much): [...] LMP 09/25/2019(Approximate) | SpO2 98% | B SD 28.09 kg/mPatient reports a pain score of "No pain score recorded for patient" in her [facility] n location entered for patient.Results for orders [...] 2 & 3RD GEN validSulysa [facility]tanpo at [facility] to have 1 urinalysis and drug [...] by: Tenisha Garza MD - ReviewedLevel of Service:[id number] PREVEN MEDS E&M ESTAB PT; 40-64 YR [...] Supporting Document(s ) ID Date Data Source [id number] 10/18/2019 12:50:00 PM EDT The [facility] Name Value Range Interpretation Description Data Sup porting Code Source(s) Document(s ) HYDROMORPHONE TNP ng/mL <300 The [facility] Test Not Performed: Screening result is negative. ID Date Data Source [id number] 10/18/2019 12:50:00 PM EDT The [facility] Name Value Range Interpretation Description Data Sup porting Code Source(s) Document(s ) HYDROCODONE TNP ng/mL <300 The [facility] ID Date Data Source [id number] 10/18/2019 12:50:00 PM EDT The [facility] Name Value Range Interpretation Description Data Sup porting Code Source(s) Document(s ) OPIATES Negative <300 The ng/mL [place] [facility] AMPHETAMINES Negative <1000 The ng/mL [place] For [facility] BARBITURATES Negative <200 The ng/mL [place] [facility] CANNABINOIDS Negative <100 The ng/mL [place] [facility] COCAINE Negative <300 The METABOLITES ng/mL [place] For Family [facility] BENZODIAZEPINE Negative <200 The ng/mL [place] For Family [facility] METHADONE(DOLOPHI Negative <300 The NE) ng/mL [place] [facility] PHENCYCLIDINE(PCP Negative <25 The ) ng/mL [place] [facility] PROPOXYPHENE Negative <300 The ng/mL [facility] ALCOHOL (ETHANOL) Positive <20 Abnormal The mg/dL (applies to [place] non-numeric For Family results) Health Alcohol, Urine Quant 20 mg/dL. CREATININE, UR (CR) 110.2 mg/dL >19.9 The [facility] BUPRENORPHINE Negative ng/mL <5 The Counts include 234 beds at the [facility] TRAMADOL, QUAL Negative NEG(<200ng/mL) The [facility] K2 (SPICE)-GROUP1 Negative NEG(<20ng/mL) The [facility] NOTE: (SPICE)-GROUP1 analysis for syn thetic cannabis detects the presence of JWH-018, JWH-073, AM-2201 and their meta bolites in human urine samples. ASSAY INFORMATION: EIA methodology OXYCODONE Negative ng/mL <300 The [facility] or [facility] K2 (SPICE)-GROUP2 Negative NEG(<10ng/mL) The [facility] NOTE: K2(SPICE)-GROUP2 analysis for syn thetic cannabis detects the presence of UR-144 and its metabolites in human urin e samples. ASSAY INFORMATION: EIA methodology ID Date Data Source [id number] 10/18/2019 03:49:00 AM EDT The [facility] Name Value Range Interpretation Description Data Sup porting Code Source(s) Document(s ) SPECIFIC 1.024 NA 1.003-1.03 The GRAVITY, UR 0 [place] (S.G.) [facility] PH, UR 6.5 NA 5.0-8.0 The [facility] PROTEIN, NEGATIVE NEGATIVE The TOTAL, RANDOM [place] URINE [facility] GLUCOSE, NEGATIVE NEGATIVE The URINE, QUAL. [facility] KETONE, QUAL. NEGATIVE NEGATIVE The [facility] UROBILINOGEN 0.2 mg/dL 0.2-1.0 The [facility] BILIRUBIN, NEGATIVE NEGATIVE The URINE [facility] BLOOD, URINE NEGATIVE NEGATIVE The [facility] NITRITE, UR NEGATIVE NEGATIVE The (NI) [facility] CRYSTALS NONE NONE The [facility] WBC, URINE 0-4 /[HPF] 0-4 The [facility] RBC, URINE NONE SEEN NONE SEEN The /[HPF] [facility] CAST, RBC, NONE SEEN 0-1 The URINE /[LPF] [facility] CAST, HYALINE, 0-4 /[LPF] 0-4 The URINE [facility] CAST, MODERATE NONE-FEW Abnormal The EPITHELIAL, (applies to [place] URINE non-numeric For Family results) Health CAST, NONE SEEN 0-1 The GRANULAR, /[LPF] [place] URINE [facility] BACTERIA, NONE NONE-FEW The URINE [facility] CRYSTALS, NONE NONE The OTHER, URINE /[HPF] [facility] LEUKOCYTE NEGATIVE NEGATIVE The ESTERASE [facility] COLOR YELLOW YELLOW, The STRAW, [place] YUNI [facility] CHARACTER CLEAR CLEAR The [facility] This urine specimen submitted as a non-c qjml-uy-jltmpre was screened byenzyme immunoassay (EIA). Results should be use d for clinical evaluationonly. Many drug classes, notably amphetamines, opiates, benzodiazepines andPCP may report as positive due to cross-reactivity with certain OTC , herbal,or prescription medications. Confirmation testing is recommended for anypositive EIA result. ID Date Data Source [id number] 10/17/2019 04:40:00 PM EDT [facility] Name Value Range Interpretation Description Data Sup porting Code Source(s) Document(s ) HIV I & II - The INVALID [facility] HIV I & II - negative The NON REACTIVE [facility] HIV I & II - The PRELIMINARY [place] REACTIVE [facility] HIV KIT LOT # [id number] NA The [facility] HIV KIT EXP 2020-10-03 The DATE [facility] ID Date Data Source [id number] 10/13/2019 05:21:33 PM EDT [facility] Reason for Visit and Comments: Other [0] - Pt. wants to speak with her doctorVitals (Last Filed):BP 128/83 (Orthostatic Site : Arm - Left, Orthostatic Pos- ition : Sitting, Orthostatic Cuff Size : Adult) Pulse 8- 5 Temp 99 F (37.2 C) Wt 153 lb 9.6 oz (69.7 kg) L- MP 09/14/2019 (Approximate) SpO2 98% BMI 28.09 kg/u4AxdvnBita Alexander MA 10/13/19 20 5:09 PM SignedI [...] Tab; Take ONE tablet (400 mg total) [facility] Dispense: 30 tablet; Refill: 2Shaiinae David [...] by: Udani, Shailee, DO - ReviewedLevel of Service:[id number] OFFIC/OUTPT VISIT E&M EST LOW-MOD SEVER* Historical [...] Supporting Document(s ) ID Date Data Source [id number] 10/03/2019 02:07:16 PM EST The [place] [facility] Reason for Visit and Comments: Refill Follow-up [226] Referral [138] - Gastro, COTTON DISPATCHER & LIPOMA on backVitals (Last Filed):BP 123 /86 (Orthostatic Site : Arm - Left, Orthostatic Pos- ition : Sitting, Orthost atic Cuff Size : Adult) Pulse 9- 2 Temp 98.4 F (36.9 C) (Oral) Ht 5 2" (1.575 m) - Wt 145 lb (65.8 kg) LMP 09/14/2019 (Approximate) SpO2- 98% BMI 26.52 kg/f2JlbqrsAnthony Jaimes MA 10/03/2019 2:07 PM SignedI have identifi ed this patient to be Radha Ramirez, 1970Chief ComplaintPatient presents with Refill F ollow-up Referral Gastro, COTTON DISPATCHER & LIPOMA on backVitals: 10/03/19 1321BP: 123/86Orthostatic [...] sMyChart/MyHealth activation offered? yesPHQ9 done? YesBPAs completed ?YesOFELIA Hanks Ruth, MD 10/03/2019 2:07 PM SignedI have identified this patient to be Radha Martinez o, -1970.Discussed with patient access to after-hours providers, weekend and eveni ngcare, and onsite and affiliated resources as well as appropriate use [facility] service s when needed.Weight Assessment and [...] Suni GONZALES Ruth, MD 10/03/2019 1:33 PM [employer] requires daily exercis e and weight control. [...] presents with Refill F ollow-up Referral Gastro, COTTON DISPATCHER & LIPOMA on backHPIPatient presents for refills [...] 10/03/2019Reviewed by: Noris Mao - ReviewedLevel of Service:[id number] OFFIC /OUTPT VISIT E&M EST LOW-MOD SEVER* [...] Supporting Document(s ) ID Date Data Source [id number] 09/06/2019 01:40:19 PM [facility] Reason for Visit and Comments: Medica [...] Reviewed: 01/09/2019Reviewed by: Jose Amador DO - [facility]edCommunity [facility] rvice:[id number] NURSING VISIT NO CO-PAY Historical Information ----- [...] Supporting Document(s ) ID Date Data Source [id number] 07/17/2019 05:03:40 PM [facility] [place] [facility] Reason for Visit and [...] Jose Amador D O - ReviewedLevel of Service:[id number] NURSING VISIT NO CO-PAY Historical Information ----- [...] Supporting Document(s ) ID Date Data Source [id number] 05/03/2019 08:08:00 AM EDT [facility] [id number] [email or web address] Name Value Range Interpretation Description Data Sup porting Code Source(s) Document(s ) Erythrocyte 98.1 fL 80.0-9 <td> 05/03/2019 [place] mean 6.0 fL 08:08</td><td> [facility] corpuscular [facility] volume [Entitic </td><td><elkin Corporat ion volume] by raph Automated count styleCode="Bold "> 98.1 H </paragraph>
(80.0-96.0) fL </td> Hematocrit 40.5 % 36.0-4 <td> 05/03/2019 [place] [Volume 5.0 % 08:08</td><td> County Fraction] of HCT </td><td> Health Care Blood by Corporation Automated count 40.5
(36.0-45.0) % </td> Erythrocytes 4.13 m/mm3 3.80-5 <td> 05/03/2019 [facility] r [#/volume] in .10 08:08</td><td> [facility] Blood m/mm3 RBC </td><td> [facility] [email or web address] 4.13
(3.80-5.10) m/mm3 </td> Leukocytes 3.8 k/mm3 4.5-10 <td> 05/03/2019 [place] [#/volume] in .8 08:08</td><td> [facility] Blood by k/mm3 WBC Health Care Automated count </td><td><elkin Corporat ion raph styleCode="Bold "> 3.8 L </paragraph>
(4.5-10.8) k/mm3 </td> Hemoglobin 13.0 g/dL 11.6-1 <td> 05/03/2019 [place] [Mass/volume] 5.0 08:08</td><td> [facility] in Blood g/dL HGB </td><td> Health Care [email or web address] 13.0
(11.6-15.0) g/dL </td> Erythrocyte 32.1 % 32.0-3 <td> 05/03/2019 [place] mean 6.0 % 08:08</td><td> [facility] corpuscular MCHC </td><td> Health Care hemoglobin Corporation concentration 32.1 [Mass/volume] in Blood from
Fetus by (32.0-36.0) % Automated count </td> Platelets 167 k/mm3 160-41 <td> 05/03/2019 [place] [#/volume] in 0 08:08</td><td> [facility] Blood by k/mm3 Platelet Count Health [facility] Automated count </td><td> Corporation 167
(160-410) k/mm3 </td> Platelet mean 11.3 fL 9.8-12 <td> 05/03/2019 [facility] r volume [Entitic .8 fL 08:08</td><td> County volume] in MPV </td><td> [facility] Blood by [email or web address] Automated count 11.3
(9.8-12.8) fL </td> Erythrocyte 31.5 pg 27.0-3 <td> 05/03/2019 [place] mean 1.5 pg 08:08</td><td> [facility] corpuscular MCH </td><td> [facility] Care hemoglobin Corporation [Entitic mass] 31.5 by Automated count
(27.0-31.5) pg </td> Lymphocytes 42.3 % 18.0-5 <td> 05/03/2019 [place] [#/volume] in 3.0 % 08:08</td><td> [facility] Blood by Lymphocytes [facility] Care Automated count </td><td> [email or web address] 42.3
(18.0-53.0) % </td> Monocytes/Leuko 10.0 % 0.0-11 <td> 05/03/2019 [facility] cytes [Pure .0 % 08:08</td><td> County number Monocytes. Health Care fraction] in </td><td> [facility] Corporation Blood by Automated count 10.0
(0.0-11.0) % </td> Erythrocyte 17.2 % 11.5-1 <td> 05/03/2019 [place] distribution 4.5 % 08:08</td><td> [facility] width [Entitic RDW Health Care volume] by </td><td><elkin [email or web address] Automated count raph styleCode="Bold "> 17.2 H </paragraph>
(11.5-14.5) % </td> Basophils 1.3 % 0.0-2. <td> 05/03/2019 [place] [#/volume] in 0 % 08:08</td><td> [facility] Blood by Basophils [facility] Automated count </td><td> Corporation 1.3
(0.0-2.0) % </td> Basophils+Eosin 3.1 % 0.0-5. <td> 05/03/2019 [facility] ophils+Monocyte 0 % 08:08</td><td> [facility] s [#/volume] in Eosinophils [facility] Blood by </td><td> [email or web address] Automated count 3.1
(0.0-5.0) % </td> Neutrophils [#] 43.0 % 36.0-7 <td> 05/03/2019 [facility] in Body fluid 3.0 % 08:08</td><td> [facility] by Manual count Neutrophils [facility] </td><td> [email or web address] 43.0
(36.0-73.0) % </td> Atypical Lymphs 1.0 % % <td> 05/02/2019 [facility] 08:00</td><td> [facility] Atypical Lymphs [facility] </td><td><Otogami graph styleCode="Bold "> 1.0 * AB </paragraph>
% </td> Immature 0.3 % 0.0-0. <td> 05/03/2019 [place] granulocytes/10 5 % 08:08</td><td> [facility] 0 leukocytes in IG% </td><td> [facility] Blood by [email or web address] Automated count 0.3
(0.0-0.5) %
The IG fraction represents metamyelocytes, myelocytes and/or
promyelocytes and is only reported as part of the automated
differential when found at a percentage of less than 6.
If higher than 6%, a manual differential will be performed.

(0.0-0.5) % </td> Anisocytosis Slight <td> 05/02/2019 [place] [Presence] in 08:00</td><td> [facility] Blood by Light Anisocytosis Health Care microscopy </td><td> [email or web address] Slight
</td> Potassium 3.8 mEq/L 3.5-5. <td> 05/09/2019 [place] [Moles/volume] 1 09:13</td><td> County in Serum or mEq/L Potassium-Serum Health Care Plasma </td><td> [email or web address] 3.8
(3.5-5.1) mEq/L </td> Polychromasia Slight <td> 05/02/2019 [place] plascencia [Presence] in 08:00</td><td> [facility] Blood by Light Polychromasia Health Care microscopy </td><td> [email or web address] Slight
</td> Poikilocytosis Slight <td> 05/02/2019 Kaushal dominguez [Presence] in 08:00</td><td> [facility] Blood by Light Poikilocytosis Health Car e microscopy </td><td> [email or web address] Slight
</td> Chloride 100 mEq/L 98-107 <td> 05/09/2019 [place] [Moles/volume] mEq/L 09:13</td><td> County in Serum or Chloride Health Care Plasma </td><td> [email or web address] 100
(98-107) mEq/L </td> Sodium 137 mEq/L 135-14 <td> 05/09/2019 [place] [Moles/volume] 5 09:13</td><td> County in Serum or mEq/L Sodium-Serum Health Care Plasma </td><td> [email or web address] 137
(135-145) mEq/L </td> Glucose 103 mg/dL 70-105 <td> 05/09/2019 [place] [Mass/volume] mg/dL 09:13</td><td> County in Blood Glucose-Serum Health Care </td><td> [email or web address] 103
(70-105) mg/dL </td> Urea nitrogen 21 mg/dL 6-22 <td> 05/09/2019 [place] [Mass/volume] mg/dL 09:13</td><td> County in Blood BUN </td><td> Health Care [facility] Corporation 21
(6-22) mg/dL </td> Hemolysis index No <td> 05/09/2019 [facility] of Serum or Hemolysis 09:13</td><td> [facility] Plasma Hemolysis Index Health [facility] </td><td> [facility] Corporation No Hemolysis
</td> Carbon dioxide, 28 mEq/L 22-30 <td> 05/09/2019 [facility] total mEq/L 09:13</td><td> [facility] [Moles/volume] CO2 </td><td> Health Car e in Serum or Corporation Plasma 28
(22-30) mEq/L </td> Creatinine 0.82 mg/dL 0.57-1 <td> 05/09/2019 [place] [Moles/volume] .11 09:13</td><td> County in Serum or mg/dL Creatinine. Health Care Plasma </td><td> [email or web address] 0.82
(0.57-1.11) mg/dL </td> Anion gap in 9 mEq/L 7-13 <td> 05/09/2019 [place] Serum or Plasma mEq/L 09:13</td><td> [facility] Anion Gap [facility] Care </td><td> [email or web address] 9
(7-13) mEq/L </td> Calcium 9.6 mg/dL 8.6-10 <td> 05/09/2019 [place] [Mass/volume] .2 09:13</td><td> County in Blood mg/dL Calcium Health Care </td><td> [email or web address] 9.6
(8.6-10.2) mg/dL </td> Lipemic index No Lipemia <td> 05/09/2019 [facility] [place] er of Serum or 09:13</td><td> County Plasma Lipemia Index Health [facility] </td><td> [email or web address] No Lipemia
</td> Hemoglobin A1C 4.7 % 4.0-5. <td> 05/07/2019 [facility] 6 % 08:44</td><td> [facility] Hemoglobin A1C [facility] Care </td><td> Corporation 4.7
(4.0-5.6) %
[...]
11 269
12 298
Source: Adapted from [place] [employer]. Standards of medical
care in diabetes-2014. Diabetes Care.2014;37(Morales pp 1):S14-S80, table 8.

(4.0-5.6) % </td> Magnesium 2.3 mg/dL 1.6-2. <td> 05/09/2019 [place] [Mass/volume] 6 09:13</td><td> County in Serum or mg/dL Magnesium Level Health Care Plasma </td><td> [email or web address] 2.3
(1.6-2.6) mg/dL </td> Phosphate 3.0 mg/dL 2.3-4. <td> 05/04/2019 [place] [Mass/volume] 7 08:06</td><td> County in Serum or mg/dL Inorganic Health Care Plasma Phosphorus Corporation </td><td> 3.0
(2.3-4.7) mg/dL </td> Icteric index Not <td> 05/09/2019 [facility] r of Serum or Icteric 09:13</td><td> County Plasma Icteric Index Health Care </td><td> [email or web address] Not Icteric
</td> Cholesterol 227 mg/dL 125-24 <td> 05/07/2019 [place] [Moles/volume] 0 08:44</td><td> County in Serum or mg/dL Cholesterol Health Care Plasma </td><td> [email or web address] 227
(125-240) mg/dL </td> Cholesterol in 97 mg/dL >60 <td> 05/07/2019 [facility] [place] er HDL mg/dL 08:44</td><td> [facility] [Mass/volume] HDL Cholesterol Health Car e in Serum or </td><td> [email or web address] Plasma 97
(>60) mg/dL </td> Cholesterol in 113 mg/dL <150 <td> 05/07/2019 [facility] [place] er LDL mg/dL 08:44</td><td> [facility] [Mass/volume] LDL Cholesterol Health Car e in Serum or </td><td> [email or web address] Plasma 113
(<150) mg/dL </td> Triglyceride 84 mg/dL 30-200 <td> 05/07/2019 [place] [Mass/volume] mg/dL 08:44</td><td> County in Serum or [...] Never smoker completed Never smoker [facility] 12:00:00 AM EDT [facility] Tobacco use and 12/10/2019 Never used The Inst[facility] tute exposure 12:00:00 AM EDT [facility] Tobacco smoking 12/10/2019 Never smoker The Ins titute status KSIS 12:00:00 AM EDT [facility] Alcohol intake 10/17/2019 Current [facility] 12:00:00 AM EDT drinker of For Famil y alcohol Health (finding) Tobacco smoking 10/17/2019 Never smoker The Ins titute status KSIS 12:00:00 AM EDT [facility] Tobacco use and 10/17/2019 Never used The Insti tute exposure 12:00:00 AM EDT [facility] Tobacco smoking 10/13/2019 Never smoker The Ins titute status KSIS 12:00:00 AM EDT [facility] Alcohol intake 10/13/2019 Current [facility] 12:00:00 AM EDT drinker of For Famil [facility] alcohol Health (finding) History SDOH 10/03/2019 0 The Instit[facility] e Physical 12:00:00 AM EST For [facility]amil y Activity DPW Health Alcohol intake 10/03/2019 Current [facility] 12:00:00 AM EST drinker of For Famil y alcohol Health (finding) Tobacco smoking 10/03/2019 Never smoker The Ins titute status KSIS 12:00:00 AM EST [facility] Alcohol intake 07/18/2019 Current [facility] 12:00:00 AM EST drinker of For Famil y alcohol Health (finding) Tobacco smoking 07/18/2019 Never smoker The Ins titute status KSIS 12:00:00 AM EST [facility] Vital Signs ID Date Data Source UNK Name Value Range Interpretation Code Description Data Source(s) Diastolic blood 72 mm[Hg] 72 mm[Hg] [facility] Systolic blood 106 mm[Hg] 106 mm[Hg] [facility] Respiratory rate 17 /min 17 /min [facility] Heart rate 104 /min 104 /min [facility] Body temperature 36.48309 36.08356 Sof[facility] Body temperature 98.5 [degF] 98.5 [degF] [facility] Body mass index 28.0 kg/m2 28.0 kg/m2 [facility] (BMI) [Ratio] Hospital Body weight 150.31 150.31 [lb_av] [facility] [lb_av] Hospital Diastolic blood 85 mm[Hg] 85 mm[Hg] [facility] Systolic blood 128 mm[Hg] 128 mm[Hg] [facility] Respiratory rate 18 /min 18 /min [facility] Heart rate 108 /min 108 /min [facility] Body temperature 37.19261 37.44509 Sof[facility] Body temperature 98.7 [degF] 98.7 [degF] [facility] Body mass index 25.0 kg/m2 25.0 kg/m2 [facility] (BMI) [Ratio] Hospital Body weight 140.30 140.30 [lb_av] [facility] [lb_av] Hospital Diastolic blood 93 mm[Hg] 93 mm[Hg] [facility] tute pressure [facility] Systolic blood 133 mm[Hg] 133 mm[Hg] [facility] pressure For [facility] Oxygen saturation 97 % 97 % The Ins titute in Arterial blood For Jose Daniel morales by Pulse oximetry [facility] Body weight 66.951 kg 66.951 kg The [facility] Body temperature 36.83 Sofya 36.83 Sofya The Inst itute For [facility] Heart rate 87 /min 87 /min The [facility] Oxygen saturation 98 % 98 % The Ins titute in Arterial blood For Jose Daniel morales by Pulse oximetry [facility] Body weight 69.673 kg 69.673 kg The [facility] Body temperature 36.89 Sofya 36.89 Sofya [facility] Heart rate 89 /min 89 /min The [facility] Diastolic blood 87 mm[Hg] 87 mm[Hg] The Insti tute pressure [facility] Systolic blood 125 mm[Hg] 125 mm[Hg] [facility] pressure For [facility] Oxygen saturation 98 % 98 % The Ins titute in Arterial blood For Jose Daniel andrew by Pulse oximetry [facility] Body weight 69.673 kg 69.673 kg The [facility] Body temperature 37.22 Sofya 37.22 Sofya The Inst itute For [facility] Heart rate 85 /min 85 /min [facility] Diastolic blood 83 mm[Hg] 83 mm[Hg] The [facility] tute pressure [facility] Systolic blood 128 mm[Hg] 128 mm[Hg] [facility] pressure For [facility] Oxygen saturation 98 % 98 % The Ins titute in Arterial blood For Jose Daniel andrew by Pulse oximetry [facility] Body weight 65.772 kg 65.772 kg The [facility] Body height 157.5 cm 157.5 cm The [facility] Body temperature 36.89 Sofya 36.89 Sofya The Inst itute For [facility] Heart rate 92 /min 92 /min The [facility] Diastolic blood 86 mm[Hg] 86 mm[Hg] The Insti tute pressure [facility] Systolic blood 123 mm[Hg] 123 mm[Hg] [facility] pressure For [facility] Body temperature 36.83 Sofya 36.83 Sofya The Inst itute For [facility] Heart rate 59 /min 59 /min The [facility] Diastolic blood 98 mm[Hg] 98 mm[Hg] The Insti tute pressure For [facility] Systolic blood 153 mm[Hg] 153 mm[Hg] [facility] pressure For [facility] Patient Treatment Plan of Care Planned Activity Planned Date Details Description Data Source (s) Blood Pressure 12/10/2019 12:00:00 The In stitute For Monitoring (BLOOD AM EDT [facility] PRESSURE MONITOR/M CUFF) Does not apply Misc Thiamine 100 MG Oral 12/10/2019 12:00:00 [facility] [place] [facility] Tablet AM EDT [facility] quetiapine 50 MG Oral 12/10/2019 12:00:00 [facility] [place] [facility] Tablet AM EDT [facility] Folic Acid 1 MG Oral 12/10/2019 12:00:00 [facility] [place] [facility] Tablet AM EDT [facility] Amlodipine 10 MG Oral 12/10/2019 12:00:00 [facility] [place] For Tablet AM EDT [facility] Magnesium Oxide 400 MG 12/10/2019 12:00:00 [facility] [place] [facility] Oral Tablet AM [facility] Sodium Bicarbonate 700 09/20/2018 12:00:00 [facility] [place] [facility] MG / Sodium Chloride AM [facility] 2300 MG Powder for Nasal Solution Multiple Vitamin 05/02/2018 12:00:00 [facility] [place] For (MULTI-VITAMIN) Oral [facility] tablet Thiamine 100 MG Oral 05/01/2018 12:00:00 [facility] [place] For Tablet [facility] Folic Acid 1 MG Oral 11/21/2017 12:00:00 [facility] [place] [facility] Tablet [facility]
[2020-05-27] MEDS: LORazepam 2 MG TABLET PO SCH ×2 (17:47→22:41)
[2020-05-27] MEDS ORDERED: hydrOXYzine PAMOATE 25 MG CAPSULE (FP) PO SCH (18:00)
[2020-05-27 18:59] LABS: HEMATOCRIT 29.2 % (32.4-45.2); HEMOGLOBIN 9.6 GM/dL (10.7-15.3); MCHC 32.8 g/dl (32.0-36.0); MEAN CELL VOLUME 85.3 fl (80-96); MEAN PLT VOLUME 8.4 fl (7.5-11.1); PLATELET COUNT 211 K/MM3 (134-434); RBC 3.42 M/mm3 (3.60-5.2); RDW 24.9 % (11.6-15.6)
[2020-05-27 19:04] LABS: POTASSIUM 3.6 mmol/L (3.5-5.1)
[2020-05-27 19:06] LABS: ALBUMIN 3.3 g/dl (3.4-5.0); CALCIUM 7.9 mg/dL (8.5-10.1)
[2020-05-27 19:07] LABS: BLOOD UREA NITROGEN 5.5 mg/dL (7-18)
[2020-05-27 19:10] LABS: CREATININE 0.5 mg/dL (0.55-1.3)
[2020-05-27 19:11] LABS: BILIRUBIN,TOTAL 0.3 mg/dL (0.2-1); TOT PROT 6.9 g/dl (6.4-8.2)
[2020-05-27] MEDS: HYDROCORTISONE 1% TOPICAL CREAM 30 GM TUBE TP SCH (19:39)
[2020-05-27] MEDS: THIAMINE HCL 100 MG TABLET (FP) PO SCH (22:41)
[2020-05-27] MEDS: MELATONIN 5 MG TABLETS PO SCH (22:41)
[2020-05-28] MEDS: LORazepam 2 MG TABLET PO SCH ×4 (06:35→22:12)
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
[2020-05-28] MEDS: amLODIPine BESYLATE 10 MG TABLET (FP) PO SCH (11:00)
[2020-05-28] MEDS: PRENATAL VITAMINS W/ FOLIC ACID TABLET (FP) PO SCH (11:00)
[2020-05-28] MEDS: HYDROCORTISONE 1% TOPICAL CREAM 30 GM TUBE TP SCH (11:01)
[2020-05-28] MEDS ORDERED: LORazepam 2 MG/ML SDV VIAL ONE (11:31)
--- NOTE | 2020-05-28 12:36 | EKG ---
Test Reason : Blood Pressure : / mmHG Vent. Rate : 095 BPM Atrial Rate : 095 BPM P-R Int : 156 ms QRS Dur : 074 ms QT Int : 386 ms P-R-T Axes : 030 -18 001 degrees QTc Int : 485 ms NORMAL SINUS RHYTHM MINIMAL VOLTAGE CRITERIA FOR LVH, MAY BE NORMAL VARIANT PROLONGED QT ABNORMAL ECG WHEN COMPARED WITH ECG OF 10-APR-2020 01:42, VENT. RATE HAS INCREASED BY 32 BPM Confirmed by Dashawn Roberson ([id number]) on 05/28/2020 12:35:50 PM Referred By: Constance JOSEPH Confirmed By:Dashawn Roberson
--- NOTE | 2020-05-28 15:44 | PN ---
[facility] CIWA - CIWA Score Nausea/Vomitin-Mild Nausea/No Vomiting Muscle Tremors: 2 Anxiety: 2 Agitation: 2 Paroxysmal Sweats: 1-Minimal Palms Moist Orientation: 0-Oriented Tacttile Disturbances: 1-Very Mild Itch/Numbness Auditory Disturbances: 0-None Visual Disturbances: 0-None Headache: 2-Mild CIWA-Ar Total Score: 11 S Progress Note (SOAP) Subjective: alert,irritable,anxious,interrupted sleep,tremor,aching pain ,history of anemia Objective: 05/28/20 15:43 Vital Signs Temperature 98.7 F 05/28/20 13:46 Pulse Rate 95 H 05/28/20 13:46 Respiratory Rate 17 05/28/20 13:46 Blood Pressure 136/83 05/28/20 13:46 O2 Sat by Pulse Oximetry (%) 98 05/28/20 13:46 Laboratory Last Values WBC 5.0 K/mm3 (4.0-10.0) 05/27/20 15:00 RBC 3.42 M/mm3 (3.60-5.2) L 05/27/20 15:00 Hgb 9.6 GM/dL (10.7-15.3) L 05/27/20 15:00 Hct 29.2 % (32.4-45.2) L 05/27/20 15:00 MCV 85.3 fl (80-96) 05/27/20 15:00 MCH 28.0 pg (25.7-33.7) 05/27/20 15:00 MCHC 32.8 g/dl (32.0-36.0) 05/27/20 15:00 RDW 24.9 % (11.6-15.6) H 05/27/20 15:00 Plt Count 211 K/MM3 (134-434) D 05/27/20 15:00 MPV 8.4 fl (7.5-11.1) 05/27/20 15:00 Sodium 142 mmol/L (136-145) 05/27/20 15:00 Potassium 3.6 mmol/L (3.5-5.1) 05/27/20 15:00 Chloride 104 mmol/L (98-107) 05/27/20 15:00 Carbon Dioxide 28 mmol/L (21-32) 05/27/20 15:00 Anion Gap 10 MMOL/L (8-16) 05/27/20 15:00 BUN 5.5 mg/dL (7-18) L 05/27/20 15:00 Creatinine 0.5 mg/dL (0.55-1.3) L 05/27/20 15:00 Est GFR (CKD-EPI)AfAm 133.58 05/27/20 15:00 Est GFR (CKD-EPI)NonAf 115.25 05/27/20 15:00 Random Glucose 86 mg/dL (74-106) 05/27/20 15:00 Calcium 7.9 mg/dL (8.5-10.1) L 05/27/20 15:00 Total Bilirubin 0.3 mg/dL (0.2-1) 05/27/20 15:00 AST 30 U/L (15-37) 05/27/20 15:00 ALT 17 U/L (13-61) 05/27/20 15:00 Alkaline Phosphatase 62 U/L (45-117) 05/27/20 15:00 Total Protein 6.9 g/dl (6.4-8.2) 05/27/20 15:00 Albumin 3.3 g/dl (3.4-5.0) L 05/27/20 15:00 POC Urine HCG, Qual Negative 05/27/20 14:30 Syphilis Serology Non-reactive (NONREACTIVE) 05/27/20 15:00 HIV Ag/Ab Combo Qual Negative (NEGATIVE) 05/27/20 15:00 Assessment: 05/28/20 15:44 withdrawal symptom Plan: continue detox librium regimen,history of anemia had taking iron in he past,ferrous sulfate 325 mgs po bid,Dr Price psychiatric consultation and evaluation greatly appreciated
[2020-05-28] MEDS: FERROUS SO4 325 MG TABLET (FP) PO SCH (17:22)
[2020-05-28] MEDS ORDERED: QUEtiapine FUMARATE 100 MG TABLET (FP) PO SCH (22:00)
[2020-05-28] MEDS: THIAMINE HCL 100 MG TABLET (FP) PO SCH (22:12)
[2020-05-28] MEDS: MELATONIN 5 MG TABLETS PO SCH (22:12)
[2020-05-29] MEDS: LORazepam 1 MG TABLET PO SCH ×2 (06:38→10:18)
[2020-05-29] MEDS: FERROUS SO4 325 MG TABLET (FP) PO SCH (07:47)
--- NOTE | 2020-05-29 08:24 | PN ---
Teaching Attending Note Name of Resident: Jose Moss ATTENDING PHYSICIAN STATEMENT I saw and evaluated the patient. I reviewed the resident's note and discussed the case with the resident. I agree with the resident's findings and plan as documented. SUBJECTIVE: OBJECTIVE: ASSESSMENT AND PLAN: Agree with resident's findings and plan for detox
--- NOTE | 2020-05-29 09:37 | PN ---
S CIWA - CIWA Score Nausea/Vomitin-No Nausea/No Vomiting Muscle Tremors: 3 Anxiety: 2 Agitation: 3 Paroxysmal Sweats: 3 Orientation: 0-Oriented Tacttile Disturbances: 0-None Auditory Disturbances: 0-None Visual Disturbances: 0-None Headache: 0-None Present CIWA-Ar Total Score: 11 S Progress Note (SOAP) Subjective: sweats shakes interrupted sleep agitation body aches Objective: 05/29/20 09:36 Vital Signs Temperature 97.7 F 05/29/20 05:41 Pulse Rate 77 05/29/20 05:41 Respiratory Rate 18 05/29/20 05:41 Blood Pressure 127/88 05/29/20 05:41 O2 Sat by Pulse Oximetry (%) 99 05/29/20 05:41 Laboratory Tests 05/27/20 05/27/20 05/27/20 14:30 15:00 15:00 WBC 5.0 RBC 3.42 L Hgb 9.6 L Hct 29.2 L MCV 85.3 MCH 28.0 MCHC 32.8 RDW 24.9 H Plt Count 211 D MPV 8.4 Sodium Potassium Chloride Carbon Dioxide Anion Gap BUN Creatinine Est GFR (CKD-EPI)AfAm Est GFR (CKD-EPI)NonAf Random Glucose Calcium Total Bilirubin AST ALT Alkaline Phosphatase Total Protein Albumin POC Urine HCG, Qual Negative Syphilis Serology Non-reactive COVID-19 ([facility]) Hep A IgM Ab Confirm Hep Bs Antigen Hep Bs Ag Confirmation Hep B Core IgM Ab Hep C Ab Diagnostic Hepatitis C Ab (EIA) HIV Ag/Ab Combo Qual 05/27/20 05/27/20 05/27/20 15:00 15:00 15:00 WBC RBC Hgb Hct MCV MCH MCHC RDW Plt Count MPV Sodium 142 Potassium 3.6 Chloride 104 Carbon Dioxide 28 Anion Gap 10 BUN 5.5 L Creatinine 0.5 L Est GFR (CKD-EPI)AfAm 133.58 Est GFR (CKD-EPI)NonAf 115.25 Random Glucose 86 Calcium 7.9 L Total Bilirubin 0.3 AST 30 ALT 17 Alkaline Phosphatase 62 Total Protein 6.9 Albumin 3.3 L POC Urine HCG, Qual Syphilis Serology COVID-19 ([facility]) Hep A IgM Ab Confirm Cancelled Hep Bs Antigen Cancelled Hep Bs Ag Confirmation Cancelled Hep B Core IgM Ab Cancelled Hep C Ab Diagnostic <0.1 Hepatitis C Ab (EIA) Cancelled HIV Ag/Ab Combo Qual Negative 05/27/20 16:00 WBC RBC Hgb Hct MCV MCH MCHC RDW Plt Count MPV Sodium Potassium Chloride Carbon Dioxide Anion Gap BUN Creatinine Est GFR (CKD-EPI)AfAm Est GFR (CKD-EPI)NonAf Random Glucose Calcium Total Bilirubin AST ALT Alkaline Phosphatase Total Protein Albumin POC Urine HCG, Qual Syphilis Serology COVID-19 ([facility]) Not detected Hep A IgM Ab Confirm Hep Bs Antigen Hep Bs Ag Confirmation Hep B Core IgM Ab Hep C Ab Diagnostic Hepatitis C Ab (EIA) HIV Ag/Ab Combo Qual labs noted aaox3 lying in bed no acute distress Assessment: 05/29/20 09:37 withdrawals Plan: continue detox
[2020-05-29 10:02] VITALS: BP 130/80
[2020-05-29 10:03] VITALS: PULSE 99; TEMP 97.3
[2020-05-29] MEDS: amLODIPine BESYLATE 10 MG TABLET (FP) PO SCH (10:17)
[2020-05-29] MEDS: PRENATAL VITAMINS W/ FOLIC ACID TABLET (FP) PO SCH (10:17)
[2020-05-29] MEDS: HYDROCORTISONE 1% TOPICAL CREAM 30 GM TUBE TP SCH (10:19)
--- NOTE | 2020-05-29 12:37 | DS ---
[facility] Detox Discharge Summary Admission Date: 05/27/20 Discharge Date: 05/29/20 - History Present History: Alcohol Dependence - Physical Exam Results Vital Signs: Vital Signs Temperature 97.3 F L 05/29/20 08:40 Pulse Rate 99 H 05/29/20 08:40 Respiratory Rate 18 05/29/20 08:40 Blood Pressure 130/80 05/29/20 10:02 O2 Sat by Pulse Oximetry (%) 99 05/29/20 05:41 Pertinent Admission Physical Exam Findings: Vital Signs Temperature 97.3 F L 05/29/20 08:40 Pulse Rate 99 H 05/29/20 08:40 Respiratory Rate 18 05/29/20 08:40 Blood Pressure 130/80 05/29/20 10:02 O2 Sat by Pulse Oximetry (%) 99 05/29/20 05:41 Laboratory Tests 05/27/20 05/27/20 05/27/20 14:30 15:00 15:00 WBC 5.0 RBC 3.42 L Hgb 9.6 L Hct 29.2 L MCV 85.3 MCH 28.0 MCHC 32.8 RDW 24.9 H Plt Count 211 D MPV 8.4 Sodium Potassium Chloride Carbon Dioxide Anion Gap BUN Creatinine Est GFR (CKD-EPI)AfAm Est GFR (CKD-EPI)NonAf Random Glucose Calcium Total Bilirubin AST ALT Alkaline Phosphatase Total Protein Albumin POC Urine HCG, Qual Negative Syphilis Serology Non-reactive COVID-19 ([facility]) Hep A IgM Ab Confirm Hep Bs Antigen Hep Bs Ag Confirmation Hep B Core IgM Ab Hep C Ab Diagnostic Hepatitis C Ab (EIA) HIV Ag/Ab Combo Qual 05/27/20 05/27/20 05/27/20 15:00 15:00 15:00 WBC RBC Hgb Hct MCV MCH MCHC RDW Plt Count MPV Sodium 142 Potassium 3.6 Chloride 104 Carbon Dioxide 28 Anion Gap 10 BUN 5.5 L Creatinine 0.5 L Est GFR (CKD-EPI)AfAm 133.58 Est GFR (CKD-EPI)NonAf 115.25 Random Glucose 86 Calcium 7.9 L Total Bilirubin 0.3 AST 30 ALT 17 Alkaline Phosphatase 62 Total Protein 6.9 Albumin 3.3 L POC Urine HCG, Qual Syphilis Serology COVID-19 ([facility]) Hep A IgM Ab Confirm Cancelled Hep Bs Antigen Cancelled Hep Bs Ag Confirmation Cancelled Hep B Core IgM Ab Cancelled Hep C Ab Diagnostic <0.1 Hepatitis C Ab (EIA) Cancelled HIV Ag/Ab Combo Qual Negative 05/27/20 16:00 WBC RBC Hgb Hct MCV MCH MCHC RDW Plt Count MPV Sodium Potassium Chloride Carbon Dioxide Anion Gap BUN Creatinine Est GFR (CKD-EPI)AfAm Est GFR (CKD-EPI)NonAf Random Glucose Calcium Total Bilirubin AST ALT Alkaline Phosphatase Total Protein Albumin POC Urine HCG, Qual Syphilis Serology COVID-19 ([facility]) Not detected Hep A IgM Ab Confirm Hep Bs Antigen Hep Bs Ag Confirmation Hep B Core IgM Ab Hep C Ab Diagnostic Hepatitis C Ab (EIA) HIV Ag/Ab Combo Qual aaox3 ambulating no acute distress lungs CTA - Treatment Hospital Course: Detox Protocol Followed, Detoxed Safely, Responded well, Discharged Condition Good, Rehab Referral Accepted - Medication Discharge Medications: Ambulatory Orders Quetiapine Fumarate [Seroquel -] 100 mg PO HS 02/16/19 Amlodipine Besylate [Norvasc -] 10 mg PO DAILY 05/27/20 - Diagnosis (1) Alcohol-induced anxiety disorder Current Visit: Yes Status: Acute (2) Alcohol-induced sleep disorder Current Visit: Yes Status: Acute (3) Mood disorder Current Visit: Yes Status: Chronic (4) MDD (major depressive disorder) Current Visit: Yes Status: Ruled-out (5) Alcohol dependence with withdrawal Current Visit: No Status: Acute Qualifiers: Complication of substance-induced condition: uncomplicated Qualified Code(s): F10.230 - Alcohol dependence with withdrawal, uncomplicated (6) Depressed affect Current Visit: No Status: Acute (7) Substance induced mood disorder Current Visit: No Status: Acute (8) Substance-induced sleep disorder Current Visit: No Status: Acute (9) Alcohol abuse with alcohol-induced mood disorder Current Visit: No Status: Chronic (10) Alcohol use disorder Current Visit: No Status: Chronic (11) Alcohol-induced sleep disorder Current Visit: No Status: Chronic (12) Anemia Current Visit: No Status: Chronic Qualifiers: Iron deficiency anemia type: unspecified iron deficiency (13) Anxiety and depression Current Visit: No Status: Chronic (14) Dermatitis Current Visit: No Status: Chronic (15) HTN (hypertension) Current Visit: No Status: Chronic Qualifiers: Hypertension type: essential hypertension Qualified Code(s): I10 - Essential (primary) hypertension (16) Insomnia Current Visit: No Status: Chronic (17) Lipoma of back Current Visit: No Status: Chronic (18) Alcohol-induced mood disorder Current Visit: No Status: Suspected (19) Alcohol related seizure Current Visit: No Status: Ruled-out - AMA Did Patient Leave Against Medical Advice: No
[2020-05-30] MEDS ORDERED: LORazepam 0.5 MG TABLET PO PRN
[2020-05-30] MEDS ORDERED: LORazepam 0.5 MG TABLET PO SCH (05:00)
[2020-05-31] MEDS ORDERED: LORazepam 0.5 MG TABLET PO ONE (05:00)
== END 2020-05-29 13:28 | disposition home or self-care (01) | DRG 775 ==
LOC: YASAS 11:32 → Y6N 15:41
PROVIDERS: ADMIT Allergy & Immunology; ATTEND Allergy & Immunology
PROC: HZ2ZZZZ Detoxification Services for Substance Abuse Treatment (ICD-10-PCS; principal; 2020-05-27)
DX: F10.230 Alcohol dependence with withdrawal, uncomplicated (principal); F10.280 Alcohol dependence with alcohol-induced anxiety disorder; F10.24 Alcohol dependence with alcohol-induced mood disorder; F39 Unspecified mood [affective] disorder; F10.282 Alcohol dependence with alcohol-induced sleep disorder; D50.9 Iron deficiency anemia, unspecified; I10 Essential (primary) hypertension; L30.9 Dermatitis, unspecified; B19.10 Unspecified viral hepatitis B without hepatic coma; D17.1 Benign lipomatous neoplasm of skin and subcutaneous tissue of trunk; Z86.69 Personal history of other diseases of the nervous system and sense organs; Z86.19 Personal history of other infectious and parasitic diseases; Z91.410 Personal history of adult physical and sexual abuse; Z72.51 High risk heterosexual behavior; Z91.013 Allergy to seafood; Z56.0 Unemployment, unspecified; Z59.0 Homelessness
CPT/HCPCS: 36415; 71046-TC-FY; 80053; 81025; 85027; 86780; 86803; 87389; 93005; 93010; C9803; U0003

== ENCOUNTER 2020-06-27 13:21 | Inpatient (IN) | payer OTHER ==
[2020-06-27] MEDS ORDERED: METHOCARBAMOL 500 MG TABLET PO PRN (14:26)
[2020-06-27] MEDS ORDERED: MAGNESIUM CITRATE 300 ML BOTTLE PO PRN (14:26)
[2020-06-27] MEDS ORDERED: chlordiazePOXIDE HCL 25 MG CAPSULE PO PRN (14:26)
[2020-06-27] MEDS ORDERED: chlordiazePOXIDE HCL 25 MG CAPSULE PO ONE (14:26)
[2020-06-27] MEDS ORDERED: MAGNESIUM HYDROX 2400MG/30ML ORAL SUSPENSION 30 ML CUP PO PRN (14:26)
[2020-06-27] MEDS ORDERED: MENTHOL/PHENOL 1 EACH UD MM PRN (14:26)
[2020-06-27] MEDS ORDERED: NICOTINE POLACRILEX 2 MG GUM BUC PRN (14:26)
[2020-06-27] MEDS ORDERED: BISMUTH SUBSALICYLATE 262 MG/15 ML BTL PO PRN (14:26)
[2020-06-27] MEDS ORDERED: ACETAMINOPHEN 325 MG TABLET (FP) PO PRN ×2 (14:26)
[2020-06-27] MEDS ORDERED: MAG HYDROX/AL HYDROX/SIMETH 30 ML UNIT-DOSE CUP PO PRN (14:26)
[2020-06-27] MEDS ORDERED: IBUPROFEN 400 MG TABLET (FP) PO PRN (14:26)
[2020-06-27 15:13] VITALS: BMI 27.4
[2020-06-27] MEDS: PRENATAL VITAMINS W/ FOLIC ACID TABLET (FP) PO SCH (15:56)
[2020-06-27] MEDS: ONDANSETRON *ODT* 4 MG TABLET SL PRN ×2 (15:56→22:58)
[2020-06-27 17:26] LABS: HEMOGLOBIN 10.8 GM/dL (10.7-15.3); MCH 29.1 pg (25.7-33.7); MCHC 31.9 g/dl (32.0-36.0); MEAN CELL VOLUME 91.2 fl (80-96); MEAN PLT VOLUME 8.3 fl (7.5-11.1); PLATELET COUNT 246 K/MM3 (134-434); RBC 3.73 M/mm3 (3.60-5.2); RDW 24.1 % (11.6-15.6); WHITE BLOOD COUNT 4.9 K/mm3 (4.0-10.0)
[2020-06-27 17:32] LABS: POTASSIUM 3.4 mmol/L (3.5-5.1)
[2020-06-27 17:34] LABS: ALBUMIN 3.6 g/dl (3.4-5.0); BLOOD UREA NITROGEN 6.4 mg/dL (7-18); CALCIUM 7.8 mg/dL (8.5-10.1)
[2020-06-27 17:37] LABS: CREATININE 0.6 mg/dL (0.55-1.3)
[2020-06-27 17:39] LABS: BILIRUBIN,TOTAL 0.6 mg/dL (0.2-1); TOT PROT 7.2 g/dl (6.4-8.2)
[2020-06-27] MEDS: chlordiazePOXIDE HCL 25 MG CAPSULE PO SCH ×2 (17:43→22:16)
[2020-06-27] MEDS: hydrOXYzine PAMOATE 25 MG CAPSULE (FP) PO SCH ×2 (17:43→22:16)
[2020-06-27] MEDS: THIAMINE HCL 100 MG TABLET (FP) PO SCH (22:16)
[2020-06-27] MEDS: MELATONIN 5 MG TABLETS PO SCH (22:16)
[2020-06-28] MEDS: chlordiazePOXIDE HCL 25 MG CAPSULE PO SCH ×4 (06:02→22:26)
[2020-06-28] MEDS: hydrOXYzine PAMOATE 25 MG CAPSULE (FP) PO SCH ×5 (06:02→22:25)
[2020-06-28] MEDS ORDERED: POTASSIUM CHLORIDE TABS 20 MEQ TABLET.ER (FP) PO ONE (07:45)
[2020-06-28] MEDS: amLODIPine BESYLATE 10 MG TABLET (FP) PO SCH (10:30)
[2020-06-28] MEDS: PRENATAL VITAMINS W/ FOLIC ACID TABLET (FP) PO SCH (10:30)
[2020-06-28] MEDS ORDERED: COLLOIDAL OATMEAL 1 BAR EACH TP PRN (10:36)
[2020-06-28] MEDS: HYDROCORTISONE 0.5% TOPICAL CREAM 30 GM TUBE TP SCH ×2 (11:01→22:31)
[2020-06-28] MEDS: CALCIUM 500MG/VIT-D 200 UNITS COMBO TABLET (FP) PO SCH ×2 (11:02→22:25)
[2020-06-28 12:28] LABS: HIV INTERPRETATION NEGATIVE (NEGATIVE)
[2020-06-28] MEDS: THIAMINE HCL 100 MG TABLET (FP) PO SCH (22:25)
[2020-06-28] MEDS: MELATONIN 5 MG TABLETS PO SCH (22:29)
[2020-06-29] MEDS: hydrOXYzine PAMOATE 25 MG CAPSULE (FP) PO SCH ×5 (06:08→22:26)
[2020-06-29] MEDS: chlordiazePOXIDE HCL 25 MG CAPSULE PO SCH ×4 (06:08→22:26)
[2020-06-29] MEDS: PRENATAL VITAMINS W/ FOLIC ACID TABLET (FP) PO SCH (10:09)
[2020-06-29] MEDS: CALCIUM 500MG/VIT-D 200 UNITS COMBO TABLET (FP) PO SCH ×2 (10:09→22:26)
[2020-06-29] MEDS: amLODIPine BESYLATE 10 MG TABLET (FP) PO SCH (10:09)
[2020-06-29] MEDS: HYDROCORTISONE 0.5% TOPICAL CREAM 30 GM TUBE TP SCH ×2 (10:11→22:29)
[2020-06-29] MEDS ORDERED: MELATONIN 5 MG TABLETS PO SCH (19:01)
[2020-06-29] MEDS: THIAMINE HCL 100 MG TABLET (FP) PO SCH (22:25)
[2020-06-30] MEDS ORDERED: chlordiazePOXIDE HCL 10 MG CAPSULE PO PRN
[2020-06-30] MEDS: chlordiazePOXIDE HCL 10 MG CAPSULE PO SCH ×2 (06:14→10:05)
[2020-06-30] MEDS: hydrOXYzine PAMOATE 25 MG CAPSULE (FP) PO SCH ×2 (06:14→10:05)
[2020-06-30 09:31] VITALS: BP 132/86; PULSE 109; TEMP 98.2
[2020-06-30] MEDS: CALCIUM 500MG/VIT-D 200 UNITS COMBO TABLET (FP) PO SCH (10:05)
[2020-06-30] MEDS: PRENATAL VITAMINS W/ FOLIC ACID TABLET (FP) PO SCH (10:05)
[2020-06-30] MEDS: amLODIPine BESYLATE 10 MG TABLET (FP) PO SCH (10:05)
[2020-06-30] MEDS: HYDROCORTISONE 0.5% TOPICAL CREAM 30 GM TUBE TP SCH (10:05)
[2020-07-01] MEDS ORDERED: chlordiazePOXIDE HCL 10 MG CAPSULE PO SCH (05:00)
[2020-07-02] MEDS ORDERED: chlordiazePOXIDE HCL 10 MG CAPSULE PO ONE (05:00)
== END 2020-06-30 12:45 | disposition left against medical advice (07) | DRG 770 ==
LOC: YASAS 13:21 → Y6N 15:15
PROVIDERS: ADMIT Allergy & Immunology; ATTEND Allergy & Immunology
PROC: HZ2ZZZZ Detoxification Services for Substance Abuse Treatment (ICD-10-PCS; principal; 2020-06-27)
DX: F10.230 Alcohol dependence with withdrawal, uncomplicated (principal); F10.280 Alcohol dependence with alcohol-induced anxiety disorder; F10.282 Alcohol dependence with alcohol-induced sleep disorder; B19.10 Unspecified viral hepatitis B without hepatic coma; F32.89 Other specified depressive episodes; F39 Unspecified mood [affective] disorder; E83.51 Hypocalcemia; E87.6 Hypokalemia; G47.00 Insomnia, unspecified; I10 Essential (primary) hypertension; D17.1 Benign lipomatous neoplasm of skin and subcutaneous tissue of trunk; K21.9 Gastro-esophageal reflux disease without esophagitis; Z86.69 Personal history of other diseases of the nervous system and sense organs; Z86.19 Personal history of other infectious and parasitic diseases; Z87.19 Personal history of other diseases of the digestive system; Z91.013 Allergy to seafood; Z91.410 Personal history of adult physical and sexual abuse
CPT/HCPCS: 36415; 80053; 84132; 85027; 86780; 87389; C9803; Q0162; U0003

== ENCOUNTER 2020-09-14 08:53 | Emergency (ER) | payer OTHER ==
[2020-09-14 09:38] VITALS: BMI 29.2
[2020-09-14] MEDS ORDERED: DIPHTH,PERTUSS(ACELL),TET 0.5 ML DISP.SYRIN IM ONE ×2 (09:53→10:13)
[2020-09-14 09:55] VITALS: TEMP 96.9
[2020-09-14 15:57] VITALS: BP 101/65; PULSE 105
[2020-09-14] MEDS ORDERED: chlordiazePOXIDE HCL 25 MG CAPSULE PO ONE (16:12)
[2020-09-14] MEDS ORDERED: chlordiazePOXIDE HCL 25 MG CAPSULE ONE (16:14)
[2020-09-15] MEDS ORDERED: QUEtiapine FUMARATE 50 MG TABLET PO ONE (18:31)
[2020-09-15] MEDS ORDERED: QUEtiapine FUMARATE 25 MG TABLET PO SCH (22:00)
== END 2020-09-14 17:48 | disposition home or self-care (01) ==
LOC: JER 08:53
PROC: 0JQ10ZZ Repair Face Subcutaneous Tissue and Fascia, Open Approach (ICD-10-PCS; principal; 2020-09-14)
PROC: 3E0234Z Introduction of Serum, Toxoid and Vaccine into Muscle, Percutaneous Approach (ICD-10-PCS; 2020-09-14)
DX: S01.81XA Laceration without foreign body of other part of head, initial encounter (principal)
CPT/HCPCS: 70450-TC; 82962; 90715; 99285-25

== ENCOUNTER 2020-09-14 18:21 | Inpatient (IN) | payer OTHER ==
[2020-09-14 18:57] VITALS: BMI 26.2
[2020-09-14] MEDS ORDERED: IBUPROFEN 400 MG TABLET (FP) PO PRN (20:54)
[2020-09-14] MEDS ORDERED: BISMUTH SUBSALICYLATE 524 MG/30 ML UD PO PRN (20:54)
[2020-09-14] MEDS ORDERED: MAGNESIUM HYDROX 2400MG/30ML ORAL SUSPENSION 30 ML CUP PO PRN (20:54)
[2020-09-14] MEDS ORDERED: METHOCARBAMOL 500 MG TABLET PO PRN (20:54)
[2020-09-14] MEDS ORDERED: MENTHOL/PHENOL 1 EACH UD MM PRN (20:54)
[2020-09-14] MEDS ORDERED: MAG HYDROX/AL HYDROX/SIMETH 30 ML UNIT-DOSE CUP PO PRN (20:54)
[2020-09-14] MEDS ORDERED: MAGNESIUM CITRATE 300 ML BOTTLE PO PRN (20:54)
[2020-09-14] MEDS ORDERED: ACETAMINOPHEN 325 MG TABLET (FP) PO PRN ×2 (20:54)
[2020-09-14] MEDS ORDERED: ONDANSETRON *ODT* 4 MG TABLET SL PRN (20:54)
[2020-09-14] MEDS ORDERED: chlordiazePOXIDE HCL 25 MG CAPSULE PO PRN (20:54)
[2020-09-14] MEDS: MELATONIN 5 MG TABLETS PO SCH (23:08)
[2020-09-14] MEDS: chlordiazePOXIDE HCL 25 MG CAPSULE PO SCH (23:08)
[2020-09-14] MEDS: THIAMINE HCL 100 MG TABLET (FP) PO SCH (23:08)
[2020-09-15] MEDS: chlordiazePOXIDE HCL 25 MG CAPSULE PO SCH ×5 (05:36→22:22)
[2020-09-15] MEDS: PRENATAL VITAMINS W/ FOLIC ACID TABLET (FP) PO SCH (10:29)
[2020-09-15] MEDS: amLODIPine BESYLATE 10 MG TABLET (FP) PO SCH (10:29)
[2020-09-15 11:43] LABS: HEMATOCRIT 35.2 % (32.4-45.2); HEMOGLOBIN 11.8 GM/dL (10.7-15.3); MCH 30.7 pg (25.7-33.7); MCHC 33.6 g/dl (32.0-36.0); MEAN CELL VOLUME 91.4 fl (80-96); MEAN PLT VOLUME 9.4 fl (7.5-11.1); PLATELET COUNT 167 K/MM3 (134-434); RBC 3.86 M/mm3 (3.60-5.2); RDW 18.8 % (11.6-15.6); WHITE BLOOD COUNT 7.8 K/mm3 (4.0-10.0)
[2020-09-15 12:40] LABS: POTASSIUM 3.2 mmol/L (3.5-5.1)
[2020-09-15 12:42] LABS: CALCIUM 8.2 mg/dL (8.5-10.1); HIV INTERPRETATION NEGATIVE (NEGATIVE)
[2020-09-15 12:43] LABS: ALBUMIN 3.2 g/dl (3.4-5.0); BLOOD UREA NITROGEN 12.3 mg/dL (7-18)
[2020-09-15 12:46] LABS: CREATININE 0.8 mg/dL (0.55-1.3)
[2020-09-15 12:47] LABS: BILIRUBIN,TOTAL 0.8 mg/dL (0.2-1)
[2020-09-15 12:48] LABS: TOT PROT 7.5 g/dl (6.4-8.2)
[2020-09-15] MEDS ORDERED: POTASSIUM CHLORIDE ORAL LIQUID 20 MEQ/15 ML PO ONE ×2 (17:24→21:30)
[2020-09-15] MEDS: THIAMINE HCL 100 MG TABLET (FP) PO SCH (22:17)
[2020-09-15] MEDS: MELATONIN 5 MG TABLETS PO SCH (22:17)
[2020-09-16] MEDS: chlordiazePOXIDE HCL 25 MG CAPSULE PO SCH ×4 (05:19→22:06)
[2020-09-16] MEDS: PRENATAL VITAMINS W/ FOLIC ACID TABLET (FP) PO SCH (10:10)
[2020-09-16] MEDS: amLODIPine BESYLATE 10 MG TABLET (FP) PO SCH (10:10)
[2020-09-16] MEDS: HYDROCORTISONE 1% TOPICAL CREAM 30 GM TUBE TP PRN (17:48)
[2020-09-16] MEDS ORDERED: QUEtiapine FUMARATE 50 MG TABLET PO SCH (22:00)
[2020-09-16] MEDS: THIAMINE HCL 100 MG TABLET (FP) PO SCH (22:04)
[2020-09-16] MEDS: MELATONIN 5 MG TABLETS PO SCH (22:05)
[2020-09-17] MEDS ORDERED: chlordiazePOXIDE HCL 10 MG CAPSULE PO PRN
[2020-09-17] MEDS: chlordiazePOXIDE HCL 10 MG CAPSULE PO SCH ×4 (06:28→22:13)
[2020-09-17] MEDS: PRENATAL VITAMINS W/ FOLIC ACID TABLET (FP) PO SCH (10:15)
[2020-09-17] MEDS: amLODIPine BESYLATE 10 MG TABLET (FP) PO SCH (10:15)
[2020-09-17] MEDS: BACITRACIN 0.9 GM PACKET TP SCH (13:43)
[2020-09-17] MEDS ORDERED: COLLOIDAL OATMEAL 1 BAR EACH TP ONE (14:00)
[2020-09-17] MEDS: NITROFURANTOIN MACROCRYSTAL 50 MG CAPSULE (FP) PO SCH ×2 (19:27→23:20)
[2020-09-17] MEDS: QUEtiapine FUMARATE 100 MG TABLET (FP) PO SCH (22:12)
[2020-09-17] MEDS: MELATONIN 5 MG TABLETS PO SCH (22:12)
[2020-09-17] MEDS: THIAMINE HCL 100 MG TABLET (FP) PO SCH (22:12)
[2020-09-17] MEDS: HYDROCORTISONE 1% TOPICAL CREAM 30 GM TUBE TP PRN (23:20)
[2020-09-18] MEDS: chlordiazePOXIDE HCL 10 MG CAPSULE PO SCH ×2 (06:40→17:45)
[2020-09-18] MEDS: NITROFURANTOIN MACROCRYSTAL 50 MG CAPSULE (FP) PO SCH ×3 (07:46→17:54)
[2020-09-18] MEDS: BACITRACIN 0.9 GM PACKET TP SCH (09:42)
[2020-09-18] MEDS: amLODIPine BESYLATE 10 MG TABLET (FP) PO SCH (09:42)
[2020-09-18] MEDS: PRENATAL VITAMINS W/ FOLIC ACID TABLET (FP) PO SCH (09:42)
[2020-09-18] MEDS: MELATONIN 5 MG TABLETS PO SCH (22:22)
[2020-09-18] MEDS: THIAMINE HCL 100 MG TABLET (FP) PO SCH (22:22)
[2020-09-18] MEDS: QUEtiapine FUMARATE 100 MG TABLET (FP) PO SCH (22:22)
[2020-09-19] MEDS: NITROFURANTOIN MACROCRYSTAL 50 MG CAPSULE (FP) PO SCH ×2 (00:04→06:18)
[2020-09-19] MEDS ORDERED: chlordiazePOXIDE HCL 10 MG CAPSULE PO ONE (05:00)
[2020-09-19 09:06] VITALS: BP 126/88; PULSE 111; TEMP 97.1
[2020-09-19] MEDS: PRENATAL VITAMINS W/ FOLIC ACID TABLET (FP) PO SCH (10:25)
[2020-09-19] MEDS: amLODIPine BESYLATE 10 MG TABLET (FP) PO SCH (10:25)
[2020-09-19] MEDS: BACITRACIN 0.9 GM PACKET TP SCH (10:25)
== END 2020-09-19 10:46 | disposition home or self-care (01) | DRG 775 ==
LOC: YASAS 18:21 → Y3N 19:41
PROVIDERS: ADMIT Allergy & Immunology; ATTEND Allergy & Immunology
PROC: HZ2ZZZZ Detoxification Services for Substance Abuse Treatment (ICD-10-PCS; principal; 2020-09-14)
DX: F10.230 Alcohol dependence with withdrawal, uncomplicated (principal); F19.24 Other psychoactive substance dependence with psychoactive substance-induced mood disorder; F10.280 Alcohol dependence with alcohol-induced anxiety disorder; F19.282 Other psychoactive substance dependence with psychoactive substance-induced sleep disorder; F10.282 Alcohol dependence with alcohol-induced sleep disorder; F41.8 Other specified anxiety disorders; F32.9 Major depressive disorder, single episode, unspecified; D50.9 Iron deficiency anemia, unspecified; I10 Essential (primary) hypertension; K21.9 Gastro-esophageal reflux disease without esophagitis; D17.1 Benign lipomatous neoplasm of skin and subcutaneous tissue of trunk; B19.10 Unspecified viral hepatitis B without hepatic coma; S01.81XA Laceration without foreign body of other part of head, initial encounter; S00.83XA Contusion of other part of head, initial encounter; W18.39XA Other fall on same level, initial encounter; Y92.238 Other place in hospital as the place of occurrence of the external cause; Z86.19 Personal history of other infectious and parasitic diseases; Z86.69 Personal history of other diseases of the nervous system and sense organs; Z91.013 Allergy to seafood; Y93.89 Activity, other specified; Y99.8 Other external cause status
CPT/HCPCS: 36415; 80053; 81025; 84132; 85027; 86780; 87389; 93005; 93010; C9803; U0003